=== PATIENT | female | born 1970 | race Caucasian/White ===

== ENCOUNTER 2020-10-21 17:15 | Emergency (ER) | payer OTHER, SELFPAY ==
[2020-10-21] VITALS (8 sets, daily range): BP systolic 114–132; BP diastolic 66–91; PULSE 75–89; RESP 16–21; TEMP 36.3–36.6; O2SAT 96–98; BMI 35.6
--- NOTE | 2020-10-21 17:28 | ECG_ITS ---
Test Reason : SYNCOPE Blood Pressure : / mmHG Vent. Rate : 085 BPM Atrial Rate : 085 BPM P-R Int : 170 ms QRS Dur : 106 ms QT Int : 408 ms P-R-T Axes : 034 003 -09 degrees QTc Int : 485 ms Normal sinus rhythm Minimal voltage criteria for LVH, may be normal variant Cannot rule out Anterior infarct , age undetermined Nonspecific ST and T wave abnormality Abnormal ECG No previous ECGs available Referred By: Obdulia Gee Electronically Signed By:LIV BUNCH
--- NOTE | 2020-10-21 17:59 | ED.SYNCOPE ---
HPI - Syncope General Chief Complaint: Syncope Stated Complaint: SYNCOPAL Time Seen by Provider: 10/21/20 17:28 History of Present Illness HPI narrative: Patient is a 50-year-old female with a history of irritable bowel syndrome. Normally gets lots of diarrhea. There is no blood in her stool but she is noticing increasing bouts due to stress. She had a colonoscopy done there was no abnormal findings. No history of diabetes, hypertension, mi, family history of WI. No history of smoking. Patient denies any chest pain. Has dizziness lightheadedness while she was walking down the aisle for Pedialyte which she was trying to obtain. Then she felt very lightheaded. Then she sat down and then had a syncopal episode. There was no trauma involved. Gradually regained her consciousness. Patient denies any fever chills. Denies any abdominal pain. Patient is from home. Related Data Allergies Allergy/AdvReac Type Severity Reaction Status Date / Time Sulfa (Sulfonamide Allergy Unknown Verified 11/07/19 00:00 Antibiotics) Erythromycin Allergy Unknown Uncoded 11/07/19 00:00 Review of Systems Review of Systems: Constitutional: No Weight loss, No Fever, No Chills, No Night Sweats, No Fatigue, No Malaise ENT/Mouth: No Hearing loss, No Ear Pain, No Nasal Congestion, No Sinus Pain, No Hoarseness, No sore throat, No Rhinorrhea, No Swallowing Difficulty Eyes: No Eye Pain, No Swelling, No Redness, No Foreign Body, No Discharge, No Vision Changes Cardiovascular: No Chest Pain, No SOB, No Dyspnea on Exertion, No Orthopnea, No Edema, No Palpitations Respiratory: No Cough, No Sputum, No Wheezing, No Smoke Exposure, No Dyspnea Gastrointestinal: No Nausea, No Vomiting, positive Diarrhea, No Constipation, No abdominal Pain, No Hematochezia, No Melena Genitourinary: no irregular bleeding, No Dysuria, No Urinary Frequency, No Hematuria, No Urinary Incontinence, No Urgency, No Flank Pain, No Urinary Flow Changes, No Hesitancy Musculoskeletal: No joint pain, No Myalgias, No Joint Swelling Skin: No Skin Lesions, No rash Neuro: No Weakness, positive Numbness, No Paresthesias, No Loss of Consciousness, positive Dizziness, No Headache Psych: No Anxiety/Panic, No Depression, No SI/HI/AH/VH, No Social Issues, Heme/Lymph: No Bruising, No Bleeding,No Lymphadenopathy Endocrine: No Polyuria, No Polydipsia, No Temperature Intolerance [facility] Past Medical History Medical History Depression Social History Social History Alcohol intake: never Smoked in Last 30 Days: No Use of substances other than those prescribed or required for medical reasons: No Advance Directives: No Advance Directives Information Provided: Yes Patient : No Physical Exam Vital Signs: Vital Signs: Last Vital Signs Temp 97.6 F 10/21/20 21:37 Pulse 76 10/21/20 21:51 Resp 17 10/21/20 21:37 BP 131/91 H 10/21/20 21:51 Pulse Ox 96 10/21/20 21:37 Body Mass Index 35.6 Appearance: Alert. Oriented X3. No acute distress. Eyes: Pupils equal, round and reactive to light. ENT: Pharynx normal. Mucous membrane is moist. Neck: Normal inspection. Neck supple. No lymph nodes noted. No crepitus CVS: Normal heart rate and rhythm. Pulses normal. Normal S1 and S2 Respiratory: No respiratory distress. Breath sounds normal. No Wheezing. No rales Abdomen: Soft and nontender. No rigidity. No distention. good BS x4 Skin: Skin warm and dry. Normal skin color. Normal skin turgor. Extremities: No lower extremity edema. Neurovascular intact to all extremities. No Lacerations. No Rash Neuro: Oriented X 3. No motor deficit. No sensory deficit. Moving all extermities. No slurred speech Course Course Course Narrative: Patient well-appearing no acute distress. Symptoms suggestive of vasovagal syncope. We will go ahead and give IV fluids. Will check electrolytes to monitor. Currently in stable condition. MDM - Syncope MDM Narrative Medical decision making narrative: Positive lightheadedness positive diarrhea positive syncopal episode without any trauma. There is no chest pain. There is no cardiac risk factors. Patient's symptoms most likely vasovagal in origin. We will go and give IV fluid will monitor carefully. EKG appears normal Patient's labs are unremarkable. Signs and symptoms suggestive of vasovagal syncope. Will discharge patient home. Close follow-up on an outpatient basis. Lab Data Result diagrams: 10/21/20 18:31 10/21/20 18:31 Labs: Lab Results 10/21/20 10/21/20 10/21/20 Range/Units 18:31 18:31 18:31 WBC 6.1 (4.8-10.8) X10*3/uL RBC 4.32 (4.20-5.50) X10*6/uL Hgb 13.3 (12.0-16.0) g/dl Hct 39.6 (37-47) % MCV 91.7 (80-98) fL MCH 30.8 (27.0-33.0) pg MCHC 33.6 (31.0-35.0) g/dl RDW 12.8 (11.0-16.0) % Plt Count 283 (160-400) X10*3/uL MPV 9.3 L (9.4-12.3) fL Immature Gran % (Auto) 0.5 H (0.0-0.4) % Neut % (Auto) 57.0 (45-73) % Lymph % (Auto) 31.4 (20-40) % Whitley % (Auto) 8.3 (2-11) % Eos % (Auto) 2.3 (0-4) % Baso % (Auto) 0.5 (0-2) % Lymph # (Auto) 1.9 (1.2-4.9) X10*3/uL Whitley # (Auto) 0.5 (0.1-1.2) X10*3/uL Eos # (Auto) 0.1 (0.0-0.4) X10*3/uL Baso # (Auto) 0.0 (0.0-0.2) X10*3/uL Abs Immat Gran (auto) 0.03 (0.00-0.03) X10*3/uL Absolute Neuts (auto) 3.5 (2.0-8.3) X10*3/uL Absolute Nucleated RBC 0.000 (0.0-0.012) X10*3/uL Nucleated RBC % (auto) 0.0 (0.0-0.2) /100WBC Hold Blue Top SEE NOTE Sodium 141 (135-145) mmol/L Potassium 3.7 (3.3-5.1) mmol/L Chloride 105 (96-108) mmol/L Carbon Dioxide 27 (22-29) mmol/L Anion Gap 13 (12-20) BUN 10 (9-16) mg/dL Creatinine 0.66 (0.5-1.4) mg/dL Estim Creat Clear Calc 119.1 Estimated GFR > 60 Random Glucose 97 (60-115) mg/dL Calcium 9.2 (8.4-10.2) mg/dL Magnesium 2.0 (1.6-2.6) mg/dL Total Bilirubin 0.3 (0.0-1.0) mg/dL Direct Bilirubin 0.2 (0.0-0.5) mg/dL AST 19 (5-31) U/L ALT 22 (0-31) U/L Alkaline Phosphatase 70 (39-117) U/L Troponin I High Sens (<3.5-17.0) ng/L Total Protein 7.0 (6.5-8.0) g/dL Albumin 4.5 (3.5-5.0) g/dL Urine Color Urine Appearance Urine pH (5.0-8.0) Ur Specific [place] (1.005-1.025) Urine Protein (NEG-TRACE) MG/DL Urine Glucose (UA) (NEG) MG/DL Urine Ketones (NEG) MG/DL Urine Blood (NEG) Urine Nitrite (NEG) Ur Leukocyte Esterase (NEG) Urine RBC (0) /HPF Urine WBC (0-4) /HPF Ur Squamous Epith Cells /LPF Urine Bacteria /LPF Urine Mucus /LPF Ethyl Alcohol mg/dL COVID-19 (MICHEL) (Negative) COVID-19 Clin Com 10/21/20 10/21/20 10/21/20 Range/Units 18:31 18:31 18:31 WBC (4.8-10.8) X10*3/uL RBC (4.20-5.50) X10*6/uL Hgb (12.0-16.0) g/dl Hct (37-47) % MCV (80-98) fL MCH (27.0-33.0) pg MCHC (31.0-35.0) g/dl RDW (11.0-16.0) % Plt Count (160-400) X10*3/uL MPV (9.4-12.3) fL Immature Gran % (Auto) (0.0-0.4) % Neut % (Auto) (45-73) % Lymph % (Auto) (20-40) % Whitley % (Auto) (2-11) % Eos % (Auto) (0-4) % Baso % (Auto) (0-2) % Lymph # (Auto) (1.2-4.9) X10*3/uL Whitley # (Auto) (0.1-1.2) X10*3/uL Eos # (Auto) (0.0-0.4) X10*3/uL Baso # (Auto) (0.0-0.2) X10*3/uL Abs Immat Gran (auto) (0.00-0.03) X10*3/uL Absolute Neuts (auto) (2.0-8.3) X10*3/uL Absolute Nucleated RBC (0.0-0.012) X10*3/uL Nucleated RBC % (auto) (0.0-0.2) /100WBC Hold Blue Top Sodium (135-145) mmol/L Potassium (3.3-5.1) mmol/L Chloride (96-108) mmol/L Carbon Dioxide (22-29) mmol/L Anion Gap (12-20) BUN (9-16) mg/dL Creatinine (0.5-1.4) mg/dL Estim Creat Clear Calc Estimated GFR Random Glucose (60-115) mg/dL Calcium (8.4-10.2) mg/dL Magnesium (1.6-2.6) mg/dL Total Bilirubin (0.0-1.0) mg/dL Direct Bilirubin (0.0-0.5) mg/dL AST (5-31) U/L ALT (0-31) U/L Alkaline Phosphatase (39-117) U/L Troponin I High Sens < 3.5 (<3.5-17.0) ng/L Total Protein (6.5-8.0) g/dL Albumin (3.5-5.0) g/dL Urine Color YELLOW Urine Appearance HAZY Urine pH 6.0 (5.0-8.0) Ur Specific [place] 1.015 (1.005-1.025) Urine Protein NEG (NEG-TRACE) MG/DL Urine Glucose (UA) NEG (NEG) MG/DL Urine Ketones NEG (NEG) MG/DL Urine Blood 3+ H (NEG) Urine Nitrite NEG (NEG) Ur Leukocyte Esterase NEG (NEG) Urine RBC 1-4 (0) /HPF Urine WBC 0 (0-4) /HPF Ur Squamous Epith Cells 2+ /LPF Urine Bacteria TRACE /LPF Urine Mucus TRACE /LPF Ethyl Alcohol < 10 mg/dL COVID-19 (MICHEL) (Negative) COVID-19 Clin Com 10/21/20 Range/Units 18:32 WBC (4.8-10.8) X10*3/uL RBC (4.20-5.50) X10*6/uL Hgb (12.0-16.0) g/dl Hct (37-47) % MCV (80-98) fL MCH (27.0-33.0) pg MCHC (31.0-35.0) g/dl RDW (11.0-16.0) % Plt Count (160-400) X10*3/uL MPV (9.4-12.3) fL Immature Gran % (Auto) (0.0-0.4) % Neut % (Auto) (45-73) % Lymph % (Auto) (20-40) % Whitley % (Auto) (2-11) % Eos % (Auto) (0-4) % Baso % (Auto) (0-2) % Lymph # (Auto) (1.2-4.9) X10*3/uL Whitley # (Auto) (0.1-1.2) X10*3/uL Eos # (Auto) (0.0-0.4) X10*3/uL Baso # (Auto) (0.0-0.2) X10*3/uL Abs Immat Gran (auto) (0.00-0.03) X10*3/uL Absolute Neuts (auto) (2.0-8.3) X10*3/uL Absolute Nucleated RBC (0.0-0.012) X10*3/uL Nucleated RBC % (auto) (0.0-0.2) /100WBC Hold Blue Top Sodium (135-145) mmol/L Potassium (3.3-5.1) mmol/L Chloride (96-108) mmol/L Carbon Dioxide (22-29) mmol/L Anion Gap (12-20) BUN (9-16) mg/dL Creatinine (0.5-1.4) mg/dL Estim Creat Clear Calc Estimated GFR Random Glucose (60-115) mg/dL Calcium (8.4-10.2) mg/dL Magnesium (1.6-2.6) mg/dL Total Bilirubin (0.0-1.0) mg/dL Direct Bilirubin (0.0-0.5) mg/dL AST (5-31) U/L ALT (0-31) U/L Alkaline Phosphatase (39-117) U/L Troponin I High Sens (<3.5-17.0) ng/L Total Protein (6.5-8.0) g/dL Albumin (3.5-5.0) g/dL Urine Color Urine Appearance Urine pH (5.0-8.0) Ur Specific [place] (1.005-1.025) Urine Protein (NEG-TRACE) MG/DL Urine Glucose (UA) (NEG) MG/DL Urine Ketones (NEG) MG/DL Urine Blood (NEG) Urine Nitrite (NEG) Ur Leukocyte Esterase (NEG) Urine RBC (0) /HPF Urine WBC (0-4) /HPF Ur Squamous Epith Cells /LPF Urine Bacteria /LPF Urine Mucus /LPF Ethyl Alcohol mg/dL COVID-19 (MICHEL) Negative (Negative) COVID-19 Clin Com See Note ECG Data Attestation: I personally reviewed and interpreted this ECG as follows: Interpretation: Sinus heart rate is 80 LA QRS QT within normal limits there is nonspecific T-wave flattening diffusely noted.
--- NOTE | 2020-10-21 18:31 | PC.NURSE ---
pt had another episode in the bathroom sitting on the toilet. pt responsive and answering questions during entire event, pt scrunching eyes closed and eye lids are fluttering. pt assisted to wc and back into bed.
[2020-10-21] MEDS: 0.9 % Sodium Chloride 1,000 ML 999 ML IV ×2 (18:33→19:43)
[2020-10-21 18:44] LABS: MANUAL DIFF FLAG NO
[2020-10-21 18:45] LABS: Basophils Percent Auto 0.5 % (0-2); Eosinophils Absolute Auto 0.1 X10*3/uL (0.0-0.4); Eosinophils Percent Auto 2.3 % (0-4); Hematocrit 39.6 % (37-47); Hemoglobin 13.3 g/dl (12.0-16.0); Imm Gran Abs Auto 0.03 X10*3/uL (0.00-0.03); Imm Gran Pct Auto 0.5 % (0.0-0.4); Lymphocytes Absolute Auto 1.9 X10*3/uL (1.2-4.9); Lymphocytes Percent Auto 31.4 % (20-40); Mean Corpuscular HGB Conc 33.6 g/dl (31.0-35.0); Mean Corpuscular Hemoglobin 30.8 pg (27.0-33.0); Mean Corpuscular Volume 91.7 fL (80-98); Mean Platelet Volume 9.3 fL (9.4-12.3); Monocytes Absolute Auto 0.5 X10*3/uL (0.1-1.2); Monocytes Percent Auto 8.3 % (2-11); Neutrophils Absolute Auto 3.5 X10*3/uL (2.0-8.3); Platelet Count 283 X10*3/uL (160-400); Red Blood Count 4.32 X10*6/uL (4.20-5.50); Red Cell Distribution Width 12.8 % (11.0-16.0); White Blood Count 6.1 X10*3/uL (4.8-10.8)
[2020-10-21 18:46] LABS: Glucose Urine UA NEG (NEG); Leukocyte Esterase Urine NEG (NEG); Nitrite Urine NEG (NEG); Specific Gravity - Urine 1.015 (1.005-1.025); Urine Blood 3+ (NEG); Urine Ketones NEG (NEG); Urine Protein NEG (NEG-TRACE)
[2020-10-21 18:47] LABS: Appearance Urine HAZY; Color Urine YELLOW
[2020-10-21 18:57] LABS: Bacteria Urine TRACE /LPF; Mucus Urine TRACE /LPF; Squamous Epithelial Cell Urine 2+ /LPF; WBC Urine 0 /HPF (0-4)
[2020-10-21 19:01] LABS: COVID-19 Test Negative (Negative)
[2020-10-21 19:10] LABS: Ethanol < 10 mg/dL
[2020-10-21 19:14] LABS: Alanine Aminotransferase 22 U/L (0-31); Albumin Level 4.5 g/dL (3.5-5.0); Alkaline Phosphatase 70 U/L (39-117); Anion Gap 13 (12-20); Aspartate Amino Transferase 19 U/L (5-31); Bilirubin Direct 0.2 mg/dL (0.0-0.5); Bilirubin Total 0.3 mg/dL (0.0-1.0); Blood Urea Nitrogen 10 mg/dL (9-16); Calcium 9.2 mg/dL (8.4-10.2); Carbon Dioxide 27 mmol/L (22-29); Chloride 105 mmol/L (96-108); Creatinine Clr Calc Pharmacy 119.1; Estimated Glomerular Filt Rate > 60; Glucose Random 97 mg/dL (60-115); Potassium 3.7 mmol/L (3.3-5.1); Sodium 141 mmol/L (135-145)
[2020-10-21 19:20] LABS: Troponin-I High Sensitivity < 3.5 ng/L (<3.5-17.0)
[2020-10-21] MEDS: Acetaminophen 325 MG TABLET 650 MG PO (20:46)
--- NOTE | 2020-10-21 20:47 | PC.NURSE ---
Pt medicated with Tylenol for a ROSS per request. Pt requesting PO intake.
--- NOTE | 2020-10-21 21:03 | PC.NURSE ---
Pt expressing concern to this RN, states she has a hematoma on her head from when she had a syncopal episode and fell. Pt rubbing the top of her head, stating here, here to this RN. This RN unable to feel any palpable hematoma/contusion. Pt requesting food/drink, provided with both. Continue to monitor.
--- NOTE | 2020-10-21 21:23 | PC.NURSE ---
Pt ambulating to and from the bathroom with a stringer/steady gait. Pt returned to bed into POC. Pt awaiting results and DC plan.
== END 2020-10-21 23:17 | disposition home or self-care (01) ==
PROVIDERS: Emergency Medicine; Emergency Provider Emergency Medicine Emergency Medical Services; PCP Internal Medicine
DX: R55 Syncope and collapse (principal); Z20.822 Contact with and (suspected) exposure to COVID-19; Z79.899 Other long term (current) drug therapy
CPT/HCPCS: 36415; 80048; 80076; 81001; 82077; 83735; 84484; 85025; 87635; 93005; 99285

== ENCOUNTER 2023-12-23 01:21 | Inpatient (IN) | payer OTHER, SELFPAY ==
[2023-12-23] VITALS (9 sets, daily range): BP systolic 115–147; BP diastolic 62–78; PULSE 69–89; RESP 16–20; TEMP 36.2–37.5; O2SAT 93–98; BMI 31.8; BMI 32.8
--- NOTE | ~2023-12-23 | US_ITS ---
EXAMINATION: US ABDOMEN COMPLETE CLINICAL INFORMATION: Abdominal pain, pancreatitis, elevated LFTs.. COMPARISON: CT abdomen pelvis 12/15/2023 at 3:14 AM. TECHNIQUE: Real-time imaging of the abdominal viscera. FINDINGS: PANCREAS: Normal. ABDOMINAL AORTA: The proximal, mid, and distal segments are normal in caliber. INFERIOR VENA CAVA: Visualized portions are normal. LIVER: Normal. The liver is normal in size. The liver contour is normal. Parenchymal echogenicity is normal. No focal hepatic lesion. There is no intrahepatic biliary duct dilatation seen. GALLBLADDER: There are echogenic gallstones without wall thickening. There is trace pericholecystic fluid collection suspected. COMMON BILE DUCT: Normal in caliber measuring 0.70 cm in diameter. RIGHT KIDNEY: Normal. No hydronephrosis. No renal calculi or focal parenchymal lesions. The kidney measures 11.3 cm in maximum dimension. LEFT KIDNEY: There is anechoic simple cyst midpole measuring 1.9 x 2.0 x 1.9 cm. It is unchanged to earlier CT abdomen exam 12/23/2023 No hydronephrosis. No renal calculi or focal parenchymal lesions. The kidney measures 11.2 cm in maximum dimension. SPLEEN: Normal. The spleen measures 11.7 cm in maximum dimension. FREE FLUID: None. US/US abdomen complete IMPRESSION: Cholelithiasis without wall thickening. Suspect trace pericardial gallbladder fluid collection. Simple cyst midpole left kidney. No further workup needed..
--- NOTE | ~2023-12-23 | MR_ITS ---
EXAMINATION: MR ABDOMEN WITHOUT CONTRAST CLINICAL INFORMATION: Elevated amylase and lipase. COMPARISON: Abdominal ultrasound 12/23/2023 CT abdomen/pelvis 12/23/2023 TECHNIQUE: MR abdomen is performed without gadolinium contrast. Heavily T2 weighted MRCP sequences were also obtained. FINDINGS: LUNG BASES: Small right pleural effusion. LIVER, GALLBLADDER, AND BILIARY TREE: The liver is normal in size, smooth in contour, and normal in signal. No focal hepatic lesion. The common duct measures 5 mm at the tavares hepatis. No intraductal filling defects. No intrahepatic biliary ductal dilatation.. Gallbladder is distended with few gallstones and biliary sludge. Diffuse gallbladder wall thickening and gallbladder wall edema. PANCREAS: Peripancreatic stranding and edema. No ductal dilatation. Fluid in the right anterior pararenal space. SPLEEN: Not enlarged. ADRENAL GLANDS: No adrenal mass. KIDNEYS AND URETERS: Benign-appearing T2 hyperintense left renal cyst, no imaging follow-up recommended. Mild fullness of the right collecting system. Nonspecific right perinephric stranding. GASTROINTESTINAL TRACT: No bowel obstruction. LYMPH NODES: No bulky lymphadenopathy. VASCULAR: Normal caliber abdominal aorta. MR/MR MRCP IMPRESSION: Gallbladder distention with stones and sludge. Gallbladder wall thickening and edema. This may represent acute cholecystitis. Peripancreatic stranding and edema. Fluid in the right anterior pararenal space. This likely represents acute pancreatitis. Mild fullness of the right renal collecting system with right perinephric stranding. This is likely on a reactive basis related to surrounding inflammation. Right pleural effusion.
--- NOTE | ~2023-12-23 | CT_ITS ---
EXAMINATION: CT ABDOMEN AND PELVIS WITH CONTRAST CLINICAL INFORMATION: Abdominal pain, elevated lipase COMPARISON: None available. TECHNIQUE: Multidetector volumetric images were obtained from the superior aspect of the liver through the pubic symphysis following administration 85 mL of Omnipaque 350 intravenous contrast. Sagittal and coronal reformatted images were obtained on the technologist's workstation. Oral contrast: No This CT examination was performed using dose optimization techniques as appropriate, variously including the following: *Automated exposure control *Adjustment of mA and/or kV according to patient size (this includes techniques or standardized protocols for targeted exams where dose is matched to indication/reason for exam; i.e. extremities or head) *Use of iterative reconstruction technique DLP: 828 mGy-cm FINDINGS: LUNG BASES: Limited evaluation due to motion artifact. Mild bibasilar atelectasis is suspected. LIVER, GALLBLADDER, AND BILIARY TREE: The liver is normal in size, shape, and attenuation. No focal hepatic lesion or biliary ductal dilatation is present. The gallbladder is unremarkable with no evidence of radiopaque gallstones, gallbladder wall thickening, or obvious pericholecystic inflammatory changes. PANCREAS: Somewhat limited evaluation due to motion artifact. Homogeneous enhancement. No appreciable peripancreatic inflammation or ductal dilatation. SPLEEN: Unremarkable. ADRENAL GLANDS: Unremarkable. KIDNEYS AND URETERS: Bilateral nephrograms are symmetric. No hydronephrosis or obstructing calculus identified. Posterior left renal cyst measures approximately 2.1 cm; no follow-up recommended. BLADDER: Unremarkable. GASTROINTESTINAL TRACT: No evidence of bowel obstruction or significant wall thickening. No free air is seen. ABDOMINAL WALL: Small fat-containing umbilical hernia. LYMPH NODES: Normal. VASCULAR: Unremarkable. PELVIC VISCERA: Right-sided uterine mass measuring up to approximately 6.3 cm is favored to represent a fibroid. Trace pelvic free fluid noted. OSSEOUS STRUCTURES: Degenerative changes of the lower lumbar spine. CT/CT abdomen pelvis w IV con IMPRESSION: 1. Somewhat limited assessment due to motion artifact. No convincing evidence for pancreatitis. 2. Trace nonspecific pelvic free fluid, which may be physiologic. 3. Right-sided uterine mass measuring up to approximately 6.3 cm, favored to represent a fibroid. This could be further assessed with pelvic ultrasound.
--- NOTE | ~2023-12-23 | FL_ITS ---
EXAMINATION: XR FLUOROSCOPY WITH IMAGES CLINICAL INFORMATION: Intraoperative cholangiogram. COMPARISON: None available. TECHNIQUE: Fluoroscopy Supervised By: Dr. Michel. Fluoroscopy Time: 6.1 sec. Cumulative Dose: 0.339 mGy. DAP: 0.7675 Gycm2. Images: 4. FINDINGS: Intraoperative fluoroscopy and spot films were performed during a procedure in the OR. Injection in the cystic duct fills the biliary tree and common bile duct. No filling defects are seen. Contrast is present in the second portion of the duodenum. Please correlate with Anand's report for complete details. FL/FL guidance in OR IMPRESSION: Intraoperative fluoroscopy and spot films were obtained. Please see Anand's report for complete details.
--- NOTE | ~2023-12-23 | XR_ITS ---
EXAMINATION: XR CHEST CLINICAL INFORMATION: Acute pancreatitis, decreased breath sounds COMPARISON: None available. TECHNIQUE: Frontal view of the chest was obtained. FINDINGS: Lung volumes are symmetric. Mild streaky right basilar opacity is more suggestive of atelectasis. No evidence of pneumothorax, pleural effusion, or pulmonary edema. The cardiomediastinal contour is unremarkable. No acute osseous findings are seen. XR/XR chest 1V IMPRESSION: Mild streaky right basilar opacity more suggestive of atelectasis.
[2023-12-23 01:51] LABS: Basophils Percent Auto 0.4 % (0-2); Eosinophils Absolute Auto 0.2 X10*3/uL (0.0-0.4); Eosinophils Percent Auto 2.4 % (0-4); Hematocrit 38.1 % (37.0-47.0); Imm Gran Abs Auto 0.07 X10*3/uL (0.00-0.03); Lymphocytes Absolute Auto 2.1 X10*3/uL (1.2-4.9); Lymphocytes Percent Auto 31.1 % (20-40); MANUAL DIFF FLAG NO; Mean Corpuscular HGB Conc 34.1 g/dl (31.0-35.0); Mean Corpuscular Hemoglobin 31.3 pg (27.0-33.0); Mean Corpuscular Volume 91.6 fL (80.0-98.0); Mean Platelet Volume 8.8 fL (9.4-12.3); Monocytes Absolute Auto 0.5 X10*3/uL (0.1-1.2); Monocytes Percent Auto 7.1 % (2-11); Neutrophils Absolute Auto 3.9 x10*3/uL (2.0-8.3); Platelet Count 254 X10*3/uL (160-400); Red Blood Count 4.16 X10*6/uL (4.20-5.50); Red Cell Distribution Width 12.5 % (11.0-16.0); White Blood Count 6.7 X10*3/uL (4.8-10.8)
[2023-12-23 02:11] LABS: Alanine Aminotransferase 55 U/L (0-31); Alkaline Phosphatase 63 U/L (39-117); Anion Gap 14 (12-20); Aspartate Amino Transferase 75 U/L (5-31); Bilirubin Total 0.2 mg/dL (0.0-1.0); Blood Urea Nitrogen 21 mg/dL (9-16); Calcium 9.1 mg/dL (8.4-10.2); Carbon Dioxide 24 mmol/L (22-29); Chloride 106 mmol/L (96-108); Creatinine Clr Calc Pharmacy 103.8; Estimated Glomerular Filt Rate > 60; Glucose Random 114 mg/dL (60-115); Potassium 4.1 mmol/L (3.3-5.1); Sodium 140 mmol/L (135-145)
[2023-12-23 02:22] LABS: Lipase > 3000 U/L (8-78)
--- NOTE | 2023-12-23 02:57 | ED.ABDPAIN ---
HPI - Abdominal Pain General Chief Complaint: Abdominal Pain Stated Complaint: ABD PAIN Time Seen by Provider: 12/23/23 02:41 Source: patient Mode of arrival: ambulatory Limitations: no limitations History of Present Illness ED Provider: Dr. Bravo Mancuso HPI narrative: 53-year-old female with a history of migraine headaches who presents emergency department for evaluation of sudden onset abdominal pain at 23:30 hours. The patient states she was sitting in a recliner when she had a sudden onset of pain. She states the pain started in her left lower quadrant then became generalized around her entire abdomen. The pain is a constant, sharp pain which is greater than 10/10. She states that she may have had similar pain when she had appendicitis however this pain is much more severe. Patient had associated nausea with no vomiting. She denied fever, chills, chest pain, shortness of breath, frequency, urgency, dysuria. She has not noticed any dark stools or bloody stools. Patient was not been started on a new drugs. She denies drug and alcohol use. Related Data Allergies Allergy/AdvReac Type Severity Reaction Status Date / Time Sulfa (Sulfonamide Allergy Unknown Unknown Verified 12/23/23 01:34 Antibiotics) Erythromycin Allergy Unknown Unknown Uncoded 12/23/23 01:34 Review of Systems Review of Systems Yes all other systems are reviewed and are negative [facility] Past Medical History [facility] Narrative: Social history: She denies tobacco, alcohol and drug use. She was and lives with her . Medical History Depression Social History Social History Alcohol intake: never Patient Tobacco Use Status: Never used Tobacco Advance Directives: No Advance Directives Information Provided: No Do you have a plan to hurt others: No Plan Nutrition Risks: No Nutritional Risk Physical Exam ED Vital Signs: Vital Signs - 24 hr 12/23/23 01:36 Temperature 98.4 F Pulse Rate 82 Respiratory Rate 18 Blood Pressure 147/78 H Pulse Oximetry 98 Oxygen Delivery Method Room Air BMI result Body Mass Index 31.8 Vital signs revealed an elevated blood pressure of 147/78 otherwise unremarkable. Exam: General: Awake, alert in no distress, weight 89.5 kg, elevated BMI of 31.8 kg per m2 Head: Normocephalic, atraumatic EENT: PERRL, Lids normal, sclera normal, conjunctiva normal, nose normal , ears normal, throat without erythema or exudates Neck: Supple, no adenopathy Lung: breath sounds symmetric, no wheezing, rales or rhonchi Chest: symmetric movement, nontender Heart: regular rate and rhythm, normal S1, S2 no murmurs or rubs Abdomen: soft, moderate to severe diffuse tenderness, no rebound, no voluntary or involuntary guarding Back: no vertebral tenderness, no CVAT Extremities: no deformities, moves all extremities symmetrically Neuro: Awake, alert, oriented, normal speech, cranial nerves intact, moves all extremities symmetrically Psych: Pleasant, cooperative Medical Decision Making Medical Decision Making MDM Narrative: 53-year-old female with a history of migraines, appendectomy who presents emergency department for evaluation of sudden onset of left lower quadrant and now diffuse abdominal pain which is greater than 10/10. This is the patient's 1st episode of this type of pain. She denies drug or alcohol use. Vital signs revealed an elevated blood pressure. Physical examination revealed diffuse abdominal tenderness Differential diagnosis: ?Includes but is not limited to bowel perforation, pancreatitis, gastritis, diverticulitis, anemia, electrolyte abnormalities Following evaluation was ordered: CBC, CMP, lipase, lipid panel, urinalysis, CT scan of the abdomen pelvis with IV contrast Patient was initially treated with the following: Dilaudid 1 mg IV, Zofran 4 mg IV, lactated Ringer's x2 L IV. Course: 03:07 My interpretation patient's laboratory evaluation as follows: CBC was normal. CMP revealed an elevated BUN of 21 with a normal creatinine of 0.69. AST and ALT were elevated 75 and 55. Lipase was greater than 3000. Urinalysis revealed 3+ blood. Microscopic revealed 1-4 RBCs, 0 WBCs, trace bacteria. The patient had 3+ blood but only if you RBCs therefore added CK to rule out rhabdomyolysis. Patient's CT scan of the abdomen pelvis is pending. I did discuss admission with the covering hospitalist, Dr. Day over tiger text and the patient will be admitted to the hospitalist service for further treatment Admission/Observation Consideration of admission/observation: Escalation of care including admission/observation considered Lab Data MDM Lab Attestation statement: I reviewed the patient's lab results. 12/23/23 01:44 12/23/23 01:44 Labs: Lab Results 12/23/23 Range/Units 01:44 WBC 6.7 (4.8-10.8) X10*3/uL RBC 4.16 L (4.20-5.50) X10*6/uL Hgb 13.0 (12.0-16.0) g/dl Hct 38.1 (37.0-47.0) % MCV 91.6 (80.0-98.0) fL MCH 31.3 (27.0-33.0) pg MCHC 34.1 (31.0-35.0) g/dl RDW 12.5 (11.0-16.0) % Plt Count 254 (160-400) X10*3/uL MPV 8.8 L (9.4-12.3) fL Immature Gran % (Auto) 1.0 H (0.0-0.4) % Neut % (Auto) 58.0 (45-73) % Lymph % (Auto) 31.1 (20-40) % [place] % (Auto) 7.1 (2-11) % Eos % (Auto) 2.4 (0-4) % Baso % (Auto) 0.4 (0-2) % Lymph # (Auto) 2.1 (1.2-4.9) X10*3/uL [place] # (Auto) 0.5 (0.1-1.2) X10*3/uL Eos # (Auto) 0.2 (0.0-0.4) X10*3/uL Baso # (Auto) 0.0 (0.0-0.2) X10*3/uL Abs Immat Gran (auto) 0.07 H (0.00-0.03) X10*3/uL Absolute Neuts (auto) 3.9 (2.0-8.3) x10*3/uL Absolute Nucleated RBC 0.000 (0.0-0.012) X10*3/uL Nucleated RBC % (auto) 0.0 (0.0-0.2) /100WBC Sodium 140 (135-145) mmol/L Potassium 4.1 (3.3-5.1) mmol/L Chloride 106 (96-108) mmol/L Carbon Dioxide 24 (22-29) mmol/L Anion Gap 14 (12-20) BUN 21 H (9-16) mg/dL Creatinine 0.69 (0.5-1.4) mg/dL Estim Creat Clear Calc 103.8 Estimated GFR > 60 Random Glucose 114 (60-115) mg/dL Calcium 9.1 (8.4-10.2) mg/dL Total Bilirubin 0.2 (0.0-1.0) mg/dL AST 75 H (5-31) U/L ALT 55 H (0-31) U/L Alkaline Phosphatase 63 (39-117) U/L Total Creatine Kinase 59 (26-140) U/L Total Protein 7.0 (6.5-8.0) g/dL Albumin 4.0 (3.5-5.0) g/dL Triglycerides 138 (<150) mg/dL Cholesterol 185 (<200) mg/dL LDL Cholesterol, Calc 107 H (<100) mg/dL HDL Cholesterol 51 (>40) mg/dL Lipase > 3000 H (8-78) U/L Radiology Impression Discussion of test interpretation with radiology: I have reviewed the radiologist's reading. Radiologist Impression: CT abdomen pelvis w IV con IMPRESSION: 1. Somewhat limited assessment due to motion artifact. No convincing evidence for pancreatitis. 2. Trace nonspecific pelvic free fluid, which may be physiologic. 3. Right-sided uterine mass measuring up to approximately 6.3 cm, favored to represent a fibroid. This could be further assessed with pelvic ultrasound. Dictated By: Neel Armendariz MD Medications Administered Generic Name Dose Route Start Last Admin Trade Name Freq PRN Reason Stop Dose Admin Enoxaparin Sodium 40 mg 12/23/23 04:00 12/23/23 04:44 Enoxaparin Sodium 40 Mg/0.4 Ml Syringe SUBCUT 40 mg Q24H LENCHO Administration Lactated Ringer's 1,000 mls @ 150 mls/hr 12/23/23 04:00 12/23/23 04:44 Lr IVCONT 150 mls/hr .Q6H40M LENCHO Administration Discontinued Medications Generic Name Dose Route Start Last Admin Trade Name Freq PRN Reason Stop Dose Admin Hydromorphone HCl 1 mg 12/23/23 02:53 12/23/23 02:59 Hydromorphone Hcl 1 Mg/Ml Syringe IVPUSH 12/23/23 02:54 1 mg ONCE STA Administration Protocol Lactated Ringer's 1,000 mls @ 999 mls/hr 12/23/23 03:00 12/23/23 04:19 Lr IV 12/23/23 04:00 Infused .Q1H1M LENCHO Infusion Lactated Ringer's 1,000 mls @ 999 mls/hr 12/23/23 03:00 12/23/23 04:18 Lr IV 12/23/23 04:00 999 mls/hr .Q1H1M LENCHO Administration Iohexol 85 ml 12/23/23 03:19 12/23/23 03:20 Iohexol 350 Mg/Ml 100 Ml Infus..Btl IV 12/23/23 03:20 85 ml ONCE ONE Administration Ondansetron HCl 4 mg 12/23/23 02:53 12/23/23 02:59 Ondansetron Hcl 4 Mg/2 Ml Vial IVPUSH 12/23/23 02:54 4 mg ONCE ONE Administration Discharge Plan Discharge Clinical Impression: Acute pancreatitis Patient Disposition: Admitted As Inpatient
[2023-12-23] MEDS: ondansetron HCL 4 MG/2 ML VIAL IVPUSH ×2 (02:59→07:43)
[2023-12-23] MEDS: HYDROmorphone HCl 1 MG/ML SYRINGE IVPUSH ×4 (02:59→21:24)
[2023-12-23] MEDS: Lactated Ringers 1,000 ML 999 ML IV ×2 (03:00→04:18)
[2023-12-23] MEDS: iohexoL 350 MG/ML 100 ML INFUS..BTL 85 ML IV (03:20)
[2023-12-23 03:21] LABS: Cholesterol 185 mg/dL (<200); HDL Cholesterol 51 mg/dL (>40); LDL Cholesterol Calculated 107 mg/dL (<100); Triglycerides 138 mg/dL (<150)
--- NOTE | 2023-12-23 04:35 | PM.IMHP ---
History of Present Illness Date of Service: 12/23/23 Attending physician on admission: Marcella Napier Chief Complaint: LLQ abdominal pain Charity Soria is a very pleasant 53 years old woman with past medical history significant for depression multiple oral agents presents to the emergency department via ambulance due to severe left lower quadrant pain that started last night at 11:30 PM. She described the pain as stabbing in nature associated with nausea. She denied any event of vomiting or diarrhea. Her last movement was yesterday and was normal. There is no fever or chills reported. Denies alcohol abuse, illicit drug use or tobacco smoking. There is no history of hyperlipidemia, gallstones or pancreatitis. She has been using Zepbound injection for weight loss (last dose was December 16. Her other home medications include escitalopram, amitriptyline, bupropion, lamotrigine, gabapentin, fesoterodine. Past surgical history is remarkable for appendectomy. In the ED, she was found to have normal vital signs. Blood workup was remarkable for markedly elevated lipase, >3000. Elevated transaminases. Bilirubin and alk-phos are normal. Abdomen pelvis CT scan with IV contrast showed no convincing evidence of pancreatitis (but artifact due to motion), trace nonspecific pelvic free fluid (physiological) and right uterine mass -likely fibroid. ED tx: Dilaudid 1 mg IV, Zofran 4 mg IV, LR 2 L bolus. Review of Systems Review of Systems: All 12 systems were reviewed and normal except as noted in HPI. [facility] Medical History (Updated 12/23/23 @ 05:51 by Marcella Napier MD) Migraine Depression Social History Alcohol intake: never Patient Tobacco Use Status: Never used Tobacco Advance Directives: No Advance Directives Information Provided: No Do you have a plan to hurt others: No Plan Nutrition Risks: No Nutritional Risk Meds Allergies Allergy/AdvReac Type Severity Reaction Status Date / Time Sulfa (Sulfonamide Allergy Unknown Unknown Verified 12/23/23 01:34 Antibiotics) Erythromycin Allergy Unknown Unknown Uncoded 12/23/23 01:34 Active Medications: Current Medications Enoxaparin Sodium (Enoxaparin Sodium 40 Mg/0.4 Ml Syringe) 40 mg SUBCUT Q24H [facility] Lactated Ringer's (Lr) 1,000 mls @ 150 mls/hr IVCONT .Q6H40M [facility] Sodium Chloride (0.9 % Sodium Chloride Flush 3 Ml Syringe) 3 ml IVFLUSH QSHIFT [facility] Physical Exam Vital Signs and Narrative: Vital Signs: Last Vital Signs Temp 98.4 F 12/23/23 01:36 Pulse 89 12/23/23 04:13 Resp 19 12/23/23 04:13 BP 116/69 12/23/23 04:13 Pulse Ox 93 12/23/23 04:13 O2 Del Method Room Air 12/23/23 04:13 BMI result Body Mass Index 31.8 Constitutional - Awake and Alert, No apparent distress. Pleasant. Cooperative. HEENT - EOMI. Dry oral mucosa. Normal sclerae. Heart -RRR, No murmur. Lungs - Normal lung expansion, Normal respiratory effort, No respiratory distress. Decreased breath sound at bases. Abdomen - Nondistended. Increased bowel sounds. Left lower quadrant tenderness. No guarding no rebound. Extremities - no calf tenderness bilaterally, no swelling Musculoskeletal - Normal inspection, normal ROM Skin - Warm/Dry Neurological - Alert & oriented x3. No focal weakness grossly noted. Normal speech. Psychological - Appropriate affect Results Labs 12/23/23 01:44 12/23/23 01:44 Labs: Laboratory Results - last 24 hr 12/23/23 01:44 MCV 91.6 MCH 31.3 MCHC 34.1 RDW 12.5 Plt Count 254 MPV 8.8 L Immature Gran % (Auto) 1.0 H Neut % (Auto) 58.0 Lymph % (Auto) 31.1 [place] % (Auto) 7.1 Eos % (Auto) 2.4 Baso % (Auto) 0.4 Lymph # (Auto) 2.1 [place] # (Auto) 0.5 Eos # (Auto) 0.2 Baso # (Auto) 0.0 Abs Immat Gran (auto) 0.07 H Absolute Neuts (auto) 3.9 Absolute Nucleated RBC 0.000 Nucleated RBC % (auto) 0.0 Anion Gap 14 Estim Creat Clear Calc 103.8 Estimated GFR > 60 Random Glucose 114 Calcium 9.1 Total Bilirubin 0.2 AST 75 H ALT 55 H Alkaline Phosphatase 63 Total Creatine Kinase 59 Total Protein 7.0 Albumin 4.0 Triglycerides 138 Cholesterol 185 LDL Cholesterol, Calc 107 H HDL Cholesterol 51 Lipase > 3000 H Imaging Radiologist's Impressions: Impressions Abdomen/Pelvis CT 12/23/23 03:23 IMPRESSION: 1. Somewhat limited assessment due to motion artifact. No convincing evidence for pancreatitis. 2. Trace nonspecific pelvic free fluid, which may be physiologic. 3. Right-sided uterine mass measuring up to approximately 6.3 cm, favored to represent a fibroid. This could be further assessed with pelvic ultrasound. Assessment and Plan (1) Acute pancreatitis: Qualifiers: Pancreatitis type: drug induced Acute pancreatitis complication: no infection or necrosis Qualified Code(s): K85.30 - Drug induced acute pancreatitis without necrosis or infection Status: Acute (2) Abnormal AST and ALT: Status: Acute Plan Charity Soria is a 53 y/o woman admitted with: Acute pancreatitis, suspecting secondary to Zepbound injection. Possibly other home meds contributing to this. Admit to hospitalist service. NPO. Continue IV fluids. Pain control with Dilaudid IV needed. Antiemetic therapy as needed. Continue to monitor LFTs and lipase. GI consult. Transaminitis, mild. Continue to monitor LFTs. Depression. Home medication hold due to NPO state and pancreatitis. Overreactive bladder. Home medication hold due to NPO status. Migraine. No acute symptoms reported. DVT prophylaxis: Lovenox. Code status: Full Patient will need hospitalization for at least 2 midnights for acute pancreatitis treatment with IV fluids and IV pain management; we will need close monitoring of symptoms and lipase level. Quality Stroke Does the patient have a stroke diagnosis?: No VTE Prior VTE?: No VTE Risk Level:: Medical - moderate - high VTE Device Contraindication: Treatment Not Indicated VTE Drug Contraindication: N/A - Med Ordered
[2023-12-23] MEDS: Lactated Ringers 1,000 ML 150 ML IVCONT ×3 (04:44→17:11)
[2023-12-23] MEDS: Enoxaparin Sodium 40 MG/0.4 ML SYRINGE SUBCUT (04:44)
[2023-12-23 04:56] LABS: C Reactive Protein 0.11 mg/dL (< or = 0.50)
--- NOTE | 2023-12-23 08:08 | PC.NURSE ---
was up to BR w/o assist. iv was removed accidentally. upon return new access established pt c/o severe headache and abd pain. medicated and now resting quietyl. skinpwd. dry mm. awaits transfer to floor.
--- NOTE | 2023-12-23 08:35 | PC.NURSE ---
doesn't feel any better. aware of room assignment.
--- NOTE | 2023-12-23 09:30 | PHA.MEDREC ---
Pharmacy Consult ? Medication Reconciliation Pharmacy has completed the medication reconciliation. Takes amitriptyline 50 mg PM, Divalproex 500 mg PM, Lamictal 75 mg daily, although claim history may indicate otherwise.
[2023-12-23 10:32] LABS: Appearance Urine Clear; Color Urine Yellow; Glucose Urine UA Negative (Negative); Leukocyte Esterase Urine Trace (Negative); Nitrite Urine Positive (Negative); Specific Gravity - Urine >= 1.030 (1.005-1.025); UMIC TRIGGER UACC YES; Urine Blood Negative (Negative); Urine Ketones Negative (Negative); Urine Protein Negative (Neg-Trace)
[2023-12-23 10:35] LABS: Bacteria Urine 4+ (None Seen); Hyaline Casts Urine 0-2 /LPF (0-2); RBC Urine 0-2 /HPF (0-2); Squamous Epithelial Cell Urine 0-2 /HPF (0-2); UACC Culture Trigger YES
--- NOTE | 2023-12-23 11:36 | PM.EVENT ---
Event Note Date of Service: 12/23/23 Event Note: This patient is seen and examined by hospitalist service this this morning, seen and examined again Abdominal pain somewhat improving, has nausea. Physical exam: unchanged fromh&Pexcept abd pain somewhat improving assessment and plan coordinated in APCs note, Agree with the plan in addition: ? acute pancreatitis -possible med related continue bowel rest ,ivf ,pain meds ,ppi,Gi eval Time Spent With Patient Time: Total time managing care of this patient today ____ minutes.
--- NOTE | 2023-12-23 12:23 | PM.GICN ---
History of Present Illness Data of Consult Service Date: 12/23/23 Requesting physician: Marcella Napier Primary Care Provider: Unknown Physician HPI Reason for consult: Acute pancreatitis 53 YF with hx of depression (on multiple oral agents) seen at [facility] ED on 12/23/23 with severe left lower quadrant pain associated with nausea. Pt reports she noted shooting LLQ pain last night around 11:30 pm while she was sitting in her recliner. She went to the bathroom to have a BM which was normal (found it hard to walk and move) She describes the pain as 10/10 in intensity with pressure and deep constant pain (also notes pain in her lower back). Pt denies fever, chills, sweating or change in bowel habits. Pt denies smoking, alcohol or, illicit drug use (takes a glass of wine with dinner occasionally). There is no history of hyperlipidemia, gallstones or pancreatitis. Pt reports she started using Zepbound injection for weight loss in Sep, 2023 (last dose was December 16). Her other home medications include escitalopram, amitriptyline, bupropion, lamotrigine, gabapentin, fesoterodine. Past surgical history is remarkable for appendectomy. Pt reports having a colonoscopy 3 years ago for evaluation of fecal incontinence and was diagnosed with IBS. She was advised to refrain from eating spicy food. She complains of feeling something in her throat and had an episode of choking - relief by Heimlich maneuver. She is being scheduled for an upper endoscopy by her division operations specialist. 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 Labs showed a markedly elevated lipase, >3000. Elevated transaminases. Bilirubin and alk-phos are normal. ED tx: Dilaudid 1 mg IV, Zofran 4 mg IV, LR 2 L bolus. 12/23/[address] SCAN SHOWED: 1. Somewhat limited assessment due to motion artifact. No convincing evidence for pancreatitis. 2. Trace nonspecific pelvic free fluid, which may be physiologic. 3. Right-sided uterine mass measuring up to approximately 6.3 cm, favored to represent a fibroid. This could be further assessed with pelvic ultrasound. Review of Systems Review of Systems: All 12 systems were reviewed and normal except as noted in HPI. [facility] Past Medical History Medical History (Updated 12/25/23 @ 13:51 by Shannon Null RN) RONNIE (obstructive sleep apnea) Migraine Depression Surgical History Surgical History (Updated 12/26/23 @ 07:43 by Ke Michel MD) H/O colonoscopy History of appendectomy Social History Social History Household Members: Family Housing: House Do you presently have visiting nurse or other home services: No Alcohol intake: never Patient Tobacco Use Status: Never used Tobacco service: No Meds Allergies Allergy/AdvReac Type Severity Reaction Status Date / Time Sulfa (Sulfonamide Allergy Severe Rash Verified 12/25/23 11:50 Antibiotics) sulfamethoxazole Allergy Severe Rash Verified 12/25/23 11:50 [From Bactrim] trimethoprim [From Bactrim] Allergy Severe Rash Verified 12/25/23 11:50 Erythromycin Allergy Severe Gastrointestinal Uncoded 12/25/23 11:50 Upset Active Medications: Current Medications Amitriptyline HCl (Amitriptyline Hcl 50 Mg Tablet) 50 mg PO BEDTIME [facility] Bupropion HCl (Bupropion Hcl Xl 300 Mg Tab.Er.24h) 300 mg PO DAILY [facility] Capsaicin (Capsaicin 0.025% Cream 60 Gm Tube) 1 appl TOPICAL QID LENCHO; Protocol Divalproex Sodium (Divalproex Sodium 500 Mg Tablet.Dr) 500 mg PO BEDTIME [facility] Duloxetine HCl (Duloxetine Hcl 60 Mg Capsule.Dr) 60 mg PO DAILY [facility] Enoxaparin Sodium (Enoxaparin Sodium 40 Mg/0.4 Ml Syringe) 40 mg SUBCUT Q24H [facility] Last Admin: 12/23/23 04:44 Dose: 40 mg Escitalopram Oxalate (Escitalopram Oxalate 20 Mg Tablet) 20 mg PO DAILY [facility] Hydromorphone HCl (Hydromorphone Hcl 1 Mg/Ml Syringe) 1 mg IVPUSH Q4H PRN; Protocol PRN Reason: Pain, Severe (Pain Scale 7-10) Last Admin: 12/23/23 07:43 Dose: 1 mg Hydromorphone HCl (Hydromorphone Hcl 1 Mg/Ml Syringe) 1 mg IVPUSH Q12H PRN; Protocol PRN Reason: Pain, Moderate(Pain Scale 4-6) Lactated Ringer's (Lr) 1,000 mls @ 150 mls/hr IVCONT .Q6H40M [facility] Last Admin: 12/23/23 10:42 Dose: 150 mls/hr Lamotrigine (Lamotrigine 25 Mg Tablet) 75 mg PO DAILY [facility] Lidocaine (Lidocaine 4 % Patch Adh..Patch) 1 patch TRANSDERMA DAILY [facility]; Protocol Multivitamins/Vitamin C (Multivitamin Tablet) 1 tab PO DAILY [facility] Non-Formulary Medication (Calcium Carb,Gluc-Mag Gluc,Ox [Calcium Magnesium]) 1 tab PO DAILY [facility] Non-Formulary Medication (Eletriptan) 40 mg PO DAILY MRX1 PRN PRN Reason: Migraine Headache Non-Formulary Medication (Fesoterodine) 4 mg PO DAILY [facility] Non-Formulary Medication (Hyoscyamine Sulfate) 0.25 mg PO BID PRN PRN Reason: GI Upset Non-Formulary Medication (Tirzepatide (Weight Loss) [Zepbound]) 2.5 mg SUBCUT TU@0900 [facility] Non-Formulary Medication (Zolmitriptan) 5 mg NOSTRIL-B DAILY MRX1 PRN PRN Reason: Migraine Headache Ondansetron HCl (Ondansetron Hcl 4 Mg/2 Ml Vial) 4 mg IVPUSH Q6H PRN PRN Reason: Nausea and Vomiting Last Admin: 12/23/23 07:43 Dose: 4 mg Oxybutynin Chloride (Oxybutynin Chloride Er 5 Mg Tab.Er.24) 10 mg PO DAILY [facility] Pantoprazole Sodium (Pantoprazole Sodium 40 Mg/10 Ml Vial) 40 mg IVPUSH BID@0630,1630 [facility] Sodium Chloride (0.9 % Sodium Chloride Flush 3 Ml Syringe) 3 ml IVFLUSH QSHIFT [facility] Last Admin: 12/23/23 07:44 Dose: Not Given Home Medications ?Medication ?Instructions ?Recorded ?Confirmed ?Last Taken ?Type amitriptyline 25 mg tablet 50 mg PO BEDTIME 12/23/23 12/23/23 Unknown History bupropion HCl 300 mg 24 hr tablet, 300 mg PO DAILY 12/23/23 12/23/23 12/22/23 History extended release calcium carb, gluc 500 mg 1 tab PO DAILY 12/23/23 12/23/23 12/22/23 History calcium-magnesium gluc, oxide 250 mg tablet (Calcium Magnesium) divalproex 500 mg tablet,delayed 500 mg PO BEDTIME 12/23/23 12/23/23 Unknown History release duloxetine 30 mg capsule,delayed 60 mg PO DAILY 12/23/23 12/23/23 12/22/23 History release eletriptan 40 mg tablet 40 mg PO DAILY MRX1 PRN Migraine 12/23/23 12/23/23 Unknown History Headache escitalopram oxalate 20 mg tablet 20 mg PO DAILY 12/23/23 12/23/23 12/22/23 History fesoterodine 4 mg tablet,extended 4 mg PO DAILY 12/23/23 12/23/23 12/22/23 History release 24 hr hyoscyamine sulfate 0.125 mg tablet 0.25 mg PO BID PRN GI Upset 12/23/23 12/23/23 Unknown History lamotrigine 25 mg tablet 75 mg PO DAILY 12/23/23 12/23/23 12/22/23 History oxybutynin chloride 10 mg 10 mg PO DAILY 12/23/23 12/23/23 12/22/23 History tablet,extended release 24 hr tirzepatide (weight loss) 2.5 2.5 mg subcut TU@0900 12/23/23 12/23/23 Unknown History mg/0.5 mL subcutaneous pen injector (Zepbound) vitamin B complex 1 cap PO DAILY 12/23/23 12/23/23 12/22/23 History zolmitriptan 5 mg nasal spray 5 mg intranasal DAILY MRX1 PRN 12/23/23 12/23/23 Unknown History Migraine Headache Physical Exam Vital Signs: Vital Signs: Last Vital Signs Temp 99.5 F 12/23/23 09:29 Pulse 72 12/23/23 09:29 Resp 20 12/23/23 09:29 BP 115/75 12/23/23 09:29 Pulse Ox 95 12/23/23 09:29 O2 Del Method Room Air 12/23/23 09:29 BMI result Body Mass Index 32.8 Const: General: other (Appears uncomfortable due to abdominal and back pain) Nutritional Appearance: obese Orientation/consciousness: patient oriented x3 Limitations: no limitations HEENT: Head: Yes normal to inspection Ears: hearing grossly normal bilaterally Mouth: Normal oral and palatal mucosa present Eyes: Sclerae: sclerae normal Pupils: Equal, round and reactive pupils present Neck: Neck: Yes normal visual inspection Chest: Chest palpation & inspection: normal inspection of the chest Resp: Effort & Inspection: normal respiratory effort Auscultation: clear to auscultation bilaterally Cardio: Palpation: normal PMI Rate: regular rate Rhythm: regular rhythm Heart sounds: S1 normal heart sound present, S2 normal heart sound present and no murmurs GI: Palpation (GI): Soft to palpation, Tenderness to palpation present (GI) (mild epigastric tenderness) and No hepatosplenomegaly present Auscultation: normal bowel sounds Rectal Exam - Female: deferred Skin: General skin exam: no rashes or lesions noted Neuro: General: patient oriented x3, gait normal and moves all extremities Cranial nerves: Yes Equal, round and reactive pupils present Psych: Appearance: grossly normal Mental Status: mental status grossly normal Results Labs 12/24/23 05:26 12/24/23 05:26 Labs: Short CBC 12/23/23 Range/Units 01:44 WBC 6.7 (4.8-10.8) X10*3/uL Hgb 13.0 (12.0-16.0) g/dl Hct 38.1 (37.0-47.0) % Plt Count 254 (160-400) X10*3/uL BMP 12/23/23 01:44 Sodium 140 Potassium 4.1 Chloride 106 Carbon Dioxide 24 BUN 21 H Creatinine 0.69 Calcium 9.1 Cardiac Enzymes 12/23/23 Range/Units 01:44 Total Creatine Kinase 59 (26-140) U/L Liver Function 12/23/23 Range/Units 01:44 Total Bilirubin 0.2 (0.0-1.0) mg/dL AST 75 H (5-31) U/L ALT 55 H (0-31) U/L Alkaline Phosphatase 63 (39-117) U/L Albumin 4.0 (3.5-5.0) g/dL Urine 12/23/23 Range/Units 09:50 Urine Color Yellow Urine Appearance Clear Urine pH 7.0 (5.0-9.0) Ur Specific [place] >= 1.030 H (1.005-1.025) Urine Protein Negative (Neg-Trace) mg/dL Urine Glucose (UA) Negative (Negative) mg/dL Assessment and Plan (1) Abnormal AST and ALT: Status: Acute (2) Acute pancreatitis: Qualifiers: Acute pancreatitis complication: no infection or necrosis Pancreatitis type: drug induced Qualified Code(s): K85.30 - Drug induced acute pancreatitis without necrosis or infection Status: Acute Plan 53 YF with hx of depression (on multiple oral agents) admitted to [facility] on 12/23/23 with nausea, abd pain and elevated lipase suggestive of acute pancreatitis There is no history of hyperlipidemia, gallstones or pancreatitis and pt denies ETOH abuse Pt reports she started using Zepbound injection for weight loss in Sep, 2023 (last dose was December 16). Pancreatitis can be related to Zepbound. Other possiblities include biliary sludge/microlithasis, pancreas divisum or idiopathic Her other home medications include escitalopram, amitriptyline, bupropion, lamotrigine, gabapentin, fesoterodine which are not likely to cause pancreatitis RECOMMENDATIONS: 1. Agree with bowl rest and IV PPI, pain medications and antiemetics. 2. Abd US to look for [id number] stones not visualized on CT scan. 3. Avoid Zepbound in the future (needs to discuss her options with the provider prescribing Zepbound) ADDENDUM: Pt was discharged on 12/26/23 Hospital course (from discharge summary): Acute gallstone pancreatitis with initial lipase >300, dropped to 199 the next day, and after that 34. MRCP showed Gallbladder distention with stones and sludge. Gallbladder wall thickening and edema. This may represent acute cholecystitis. She was on Ceftriaxone for UTI which would cover a presumed cholecystitis as well. She underwent cholecystectomy on 12/25/23, her diet has been advnced and tolerating. She also had a hernia repair at that time. To follow up with surgery on outpatient basis. LFTs AST 75 to 106 to 45 and 172. ALT started at 55 went to 207, to 148 and to 277 now. Repeat LFTs on outpatient basis UTI--E.coli sensitive to Ceftriaxone -continue Ceftriaxone started 12/23, change to Cefuroxime for 5 more days Depression. resume meds after surgery Overreactive bladder. resume meds Migraine. No acute symptoms reported. Class I Obesity: Encouraged to lose weight and cutdown calorie FROM UPTODATE: Cases of acute pancreatitis (including hemorrhagic pancreatitis and necrotizing pancreatitis with some fatalities), chronic pancreatitis, and pancreatic adenocarcinoma have been reported with use of incretin-based therapies (eg, dipeptidyl peptidase 4 inhibitors, glucagon-like peptide-1 [GLP-1] receptor agonists) In clinical trials, acute pancreatitis was observed with tirzepatide. Mechanism: Causality has not been firmly established GLP-1 receptor agonists directly stimulate GLP-1 receptors in pancreatic islet beta cells and exocrine duct cells which may cause an overgrowth of the cells that cover the smaller ducts, thereby resulting in hyperplasia, increased pancreatic weight, duct occlusion, back pressure, and subsequent acute or chronic pancreatic inflammation Risk factors: ? Patients with a prior history of pancreatitis may be at an increased risk for acute pancreatitis ? Patients with acute pancreatitis due to any cause are at an increased risk for progression to recurrent acute pancreatitis and then to chronic pancreatitis; patients with chronic pancreatitis are at an increased risk for pancreatic cancer ? Risk factors for pancreatitis due to any cause include, but are not limited to, hypertriglyceridemia, cholelithiasis, alcohol use, and obesity Procedures Date of Service Date of Service: 12/28/23
[2023-12-23] MEDS: Lidocaine 4 % Patch ADH..PATCH 1 PATCH TRANSDERMA (12:47)
--- NOTE | 2023-12-23 12:57 | MHC.CM.PN ---
pt lives with d children has own ride home she is independet will not need servies when dd
[2023-12-23] MEDS: oxyCODONE HCl Immed Release 5 MG TABLET PO (13:24)
--- NOTE | 2023-12-23 13:31 | PC.NURSE ---
Pt family brought medications to the bedside, Hyoscyamine sulfate 0.125mg two bottles, Fesoterodine ER 4mg one bottle, Zolmitriptan 5mg nasal spray two devices. Pharmacy made aware Zepbound and Eletriptan will not be brought in by family. [facility] [place] [place] Medication Storage Record filled out with patient and sealed in medications envelope.
[2023-12-23] MEDS: 0.9 % Sodium Chloride Flush 3 ML SYRINGE IVFLUSH (15:15)
[2023-12-23] MEDS: Pantoprazole Sodium 40 MG/10 ML VIAL IVPUSH (15:15)
[2023-12-23] MEDS: Divalproex Sodium 500 MG TABLET.DR PO (20:50)
[2023-12-23] MEDS: Amitriptyline HCl 50 MG TABLET PO (20:51)
[2023-12-24] MEDS: Lactated Ringers 1,000 ML 150 ML IVCONT ×2 (00:22→07:06)
[2023-12-24 03:27] VITALS: BP 111/59; PULSE 76; RESP 16; TEMP 36.4; O2SAT 90
[2023-12-24] MEDS: Enoxaparin Sodium 40 MG/0.4 ML SYRINGE SUBCUT (03:46)
[2023-12-24 06:08] LABS: MANUAL DIFF FLAG NO
[2023-12-24 06:15] LABS: Basophils Percent Auto 0.5 % (0-2); Eosinophils Absolute Auto 0.2 X10*3/uL (0.0-0.4); Eosinophils Percent Auto 3.2 % (0-4); Hematocrit 33.4 % (37.0-47.0); Hemoglobin 11.2 g/dl (12.0-16.0); Imm Gran Abs Auto 0.03 X10*3/uL (0.00-0.03); Imm Gran Pct Auto 0.5 % (0.0-0.4); Lymphocytes Absolute Auto 1.6 X10*3/uL (1.2-4.9); Lymphocytes Percent Auto 28.5 % (20-40); Mean Corpuscular HGB Conc 33.5 g/dl (31.0-35.0); Mean Corpuscular Hemoglobin 31.8 pg (27.0-33.0); Mean Corpuscular Volume 94.9 fL (80.0-98.0); Monocytes Absolute Auto 0.5 X10*3/uL (0.1-1.2); Neutrophils Absolute Auto 3.3 x10*3/uL (2.0-8.3); Neutrophils Percent Auto 59.3 % (45-73); Platelet Count 220 X10*3/uL (160-400); Red Blood Count 3.52 X10*6/uL (4.20-5.50); Red Cell Distribution Width 12.8 % (11.0-16.0); White Blood Count 5.6 X10*3/uL (4.8-10.8)
[2023-12-24 06:36] LABS: Alanine Aminotransferase 207 U/L (0-31); Albumin Level 3.3 g/dL (3.5-5.0); Alkaline Phosphatase 73 U/L (39-117); Anion Gap 11 (12-20); Aspartate Amino Transferase 106 U/L (5-31); Bilirubin Total 0.3 mg/dL (0.0-1.0); Blood Urea Nitrogen 11 mg/dL (9-16); Calcium 8.6 mg/dL (8.4-10.2); Carbon Dioxide 30 mmol/L (22-29); Chloride 106 mmol/L (96-108); Creatinine Clr Calc Pharmacy 111.8; Estimated Glomerular Filt Rate > 60; Glucose Random 83 mg/dL (60-115); Lipase 199 U/L (8-78); Potassium 3.9 mmol/L (3.3-5.1); Sodium 143 mmol/L (135-145); Total Protein 5.4 g/dL (6.5-8.0)
[2023-12-24] MEDS: Acetaminophen 325 MG TABLET 650 MG PO (06:37)
[2023-12-24] MEDS: Pantoprazole Sodium 40 MG/10 ML VIAL IVPUSH ×2 (06:38→16:55)
[2023-12-24] MEDS: oxyCODONE HCl Immed Release 5 MG TABLET PO ×3 (07:10→19:31)
[2023-12-24 07:49] VITALS: BP 122/72; PULSE 72; RESP 18; TEMP 36.5; O2SAT 92
[2023-12-24] MEDS: Lidocaine 4 % Patch ADH..PATCH 1 PATCH TRANSDERMA (07:52)
[2023-12-24] MEDS: DULoxetine HCl 60 MG CAPSULE.DR PO (07:53)
[2023-12-24] MEDS: lamoTRIgine 25 MG TABLET 75 MG PO (07:53)
[2023-12-24] MEDS: Escitalopram Oxalate 20 MG TABLET PO (07:53)
[2023-12-24] MEDS: buPROPion HCl XL 300 MG TAB.ER.24H PO (07:53)
[2023-12-24] MEDS: Multivitamin TABLET 1 TAB PO (07:53)
[2023-12-24] MEDS: oxyBUTYnin chloride ER 5 MG TAB.ER.24 10 MG PO (07:53)
--- NOTE | 2023-12-24 11:06 | MHC.CM.PN ---
PER MD ROUNDS PATIENT NOT MEDICALLY CLEARED FOR DC. NO CHANGE TO DC PLAN. CM WILL CONTINUE TO FOLLOW.
--- NOTE | 2023-12-24 12:25 | P.PNIM_ITS ---
Subjective Subjective Date of Service: 12/24/23 Interval History: acute pancreatitis elevated lft's Review of Systems abd pain seems somewhat improving no nausea or vomiting or fever Physical Exam 2 Vital Signs: Vital Signs: Last Vital Signs Temp 97.7 F 12/24/23 07:49 Pulse 72 12/24/23 07:49 Resp 18 12/24/23 07:49 BP 122/72 12/24/23 07:49 Pulse Ox 92 12/24/23 07:49 O2 Del Method Room Air 12/24/23 07:49 BMI result Body Mass Index 32.8 Appearance: Alert.? Oriented X3.? cvs: rrr, [id number]. res: clear to auscultation ,no rhonchii or wheezing abd: no rebound or guarding ,left upper abd tenderness , bs present. ext pulses present , no cyanosis . neuro: axo3 , nonfocal. Objective Data Active Medications Amitriptyline HCl (Amitriptyline Hcl 50 Mg Tablet) 50 mg PO BEDTIME [facility] Last Admin: 12/23/23 20:51 Dose: 50 mg Documented By: PEDRO Bupropion HCl (Bupropion Hcl Xl 300 Mg Tab.Er.24h) 300 mg PO DAILY [facility] Last Admin: 12/24/23 07:53 Dose: 300 mg Documented By: TREVA Capsaicin (Capsaicin 0.025% Cream 60 Gm Tube) 1 appl TOPICAL QID [facility]; Protocol Last Admin: 12/24/23 07:09 Dose: Not Given Documented By: TREVA Non-Admin Reason: Patient Refused Divalproex Sodium (Divalproex Sodium 500 Mg Tablet.) 500 mg PO BEDTIME [facility] Last Admin: 12/23/23 20:50 Dose: 500 mg Documented By: PEDRO Duloxetine HCl (Duloxetine Hcl 60 Mg Capsule.) 60 mg PO DAILY [facility] Last Admin: 12/24/23 07:53 Dose: 60 mg Documented By: TREVA Enoxaparin Sodium (Enoxaparin Sodium 40 Mg/0.4 Ml Syringe) 40 mg SUBCUT Q24H [facility] Last Admin: 12/24/23 03:46 Dose: 40 mg Documented By: MISSY Escitalopram Oxalate (Escitalopram Oxalate 20 Mg Tablet) 20 mg PO DAILY [facility] Last Admin: 12/24/23 07:53 Dose: 20 mg Documented By: TREVA Hydromorphone HCl (Hydromorphone Hcl 1 Mg/Ml Syringe) 1 mg IVPUSH Q4H PRN; Protocol PRN Reason: Pain, Severe (Pain Scale 7-10) Last Admin: 12/23/23 21:24 Dose: 1 mg Documented By: PEDRO Lactated Ringer's (Lr) 1,000 mls @ 150 mls/hr IVCONT .Q6H40M [facility] Last Admin: 12/24/23 07:06 Dose: 150 mls/hr Documented By: TREVA Lamotrigine (Lamotrigine 25 Mg Tablet) 75 mg PO DAILY [facility] Last Admin: 12/24/23 07:53 Dose: 75 mg Documented By: TREVA Lidocaine (Lidocaine 4 % Patch Adh..Patch) 1 patch TRANSDERMA DAILY [facility]; Protocol Last Admin: 12/24/23 07:52 Dose: 1 patch Documented By: TREVA Multivitamins/Vitamin C (Multivitamin Tablet) 1 tab PO DAILY [facility] Last Admin: 12/24/23 07:53 Dose: 1 tab Documented By: TREVA Non-Formulary Medication (Calcium Carb,Gluc-Mag Gluc,Ox [Calcium Magnesium]) 1 tab PO DAILY [facility] Patient Own Medication ( Fesoterodine 4 Mg Tablet Extended Release 24 Hr) 4 mg PO DAILY [facility] Last Admin: 12/24/23 07:52 Dose: 4 mg Documented By: TREVA Patient Own Medication ( Hyoscyamine Sulfate 0.125 Mg Tablet) 0.25 mg PO BID PRN PRN Reason: GI Upset Patient Own Medication ( Zolmitriptan 5 Mg [place],Non-Aerosol) 5 mg NOSTRIL-B DAILY MRX1 PRN PRN Reason: Migraine Headache Last Admin: 12/24/23 11:35 Dose: 5 mg Documented By: TREVA Ondansetron HCl (Ondansetron Hcl 4 Mg/2 Ml Vial) 4 mg IVPUSH Q6H PRN PRN Reason: Nausea and Vomiting Last Admin: 12/23/23 07:43 Dose: 4 mg Documented By: BRADLEY Oxybutynin Chloride (Oxybutynin Chloride Er 5 Mg Tab.Er.24) 10 mg PO DAILY [facility] Last Admin: 12/24/23 07:53 Dose: 10 mg Documented By: TREVA Oxycodone HCl (Oxycodone Hcl Immed Release 5 Mg Tablet) 5 mg PO Q6H PRN PRN Reason: Pain, Mild (Pain Scale 1-3) Last Admin: 12/24/23 07:10 Dose: 5 mg Documented By: TREVA Pantoprazole Sodium (Pantoprazole Sodium 40 Mg/10 Ml Vial) 40 mg IVPUSH BID@0630,1630 [facility] Last Admin: 12/24/23 06:38 Dose: 40 mg Documented By: MISSY Simethicone (Simethicone 80 Mg Tab.Chew) 80 mg PO QIDWMHS PRN PRN Reason: gaseous sensation Sodium Chloride (0.9 % Sodium Chloride Flush 3 Ml Syringe) 3 ml IVFLUSH QSHIFT [facility] Last Admin: 12/24/23 07:07 Dose: Not Given Documented By: TREVA Non-Admin Reason: IV Running Labs 12/24/23 05:26 12/24/23 05:26 Labs: Laboratory Results - last 24 hr 12/24/23 05:26 MCV 94.9 MCH 31.8 MCHC 33.5 RDW 12.8 Plt Count 220 MPV 9.0 L Immature Gran % (Auto) 0.5 H Neut % (Auto) 59.3 Lymph % (Auto) 28.5 [place] % (Auto) 8.0 Eos % (Auto) 3.2 Baso % (Auto) 0.5 Lymph # (Auto) 1.6 [place] # (Auto) 0.5 Eos # (Auto) 0.2 Baso # (Auto) 0.0 Abs Immat Gran (auto) 0.03 Absolute Neuts (auto) 3.3 Absolute Nucleated RBC 0.000 Nucleated RBC % (auto) 0.0 Anion Gap 11 L Estim Creat Clear Calc 111.8 Estimated GFR > 60 Random Glucose 83 Calcium 8.6 Total Bilirubin 0.3 AST 106 H ALT 207 H Alkaline Phosphatase 73 Total Protein 5.4 L Albumin 3.3 L Lipase 199 H Microbiology Microbiology Results: Microbiology 12/23/23 Unknown Urine Culture - Preliminary Urine clean catch - Clean Catch Midstream Gram negative teresita Assessment and Plan (1) Abnormal AST and ALT: Status: Acute (2) Acute pancreatitis: Status: Acute Plan 53 y/o woman admitted with: Acute pancreatitis, suspecting secondary to Zepbound injection vs ?choledocholithias . lfts trend upward us - cholelithiasis without wall thickening continue NPO. Continue IV fluids. Pain control with Dilaudid IV needed. Antiemetic therapy as needed. LFTs trending up , lipase improving GI rec- mrcp ,also added surgery eval . Depression. Home medication hold due to NPO state and pancreatitis. Overreactive bladder. Home medication hold due to NPO status. Migraine. No acute symptoms reported. Obesity: Encouraged to lose weight and cutdown calories. Dvt Prophylax: Lovenox. ongoing hospitalization for acute pancreatitis treatment with IV fluids and IV pain management; we will need close monitoring of symptoms and lipase level, workup for elevated lft /choledocholithias, surgery eval . Quality Stroke Does the patient have a stroke diagnosis?: No VTE Prior VTE?: No VTE Risk Level:: Medical - moderate - high VTE Device Contraindication: Treatment Not Indicated VTE Drug Contraindication: N/A - Med Ordered
--- NOTE | 2023-12-24 14:27 | PM.CNGS ---
History of Present Illness Consult details Consult date: 12/24/23 Reason for consult: abdominal pain Requesting physician: Court Barney Narrative: The pt is a 53 yo female with sig hx of depression who is on multiple meds for this and also started taking Zepbound for weight loss. Had last dose in December 16, started in September. Pt yesterday started having abdo discomfort sharp stabbing and nausea. Came to ER by ambulance and was noted to have lipase >3000. The CT scan showed findings consistent with pancreatitis. U/S shows gallstones and wall thickening and normal cbd. mrcp confirms normal cbd but shows sludge stones and thickened gallbladder. Pt not tender and feels much better today. lipase now 199 and AST and ALT elevated but tbili and alk phos normal. Review of Systems Review of Systems: Yes all other systems are reviewed and are negative [facility] Past Medical History Medical History (Updated 12/23/23 @ 05:51 by Marcella Napier MD) Migraine Depression Social History Social History Household Members: Family Housing: House Do you presently have visiting nurse or other home services: No Alcohol intake: never Patient Tobacco Use Status: Never used Tobacco service: No Meds Allergies Allergy/AdvReac Type Severity Reaction Status Date / Time Sulfa (Sulfonamide Allergy Unknown Unknown Verified 12/23/23 01:34 Antibiotics) Erythromycin Allergy Unknown Unknown Uncoded 12/23/23 01:34 Active Medications: Current Medications Amitriptyline HCl (Amitriptyline Hcl 50 Mg Tablet) 50 mg PO BEDTIME [facility] Last Admin: 12/23/23 20:51 Dose: 50 mg Bupropion HCl (Bupropion Hcl Xl 300 Mg Tab.Er.24h) 300 mg PO DAILY [facility] Last Admin: 12/24/23 07:53 Dose: 300 mg Capsaicin (Capsaicin 0.025% Cream 60 Gm Tube) 1 appl TOPICAL QID [facility]; Protocol Last Admin: 12/24/23 12:57 Dose: Not Given Divalproex Sodium (Divalproex Sodium 500 Mg Tablet.) 500 mg PO BEDTIME [facility] Last Admin: 12/23/23 20:50 Dose: 500 mg Duloxetine HCl (Duloxetine Hcl 60 Mg Capsule.) 60 mg PO DAILY [facility] Last Admin: 12/24/23 07:53 Dose: 60 mg Enoxaparin Sodium (Enoxaparin Sodium 40 Mg/0.4 Ml Syringe) 40 mg SUBCUT Q24H [facility] Last Admin: 12/24/23 03:46 Dose: 40 mg Escitalopram Oxalate (Escitalopram Oxalate 20 Mg Tablet) 20 mg PO DAILY [facility] Last Admin: 12/24/23 07:53 Dose: 20 mg Hydromorphone HCl (Hydromorphone Hcl 1 Mg/Ml Syringe) 1 mg IVPUSH Q4H PRN; Protocol PRN Reason: Pain, Severe (Pain Scale 7-10) Last Admin: 12/23/23 21:24 Dose: 1 mg Lactated Ringer's (Lr) 1,000 mls @ 150 mls/hr IVCONT .Q6H40M [facility] Last Infusion: 12/24/23 13:51 Dose: Infused Lamotrigine (Lamotrigine 25 Mg Tablet) 75 mg PO DAILY [facility] Last Admin: 12/24/23 07:53 Dose: 75 mg Lidocaine (Lidocaine 4 % Patch Adh..Patch) 1 patch TRANSDERMA DAILY [facility]; Protocol Last Admin: 12/24/23 07:52 Dose: 1 patch Multivitamins/Vitamin C (Multivitamin Tablet) 1 tab PO DAILY [facility] Last Admin: 12/24/23 07:53 Dose: 1 tab Non-Formulary Medication (Calcium Carb,Gluc-Mag Gluc,Ox [Calcium Magnesium]) 1 tab PO DAILY [facility] Patient Own Medication ( Fesoterodine 4 Mg Tablet Extended Release 24 Hr) 4 mg PO DAILY [facility] Last Admin: 12/24/23 07:52 Dose: 4 mg Patient Own Medication ( Hyoscyamine Sulfate 0.125 Mg Tablet) 0.25 mg PO BID PRN PRN Reason: GI Upset Patient Own Medication ( Zolmitriptan 5 Mg [place],Non-Aerosol) 5 mg NOSTRIL-B DAILY MRX1 PRN PRN Reason: Migraine Headache Last Admin: 12/24/23 11:35 Dose: 5 mg Ondansetron HCl (Ondansetron Hcl 4 Mg/2 Ml Vial) 4 mg IVPUSH Q6H PRN PRN Reason: Nausea and Vomiting Last Admin: 12/23/23 07:43 Dose: 4 mg Oxybutynin Chloride (Oxybutynin Chloride Er 5 Mg Tab.Er.24) 10 mg PO DAILY [facility] Last Admin: 12/24/23 07:53 Dose: 10 mg Oxycodone HCl (Oxycodone Hcl Immed Release 5 Mg Tablet) 5 mg PO Q6H PRN PRN Reason: Pain, Mild (Pain Scale 1-3) Last Admin: 12/24/23 12:51 Dose: 5 mg Pantoprazole Sodium (Pantoprazole Sodium 40 Mg/10 Ml Vial) 40 mg IVPUSH BID@0630,1630 [facility] Last Admin: 12/24/23 06:38 Dose: 40 mg Simethicone (Simethicone 80 Mg Tab.Chew) 80 mg PO QIDWMHS PRN PRN Reason: gaseous sensation Sodium Chloride (0.9 % Sodium Chloride Flush 3 Ml Syringe) 3 ml IVFLUSH QSHIFT [facility] Last Admin: 12/24/23 07:07 Dose: Not Given Home Medications ?Medication ?Instructions ?Recorded ?Confirmed ?Last Taken ?Type amitriptyline 25 mg tablet 50 mg PO BEDTIME 12/23/23 12/23/23 Unknown History bupropion HCl 300 mg 24 hr tablet, 300 mg PO DAILY 12/23/23 12/23/23 12/22/23 History extended release calcium carb, gluc 500 mg 1 tab PO DAILY 12/23/23 12/23/23 12/22/23 History calcium-magnesium gluc, oxide 250 mg tablet (Calcium Magnesium) divalproex 500 mg tablet,delayed 500 mg PO BEDTIME 12/23/23 12/23/23 Unknown History release duloxetine 30 mg capsule,delayed 60 mg PO DAILY 12/23/23 12/23/23 12/22/23 History release eletriptan 40 mg tablet 40 mg PO DAILY MRX1 PRN Migraine 12/23/23 12/23/23 Unknown History Headache escitalopram oxalate 20 mg tablet 20 mg PO DAILY 12/23/23 12/23/23 12/22/23 History fesoterodine 4 mg tablet,extended 4 mg PO DAILY 12/23/23 12/23/23 12/22/23 History release 24 hr hyoscyamine sulfate 0.125 mg tablet 0.25 mg PO BID PRN GI Upset 12/23/23 12/23/23 Unknown History lamotrigine 25 mg tablet 75 mg PO DAILY 12/23/23 12/23/23 12/22/23 History oxybutynin chloride 10 mg 10 mg PO DAILY 12/23/23 12/23/23 12/22/23 History tablet,extended release 24 hr tirzepatide (weight loss) 2.5 2.5 mg subcut TU@0900 12/23/23 12/23/23 Unknown History mg/0.5 mL subcutaneous pen injector (Zepbound) vitamin B complex 1 cap PO DAILY 12/23/23 12/23/23 12/22/23 History zolmitriptan 5 mg nasal spray 5 mg intranasal DAILY MRX1 PRN 12/23/23 12/23/23 Unknown History Migraine Headache Physical Exam Vital Signs: Vital Signs: Last Vital Signs Temp 97.7 F 12/24/23 07:49 Pulse 72 12/24/23 07:49 Resp 18 12/24/23 07:49 BP 122/72 12/24/23 07:49 Pulse Ox 92 12/24/23 07:49 O2 Del Method Room Air 12/24/23 07:49 BMI result Body Mass Index 32.8 Const: General: cooperative, healthy appearing, comfortable and no acute distress Orientation/consciousness: patient oriented x3 Resp: Effort & Inspection: normal respiratory effort Auscultation: clear to auscultation bilaterally Cardio: Rate: regular rate Rhythm: regular rhythm GI: Other: soft nontender nodistended Skin: Other: nonicteric Neuro: General: patient oriented x3 Psych: Appearance: grossly normal Mental Status: mental status grossly normal Speech and movement: Normal speech and movement present Affect: normal affect Attitude: cooperative Thought process: Normal thought process present Thought content: Normal thought content present Insight: Good insight present (Psych) Judgement: Good judgement present (Psych) Results Labs 12/24/23 05:26 12/24/23 05:26 Labs: Abnormal lab results 12/24/23 Range/Units 05:26 RBC 3.52 L (4.20-5.50) X10*6/uL Hgb 11.2 L (12.0-16.0) g/dl Hct 33.4 L (37.0-47.0) % MPV 9.0 L (9.4-12.3) fL Immature Gran % (Auto) 0.5 H (0.0-0.4) % Carbon Dioxide 30 H (22-29) mmol/L Anion Gap 11 L (12-20) AST 106 H (5-31) U/L ALT 207 H (0-31) U/L Total Protein 5.4 L (6.5-8.0) g/dL Albumin 3.3 L (3.5-5.0) g/dL Lipase 199 H (8-78) U/L Short CBC 12/24/23 Range/Units 05:26 WBC 5.6 (4.8-10.8) X10*3/uL Hgb 11.2 L (12.0-16.0) g/dl Hct 33.4 L (37.0-47.0) % Plt Count 220 (160-400) X10*3/uL BMP 12/24/23 05:26 Sodium 143 Potassium 3.9 Chloride 106 Carbon Dioxide 30 H BUN 11 Creatinine 0.65 Calcium 8.6 Liver Function 12/24/23 Range/Units 05:26 Total Bilirubin 0.3 (0.0-1.0) mg/dL AST 106 H (5-31) U/L ALT 207 H (0-31) U/L Alkaline Phosphatase 73 (39-117) U/L Albumin 3.3 L (3.5-5.0) g/dL Urine 12/23/23 Range/Units 09:50 Urine Color Yellow Urine Appearance Clear Urine pH 7.0 (5.0-9.0) Ur Specific [place] >= 1.030 H (1.005-1.025) Urine Protein Negative (Neg-Trace) mg/dL Urine Glucose (UA) Negative (Negative) mg/dL All other labs normal. Imaging Abdomen CT scan report/results: report reviewed and image reviewed CT scan - pelvis: report reviewed and image reviewed Abdominal ultrasound report/results: report reviewed and image reviewed Assessment and Plan (1) Acute pancreatitis: Qualifiers: Acute pancreatitis complication: no infection or necrosis Pancreatitis type: drug induced Qualified Code(s): K85.30 - Drug induced acute pancreatitis without necrosis or infection Status: Acute Plan 53 yo female with pancreatitis but quick improvement in labs and symptoms. ? Cause of pancreatitis - Zepbound med vs gallstone/sludge. U/s and mrcp show sludge and stones but normal CBD size but findings with thickend GB. With quick resolution of elevated lipase ? passed a stone or sludge. Difficult to know if due to med vs GB - but pt with some elevated lfts and thickening of GB- pt technically lower risk for surgery so would consider undergoing lap noelle. Would also recommend stopping Zepbound and reasses with GI consulting. Will make her npo and reevaluate tomorrow. She understands and agrees with the plan. Procedures Date of Service Date of Service: 12/25/23
[2023-12-24 15:33] VITALS: BP 136/71; PULSE 77; RESP 20; TEMP 36.8; O2SAT 93
[2023-12-24] MEDS: 0.9 % Sodium Chloride 1,000 ML 100 ML IVCONT (16:47)
[2023-12-24] MEDS: cefTRIAXone sodium 1 GM in 0.9 % Sodium Chloride 50 ML IV (16:59)
[2023-12-24] MEDS: Capsaicin 0.025% Cream 60 GM TUBE 1 APPL TOPICAL ×2 (17:02→20:58)
[2023-12-24 19:28] VITALS: BP 131/69; PULSE 81; RESP 20; TEMP 36.8; O2SAT 94
[2023-12-24] MEDS: Amitriptyline HCl 50 MG TABLET PO (20:58)
[2023-12-24] MEDS: Divalproex Sodium 500 MG TABLET.DR PO (20:58)
[2023-12-25] VITALS (13 sets, daily range): BP systolic 97–150; BP diastolic 52–81; PULSE 66–92; RESP 14–22; TEMP 36.1–36.8; O2SAT 93–96
--- NOTE | 2023-12-25 00:40 | MHC.PIE ---
P.RASH I.PT C/O RED RASH TO LEFT ABD WHERE CAPSACIN CREAM HAD BEEN APPLIED.DENIED ITCH BUT STATES FELT LIKE BURNING .DR CRAMER NOTIFIED.ORDER FOR BENADRYL 25MG PO X 1 GIVEN. I.MED GIVEN WITH GOOD EFFECT.
[2023-12-25] MEDS: diphenhydrAMINE HCL 25 MG CAPSULE PO (01:05)
[2023-12-25] MEDS: 0.9 % Sodium Chloride 1,000 ML 100 ML IVCONT (01:07)
[2023-12-25] MEDS: Enoxaparin Sodium 40 MG/0.4 ML SYRINGE SUBCUT (04:19)
[2023-12-25] MEDS: Pantoprazole Sodium 40 MG/10 ML VIAL IVPUSH ×2 (06:07→17:31)
[2023-12-25] MEDS: DULoxetine HCl 60 MG CAPSULE.DR PO (07:43)
[2023-12-25] MEDS: lamoTRIgine 25 MG TABLET 75 MG PO (07:43)
[2023-12-25] MEDS: Escitalopram Oxalate 20 MG TABLET PO (07:43)
[2023-12-25] MEDS: buPROPion HCl XL 300 MG TAB.ER.24H PO (07:43)
[2023-12-25] MEDS: oxyBUTYnin chloride ER 5 MG TAB.ER.24 10 MG PO (07:43)
--- NOTE | 2023-12-25 08:01 | P.PNGS_ITS ---
Subjective Subjective Date of Service: 12/25/23 Interval history: Patient feeling better. Lipase yesterday down to 199 Physical Exam 2 Vital Signs: Vital Signs: Last Vital Signs Temp 97.0 F 12/25/23 07:34 Pulse 67 12/25/23 07:34 Resp 18 12/25/23 07:34 BP 117/78 12/25/23 07:34 Pulse Ox 96 12/25/23 07:34 O2 Del Method Room Air 12/25/23 07:34 BMI result Body Mass Index 32.8 GI: Other: Abdomen corpulent, soft, mild epigastric tenderness. No evidence of any guarding, rebound, or rigidity. Objective Data Active Medications Amitriptyline HCl (Amitriptyline Hcl 50 Mg Tablet) 50 mg PO BEDTIME [facility] [place] Last Admin: 12/24/23 20:58 Dose: 50 mg Documented By: SUMANTH Bupropion HCl (Bupropion Hcl Xl 300 Mg Tab.Er.24h) 300 mg PO DAILY [facility] [place] Last Admin: 12/25/23 07:43 Dose: 300 mg Documented By: DOMINGA Capsaicin (Capsaicin 0.025% Cream 60 Gm Tube) 1 appl TOPICAL QID [facility] [place]; Protocol Last Admin: 12/25/23 07:08 Dose: Not Given Documented By: DOMINGA Non-Admin Reason: rash Divalproex Sodium (Divalproex Sodium 500 Mg Tablet.) 500 mg PO BEDTIME [facility] [place] Last Admin: 12/24/23 20:58 Dose: 500 mg Documented By: SUMANTH Duloxetine HCl (Duloxetine Hcl 60 Mg Capsule.) 60 mg PO DAILY [facility] [place] Last Admin: 12/25/23 07:43 Dose: 60 mg Documented By: DOMINGA Enoxaparin Sodium (Enoxaparin Sodium 40 Mg/0.4 Ml Syringe) 40 mg SUBCUT Q24H [facility] [place] Last Admin: 12/25/23 04:19 Dose: 40 mg Documented By: NATASHA Escitalopram Oxalate (Escitalopram Oxalate 20 Mg Tablet) 20 mg PO DAILY [facility] [place] Last Admin: 12/25/23 07:43 Dose: 20 mg Documented By: DOMINGA Hydromorphone HCl (Hydromorphone Hcl 1 Mg/Ml Syringe) 1 mg IVPUSH Q4H PRN; Protocol PRN Reason: Pain, Severe (Pain Scale 7-10) Last Admin: 12/23/23 21:24 Dose: 1 mg Documented By: PEDRO Ceftriaxone Sodium 1 gm/ (Sodium Chloride) 50 mls @ 100 mls/hr IV Q24H [facility] [place] Last Infusion: 12/24/23 17:45 Dose: Infused Documented By: KATALINA Sodium Chloride (Ns) 1,000 mls @ 100 mls/hr IVCONT .Q10H [facility] [place] Last Admin: 12/25/23 01:07 Dose: 100 mls/hr Documented By: NATASHA Lamotrigine (Lamotrigine 25 Mg Tablet) 75 mg PO DAILY [facility] [place] Last Admin: 12/25/23 07:43 Dose: 75 mg Documented By: DOMINGA Lidocaine (Lidocaine 4 % Patch Adh..Patch) 1 patch TRANSDERMA DAILY [facility] [place]; Protocol Last Admin: 12/25/23 07:40 Dose: Not Given Documented By: DOMINGA Non-Admin Reason: Patient Refused Multivitamins/Vitamin C (Multivitamin Tablet) 1 tab PO DAILY [facility] [place] Last Admin: 12/25/23 07:45 Dose: Not Given Documented By: DOMINGA Non-Admin Reason: Patient Refused Non-Formulary Medication (Calcium Carb,Gluc-Mag Gluc,Ox [Calcium Magnesium]) 1 tab PO DAILY [facility] [place] Patient Own Medication ( Fesoterodine 4 Mg Tablet Extended Release 24 Hr) 4 mg PO DAILY [facility] [place] Last Admin: 12/25/23 07:40 Dose: Not Given Documented By: DOMINGA Non-Admin Reason: Patient Refused Patient Own Medication ( Hyoscyamine Sulfate 0.125 Mg Tablet) 0.25 mg PO BID PRN PRN Reason: GI Upset Patient Own Medication ( Zolmitriptan 5 Mg [place],Non-Aerosol) 5 mg NOSTRIL-B DAILY MRX1 PRN PRN Reason: Migraine Headache Last Admin: 12/24/23 11:35 Dose: 5 mg Documented By: TREVA Ondansetron HCl (Ondansetron Hcl 4 Mg/2 Ml Vial) 4 mg IVPUSH Q6H PRN PRN Reason: Nausea and Vomiting Last Admin: 12/23/23 07:43 Dose: 4 mg Documented By: BRADLEY Oxybutynin Chloride (Oxybutynin Chloride Er 5 Mg Tab.Er.24) 10 mg PO DAILY [facility] [place] Last Admin: 12/25/23 07:43 Dose: 10 mg Documented By: DOMINGA Oxycodone HCl (Oxycodone Hcl Immed Release 5 Mg Tablet) 5 mg PO Q6H PRN PRN Reason: Pain, Mild (Pain Scale 1-3) Last Admin: 12/24/23 19:31 Dose: 5 mg Documented By: SUMANTH Pantoprazole Sodium (Pantoprazole Sodium 40 Mg/10 Ml Vial) 40 mg IVPUSH BID@0630,1630 [facility] [place] Last Admin: 12/25/23 06:07 Dose: 40 mg Documented By: NATASHA Simethicone (Simethicone 80 Mg Tab.Chew) 80 mg PO QIDWMHS PRN PRN Reason: gaseous sensation Sodium Chloride (0.9 % Sodium Chloride Flush 3 Ml Syringe) 3 ml IVFLUSH QSHIFT [facility] [place] Last Admin: 12/25/23 07:08 Dose: Not Given Documented By: DOMINGA Non-Admin Reason: IV Running Labs 12/24/23 05:26 12/24/23 05:26 Microbiology Microbiology Results: Microbiology 12/23/23 Unknown Urine Culture - Final Urine clean catch - Clean Catch Midstream Escherichia coli Procedures Date of Service Date of Service: 12/25/23 Progress Note: A&P Assessment and plan (1) Acute pancreatitis: Status: Acute Plan A.m. labs pending. We will tentatively scheduled for lap choly with possible cholangiogram for today based on lab results. Discussed risks, benefits, and alternatives of laparoscopic cholecystectomy with cholangiogram with the patient which included but not limited to bleeding, infection, recurrence of symptoms, numbness, pain, scarring, bowel or bile duct injury or leak and the patient wishes to proceed. All questions answered. Time Spent With Patient Time: Total time managing care of this patient today ____ minutes. Quality Stroke Does the patient have a stroke diagnosis?: No VTE Prior VTE?: No VTE Risk Level:: Medical - moderate - high VTE Device Contraindication: Treatment Not Indicated VTE Drug Contraindication: N/A - Med Ordered
[2023-12-25 09:46] LABS: Alanine Aminotransferase 148 U/L (0-31); Albumin Level 3.6 g/dL (3.5-5.0); Alkaline Phosphatase 83 U/L (39-117); Aspartate Amino Transferase 45 U/L (5-31); Bilirubin Direct 0.1 mg/dL (0.0-0.5); Bilirubin Total 0.4 mg/dL (0.0-1.0); Lipase 34 U/L (8-78); Total Protein 6.1 g/dL (6.5-8.0)
--- NOTE | 2023-12-25 09:46 | HO.PM.IMPN ---
Subjective Subjective Date of Service: 12/26/23 Interval History: follow-up on gallstone pancreatitis, choledocholithiasis and UTI her pain is much better today. Physical Exam Vital Signs: Vital Signs: Last Vital Signs Temp 97.0 F 12/25/23 07:34 Pulse 67 12/25/23 07:34 Resp 18 12/25/23 07:34 BP 117/78 12/25/23 07:34 Pulse Ox 96 12/25/23 07:34 O2 Del Method Room Air 12/25/23 07:34 BMI result Body Mass Index 32.8 General: AO X 3, no acute distress Resp: CTA bilateral CVS: S1,S2,RRR GI: +BS, NT, no distention Skin: No rash Neuro: motor grossly intact Psych: appropriate affect Objective Data Active Medications Amitriptyline HCl (Amitriptyline Hcl 50 Mg Tablet) 50 mg PO BEDTIME [facility] Last Admin: 12/24/23 20:58 Dose: 50 mg Documented By: SUMANTH Bupropion HCl (Bupropion Hcl Xl 300 Mg Tab.Er.24h) 300 mg PO DAILY [facility] Last Admin: 12/25/23 07:43 Dose: 300 mg Documented By: DOMINGA Capsaicin (Capsaicin 0.025% Cream 60 Gm Tube) 1 appl TOPICAL QID [facility]; Protocol Last Admin: 12/25/23 07:08 Dose: Not Given Documented By: DOMINGA Non-Admin Reason: rash Divalproex Sodium (Divalproex Sodium 500 Mg Tablet.) 500 mg PO BEDTIME [facility] Last Admin: 12/24/23 20:58 Dose: 500 mg Documented By: SUMANTH Duloxetine HCl (Duloxetine Hcl 60 Mg Capsule.) 60 mg PO DAILY [facility] Last Admin: 12/25/23 07:43 Dose: 60 mg Documented By: DOMINGA Enoxaparin Sodium (Enoxaparin Sodium 40 Mg/0.4 Ml Syringe) 40 mg SUBCUT Q24H [facility] Last Admin: 12/25/23 04:19 Dose: 40 mg Documented By: NATASHA Escitalopram Oxalate (Escitalopram Oxalate 20 Mg Tablet) 20 mg PO DAILY [facility] Last Admin: 12/25/23 07:43 Dose: 20 mg Documented By: DOMINGA Hydromorphone HCl (Hydromorphone Hcl 1 Mg/Ml Syringe) 1 mg IVPUSH Q4H PRN; Protocol PRN Reason: Pain, Severe (Pain Scale 7-10) Last Admin: 12/23/23 21:24 Dose: 1 mg Documented By: PEDRO Ceftriaxone Sodium 1 gm/ (Sodium Chloride) 50 mls @ 100 mls/hr IV Q24H [facility] Last Infusion: 12/24/23 17:45 Dose: Infused Documented By: KATALINA Sodium Chloride (Ns) 1,000 mls @ 100 mls/hr IVCONT .Q10H [facility] Last Admin: 12/25/23 01:07 Dose: 100 mls/hr Documented By: NATASHA Lamotrigine (Lamotrigine 25 Mg Tablet) 75 mg PO DAILY [facility] Last Admin: 12/25/23 07:43 Dose: 75 mg Documented By: DOMINGA Lidocaine (Lidocaine 4 % Patch Adh..Patch) 1 patch TRANSDERMA DAILY [facility]; Protocol Last Admin: 12/25/23 07:40 Dose: Not Given Documented By: DOMINGA Non-Admin Reason: Patient Refused Multivitamins/Vitamin C (Multivitamin Tablet) 1 tab PO DAILY [facility] Last Admin: 12/25/23 07:45 Dose: Not Given Documented By: DOMINGA Non-Admin Reason: Patient Refused Non-Formulary Medication (Calcium Carb,Gluc-Mag Gluc,Ox [Calcium Magnesium]) 1 tab PO DAILY [facility] Patient Own Medication ( Fesoterodine 4 Mg Tablet Extended Release 24 Hr) 4 mg PO DAILY [facility] Last Admin: 12/25/23 07:40 Dose: Not Given Documented By: DOMINGA Non-Admin Reason: Patient Refused Patient Own Medication ( Hyoscyamine Sulfate 0.125 Mg Tablet) 0.25 mg PO BID PRN PRN Reason: GI Upset Patient Own Medication ( Zolmitriptan 5 Mg [place],Non-Aerosol) 5 mg NOSTRIL-B DAILY MRX1 PRN PRN Reason: Migraine Headache Last Admin: 12/24/23 11:35 Dose: 5 mg Documented By: TREVA Ondansetron HCl (Ondansetron Hcl 4 Mg/2 Ml Vial) 4 mg IVPUSH Q6H PRN PRN Reason: Nausea and Vomiting Last Admin: 12/23/23 07:43 Dose: 4 mg Documented By: BRADLEY Oxybutynin Chloride (Oxybutynin Chloride Er 5 Mg Tab.Er.24) 10 mg PO DAILY [facility] Last Admin: 12/25/23 07:43 Dose: 10 mg Documented By: DOMINGA Oxycodone HCl (Oxycodone Hcl Immed Release 5 Mg Tablet) 5 mg PO Q6H PRN PRN Reason: Pain, Mild (Pain Scale 1-3) Last Admin: 12/24/23 19:31 Dose: 5 mg Documented By: SUMANTH Pantoprazole Sodium (Pantoprazole Sodium 40 Mg/10 Ml Vial) 40 mg IVPUSH BID@0630,1630 [facility] Last Admin: 12/25/23 06:07 Dose: 40 mg Documented By: NATASHA Simethicone (Simethicone 80 Mg Tab.Chew) 80 mg PO QIDWMHS PRN PRN Reason: gaseous sensation Sodium Chloride (0.9 % Sodium Chloride Flush 3 Ml Syringe) 3 ml IVFLUSH QSHIFT [facility] Last Admin: 12/25/23 07:08 Dose: Not Given Documented By: DOMINGA Non-Admin Reason: IV Running Labs 12/24/23 05:26 12/24/23 05:26 Microbiology Microbiology Results: Microbiology 12/23/23 Unknown Urine Culture - Final Urine clean catch - Clean Catch Midstream Escherichia coli Assessment and Plan (1) Abnormal AST and ALT: Status: Acute (2) Acute pancreatitis: Status: Acute Plan 53/F with depression, obesity here with Acute gallstone pancreatitis Choledocholithias with possible Cholecystitis -LFTs trending down -For cholecystectomy todaytoday -NPO -IVF -IV Ceftriaxone for possible compoenent of cholecytitis UTI--E.coli sensitive to Ceftriaxone -continue Ceftriaxone started 12/23 Depression. resume meds after surgery Overreactive bladder. Home medication hold due to NPO status. Migraine. No acute symptoms reported. Class I Obesity: Encouraged to lose weight and cutdown calories. Dvt Prophylax: Lovenox. Need for inpatient: Acute gallstone pancreaitis, choledocholithiasis Quality Stroke Does the patient have a stroke diagnosis?: No VTE Prior VTE?: No VTE Risk Level:: Medical - moderate - high VTE Device Contraindication: Treatment Not Indicated VTE Drug Contraindication: N/A - Med Ordered
--- NOTE | 2023-12-25 12:09 | PC.NURSE ---
Patient in preop. Arrived from floor with one PRN angio intact, #20 left hand. Site redressed, flushed with no issues.
--- NOTE | 2023-12-25 12:38 | MHC.SHP ---
Pre-Procedural Eval Section A - 24 Hr Update-Section A only Date of Service: 12/25/23 The patient is an INPATIENT: Yes Changes since office visit: No Cold of Flu in the past 2 weeks, No New Medical Problems, No Changes in Medication and No Patient answered all questions The patient has been examined within 24 hours of the surgical procedure. The History & Physical has been completed within 30 days and I have reviewed it.: Yes Section B - Complete if H&P > 30 days Chief Complaint: Acute Pancreatitis Allergies: Allergies Allergy/AdvReac Type Severity Reaction Status Date / Time Sulfa (Sulfonamide Allergy Severe Rash Verified 12/25/23 11:50 Antibiotics) sulfamethoxazole Allergy Severe Rash Verified 12/25/23 11:50 [From Bactrim] trimethoprim [From Bactrim] Allergy Severe Rash Verified 12/25/23 11:50 Erythromycin Allergy Severe Gastrointestinal Uncoded 12/25/23 11:50 Upset Plan I have reviewed the history and physical and performed a pertinent physical examination on my patient. No changes have occurred unless specified. Time Spent With Patient Time: Total time managing care of this patient today ____ minutes.
--- NOTE | 2023-12-25 13:55 | P.CONAN_ITS ---
HPI - Anesthesia Eval Consult details Narrative: for lap. cholecystectomy PMFSH Active Problems Active Problems: All Active Problems Abnormal AST and ALT (Acute) Acute pancreatitis (Acute) Past Medical History Medical History (Updated 12/25/23 @ 13:51 by Shannon Null RN) RONNIE (obstructive sleep apnea) Migraine Depression Family History Family history of problems with anesthesia: No Surgical History Surgical History (Updated 12/25/23 @ 11:49 by Shannon Null RN) H/O colonoscopy History of appendectomy History of Problems with Anesthesia: No Social History Social History Household Members: Family Housing: House Do you presently have visiting nurse or other home services: No Alcohol intake: never Patient Tobacco Use Status: Never used Tobacco service: No Meds Allergies Allergy/AdvReac Type Severity Reaction Status Date / Time Sulfa (Sulfonamide Allergy Severe Rash Verified 12/25/23 11:50 Antibiotics) sulfamethoxazole Allergy Severe Rash Verified 12/25/23 11:50 [From Bactrim] trimethoprim [From Bactrim] Allergy Severe Rash Verified 12/25/23 11:50 Erythromycin Allergy Severe Gastrointestinal Uncoded 12/25/23 11:50 Upset Active Medications: Current Medications Amitriptyline HCl (Amitriptyline Hcl 50 Mg Tablet) 50 mg PO BEDTIME [facility] Last Admin: 12/24/23 20:58 Dose: 50 mg Bupropion HCl (Bupropion Hcl Xl 300 Mg Tab.Er.24h) 300 mg PO DAILY [facility] Last Admin: 12/25/23 07:43 Dose: 300 mg Capsaicin (Capsaicin 0.025% Cream 60 Gm Tube) 1 appl TOPICAL QID [facility]; Protocol Last Admin: 12/25/23 12:05 Dose: Not Given Divalproex Sodium (Divalproex Sodium 500 Mg Tablet.) 500 mg PO BEDTIME [facility] Last Admin: 12/24/23 20:58 Dose: 500 mg Duloxetine HCl (Duloxetine Hcl 60 Mg Capsule.) 60 mg PO DAILY [facility] Last Admin: 12/25/23 07:43 Dose: 60 mg Enoxaparin Sodium (Enoxaparin Sodium 40 Mg/0.4 Ml Syringe) 40 mg SUBCUT Q24H [facility] Last Admin: 12/25/23 04:19 Dose: 40 mg Escitalopram Oxalate (Escitalopram Oxalate 20 Mg Tablet) 20 mg PO DAILY [facility] Last Admin: 12/25/23 07:43 Dose: 20 mg Hydromorphone HCl (Hydromorphone Hcl 1 Mg/Ml Syringe) 1 mg IVPUSH Q4H PRN; Protocol PRN Reason: Pain, Severe (Pain Scale 7-10) Last Admin: 12/23/23 21:24 Dose: 1 mg Ceftriaxone Sodium 1 gm/ (Sodium Chloride) 50 mls @ 100 mls/hr IV Q24H [facility] Last Infusion: 12/24/23 17:45 Dose: Infused Sodium Chloride (Ns) 1,000 mls @ 100 mls/hr IVCONT .Q10H [facility] Last Admin: 12/25/23 11:40 Dose: Not Given Lamotrigine (Lamotrigine 25 Mg Tablet) 75 mg PO DAILY [facility] Last Admin: 12/25/23 07:43 Dose: 75 mg Lidocaine (Lidocaine 4 % Patch Adh..Patch) 1 patch TRANSDERMA DAILY [facility]; Protocol Last Admin: 12/25/23 07:40 Dose: Not Given Multivitamins/Vitamin C (Multivitamin Tablet) 1 tab PO DAILY [facility] Last Admin: 12/25/23 07:45 Dose: Not Given Non-Formulary Medication (Calcium Carb,Gluc-Mag Gluc,Ox [Calcium Magnesium]) 1 tab PO DAILY [facility] Patient Own Medication ( Fesoterodine 4 Mg Tablet Extended Release 24 Hr) 4 mg PO DAILY [facility] Last Admin: 12/25/23 07:40 Dose: Not Given Patient Own Medication ( Hyoscyamine Sulfate 0.125 Mg Tablet) 0.25 mg PO BID PRN PRN Reason: GI Upset Patient Own Medication ( Zolmitriptan 5 Mg [place],Non-Aerosol) 5 mg NOSTRIL-B DAILY MRX1 PRN PRN Reason: Migraine Headache Last Admin: 12/24/23 11:35 Dose: 5 mg Ondansetron HCl (Ondansetron Hcl 4 Mg/2 Ml Vial) 4 mg IVPUSH Q6H PRN PRN Reason: Nausea and Vomiting Last Admin: 12/23/23 07:43 Dose: 4 mg Oxybutynin Chloride (Oxybutynin Chloride Er 5 Mg Tab.Er.24) 10 mg PO DAILY [facility] Last Admin: 12/25/23 07:43 Dose: 10 mg Oxycodone HCl (Oxycodone Hcl Immed Release 5 Mg Tablet) 5 mg PO Q6H PRN PRN Reason: Pain, Mild (Pain Scale 1-3) Last Admin: 12/24/23 19:31 Dose: 5 mg Pantoprazole Sodium (Pantoprazole Sodium 40 Mg/10 Ml Vial) 40 mg IVPUSH BID@0630,1630 [facility] Last Admin: 12/25/23 06:07 Dose: 40 mg Simethicone (Simethicone 80 Mg Tab.Chew) 80 mg PO QIDWMHS PRN PRN Reason: gaseous sensation Sodium Chloride (0.9 % Sodium Chloride Flush 3 Ml Syringe) 3 ml IVFLUSH QSHIFT [facility] Last Admin: 12/25/23 07:08 Dose: Not Given Home Medications ?Medication ?Instructions ?Recorded ?Confirmed ?Last Taken ?Type amitriptyline 25 mg tablet 50 mg PO BEDTIME 12/23/23 12/23/23 Unknown History bupropion HCl 300 mg 24 hr tablet, 300 mg PO DAILY 12/23/23 12/23/23 12/22/23 History extended release calcium carb, gluc 500 mg 1 tab PO DAILY 12/23/23 12/23/23 12/22/23 History calcium-magnesium gluc, oxide 250 mg tablet (Calcium Magnesium) divalproex 500 mg tablet,delayed 500 mg PO BEDTIME 12/23/23 12/23/23 Unknown History release duloxetine 30 mg capsule,delayed 60 mg PO DAILY 12/23/23 12/23/23 12/22/23 History release eletriptan 40 mg tablet 40 mg PO DAILY MRX1 PRN Migraine 12/23/23 12/23/23 Unknown History Headache escitalopram oxalate 20 mg tablet 20 mg PO DAILY 12/23/23 12/23/23 12/22/23 History fesoterodine 4 mg tablet,extended 4 mg PO DAILY 12/23/23 12/23/23 12/22/23 History release 24 hr hyoscyamine sulfate 0.125 mg tablet 0.25 mg PO BID PRN GI Upset 12/23/23 12/23/23 Unknown History lamotrigine 25 mg tablet 75 mg PO DAILY 12/23/23 12/23/23 12/22/23 History oxybutynin chloride 10 mg 10 mg PO DAILY 12/23/23 12/23/23 12/22/23 History tablet,extended release 24 hr tirzepatide (weight loss) 2.5 2.5 mg subcut TU@0900 12/23/23 12/23/23 Unknown History mg/0.5 mL subcutaneous pen injector (Zepbound) vitamin B complex 1 cap PO DAILY 12/23/23 12/23/23 12/22/23 History zolmitriptan 5 mg nasal spray 5 mg intranasal DAILY MRX1 PRN 12/23/23 12/23/23 Unknown History Migraine Headache Exam Height,Weight and Vital Signs: Height 5 ft 6 in Weight 92.1 kg Last Vital Signs Temp 98.3 F 12/25/23 11:50 Pulse 75 12/25/23 11:50 Resp 16 12/25/23 11:50 BP 150/81 H 12/25/23 11:50 Pulse Ox 96 12/25/23 11:50 O2 Del Method Room Air 12/25/23 11:50 Pertinent Lab Results Pertinent Lab Results: Laboratory Tests 12/23/23 12/23/23 12/24/23 01:44 09:50 05:26 WBC 6.7 5.6 RBC 4.16 L 3.52 L Hgb 13.0 11.2 L Hct 38.1 33.4 L MCV 91.6 94.9 MCH 31.3 31.8 MCHC 34.1 33.5 RDW 12.5 12.8 Plt Count 254 220 MPV 8.8 L 9.0 L Immature Gran % (Auto) 1.0 H 0.5 H Neut % (Auto) 58.0 59.3 Lymph % (Auto) 31.1 28.5 [place] % (Auto) 7.1 8.0 Eos % (Auto) 2.4 3.2 Baso % (Auto) 0.4 0.5 Lymph # (Auto) 2.1 1.6 [place] # (Auto) 0.5 0.5 Eos # (Auto) 0.2 0.2 Baso # (Auto) 0.0 0.0 Abs Immat Gran (auto) 0.07 H 0.03 Absolute Neuts (auto) 3.9 3.3 Absolute Nucleated RBC 0.000 0.000 Nucleated RBC % (auto) 0.0 0.0 Sodium 140 143 Potassium 4.1 3.9 Chloride 106 106 Carbon Dioxide 24 30 H Anion Gap 14 11 L BUN 21 H 11 Creatinine 0.69 0.65 Estim Creat Clear Calc 103.8 111.8 Estimated GFR > 60 > 60 Random Glucose 114 83 Calcium 9.1 8.6 Total Bilirubin 0.2 0.3 Direct Bilirubin AST 75 H 106 H ALT 55 H 207 H Alkaline Phosphatase 63 73 Total Creatine Kinase 59 C-Reactive Protein 0.11 Total Protein 7.0 5.4 L Albumin 4.0 3.3 L Triglycerides 138 Cholesterol 185 LDL Cholesterol, Calc 107 H HDL Cholesterol 51 Lipase > 3000 H 199 H Urine Color Yellow Urine Appearance Clear Urine pH 7.0 Ur Specific [place] >= 1.030 H Urine Protein Negative Urine Glucose (UA) Negative Urine Ketones Negative Urine Blood Negative Urine Nitrite Positive H Ur Leukocyte Esterase Trace H Urine RBC 0-2 Urine WBC 6-10 H Ur Squamous Epith Cells 0-2 Urine Bacteria 4+ Hyaline Casts 0-2 12/25/23 08:34 WBC RBC Hgb Hct MCV MCH MCHC RDW Plt Count MPV Immature Gran % (Auto) Neut % (Auto) Lymph % (Auto) [place] % (Auto) Eos % (Auto) Baso % (Auto) Lymph # (Auto) [place] # (Auto) Eos # (Auto) Baso # (Auto) Abs Immat Gran (auto) Absolute Neuts (auto) Absolute Nucleated RBC Nucleated RBC % (auto) Sodium Potassium Chloride Carbon Dioxide Anion Gap BUN Creatinine Estim Creat Clear Calc Estimated GFR Random Glucose Calcium Total Bilirubin 0.4 Direct Bilirubin 0.1 AST 45 H ALT 148 H Alkaline Phosphatase 83 Total Creatine Kinase C-Reactive Protein Total Protein 6.1 L Albumin 3.6 Triglycerides Cholesterol LDL Cholesterol, Calc HDL Cholesterol Lipase 34 Urine Color Urine Appearance Urine pH Ur Specific [place] Urine Protein Urine Glucose (UA) Urine Ketones Urine Blood Urine Nitrite Ur Leukocyte Esterase Urine RBC Urine WBC Ur Squamous Epith Cells Urine Bacteria Hyaline Casts Airway Mallampati Class: II TM Dist: <=3cm Neck ROM: Full Loose/Missing/Broken Teeth: No Heart: ok Lungs: ok Assessment and Plan Assessment Anesthesia Assessment: Anesthesia Plan Discussed and Chart Reviewed Final Anesthetic Review Family History of Problems with Anesthesia: No History of Problems with Anesthesia: No NPO: Yes ASA Class: II Final Preanesthetic Review: No Changes in Pt Med Stat, Meds/Allgs Chart Reviewed, Consent Obtained/Reviewed and Anes Risks/Benef Reviewed Patient Risk: Low Procedure Risk: Intermediate Anesthetic Plan Anesthetic Plan: GA and Agree w/ Assess. and Plan Disposition: Standard PACU
[2023-12-25] MEDS: Lactated Ringers 1,000 ML 80 ML IVCONT (13:56)
--- NOTE | 2023-12-25 15:59 | W.PM.OPN ---
Operative Note Operative Note Date of Service: 12/25/23 Narrative: Preoperative diagnosis: [] Symptomatic gallbladder/gallstone pancreatitis Postop diagnosis: [] The same Procedure [] laparoscopic cholecystectomy with cholangiogram, primary repair of incarcerated umbilical hernia ( 2 cm in size) Surgeon: [] Anand Developmental Therapist: [] Lydia Type of Anesthesia: [] General Indication for surgery: [] Gallbladder with omental adhesions to it. Moderately intrahepatic gallbladder. Cholangiogram demonstrated free flow of contrast into the extrahepatic biliary system with no filling defects. Patient had incarcerated umbilical hernia with omental contents, which measuring approximately 2 cm in size which was used as the camera port site and repaired primarily at completion. Findings: [] Patient brought to the operating room, placed on operative table supine position, after an adequate level of general anesthesia was induced, the patient's abdomen was prepped and draped in usual sterile fashion. Using a supraumbilical curvilinear incision, dissection was carried down through the incarcerated umbilical hernia which was opened, redundant sac excised, incarcerated omentum amputated, and Hawthorne technique was used to insufflate abdominal cavity to 15 mm of CO2. Upper midline and right subcostal ports were placed under direct laparoscopic view, and the patient placed in reverse Trendelenburg position, and tilted to the left. Findings were as noted above. Gallbladder was grasped using laparoscopic graspers and retracted superiorly and laterally. Soft omental adhesions were swept off the gallbladder with the hilum was approached. Cystic artery and cystic duct were each identified, circumferentially skeletonized, traced directly into the gallbladder, and critical view obtained. Incision was made in the cystic duct/Danny's pouch junction and cholangiocatheter placed in this and cholangiogram performed with findings as noted above. Each structure was then clipped proximally x2, distally x1, and transected gallbladder which was moderately intrahepatic was then cauterized from the gallbladder fossa using Bovie. Specimen placed in an Endo-Catch bag, a retrieved through the umbilical port. Abdominal cavity was copiously irrigated and secured hemostasis. All ports removed under direct laparoscopic view. Wounds were closed in the following manner; umbilical wound, which was the site of the hernia, had it is fascia reapproximated using interrupted 0 Vicryl sutures. Skin wounds were closed using subcuticular 4-0 Vicryl sutures followed by Steri-Strips and sterile dressings. Wounds were infiltrated 0.5% Marcaine at completion. Sponge, needle, and instrument counts reported correct. Patient tolerated the procedure well and emerged from anesthesia stable condition. EBL minimal
[2023-12-25] MEDS: cefTRIAXone sodium 1 GM in 0.9 % Sodium Chloride 50 ML IV (17:31)
[2023-12-25] MEDS: 0.9 % Sodium Chloride Flush 3 ML SYRINGE IVFLUSH (17:32)
[2023-12-25] MEDS: Divalproex Sodium 500 MG TABLET.DR PO (20:17)
[2023-12-25] MEDS: Amitriptyline HCl 50 MG TABLET PO (20:17)
[2023-12-25] MEDS: HYDROmorphone HCl 1 MG/ML SYRINGE IVPUSH (20:18)
[2023-12-26 03:25] VITALS: BP 130/63; PULSE 74; RESP 18; TEMP 37.2; O2SAT 95
[2023-12-26] MEDS: Lactated Ringers 1,000 ML 80 ML IVCONT (03:50)
[2023-12-26] MEDS: Pantoprazole Sodium 40 MG/10 ML VIAL IVPUSH (05:40)
[2023-12-26 07:10] LABS: Alanine Aminotransferase 277 U/L (0-31); Albumin Level 3.5 g/dL (3.5-5.0); Alkaline Phosphatase 211 U/L (39-117); Aspartate Amino Transferase 172 U/L (5-31); Bilirubin Direct < 0.2 mg/dL (0.0-0.5); Bilirubin Total 0.2 mg/dL (0.0-1.0); Total Protein 5.8 g/dL (6.5-8.0)
--- NOTE | 2023-12-26 07:17 | P.PNGS_ITS ---
Subjective Subjective Date of Service: 12/26/23 <[facility] Last Filed: 12/26/23 07:53> 12/28/23 <Ivy Freeman PA-C - Last Filed: 12/28/23 14:15> Interval history: No acute events overnight. Patient reports she is doing well. She reports her abdominal pain is adequately controlled but she does report increased pain with ambulation. She reports she has been able to pass gas without difficulty, has not had a BM yet. Denies pain or burning with urination. Reports she has been tolerating PO intake without nausea or vomiting. Denies headache, shortness of breath or chest pain. Requiring hydromorphone 1mg PRN q 4hrs, last dose was 12/25/23 at 2100. Physician at bedside, discussed plan for discharge, expectations with recovery, and follow up. <[facility] Filed: 12/26/23 07:53> Physical Exam 2 Vital Signs: Vital Signs: Last Vital Signs Temp 98.9 F 12/26/23 03:25 Pulse 74 12/26/23 03:25 Resp 18 12/26/23 03:25 BP 130/63 12/26/23 03:25 Pulse Ox 95 12/26/23 03:25 O2 Del Method Room Air 12/26/23 03:25 O2 Flow Rate 2 12/25/23 19:29 FiO2 49 12/25/23 17:00 BMI result Body Mass Index 32.8 <[facility] Filed: 12/26/23 07:53> Const: General: cooperative, comfortable, no acute distress, alert and awake <[facility] Filed: 12/26/23 07:53> Orientation/consciousness: patient oriented x3 <[facility] Last Filed: 12/26/23 07:53> Limitations: no limitations <[facility] Last Filed: 12/26/23 07:53> Chest: Chest palpation & inspection: normal inspection of the chest < [facility] Filed: 12/26/23 07:53> Resp: Effort & Inspection: normal respiratory effort and able to speak in complete sentences <[facility] Last Filed: 12/26/23 07:53> Auscultation: clear to auscultation bilaterally <[facility] Filed: 12/26/23 07:53> Cardio: Rate: regular rate <[facility] Filed: 12/26/23 07:53> Rhythm: regular rhythm <[facility] Filed: 12/26/23 07:53> Heart sounds: S1 normal heart sound present and S2 normal heart sound present <[facility] Filed: 12/26/23 07:53> GI: Other: Four healing incisions (umbilical, epigastric and 2 RUQ) covered with steri- strips, no drainage or bleeding visible. Expected tenderness with abdominal palpation throughout. Abdomen is soft and non distended. Normal bowel sounds in all four quadrants. <[facility] Filed: 12/26/23 07:53> Neuro: General: patient oriented x3 <[facility] Filed: 12/26/23 07:53> Extrem: General: Yes normal to inspection, Yes full ROM, Yes no pedal edema and Yes no calf tenderness <[facility] Filed: 12/26/23 07:53> Psych: Appearance: grossly normal <[facility] Filed: 12/26/23 07:53> Mental Status: mental status grossly normal <[facility] Filed: 12/26/23 07:53> Speech and movement: Normal speech and movement present <[facility] Filed: 12/26/23 07:53> Objective Data Active Medications Amitriptyline HCl (Amitriptyline Hcl 50 Mg Tablet) 50 mg PO BEDTIME [facility] Last Admin: 12/25/23 20:17 Dose: 50 mg Documented By: VINCENT Bupropion HCl (Bupropion Hcl Xl 300 Mg Tab.Er.24h) 300 mg PO DAILY [facility] Last Admin: 12/25/23 07:43 Dose: 300 mg Documented By: DOMINGA Calcium Carbonate (Calcium Oyster Shell Elemental 500 Mg Tablet) 500 mg PO DAILY [facility] Capsaicin (Capsaicin 0.025% Cream 60 Gm Tube) 1 appl TOPICAL QID [facility]; Protocol Last Admin: 12/25/23 21:00 Dose: Not Given Documented By: VINCENT Non-Admin Reason: rash Divalproex Sodium (Divalproex Sodium 500 Mg Tablet.Dr) 500 mg PO BEDTIME [facility] Last Admin: 12/25/23 20:17 Dose: 500 mg Documented By: VINCENT Duloxetine HCl (Duloxetine Hcl 60 Mg Capsule.Dr) 60 mg PO DAILY [facility] Last Admin: 12/25/23 07:43 Dose: 60 mg Documented By: DOMINGA Enoxaparin Sodium (Enoxaparin Sodium 40 Mg/0.4 Ml Syringe) 40 mg SUBCUT Q24H [facility] Last Admin: 12/25/23 04:19 Dose: 40 mg Documented By: NATASHA Escitalopram Oxalate (Escitalopram Oxalate 20 Mg Tablet) 20 mg PO DAILY [facility] Last Admin: 12/25/23 07:43 Dose: 20 mg Documented By: DOMINGA Hydromorphone HCl (Hydromorphone Hcl 1 Mg/Ml Syringe) 1 mg IVPUSH Q4H PRN; Protocol PRN Reason: Pain, Severe (Pain Scale 7-10) Last Admin: 12/25/23 20:18 Dose: 1 mg Documented By: VINCENT Ceftriaxone Sodium 1 gm/ (Sodium Chloride) 50 mls @ 100 mls/hr IV Q24H [facility] Last Infusion: 12/25/23 18:11 Dose: Infused Documented By: DOMINGA Sodium Chloride (Ns) 1,000 mls @ 100 mls/hr IVCONT .Q10H [facility] Last Admin: 12/25/23 18:06 Dose: Not Given Documented By: DOMINGA Non-Admin Reason: LR RUNNING Lactated Ringer's (Lr) 1,000 mls @ 80 mls/hr IVCONT .[id number] [facility] Last Admin: 12/26/23 03:50 Dose: 80 mls/hr Documented By: VINCENT Lamotrigine (Lamotrigine 25 Mg Tablet) 75 mg PO DAILY [facility] Last Admin: 12/25/23 07:43 Dose: 75 mg Documented By: DOMINGA Lidocaine (Lidocaine 4 % Patch Adh..Patch) 1 patch TRANSDERMA DAILY [facility]; Protocol Last Admin: 12/25/23 07:40 Dose: Not Given Documented By: DOMINGA Non-Admin Reason: Patient Refused Multivitamins/Vitamin C (Multivitamin Tablet) 1 tab PO DAILY [facility] Last Admin: 12/25/23 07:45 Dose: Not Given Documented By: DOMINGA Non-Admin Reason: Patient Refused Patient Own Medication ( Fesoterodine 4 Mg Tablet Extended Release 24 Hr) 4 mg PO DAILY [facility] Last Admin: 12/25/23 07:40 Dose: Not Given Documented By: DOMINGA Non-Admin Reason: Patient Refused Patient Own Medication ( Hyoscyamine Sulfate 0.125 Mg Tablet) 0.25 mg PO BID PRN PRN Reason: GI Upset Patient Own Medication ( Zolmitriptan 5 Mg [place],Non-Aerosol) 5 mg NOSTRIL-B DAILY MRX1 PRN PRN Reason: Migraine Headache Last Admin: 12/24/23 11:35 Dose: 5 mg Documented By: TREVA Ondansetron HCl (Ondansetron Hcl 4 Mg/2 Ml Vial) 4 mg IVPUSH Q6H PRN PRN Reason: Nausea and Vomiting Last Admin: 12/23/23 07:43 Dose: 4 mg Documented By: BRADLEY Oxybutynin Chloride (Oxybutynin Chloride Er 5 Mg Tab.Er.24) 10 mg PO DAILY [facility] Last Admin: 12/25/23 07:43 Dose: 10 mg Documented By: DOMINGA Oxycodone HCl (Oxycodone Hcl Immed Release 5 Mg Tablet) 5 mg PO Q6H PRN PRN Reason: Pain, Mild (Pain Scale 1-3) Last Admin: 12/24/23 19:31 Dose: 5 mg Documented By: SUMANTH Pantoprazole Sodium (Pantoprazole Sodium 40 Mg/10 Ml Vial) 40 mg IVPUSH BID@0630,1630 [facility] Last Admin: 12/26/23 05:40 Dose: 40 mg Documented By: CORNELV Simethicone (Simethicone 80 Mg Tab.Chew) 80 mg PO QIDWMHS PRN PRN Reason: gaseous sensation Sodium Chloride (0.9 % Sodium Chloride Flush 3 Ml Syringe) 3 ml IVFLUSH QSHIFT [facility] Last Admin: 12/26/23 06:27 Dose: Not Given Documented By: DOMINGA Non-Admin Reason: IV Running <[facility] [place] - Last Filed: 12/26/23 07:53> Labs CBC & Chem 7: 12/24/23 05:26 12/24/23 05:26 <[facility] Last Filed: 12/26/23 07:53> Labs: Laboratory Results - last 24 hr 12/25/23 12/26/23 08:34 05:31 Total Bilirubin 0.4 0.2 Direct Bilirubin 0.1 < 0.2 AST 45 H 172 H ALT 148 H 277 H Alkaline Phosphatase 83 211 H Total Protein 6.1 L 5.8 L Albumin 3.6 3.5 Lipase 34 <[facility] Last Filed: 12/26/23 07:53> Microbiology Microbiology Results: Microbiology 12/23/23 Unknown Urine Culture - Final Urine clean catch - Clean Catch Midstream Escherichia coli <[facility] - Last Filed: 12/26/23 07:53> Procedures Date of Service Date of Service: 12/26/23 <[facility] - Last Filed: 12/26/23 07:53> 12/28/23 <Ivy Freeman PA-C - Last Filed: 12/28/23 14:15> Progress Note: A&P Assessment and plan (1) Status post laparoscopic cholecystectomy: Status: Acute <[facility] Filed: 12/26/23 07:53> Assessment and Plan: Patient is a 53 year old female who is 12 hours s/p laparoscopic cholecystectomy. She reports she pain has been well managed and she is tolerating PO intake. She remains afebrile and vital signs have remained stable. She has expected tenderness with palpation of the abdomen, no drainage or bleeding visible from the incision sites. Patient would like to be discharged home today, discussed with Physician and they are agreeable with this plan. Recommended the patient to remain hydrated and to eat as tolerated. Pain management- will plan to transition to PO acetaminophen and ibuprofen, if tolerated and pain is well controlled- will plan for discharge. Reminded to continue icing the abdomen. Plan to resume home medications since she is tolerating PO intake. Encouraged to continue with ambulation as tolerated. Discussed limitations with lifting. Patient will follow up in the office early next week. <[facility] Filed: 12/26/23 07:53> Time Spent With Patient Time: Total time managing care of this patient today ____ minutes. <[facility] Filed: 12/26/23 07:53> Quality Stroke Does the patient have a stroke diagnosis?: No <[facility] Last Filed: 12/26/23 07:53> VTE Prior VTE?: No <[facility] Filed: 12/26/23 07:53> VTE Risk Level:: Medical - moderate - high <[facility] Filed: 12/26/23 07:53> VTE Device Contraindication: Treatment Not Indicated <[facility] Filed: 12/26/23 07:53> VTE Drug Contraindication: N/A - Med Ordered <[facility] Filed: 12/26/23 07:53>
[2023-12-26 07:39] VITALS: BP 131/69; PULSE 77; RESP 18; TEMP 36.4; O2SAT 91
--- NOTE | 2023-12-26 07:43 | P.PNGS_ITS ---
Subjective Subjective Date of Service: 12/26/23 Interval history: Uneventful evening. Tolerating diet, has been out of bed, minimal incisional discomfort. A.m. labs; bilirubin within normal limits. Mild elevation of transaminases Physical Exam 2 Vital Signs: Vital Signs: Last Vital Signs Temp 97.6 F 12/26/23 07:39 Pulse 77 12/26/23 07:39 Resp 18 12/26/23 07:39 BP 131/69 12/26/23 07:39 Pulse Ox 91 L 12/26/23 07:39 O2 Del Method Room Air 12/26/23 07:39 O2 Flow Rate 2 12/25/23 19:29 FiO2 49 12/25/23 17:00 BMI result Body Mass Index 32.8 GI: Other: Abdomen is soft. All wounds clean dry and intact. Objective Data Active Medications Amitriptyline HCl (Amitriptyline Hcl 50 Mg Tablet) 50 mg PO BEDTIME [facility] Last Admin: 12/25/23 20:17 Dose: 50 mg Documented By: VINCENT Bupropion HCl (Bupropion Hcl Xl 300 Mg Tab.Er.24h) 300 mg PO DAILY [facility] Last Admin: 12/25/23 07:43 Dose: 300 mg Documented By: DOMINGA Calcium Carbonate (Calcium Oyster Shell Elemental 500 Mg Tablet) 500 mg PO DAILY [facility] Capsaicin (Capsaicin 0.025% Cream 60 Gm Tube) 1 appl TOPICAL QID [facility]; Protocol Last Admin: 12/25/23 21:00 Dose: Not Given Documented By: VINCENT Non-Admin Reason: rash Divalproex Sodium (Divalproex Sodium 500 Mg Tablet.) 500 mg PO BEDTIME [facility] Last Admin: 12/25/23 20:17 Dose: 500 mg Documented By: VINCENT Duloxetine HCl (Duloxetine Hcl 60 Mg Capsule.) 60 mg PO DAILY [facility] Last Admin: 12/25/23 07:43 Dose: 60 mg Documented By: DOMINGA Enoxaparin Sodium (Enoxaparin Sodium 40 Mg/0.4 Ml Syringe) 40 mg SUBCUT Q24H [facility] Last Admin: 12/25/23 04:19 Dose: 40 mg Documented By: NATASHA Escitalopram Oxalate (Escitalopram Oxalate 20 Mg Tablet) 20 mg PO DAILY [facility] Last Admin: 12/25/23 07:43 Dose: 20 mg Documented By: DOMINGA Hydromorphone HCl (Hydromorphone Hcl 1 Mg/Ml Syringe) 1 mg IVPUSH Q4H PRN; Protocol PRN Reason: Pain, Severe (Pain Scale 7-10) Last Admin: 12/25/23 20:18 Dose: 1 mg Documented By: VINCENT Ceftriaxone Sodium 1 gm/ (Sodium Chloride) 50 mls @ 100 mls/hr IV Q24H [facility] Last Infusion: 12/25/23 18:11 Dose: Infused Documented By: DOMINGA Sodium Chloride (Ns) 1,000 mls @ 100 mls/hr IVCONT .Q10H [facility] Last Admin: 12/25/23 18:06 Dose: Not Given Documented By: DOMINGA Non-Admin Reason: LR RUNNING Lactated Ringer's (Lr) 1,000 mls @ 80 mls/hr IVCONT .[id number] [facility] Last Admin: 12/26/23 03:50 Dose: 80 mls/hr Documented By: VINCENT Lamotrigine (Lamotrigine 25 Mg Tablet) 75 mg PO DAILY [facility] Last Admin: 12/25/23 07:43 Dose: 75 mg Documented By: DOMINGA Lidocaine (Lidocaine 4 % Patch Adh..Patch) 1 patch TRANSDERMA DAILY [facility]; Protocol Last Admin: 12/25/23 07:40 Dose: Not Given Documented By: DOMINGA Non-Admin Reason: Patient Refused Multivitamins/Vitamin C (Multivitamin Tablet) 1 tab PO DAILY [facility] Last Admin: 12/25/23 07:45 Dose: Not Given Documented By: DOMINGA Non-Admin Reason: Patient Refused Patient Own Medication ( Fesoterodine 4 Mg Tablet Extended Release 24 Hr) 4 mg PO DAILY [facility] Last Admin: 12/25/23 07:40 Dose: Not Given Documented By: DOMINGA Non-Admin Reason: Patient Refused Patient Own Medication ( Hyoscyamine Sulfate 0.125 Mg Tablet) 0.25 mg PO BID PRN PRN Reason: GI Upset Patient Own Medication ( Zolmitriptan 5 Mg [place],Non-Aerosol) 5 mg NOSTRIL-B DAILY MRX1 PRN PRN Reason: Migraine Headache Last Admin: 12/24/23 11:35 Dose: 5 mg Documented By: TREVA Ondansetron HCl (Ondansetron Hcl 4 Mg/2 Ml Vial) 4 mg IVPUSH Q6H PRN PRN Reason: Nausea and Vomiting Last Admin: 12/23/23 07:43 Dose: 4 mg Documented By: BRADLEY Oxybutynin Chloride (Oxybutynin Chloride Er 5 Mg Tab.Er.24) 10 mg PO DAILY [facility] Last Admin: 12/25/23 07:43 Dose: 10 mg Documented By: DOMINGA Oxycodone HCl (Oxycodone Hcl Immed Release 5 Mg Tablet) 5 mg PO Q6H PRN PRN Reason: Pain, Mild (Pain Scale 1-3) Last Admin: 12/24/23 19:31 Dose: 5 mg Documented By: SUMANTH Pantoprazole Sodium (Pantoprazole Sodium 40 Mg/10 Ml Vial) 40 mg IVPUSH BID@0630,1630 [facility] Last Admin: 12/26/23 05:40 Dose: 40 mg Documented By: CORNELV Simethicone (Simethicone 80 Mg Tab.Chew) 80 mg PO QIDWMHS PRN PRN Reason: gaseous sensation Sodium Chloride (0.9 % Sodium Chloride Flush 3 Ml Syringe) 3 ml IVFLUSH QSHIFT [facility] Last Admin: 12/26/23 06:27 Dose: Not Given Documented By: DOMINGA Non-Admin Reason: IV Running Labs 12/24/23 05:26 12/24/23 05:26 Labs: Laboratory Results - last 24 hr 12/25/23 12/26/23 08:34 05:31 Total Bilirubin 0.4 0.2 Direct Bilirubin 0.1 < 0.2 AST 45 H 172 H ALT 148 H 277 H Alkaline Phosphatase 83 211 H Total Protein 6.1 L 5.8 L Albumin 3.6 3.5 Lipase 34 Microbiology Microbiology Results: Microbiology 12/23/23 Unknown Urine Culture - Final Urine clean catch - Clean Catch Midstream Escherichia coli Procedures Date of Service Date of Service: 12/26/23 Progress Note: A&P Assessment and plan (1) Status post laparoscopic cholecystectomy: Status: Acute Plan Advanced diet, Hep-Lock IV, encourage incentive spirometry, ice to incisions. Consider DC home soon per hospitalist. Time Spent With Patient Time: Total time managing care of this patient today ____ minutes. Quality Stroke Does the patient have a stroke diagnosis?: No VTE Prior VTE?: No VTE Risk Level:: Medical - moderate - high VTE Device Contraindication: Treatment Not Indicated VTE Drug Contraindication: N/A - Med Ordered
[2023-12-26] MEDS: oxyBUTYnin chloride ER 5 MG TAB.ER.24 10 MG PO (08:09)
[2023-12-26] MEDS: lamoTRIgine 25 MG TABLET 75 MG PO (08:09)
[2023-12-26] MEDS: oxyCODONE HCl Immed Release 5 MG TABLET PO (08:10)
[2023-12-26] MEDS: buPROPion HCl XL 300 MG TAB.ER.24H PO (08:10)
[2023-12-26] MEDS: Multivitamin TABLET 1 TAB PO (08:11)
[2023-12-26] MEDS: Calcium Oyster Shell Elemental 500 MG TABLET PO (08:11)
[2023-12-26] MEDS: DULoxetine HCl 60 MG CAPSULE.DR PO (08:11)
[2023-12-26] MEDS: Escitalopram Oxalate 20 MG TABLET PO (08:11)
[2023-12-26] MEDS: Docusate Sodium 100 MG CAPSULE PO (08:30)
--- NOTE | 2023-12-26 10:10 | HO.POSTANES ---
Post Anesthesia Evaluation Post Anesthesia Evaluation Date of Service: 12/25/23 Vital Signs: Vital Signs Temp Pulse Resp BP Pulse Ox O2 Del Method 12/26/23 07:39 97.6 F 77 18 131/69 91 L Room Air 12/26/23 03:25 98.9 F 74 18 130/63 95 Room Air 12/25/23 23:37 97.9 F 80 18 110/66 94 Room Air Anesthesia: General Mental Status: Awake Pain Control: Satisfactory Nausea/Vomiting: None Hydration: Adequate Anesthesia-Related Issues: No Anes. Related Issues
--- NOTE | 2023-12-26 10:15 | PM.DS ---
DS: Providers Provider Date of Service: 12/26/23 Date of admission: 12/23/23 03:52 Primary care physician: Unknown Physician Consults: 12/23/23 05:50 Consult to Gastroenterology Routine Consulting Provider: Jody Redmond Reason for consultation: Acute pancreatitis Has provider been notified: No 12/24/23 09:44 Consult to General Surgery Routine Consulting [place] [facility] Reason for consultation: ? gallstone pancreaitis Has provider been notified: No DS: Diagnosis Discharge Diagnosis (1) Abnormal AST and ALT: Status: Acute (2) Acute pancreatitis: Status: Acute DS: Summary Hospital Course Hospital Course: admitting HPI Chief Complaint: LLQ abdominal pain Charity Soria is a very pleasant 53 years old woman with past medical history significant for depression multiple oral agents presents to the emergency department via ambulance due to severe left lower quadrant pain that started last night at 11:30 PM. She described the pain as stabbing in nature associated with nausea. She denied any event of vomiting or diarrhea. Her last movement was yesterday and was normal. There is no fever or chills reported. Denies alcohol abuse, illicit drug use or tobacco smoking. There is no history of hyperlipidemia, gallstones or pancreatitis. She has been using Zepbound injection for weight loss (last dose was December 16. Her other home medications include escitalopram, amitriptyline, bupropion, lamotrigine, gabapentin, fesoterodine. Past surgical history is remarkable for appendectomy. In the ED, she was found to have normal vital signs. Blood workup was remarkable for markedly elevated lipase, >3000. Elevated transaminases. Bilirubin and alk-phos are normal. Abdomen pelvis CT scan with IV contrast showed no convincing evidence of pancreatitis (but artifact due to motion), trace nonspecific pelvic free fluid (physiological) and right uterine mass -likely fibroid. ED tx: Dilaudid 1 mg IV, Zofran 4 mg IV, LR 2 L bolus. Hospital course: Acute gallstone pancreatitis with initial lipase >300, dropped to 199 the next day, and after that 34. MRCP showed Gallbladder distention with stones and sludge. Gallbladder wall thickening and edema. This may represent acute cholecystitis. She was on Ceftriaxone for UTI which would cover a presumed cholecystitis as well. She underwent cholecystectomy on 12/25/23, her diet has been advnced and tolerating. She also had a hernia repair at that time. To follow up with surgery on outpatient basis. LFTs AST 75 to 106 to 45 and no2 172. ALT started at 55 went to 207, to 148 and to 277 now. Repeat LFTs on outpatient basis UTI--E.coli sensitive to Ceftriaxone -continue Ceftriaxone started 12/23, change to Cefuroxime for 5 more days Depression. resume meds after surgery Overreactive bladder. resume meds Migraine. No acute symptoms reported. Class I Obesity: Encouraged to lose weight and cutdown calorie Time Attestation Discharge Coordination Time (in mins): 45 Quality: Safe Use of Opioids Does Pt have an Active Cancer Diagnosis on the Problem List?: No Quality: Stroke Does the patient have a stroke diagnosis?: No Physical Exam Vital Signs: Vital Signs: Last Vital Signs Temp 97.6 F 12/26/23 07:39 Pulse 77 12/26/23 07:39 Resp 18 12/26/23 07:39 BP 131/69 12/26/23 07:39 Pulse Ox 91 L 12/26/23 07:39 O2 Del Method Room Air 12/26/23 07:39 O2 Flow Rate 2 12/25/23 19:29 FiO2 49 12/25/23 17:00 BMI result Body Mass Index 32.8 Const: Other: General: AO X 3, no acute distress Resp: CTA bilateral CVS: S1,S2,RRR GI: +BS, NT, no distention Skin: No rash Neuro: motor grossly intact Psych: appropriate affect DS: Data Data Completed and Pending Pending studies at discharge: Pending at discharge 12/25/23 15:09 Surgical [PTH] Routine Labs on day of discharge: Laboratory Results - last 24 hr 12/26/23 05:31 Total Bilirubin 0.2 Direct Bilirubin < 0.2 AST 172 H ALT 277 H Alkaline Phosphatase 211 H Total Protein 5.8 L Albumin 3.5 Discharge Plan Discharge Anticipated Discharge Date/Time: 12/26/23 10:22 Patient Disposition: Home, Self-Care Discharge Diagnosis: Acute gallstone pancreatitis, Referrals: Ke Michel MD [Physician] - 1 Week Physician,Unknown J [Primary Care Provider] - 1 Week Discharge Medications: New hydrocodone-acetaminophen 5-325 mg tablet 1 tab PO Q4-6H PRN (Reason: pain) Qty: 30 0RF Rx Instructions: Partial Fill upon patient request. cefuroxime axetil 500 mg tablet 500 mg PO BID 5 Days Qty: 10 0RF Continued oxybutynin chloride 10 mg tablet extended release 24hr 10 mg PO DAILY divalproex 500 mg tablet,delayed release (DR/EC) 500 mg PO BEDTIME lamotrigine 25 mg tablet 75 mg PO DAILY amitriptyline 25 mg tablet 50 mg PO BEDTIME hyoscyamine sulfate 0.125 mg tablet 0.25 mg PO BID PRN (Reason: GI Upset) escitalopram oxalate 20 mg tablet 20 mg PO DAILY eletriptan 40 mg tablet 40 mg PO DAILY MRX1 PRN (Reason: Migraine Headache) bupropion HCl 300 mg tablet extended release 24 hr 300 mg PO DAILY zolmitriptan 5 mg spray,non-aerosol 5 mg intranasal DAILY MRX1 PRN (Reason: Migraine Headache) duloxetine 30 mg capsule,delayed release(DR/EC) 60 mg PO DAILY fesoterodine 4 mg tablet extended release 24 hr 4 mg PO DAILY Zepbound 2.5 mg/0.5 mL pen injector 2.5 mg subcut TU@0900 vitamin B complex [B Complex] Capsule 1 cap PO DAILY Calcium Magnesium 500 mg calcium- 250 mg Tablet 1 tab PO DAILY Discharge Orders: Discharge Order (Routine); Ordered 12/26/23 Ordered By: Kale Mckeon Diet: Low fat, low cholesterol Activity on Discharge: No heavy lifting Stand Alone Forms: Patient Portal Discharge page Print Language: Zimbabwean Other Ambulatory Orders: Liver Panel (Routine) Timeframe: 1 Week Facility: [facility] - Location: Laboratory Ordered By: Kale Mckeon Activity Restrictions/Additional Instructions: Apply an ice pack for short intervals (20 minutes on, followed by at least 20 minutes off) for the first 2 days. Do not apply heat. Do not use creams, lotions, or topical antibiotics. These can cause infection or allergic reaction. Ok to shower 48 hours after your surgery. Remove dressings in 2 days and replace as needed. You have steri strips (small white cloth strips) covering your incision- these will fall off ~1 week. Follow up in office with Dr. Michel in 1 week. ([phone]) No heavy lifting (>10lbs) or strenuous activity! Call Your Doctor If: -Your temperature exceeds 101.5? F -You experience excessive pain or swelling -You have an unexpected reaction to medication -You have excessive bleeding -You experience continued vomiting/nausea -Your incision begins to separate -Your incision shows signs of infection such as increased redness, swelling, excessive pain, drainage (light blood or clear fluid is normal) or heat To have liver test done within a week Follow up with your primary care doctor in a week Care Plan Goals: recovery from gallstone pancreatiti Health Concerns: gallstone pancreatitis abdominal hernia take cefuroxime for UTI Plan of Treatment: see above Assessment: alex
--- NOTE | 2023-12-26 12:09 | MHC.CM.PN ---
Patient medically cleared for dc home self care. Family at bedside to transport. RN aware.
== END 2023-12-26 12:11 | disposition home or self-care (01) | DRG 263 ==
LOC: HO.ED 02:41 → HO.EDOVER 04:04 → HO.S3 07:39
PROVIDERS: Physician Assistant Surgical; Surgery; Admitting Provider Internal Medicine; Emergency Provider Emergency Medicine Emergency Medical Services; Visit Provider Internal Medicine
PROC: 0FT44ZZ Resection of Gallbladder, Percutaneous Endoscopic Approach (ICD-10-PCS; CPT 47562; principal; 2023-12-25 13:30)
DX: K85.10 Biliary acute pancreatitis without necrosis or infection (principal); K80.42 Calculus of bile duct with acute cholecystitis without obstruction; E66.8 Other obesity; F32.A Depression, unspecified; K42.9 Umbilical hernia without obstruction or gangrene; T38.3X5A Adverse effect of insulin and oral hypoglycemic [antidiabetic] drugs, initial encounter; R74.01 Elevation of levels of liver transaminase levels; G43.909 Migraine, unspecified, not intractable, without status migrainosus; N32.81 Overactive bladder; N39.0 Urinary tract infection, site not specified; B96.20 Unspecified Escherichia coli [E. coli] as the cause of diseases classified elsewhere; Z68.32 Body mass index [BMI] 32.0-32.9, adult; Z79.899 Other long term (current) drug therapy
CPT/HCPCS: 36415; 71045; 74177; 74181; 76700; 80053; 80061; 80076; 81001; 82550; 83690; 85025; 86140; 87086; 87088; 87186; 88302; 88304; 99285; J0696; J1170; J1650; J2405; J2470; J2704; J2795; J3010; J7120; Q9965; Q9967

== ENCOUNTER → 2023-12-23 03:52 | Outpatient (BNV) | payer OTHER, SELFPAY | PROVIDERS: Admitting Provider Internal Medicine; Emergency Provider Emergency Medicine Emergency Medical Services; Visit Provider Internal Medicine Gastroenterology | DX: R74.8 Abnormal levels of other serum enzymes (principal); K85.30 Drug induced acute pancreatitis without necrosis or infection | CPT/HCPCS: 99222 ==

== ENCOUNTER → 2023-12-23 03:52 | Outpatient (BNV) | payer OTHER, SELFPAY | PROVIDERS: Admitting Provider Internal Medicine; Emergency Provider Emergency Medicine Emergency Medical Services; Visit Provider Internal Medicine | DX: R74.8 Abnormal levels of other serum enzymes (principal); K85.30 Drug induced acute pancreatitis without necrosis or infection | CPT/HCPCS: 99222; 99232; 99239; 99499 ==

== ENCOUNTER → 2023-12-23 03:52 | Outpatient (BNV) | payer OTHER, SELFPAY | PROVIDERS: Admitting Provider Internal Medicine; Emergency Provider Emergency Medicine Emergency Medical Services; Visit Provider Surgery | DX: Z90.49 Acquired absence of other specified parts of digestive tract (principal) | CPT/HCPCS: 47563; 99024; 99222 ==

== ENCOUNTER 2024-01-01 11:19 | Outpatient (AMB) | payer OTHER, SELFPAY ==
--- NOTE | 2024-01-01 11:20 | MHC.OFFVIS ---
Intake Visit Reasons: Cholecystectomy Laparoscopic Intake Note: Patient here s/p lap noelle. Reports incisions healing well. Patient c/o: itch along steri strips. Only took tylenol not rx pain meds. Finished Ceftin course. SX: 12-25-2023. 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 She is doing quite well. She is tolerating a diet. Having regular bowel habits. She has minimal incisional discomfort. She is increasing her activity level. [facility] Medical History (Updated 12/25/23 @ 13:51 by Shannon Null RN) RONNIE (obstructive sleep apnea) Migraine Depression Surgical History (Updated 12/26/23 @ 07:43 by Ke Michel MD) H/O colonoscopy History of appendectomy Social History Household Members: Family Housing: House Do you presently have visiting nurse or other home services: No Alcohol intake: never Patient Tobacco Use Status: Never used Tobacco service: No Physical Exam Eyes Other: Anicteric GI Other: Abdomen is soft. All wounds clean dry and intact healing very well Assessment & Plan Assessment & Plan (1) Status post laparoscopic cholecystectomy: Code(s): Z90.49 - Acquired absence of other specified parts of digestive tract Category: Medical Plan Patient has been given local instructions including avoiding strenuous activities next few weeks time and will otherwise follow-up p.r.n.. All questions answered. Medications: Discontinued hydrocodone-acetaminophen 5-325 mg Partial Fill upon patient request. Discontinued Reason: Patient no longer taking 1 tab PO Q4-6H PRN 30 tabs 0RF pain Coding Level of Care Code Global (20919) Diagnoses Status post laparoscopic cholecystectomy Z90.49
== END 2024-01-01 11:39 | disposition home or self-care (01) ==
PROVIDERS: Visit Provider Surgery
DX: Z90.49 Acquired absence of other specified parts of digestive tract (principal)
CPT/HCPCS: 99024

== ENCOUNTER → 2024-01-01 11:19 | Outpatient (BNVA) | payer OTHER, SELFPAY | PROVIDERS: Visit Provider Surgery ==

== ENCOUNTER → 2024-01-16 08:22 | Outpatient (BNVA) | payer OTHER, MEDICARE, SELFPAY | PROVIDERS: PCP Family Medicine; Visit Provider Surgery ==

== ENCOUNTER 2024-01-16 08:26 | Outpatient (AMB) | payer OTHER, MEDICARE, SELFPAY ==
--- OUTSIDE RECORDS SUMMARY | 2024-01-16 08:25 | XMS_ITS | Continuity of Care Document ---
Author Organization [facility] Address [address] [place] [address]- Care Team Providers Care Coke Oven Patcher Name Role Phone Cheyanne Avina MD Primary Care Physician [place] [facility] [place] - 01/05/[address] [address] Attending Physician: Cheyanne Avina MD Admitting Physician: Cheyanne Avina MD Referring Physician: Matt HEAD SCORER, Olga Lidia Astudillo Allergies, Adverse Reactions, Alerts Substance Reaction Severity Status codeine Nausea Active erythromycin Vomiting Active sulfADIAZINE rash Active Immunizations Given and Recorded Vaccine Date Status Refusal Reason influenza virus vaccine, inactivated 03/19/18 Job rded influenza virus vaccine, inactivated 03/11/17 Give n influenza virus vaccine, inactivated 03/27/16 Give n influenza virus vaccine, inactivated 03/10/15 Give n influenza virus vaccine, inactivated 03/10/15 Give n influenza virus vaccine, inactivated 1 03/18/13 Gi jordin Diphtheria/Tet/Pertussis, Acel (oldterm) 07/30/14 Given hepatitis B adult vaccine 09/18/13 Given hepatitis B adult vaccine 02/07/13 Given Hepatitis B Vaccine (old term) 03/18/13 Given tetanus-diphtheria toxoids (Td) 2 10/16/06 Given 1Admin Note: FLUARIX 2Admin Note: at [facility] TODAY FOR INJURY Medications amitriptyline 25 mg oral tablet 50 mg, 2, tablet, By Mouth, Daily at bedtime, # 60 tablet, Refills 0, Maintenance, 08/01/16 9:36:37 Start Date: 08/01/16 Status: Ordered escitalopram 20 mg oral tablet 1 tablet = 20 mg, By Mouth, Daily, # 30 tablet, 0 Refills, Maintenance, 12/27/21 8:28:00 EDT, Tablet, Partial fill upon patient request if the prescription is for a schedule II opioid drug. Start Date: 12/27/21 Status: Ordered estradiol 0.1 mg/g vaginal cream = 1 Gm, Vaginally, Every Sunday and , # 42.5 Gm, 2 Refills, Maintenance, 12/27/21 9:05:00 EDT, [facility] # [facility], Partial fill upon patient request if the prescription is for a schedule IIopioid drug., 167, cm, 12/27/21 8:24:00 EDT, Height... Start Date: 12/27/21 Status: Ordered fesoterodine 4 mg oral tablet, extended release 1 tablet = 4 mg, By Mouth, Daily, # 30 tablet, 0 Refills, Maintenance, 12/27/21 8:27:00 EDT, ER Tablet, Partial fill upon patient request if the prescription is for a schedule II opioid drug. Start Date: 12/27/21 Status: Ordered hyoscyamine 0.125 mg oral tablet 0.125 mg, 1, tablet, By Mouth, 4 times a day, PRN, # 120 tablet, Refills 1, Tot. Refills 1, Maintenance, for spasm, 09/15/19 11:23:00 EDT, Route to Pharmacy Electronically, [facility] # [facility], 167.64, cm, 05/02/19 7:08:00 EST, Height Start Date: 09/15/19 Stop Date: 11/14/19 Status: Ordered lamotrigine 25 mg oral tablet 50 mg, 2, tablet, By Mouth, Daily, # 60 tablet, Refills 0, Maintenance, 08/01/16 9:36:17 EST Start Date: 08/01/16 Status: Ordered loperamide 2 mg oral capsule 2 mg, 1, capsule, By Mouth, Every 4 hours, PRN, # 60 capsule, Refills 0, Maintenance, for loose stool, 12/27/21 8:28:00 EDT, Partial fill upon patient request if the prescription is for a schedule IIopioid drug. Start Date: 12/27/21 Status: Ordered LORazepam 0.5 mg oral tablet 0.5 tablet = 0.25 mg, By Mouth, 2 times a day, 0 Refills, Maintenance, 12/27/21 8:27:00 EDT, Tablet, Partial fill upon patient request if the prescription is for a schedule II opioid drug. Start Date: 12/27/21 Status: Ordered Mucinex Sinus-Max Severe Nasal Congestion Relief 0.05% nasal spray 2 sprays, 2 times a day, 0 Refills, Maintenance, 12/27/21 8:28:00 EDT, Partial fill upon patient request if the prescription is for a schedule II opioid drug. Start Date: 12/27/21 Status: Ordered Multivitamin By Mouth, Daily, 0 Refills, Maintenance Start Date: 05/13/12 Status: Ordered Myrbetriq 50 mg oral tablet, extended release 1 tablet = 50 mg, By Mouth, Daily, do not crush or chew, # 30 tablet, 0 Refills, Maintenance, 12/27/21 8:28:00 EDT, ER Tablet, Partial fill upon patient request if the prescription is for a schedule II opioid drug. Start Date: 12/27/21 Status: Ordered omeprazole 40 mg oral enteric coated capsule 1 capsule = 40 mg, By Mouth, Daily, # 30 capsule, 3 Refills, Maintenance, 12/02/18 14:08:07 EDT, ECCapsule Start Date: 12/02/18 Stop Date: 04/01/19 Status: Ordered Pepto-Bismol 262 mg oral tablet, chewable 2 tablet = 524 mg, Chew, 4 times a day, # 112 tablet, 0 Refills, Maintenance, 12/27/21 8:28:00 EDT,Chew Tablet, Partial fill upon patient request if the prescription is for a schedule II opioid drug. Start Date: 12/27/21 Stop Date: 01/10/22 Status: Ordered promethazine 12.5 mg oral tablet 1 tablet = 12.5 mg, By Mouth, Every 6 hours, # 28 tablet, 1 Refills, Maintenance, 03/03/19 9:17:57 EDT Start Date: 03/03/19 Stop Date: 03/17/19 Status: Ordered Wellbutrin SR 150 mg/12 hours oral tablet, extended release 1 tablet = 150 mg, By Mouth, 2 times a day, # 60 tablet, 3 Refills, Maintenance, 05/02/19 8:23:01 EST, ER Tablet, 167.64, cm, 05/02/19 7:08:38 EST, Height Start Date: 05/02/19 Status: Ordered Problem List Condition Confirmation Course Effective Dates Status Health St atus Informant Acute URI Confirmed 02/19/06 Active Chronic pain of both knees Confirmed Active Migraine Confirmed Active Obese class II Confirmed Active Social History Social History Type Response Smoking Status Never smoker entered on: 08/01/16 Sex Patient Care team information Care Team Personnel Name: Cheyanne Avina MD Position: [facility] Physician (General Medicine) Member Role: PCP Address: Address: [address] [place] [address]- Care Team Related Persons Name: HAILEY VASQUEZ Address: home [address] [place] [address] Name: KYLE BARROW Address: home [address] [place] [address]
--- OUTSIDE RECORDS SUMMARY | 2024-01-16 08:25 | XMS_ITS | Continuity of Care Document ---
Author Organization [facility] [place] Address [address] [place] [address]- Care Team Providers Care Installation Technician Name Role Phone Cheyanne Avina MD Primary Care Physician Encounter 07/06/22 - 07/13/22 [facility] [place] [address], [address] [place] [address]- Attending Physician: Rosa Cody MD Admitting Physician: Rosa Cody MD Referring Physician: Rosa Cody MD Allergies, Adverse Reactions, Alerts Substance Reaction Severity Status codeine Nausea Active erythromycin Vomiting Active sulfADIAZINE rash Active Immunizations Given and Recorded Vaccine Date Status Refusal Reason influenza virus vaccine, inactivated 03/19/18 Job rded influenza virus vaccine, inactivated 03/11/17 Give n influenza virus vaccine, inactivated 03/27/16 Give n influenza virus vaccine, inactivated 1 03/27/16 Gi jordin influenza virus vaccine, inactivated 03/10/15 Give n influenza virus vaccine, inactivated 03/10/15 Give n influenza virus vaccine, inactivated 2 03/18/13 Gi jordin Diphtheria/Tet/Pertussis, Acel (oldterm) 07/30/14 Given hepatitis B adult vaccine 09/18/13 Given hepatitis B adult vaccine 02/07/13 Given Hepatitis B Vaccine (old term) 03/18/13 Given tetanus-diphtheria toxoids (Td) 3 10/16/06 Given 1Result Comment: [03/27/2016 Uncharted] Charted wrong type of flu vaccine 2Admin Note: FLUARIX 3Admin Note: at [facility] [place] TODAY FOR INJURY Medications amitriptyline 25 mg oral tablet 50 mg, 2, tablet, By Mouth, Daily at bedtime, # 60 tablet, Refills 0, Maintenance, 08/01/16 9:36:37 Start Date: 3/7/17 Status: Ordered escitalopram 20 mg oral tablet [...] Gm, 2 Refills, Maintenance, 12/27/21 9:05:00 EDT, [facility] # [facility], Partial fill upon patient [...] 09/15/19 11:23:00 EDT, Route to Pharmacy Electronically, [facility] # 50, 167.64, cm, 05/02/19 7:08:00 [...] Confirmed Active Obese class II Confirmed Active Results Radiology Reports * Exam Date Time Procedure Performing Provider Status 07/06/22 4:18 PM MM Digital Mammo Screening Marita , August ; Auth (Verified) Notes: (MM Digital Mammo Screening) Reason For Exam: Z12.31 SCREEN RESULT: MM Digital Mammo Screening PROCEDURE: MM Digital Mammo Screening INDICATION: Screening for breast cancer. No known palpable abnormalities. COMPARISON: Multiple priors, the most recent 06/20/2021 TECHNIQUE: Full-field digital CC and MLO 3D tomosynthesis images of both breasts were acquired. Computer-aided detection (CAD) was utilized in the interpretation of this study. DENSITY: The breast tissue contains scattered areas of fibroglandular density. FINDINGS: No suspicious masses, suspicious microcalcifications, or areas of architectural distortion are seen in either breast to suggest malignancy. IMPRESSION: No mammographic evidence of malignancy. RECOMMENDATION: Routine mammographic screening BI-RADS: 1 (Negative) Lay letter mailed to patient WSN: [id number] Ordering Physician: Rosa Cody Dictated By: Vitaliy Quintero MD Dictated Date/Time: 07/06/22 5:17 pm Reviewed By: Vitaliy Quintero MD Signed By: Vitaliy Quintero MD Signed Date/Time: 07/06/22 5:17 pm Transcribed By: DINO Medical Reception Specialist Date/Time: 07/06/22 5:14 pm Birads: Social History Social History Type Response Smoking Status Never smoker entered on: 08/01/16 Sex MG Breast Screening * BHSPowerscribe , CIS S: TRANSCRIBE Vitaliy Quintero MD: VERIFY Event Display: Result: Authored Date: [id number] PROCEDURE: MM Digital Mammo Screening INDICATION: Screening for breast cancer. No known palpable abnormalities. COMPARISON: Multiple priors, the most recent 06/20/2021 TECHNIQUE: Full-field digital CC and MLO 3D tomosynthesis images of both breasts were acquired. Computer-aided detection (CAD) was utilized in the interpretation of this study. DENSITY: The breast tissue contains scattered areas of fibroglandular density. FINDINGS: No suspicious masses, suspicious microcalcifications, or areas of architectural distortion are seen in either breast to suggest malignancy. IMPRESSION: No mammographic evidence of malignancy. RECOMMENDATION: Routine mammographic screening BI-RADS: 1 (Negative) Lay letter mailed to patient WSN: [id number] Ordering Physician: Rosa Cody Dictated By: Vitaliy Quintero MD Dictated Date/Time: 07/06/22 5:17 pm Reviewed By: Vitaliy Quintero MD Signed By: Vitaliy Quintero MD Signed Date/Time: 07/06/22 5:17 pm Transcribed By: DINO Medical Reception Specialist Date/Time: 07/06/22 5:14 pm Birads: Patient Care team information Care Team Personnel Name: Cheyanne Avina MD Position: S Physician (General Medicine) Member Role: PCP Address: Address: [address] [place] [address] [address] [address]- Care Team Related Persons Name: HAILEY VASQUEZ Address: home [address] [facility] [id number] Name: KYLE BARROW Address: home [address] [place] [id number]
--- OUTSIDE RECORDS SUMMARY | 2024-01-16 08:25 | XMS_ITS | Continuity of Care Document ---
Author Organization [facility] ter Address [address] [place] [address]- Care Team Providers Care Laborer Cook House Name Role Phone Fabrice MANN, Cheyanne Plummer Primary Care Physician [phone] Encounter [facility] Date(s): 11/22/21 - 01/01/[address] [address] Attending Physician: Margarito Augustin MD Admitting Physician: Margarito Augustin MD Allergies, Adverse Reactions, Alerts Substance Reaction [...] vaccine 2Admin Note: FLUARIX 3Admin Note: [place] [facility] [place] Medications amitriptyline 25 [...] Gm, 2 Refills, Maintenance, 12/27/21 9:05:00 EDT, [facility] # [facility], Partial fill [...] 09/15/19 11:23:00 EDT, Route to Pharmacy Electronically, [facility] # 50, 167.64, cm, 05/02/19 7:08:00 EST, Height Start Date: 09/15/19 Stop Date: 11/14/19 Status: Ordered Knee Support See Instructions, # 1 units, Maintenance, For R knee support, 01/30/19 9:51:35 EDT, Compound Start Date: 01/30/19 Status: Ordered lamotrigine 25 mg oral tablet 50 mg, 2, tablet, By Mouth, Daily, # 60 tablet, Refills 0, Maintenance, 08/01/16 9:36:17 EST Start Date: 08/01/16 Status: Ordered lidocaine 0.5% topical gel 1 application, Topically, 3 times a day, # 240 Gm, 0 Refills, Maintenance, 12/27/21 8:28:00 EDT, Gel, Partial fill upon patient request if the prescription is for a schedule II opioid drug. Start Date: 12/27/21 Status: Ordered loperamide 2 mg oral capsule [...] Date: 05/02/19 Status: Ordered Problem List Condition Effective Dates Status Health Status Inform ant Acute URI(Confirmed) 02/19/06 Active Chronic pain of both knees(Confirmed) Active Migraine(Confirmed) Active Obese class I(Confirmed) Active Social History Social History Type Response Smoking Status Never smoker entered on: 08/01/16 Sex
--- OUTSIDE RECORDS SUMMARY | 2024-01-16 08:25 | XMS_ITS | Continuity of Care Document ---
Author Organization [facility] Leila barry Address [address] [place] [address] [address] [place] [address]- Care Team Providers Care Appeals And Generalist Clerk Name Role Phone Fabrice MANN, Cheyanne Plummer Primary Care Physician [phone] Encounter [facility] Date(s): 11/22/21 - 11/29/21 [facility] [address] [place] [address] Drive [address] [place], [place] [address] Attending Physician: Jg Domingo MD Referring Physician: Cheyanne Avina MD Allergies, Adverse Reactions, Alerts Substance Reaction [...] vaccine 2Admin Note: FLUARIX 3Admin Note: at [facility] ER TODAY FOR INJURY Medications amitriptyline 25 mg oral tablet 50 mg, 2, tablet, By Mouth, Daily at bedtime, # 60 tablet, Refills 0, Maintenance, 08/01/16 9:36:37 Start Date: 08/01/16 Status: Ordered hyoscyamine 0.125 mg oral tablet 0.125 mg, 1, tablet, By Mouth, 4 times a day, PRN, # 120 tablet, Refills 1, Tot. Refills 1, Maintenance, for spasm, 09/15/19 11:23:00 EDT, Route to Pharmacy Electronically, [facility], 167.64, cm, 05/02/19 7:08:00 [...] 9:36:17 EST Start Date: 08/01/16 Status: Ordered Multivitamin By Mouth, Daily, 0 Refills, Maintenance Start Date: 05/13/12 Status: Ordered omeprazole 40 mg oral enteric coated capsule 1 capsule = 40 mg, By Mouth, Daily, # 30 capsule, 3 Refills, Maintenance, 12/02/18 14:08:07 EDT, ECCapsule Start Date: 12/02/18 Stop Date: 04/01/19 Status: Ordered promethazine 12.5 mg oral tablet [...] pain of both knees(Confirmed) Active Migraine(Confirmed) Active Vital Signs Most recent to oldest [Reference Range]: 1 Height 167.64 cm (11/22/21 8:48 AM) Social History Social History Type Response Smoking Status Never smoker entered on: 3/7/17 Sex
--- OUTSIDE RECORDS SUMMARY | 2024-01-16 08:25 | XMS_ITS | Continuity of Care Document ---
Author Organization [facility] Address [address] [place] [address]- Care Team Providers Care Knurling Machine Operator Name Role Phone Cheyanne Avina MD Primary Care Physician [facility] 06/15/22 - 09/03/22 [facility] [address] [place] [address]- Attending Physician: Santiago MANN, Cruzito Reina Referring Physician: Cheyanne Avina MD Allergies, Adverse [...] vaccine 2Admin Note: FLUARIX 3Admin Note: at [facility] ER TODAY FOR INJURY [...] Team Personnel Name: Cheyanne Avina MD Position: [facility] Physician (General Medicine) Member Role: PCP Address: Address: [address] [place] [address] [address]- Care Team Related Persons Name: HAILEY VASQUEZ Address: home [address] [place] [address] Name: KYLE BARROW Address: home [address] [place] [address]
--- OUTSIDE RECORDS SUMMARY | 2024-01-16 08:25 | XMS_ITS | Continuity of Care Document ---
Author Organization [facility] Address [address] [place] [address]- Care Team Providers Care Order Checker Packer Processer Name Role Phone Cheyanne Avina MD Primary Care Physician Encounter 06/20/21 - 06/27/21 [facility] [address], [address] [place] [address]- Attending Physician: Rosa Cody MD Admitting Physician: Rosa Coyd MD Referring Physician: Rosa Cody MD Allergies, [...] vaccine 2Admin Note: FLUARIX 3Admin Note: at [facility] ER TODAY FOR INJURY Medications amitriptyline 25 [...] 09/15/19 11:23:00 EDT, Route to Pharmacy Electronically, [facility], 167.64, cm, 05/02/19 7:08:00 [...] Refills, Maintenance Start Date: 05/13/12 Status: Ordered NuLYTELY with Flavor Packs oral powder for reconstitution 240 mL, By Mouth, Every 10 minutes, # 1 each, 0 Refills, Maintenance, 08/19/18 13:21:39 EDT, REC Powder, test date 11/13/18, 240 mL By Mouth Every 10 minutes Start Date: 08/19/18 Status: Ordered omeprazole 40 mg oral enteric [...] Date: 03/03/19 Stop Date: 03/17/19 Status: Ordered Questran 4 gm/9 gm oral powder for reconstitution 1 pack/packet, By Mouth, 3 times a day, # 90 pack/packet, 1 Refills, Maintenance, 10/25/18 16:07:27EDT, REC Powder Start Date: 10/25/18 Stop Date: 12/24/18 Status: Ordered Readi-Cat 2 oral suspension See Instructions, as per radiology, # 2 bottle, 0 Refills, Maintenance, 11/22/18 17:02:13 EDT, as per radiology Start Date: 11/22/18 Status: Ordered Readi-Cat 2 oral suspension See Instructions, as per radiology, # 2 bottle, 0 Refills, Maintenance, 12/06/18 12:33:07 EDT, as per radiology Start Date: 12/06/18 Status: Ordered Viberzi 100 mg oral tablet 1 tablet = 100 mg, By Mouth, 2 times a day, with food, # 60 tablet, 0 Refills, Maintenance, 12/06/18 12:33:29 EDT, Tablet Start Date: 12/06/18 Status: Ordered Wellbutrin SR 150 mg/12 hours [...] pain of both knees(Confirmed) Active Migraine(Confirmed) Active Social History Social History Type Response Smoking Status Never smoker entered on: 08/01/16 Sex
--- OUTSIDE RECORDS SUMMARY | 2024-01-16 08:25 | XMS_ITS | Continuity of Care Document ---
Author Organization [facility] Maninder Contreras Edwin Address [address] [place] [address]- Care Team Providers Care Community Living Specialist Name Role Phone Elizabet MANN, Demetrius Ibrahim Primary Care Physician [facility] Date(s): 06/23/19 - 07/23/19 [facility] Maninder Contreras Adult [address] [place] [address]- [facility] Attending Physician: Niharika CURING FINISHER, Kasey Allergies, Adverse Reactions, Alerts Substance Reaction Severity [...] vaccine 2Admin Note: FLUARIX 3Admin Note: at [facility] ER TODAY FOR INJURY Medications amitriptyline 25 mg oral tablet 50 mg, 2, tablet, By Mouth, Daily at bedtime, # 60 tablet, Refills 0, Maintenance, 08/01/16 9:36:37 Start Date: 08/01/16 Status: Ordered hyoscyamine 0.125 mg oral tablet 0.125 mg, 1, tablet, By Mouth, 4 times a day, PRN, # 120 tablet, Refills 0, Tot. Refills 0, Maintenance, for spasm, 10/25/18 16:07:30 EDT, Route to Pharmacy Electronically, [id number], [facility] Start Date: 10/25/18 Stop Date: 11/24/18 Status: Ordered Knee Support See Instructions, # [...] per radiology Start Date: 12/06/18 Status: Ordered Readi-Cat 2 oral suspension See Instructions, as per radiology, # 2 bottle, 0 Refills, Maintenance, 11/22/18 17:02:13 EDT, as per radiology Start Date: 11/22/18 Status: Ordered Viberzi 100 mg oral tablet [...]
--- OUTSIDE RECORDS SUMMARY | 2024-01-16 08:25 | XMS_ITS | Continuity of Care Document ---
Author Organization [facility] Address [address] [place] [address]- Care Team Providers Care Golf Course Assistant Name Role Phone Cheyanne Avina MD Primary Care Physician Encounter [facility] Date(s): 03/18/22 - 03/18/[address] [address]- Discharge Disposition: A-D/C Home Attending Physician: Nahid Liz MD Admitting Physician: Nahid Liz MD Referring Physician: Not on Staff, Referring MD Allergies, Adverse Reactions, Alerts Substance Reaction [...] 2Admin Note: FLUARIX 3Admin Note: [place] [facility] [place] [...] Gm, 2 Refills, Maintenance, 12/27/21 9:05:00 EDT, [facility], Partial [...] 09/15/19 11:23:00 EDT, Route to Pharmacy Electronically, [facility] # [facility], 167.64, [...] Confirmed Active Migraine Confirmed Active Obese class I Confirmed Active Results Radiology Reports * Exam Date Time Procedure Performing Provider Status 03/18/22 7:27 PM Knee 1 or 2 Views Right Marco A Moody T; Auth (Verified) Notes: (Knee 1 or 2 Views Right) Reason For Exam: with Pain;Trauma RESULT: Knee 1 or 2 Views Right Knee 1 or 2 Views Right, views Hx of Present Illness: [place] she missed a step and landed onto her right side. denies head strike or LOC. c o of neck, lowerback back, righthead knee ankle pain. not on thinners. c- spine collar placed by EMS; Reason: Trauma; with Pain; Clinical Question(s): Fracture COMPARISON: None. FINDINGS: There is no evidence of acute or healing fracture, dislocation or bone lesion. Mild tricompartmental degenerative osteoarthritis but no evidence of osteochondral defect or intra-articular loose body. No evidence of joint effusion. IMPRESSION: Mild tricompartmental degenerative osteoarthritis but no acute abnormality. WSN: [id number] Ordering Physician: Nahid Liz Dictated By: Marcio Donato MD Dictated Date/Time: 03/18/22 7:32 pm Reviewed By: Marcio Donato MD Signed By: Marcio Donato MD Signed Date/Time: 03/18/22 7:32 pm Transcribed By: DINO Transcribed Date/Time: 03/18/22 7:31 pm * Exam Date Time Procedure Performing Provider Status 03/18/22 7:27 PM Hand Min 3 Views Right Azar Mooyd T; Auth (Verified) Notes: (Hand Min 3 Views Right) Reason For Exam: with Pain;Trauma RESULT: Hand Min 3 Views Right Hand Min 3 Views Right, 3 views Hx of Present Illness: [place] she missed a step and landed onto her right side. denies head strike or LOC. c o of neck, lowerback back, righthead knee ankle pain. not on thinners. c- spine collar placed by EMS; Reason: Trauma; with Pain; Clinical Question(s): Fracture COMPARISON: None. FINDINGS: No fractures or bone lesions. No arthritic changes. Normal soft tissues. IMPRESSION: Normal. WSN: [id number] Ordering Physician: Nahid Liz Dictated By: Marcio Donato MD Dictated Date/Time: 03/18/22 7:31 pm Reviewed By: Marcio Donato MD Signed By: Marcio Donato MD Signed Date/Time: 03/18/22 7:31 pm Transcribed By: DINO Transcribed Date/Time: 03/18/22 7:30 pm * Exam Date Time Procedure Performing Provider Status 03/18/22 7:27 PM Ankle Min 3 Views Right Moody , Thutha o T; Auth (Verified) Notes: (Ankle Min 3 Views Right) Reason For Exam: with Pain;Trauma RESULT: Ankle Min 3 Views Right Ankle Min 3 Views Right Hx of Present Illness: [place] she missed a step and landed onto her right side. denies head strike or LOC. c o of neck, lowerback back, righthead knee ankle pain. not on thinners. c- spine collar placed by EMS; Reason: Trauma; with Pain; Clinical Question(s): Fracture COMPARISON: None. FINDINGS: No evidence of acute or healing fracture or bone lesion. Intact ankle mortise and talar dome. No arthritic changes. Normal soft tissues. IMPRESSION: No acute abnormality in the right ankle. WSN: [id number] Ordering Physician: Nahid Liz Dictated By: Marcio Donato MD Dictated Date/Time: 03/18/22 7:30 pm Reviewed By: Marcio Donato MD Signed By: Marcio Donato MD Signed Date/Time: 03/18/22 7:30 pm Transcribed By: DINO Transcribed Date/Time: 03/18/22 7:28 pm Vital Signs Most recent to oldest [Reference Range]: 1 2 3 Height 167 cm (03/18/22 6:38 PM) 167 cm (03/18/22 5:01 PM) Weight 86 kg (03/18/22 6:38 PM) 86 kg (03/18/22 5:01 PM) Oxygen Saturation [94-100 %] 99 % (03/18/22 8:08 PM) 98 % (03/18/22 6:38 PM) 94 % (03/18/22 5:02 PM) Pulse Rate [55-90 bpm] 70 bpm (03/18/22 8:08 PM) 73 bpm (03/18/22 6:38 PM) 84 bpm (03/18/22 5:02 PM) Body Mass Index [18.5-24.99 kg/m2] 30.84 kg/m2 *>HHI* (03/18/22 6:38 PM) Blood Pressure [90-138/55-84 mm Hg] 109/59mm Hg (03/18/22 8:08 PM) 117/73mm Hg (03/18/22 6:38 PM) 125/76mm Hg (03/18/22 5:02 PM) Respiratory Rate [16-30 br/min] 18 br/min (03/18/22 8:08 PM) 16 br/min (03/18/22 6:38 PM) Temperature [96.8-100.4 DegF] 98.0 DegF (03/18/22 8:08 PM) 97.8 DegF (03/18/22 5:02 PM) Mode of Delivery (Oxygen) Room air (03/18/22 8:08 PM) Room air (03/18/22 6:38 PM) Room air (03/18/22 5:02 PM) Blood pressure sites Arm, left (03/18/22 8:08 PM) Arm, right (03/18/22 6:38 PM) Arm, left (03/18/22 5:02 PM) Temperature Route Oral (03/18/22 8:08 PM) Oral (03/18/22 5:02 PM) Dry Weight 86 kg (03/18/22 6:38 PM) 86 kg (03/18/22 5:01 PM) Weight Obtained Via Standing scale (03/18/22 5:01 PM) Dry Weight Obtained Via Standing scale (03/18/22 5:01 PM) Social History Social History Type Response Smoking Status Never smoker entered on: 08/01/16 Sex XR Ankle - right GE 3 Views * [facility] , CIS S: TRANSCRIMarcio Holly MD: VERIFY Event Display: Result: Authored Date: Ankle Min 3 Views Right Hx of Present Illness: [place] she missed a step and landed onto her right side. denies head strike or LOC. c o of neck, lowerback back, righthead knee ankle pain. not on thinners. c- spine collar placed by EMS; Reason: Trauma; with Pain; Clinical Question(s): Fracture COMPARISON: None. FINDINGS: No evidence of acute or healing fracture or bone lesion. Intact ankle mortise and talar dome. No arthritic changes. Normal soft tissues. IMPRESSION: No acute abnormality in the right ankle. WSN: [id number] Ordering Physician: Nahid Liz Dictated By: Marcio Donato MD Dictated Date/Time: 03/18/22 7:30 pm Reviewed By: Marcio Donato MD Signed By: Marcio Donato MD Signed Date/Time: 03/18/22 7:30 pm Transcribed By: DINO Transcribed Date/Time: 03/18/22 7:28 pm XR Hand - right GE 3 Views * [facility] , CIS S: TRANSCRIMarcio Holly MD: VERIFY Event Display: Result: Authored Date: Hand Min 3 Views Right, 3 views Hx of Present Illness: [place] she missed a step and landed onto her right side. denies head strike or LOC. c o of neck, lowerback back, righthead knee ankle pain. not on thinners. c- spine collar placed by EMS; Reason: Trauma; with Pain; Clinical Question(s): Fracture COMPARISON: None. FINDINGS: No fractures or bone lesions. No arthritic changes. Normal soft tissues. IMPRESSION: Normal. WSN: [id number] Ordering Physician: Nahid Liz Dictated By: Marcio Donato MD Dictated Date/Time: 03/18/22 7:31 pm Reviewed By: Marcio Donato MD Signed By: Marcio Donato MD Signed Date/Time: 03/18/22 7:31 pm Transcribed By: DINO Transcribed Date/Time: 03/18/22 7:30 pm XR Knee - right 1 or 2 Views * [facility] S: TRANSCRIBE Marcio Donato MD: VERIFY Event Display: Result: Authored Date: Knee 1 or 2 Views Right, views Hx of Present Illness: [place] she missed a step and landed onto her right side. denies head strike or LOC. c o of neck, lowerback back, righthead knee ankle pain. not on thinners. c- spine collar placed by EMS; Reason: Trauma; with Pain; Clinical Question(s): Fracture COMPARISON: None. FINDINGS: There is no evidence of acute or healing fracture, dislocation or bone lesion. Mild tricompartmental degenerative osteoarthritis but no evidence of osteochondral defect or intra-articular loose body. No evidence of joint effusion. IMPRESSION: Mild tricompartmental degenerative osteoarthritis but no acute abnormality. WSN: [id number] Ordering Physician: Nahid Liz Dictated By: Marcio Donato MD Dictated Date/Time: 03/18/22 7:32 pm Reviewed By: Marcio Donato MD Signed By: Marcio Donato MD Signed Date/Time: 03/18/22 7:32 pm Transcribed By: DINO Transcribed Date/Time: 03/18/22 7:31 pm Patient Care team information Personnel Name: Cheyanne Avina MD Address: Address: [address]
--- OUTSIDE RECORDS SUMMARY | 2024-01-16 08:25 | XMS_ITS | Continuity of Care Document ---
Author Organization [facility] Address [address] [place] [address]- Care Team Providers Care Licensed Loan Officer Assistant Name Role Phone Demetrius Mcneal MD Primary Care Physician Encounter 05/30/19 - 06/06/19 [facility] [address], [facility] [address] [place] [address]- [phone] Attending Physician: Rosa Cody MD Admitting Physician: [...] vaccine 2Admin Note: FLUARIX 3Admin Note: at [facility] [place] TODAY FOR [place]JURY Medications amitriptyline 25 [...] 10/25/18 16:07:30 EDT, Route to Pharmacy Electronically, [id number], [facility] Start Date: [...]
--- OUTSIDE RECORDS SUMMARY | 2024-01-16 08:25 | XMS_ITS | Continuity of Care Document ---
Author Organization [facility] Address [address] [place] [address]- Care Team Providers Care Compound Worker Name Role Phone Cheyanne Avina MD Primary Care Physician Encounter [facility] Date(s): 05/04/22 - 06/03/[address] [address] Allergies, Adverse Reactions, Alerts Substance Reaction Severity [...] vaccine 2Admin Note: FLUARIX 3Admin Note: at [facility] TODAY FOR INJURY Medications amitriptyline 25 [...] Gm, 2 Refills, Maintenance, 12/27/21 9:05:00 EDT, [facility] # [facility], Partial fill upon patient [...] 09/15/19 11:23:00 EDT, Route to Pharmacy Electronically, [facility], 167.64, cm, 05/02/19 7:08:00 [...] Confirmed Active Obese class I Confirmed Active Social History Social History Type Response Smoking Status Never smoker entered on: 08/01/16 Sex Patient Care team information Care Team Personnel Name: Cheyanne Avina MD Position: [facility] Physician (General Medicine) Member Role: PCP Address: Address: [address] [place] [address] [address]- [place] Care Team Related Persons Name: HAILEY VASQUEZ Address: home [address] [place] [address] Name: KYLE BARROW Address: home [address] [place] [address]
--- OUTSIDE RECORDS SUMMARY | 2024-01-16 08:25 | XMS_ITS | Continuity of Care Document ---
Author Organization [facility]ie V[facility] Address [address] [address]- Care Team Providers Care Miner Placer Name Role Phone Cheyanne Avina MD Primary Care Physician [phone] En[facility] Date[facility]s): 09/22/21 - [facility] [address] [place], [place] [address] Attending Physician: Cheyenne Pace Admitting Physician: AdmCheyenne oakley Referring Physician: Admtr ArRa Allergies, Adverse Reactions, Alerts Substance Reaction Severity [...] vaccine 2Admin Note: FLUARIX 3Admin Note: at [facility] ER TODAY FOR INJURY Medications amitriptyline 25 [...] 09/15/19 11:23:00 EDT, Route to Pharmacy Electronically, [facility], 167.64, cm, 05/02/19 7:08:00 [...]
--- OUTSIDE RECORDS SUMMARY | 2024-01-16 08:25 | XMS_ITS | Continuity of Care Document ---
Author Organization [facility] Address [address] [place] [address]- Care Team Providers Care Bus Person Name Role Phone Fabrice MANN, Cheyanne Plummer Primary Care Physician [phone] Encounter 09/20/23 - 09/27/23 [facility] [address], [address] [place] [address]- Attending Physician: Rosa Cody MD Admitting Physician: [...] Given 1Admin Note: FLUARIX 2Admin Note: [place] [facility] [place] FOR [place] Medications amitriptyline 25 [...] cm, 05/02/19 7:08:38 EST, Height Start Date: 12/6/19 Status: Ordered Problem List Condition Confirmation Course Effective Dates Status Health St atus Informant Acute URI Confirmed 02/19/06 Active Chronic pain of both knees Confirmed Active Migraine Confirmed Active Obese class II Confirmed Active Results Radiology Reports * Exam Date Time Procedure Performing Provider Status 09/20/23 10:17 AM MM Digital Mammo Screening Bijan Andrade everett; Auth (Verified) Notes: (MM Digital Mammo Screening) Reason For Exam: routine screening RESULT: MM Digital Mammo Screening PROCEDURE: MM Digital Mammo Screening INDICATION: Screening for breast cancer. No known palpable abnormalities. COMPARISON: Multiple priors, the most recent 07/06/2022 TECHNIQUE: Full-field digital CC and MLO 3D tomosynthesis images of both breasts were acquired. Computer-aided detection (CAD) was utilized in the interpretation of this study. DENSITY: There are scattered areas of fibroglandular density. FINDINGS: No suspicious masses, suspicious microcalcifications, or areas of architectural distortion are seen in either breast to suggest malignancy. IMPRESSION: No mammographic evidence of malignancy. RECOMMENDATION: Routine mammographic screening BI-RADS: 1 (Negative) Lay letter mailed to patient WSN: [id number] Ordering Physician: Rosa Cody Dictated By: Vitaliy Quintero MD Dictated Date/Time: 09/20/23 11:19 am Reviewed By: Vitaliy Quintero MD Signed By: Vitaliy Quintero MD Signed Date/Time: 09/20/23 11:19 am Transcribed By: DINO Medical Insurance Coding Specialist Date/Time: 09/20/23 11:14 am Birads: Social History Social History Type Response Smoking Status Never smoker entered on: 08/01/16 Sex Patient Care team information Care Team Personnel Name: Cheyanne Avina MD Position: [facility] Physician (General Medicine) Member Role: PCP Address: Address: [address] [place] [address] [address]- Care Team Related Persons Name: HAILEY VASQUEZ Address: home [address] [place] [address] Name: KYLE BARROW Address: home [address] [place] [address]
--- OUTSIDE RECORDS SUMMARY | 2024-01-16 08:25 | XMS_ITS | Continuity of Care Document ---
Author Organization [facility] Maninder Contreras Edwin Address [address] [place] [address]- Care Team Providers Care Billet Heater Operator Name Role Phone Demetrius Mcneal MD Primary Care Physician [facility] Date[facility]s): 06/23/19 - 07/24/19 [facility] Maninder Contreras Adult [address] [place] [address]- [facility] Attending Physician: Demetrius Mcneal MD Allergies, Adverse Reactions, Alerts Substance Reaction [...] vaccine 2Admin Note: FLUARIX 3Admin Note: at [facility] TODAY FOR INJURY Medications amitriptyline 25 [...] 10/25/18 16:07:30 EDT, Route to Pharmacy Electronically, [id number], [facility] Start Date: [...]
--- OUTSIDE RECORDS SUMMARY | 2024-01-16 08:25 | XMS_ITS | Continuity of Care Document ---
Author Organization [facility] Leila barry Address [address] [place] [address] [address] [place] [address]- Care Team Providers Care Program Director Substance Abuse Name Role Phone Fabrice MANN, Cheyanne Plummer Primary Care Physician Encounter [facility] Date(s): 11/22/21 - 01/26/22 [facility] [address] [place], [place] [address] Attending Physician: Jg Domingo MD Allergies, Adverse Reactions, Alerts Substance Reaction [...] vaccine 2Admin Note: FLUARIX 3Admin Note: at [facility] [place] TODAY FOR INJURY [...] Status Never smoker entered on: 08/01/16 Sex Care Team Personnel Name: Fabrice MANN , Cheyanne Plummer Address: [address]
--- OUTSIDE RECORDS SUMMARY | 2024-01-16 08:25 | XMS_ITS | Continuity of Care Document ---
Author Organization [facility] Maninder Contreras Edwin Address [address] [place] [address]- Care Team Providers Care Foreign Language Stenographer Name Role Phone Elizabet MANN, Demetrius Ibrahim Primary Care Physician [facility]counter [facility] Date(s): 06/24/19 - 07/04/19 [facility] Maninder Contreras Adult [address] [place] [address]- [facility] Attending Physician: Admtr, Ar8 Allergies, Adverse Reactions, Alerts Substance Reaction Severity [...] vaccine 2Admin Note: FLUARIX 3Admin Note: at [facility] TODAY FOR [place]URY Medications amitriptyline 25 [...] 10/25/18 16:07:30 EDT, Route to Pharmacy Electronically, [id number], [facility] Start Date: [...]
--- OUTSIDE RECORDS SUMMARY | 2024-01-16 08:25 | XMS_ITS | Continuity of Care Document ---
Author Organization [facility] Address [address] [place] [address]- Care Team Providers Care Auditor In Charge Name Role Phone Cheyanne Avina MD Primary Care Physician Encounter [facility] Date(s): 08/04/22 - 09/03/22 [facility] [address] [place] [address]- Attending Physician: Cheyenne Pace Admitting Physician: Cheyenne Pace Referring Physician: AdmtrCheyenne Allergies, Adverse Reactions, Alerts Substance Reaction Severity [...] vaccine 2Admin Note: FLUARIX 3Admin Note: at [facility] [place] TODAY FOR [...] Gm, 2 Refills, Maintenance, 12/27/21 9:05:00 EDT, [facility] # [facility], Partial fill upon [...] 09/15/19 11:23:00 EDT, Route to Pharmacy Electronically, [facility] # [facility], 167.64, cm, 05/02/19 [...] Team Personnel Name: Cheyanne Avina MD Position: [facility] Physician (General Medicine) Member Role: PCP Address: Address: [address] [place] [address] [address] [place] [id number]- Care Team Related Persons Name: HAILEY VASQUEZ Address: home [address] [place] [address] Name: KYLE BARROW Address: home [address] [place] [id number]
--- OUTSIDE RECORDS SUMMARY | 2024-01-16 08:25 | XMS_ITS | Continuity of Care Document ---
Author Organization [facility] ter Address [address] [place] [address]- Care Team Providers Care Marine Transport Professionals Name Role Phone Elizabet MANN, Demetrius Ibrahim Primary Care Physician Encounter [facility] Date(s): 06/02/19 - 06/02/[address] [address]- [facility] Attending Physician: Dre MANN, Dexter Lazo Allergies, Adverse Reactions, Alerts Substance Reaction Severity [...] vaccine 2Admin Note: FLUARIX 3Admin Note: at [facility] [place] [place] TODAY FOR INJURY Medications amitriptyline 25 [...] 10/25/18 16:07:30 EDT, Route to Pharmacy Electronically, [id number], [facility] Start Date: [...]
--- OUTSIDE RECORDS SUMMARY | 2024-01-16 08:25 | XMS_ITS | Continuity of Care Document ---
Author Organization [facility] Address [address] [place] [address]- Care Team Providers Care Cube Machine Tender Name Role Phone Cheyanne Avina MD Primary Care Physician [phone] [facility]counter [facility] Date(s): 08/14/22 - 09/13/22 [facility] [address] [address] Attending Physician: Cheyenne Pace Admitting Physician: Cheyenne [...] Gm, 2 Refills, Maintenance, 12/27/21 9:05:00 EDT, [facility] # [facility], Partial fill upon [...] 09/15/19 11:23:00 EDT, Route to Pharmacy Electronically, [facility] # 50, 167.64, cm, 05/02/19 [...] Team Personnel Name: Cheyanne Avina MD Position: [facility] Physician (General Medicine) Member Role: PCP Address: Address: [address] [place] [address] [address]- Care Team Related Persons Name: HAILEY VASQUEZ Address: home [address] [place] [address] Name: KYLE BARROW Address: home [address] [place] [address]
--- OUTSIDE RECORDS SUMMARY | 2024-01-16 08:25 | XMS_ITS | Continuity of Care Document ---
Author Organization [facility] ter Address [address] [place] [address]- Care Team Providers Care Guncotton Packer Name Role Phone Fabrice MANN, Cheyanne Plummer Primary Care Physician [place] [facility] [place]05/21 - 12/22/[address] [address] Attending Physician: Margarito Augustin MD Admitting Physician: Margarito Augustin MD Allergies, Adverse Reactions, Alerts Substance Reaction Severity Status codeine Nausea Active erythromycin Vomiting Active sulfADIAZINE rash Active Immunizations Given and Recorded Vaccine Date Status Refusal Reason influenza virus vaccine, inactivated 03/19/18 Ojb rded influenza virus vaccine, inactivated 03/11/17 Give [...] vaccine 2Admin Note: FLUARIX 3Admin Note: at [facility] TODAY FOR [facility]URY Medications amitriptyline 25 [...] 09/15/19 11:23:00 EDT, Route to Pharmacy Electronically, [facility] # [facility], 167.64, cm, 05/02/19 7:08:00 [...]
--- OUTSIDE RECORDS SUMMARY | 2024-01-16 08:25 | XMS_ITS | Continuity of Care Document ---
Author Organization [facility] Address [address] [place] [address]- Care Team Providers Care Insurance Policy Clerk Name Role Phone Cheyanne Avina MD Primary Care Physician En[place] [facility] Date(s): 12/06/23 - 01/03/[address] [address]- Encounter Diagnosis Trochanteric bursitis, right hip(Final) - Discharge Disposition: A-D/C Home Attending Physician: Cheyanne Avina MD Admitting Physician: Cheyanne Avina MD Referring Physician: Olga Lidia Gutierrez NP Allergies, Adverse Reactions, Alerts Substance Reaction Severity [...] Given 1Admin Note: FLUARIX 2Admin Note: at [facility] [place] [facility] TODAY FOR [...] Medicine) Member Role: PCP Address: Address: [address] Care Team Related Persons Name: HAILEY VASQUEZ Address: home [address] [place] [address] Name: KYLE BARROW Address: home [address] [place] [address]
--- OUTSIDE RECORDS SUMMARY | 2024-01-16 08:25 | XMS_ITS | Continuity of Care Document ---
Author Organization [facility] Address [address] [place] [address]- Care Team Providers Care Special Crimes Investigator Name Role Phone Demetrius Mcneal MD Primary Care Physician [phone] Encounter [facility] Date(s): 05/22/19 - 09/19/19 [facility] [place] Adult [address] [place] [address]- [facility] Attending Physician: Demetrius Mcneal MD Allergies, Adverse [...] 09/15/19 11:23:00 EDT, Route to Pharmacy Electronically, [facility] # [facility], 167.64, cm, 05/02/19 7:08:00 [...]
--- OUTSIDE RECORDS SUMMARY | 2024-01-16 08:25 | XMS_ITS | Continuity of Care Document ---
Author Organization [facility] Corie ramseys [facility] Address [address], 4t [place] [address]- Care Team Providers Care Option Trader Name Role Phone Fabrice MANN, Cheyanne Plummer Primary Care Physician [phone] [facility]counter [facility] Date(s): 12/27/21 - 01/26/22 [facility] Corie MunguiaArdent Capitals [facility] [address], 4th [place] [address]- Attending Physician: Cheyenne Pace Admitting Physician: AdmtrCheyenne Referring Physician: Admtr, ArRa Allergies, Adverse Reactions, Alerts Substance Reaction [...] Note: FLUARIX 3Admin Note: [place] [facility] [place] Medications amitriptyline 25 [...] Gm, 2 Refills, Maintenance, 12/27/21 9:05:00 EDT, [facility] # [facility], Partial fill [...] 09/15/19 11:23:00 EDT, Route to Pharmacy Electronically, [facility] # [facility], 167.64, cm, [...] on: 08/01/16 Sex Care Team Personnel Name: Cheyanne Avina MD Address: [address]
--- OUTSIDE RECORDS SUMMARY | 2024-01-16 08:25 | XMS_ITS | Continuity of Care Document ---
Author Organization [facility] Maninder Contreras Edwin lt Address [address] [place] [address]- Care Team Providers Care Tick Sewer Name Role Phone Demetrius Mcneal MD Primary Care Physician [facility]counter [facility] Date(s): 08/20/19 - 08/30/19 [facility] Maninder Contreras Adult [address] [place] [address]- [facility] Attending Physician: Admtr, Ar8 Allergies, Adverse Reactions, [...] vaccine 2Admin Note: FLUARIX 3Admin Note: at [facility] TODAY FOR INJURY Medications amitriptyline 25 [...] 10/25/18 16:07:30 EDT, Route to Pharmacy Electronically, [id number], [facility] Start Date: [...]
--- OUTSIDE RECORDS SUMMARY | 2024-01-16 08:25 | XMS_ITS | Continuity of Care Document ---
Author Organization [facility] Corie ramseys [facility] Address [address] [place] [address], 4t [place] [address]- Care Team Providers Care Dry Transfer Man Name Role Phone Cheyanne Avina MD Primary Care Physician [facility]counter [facility] Date(s): 11/02/21 - 01/05/22 [facility] [address], 4th [address] [place], [place] [address] Attending Physician: Erika Null MD Admitting Physician: Erika Null MD Referring Physician: Cheyanne Avina MD Allergies, [...] vaccine 2Admin Note: FLUARIX 3Admin Note: at [facility] TODAY FOR INJURY Medications amitriptyline 25 [...]
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
--- OUTSIDE RECORDS SUMMARY | 2024-01-16 08:26 | XMS_ITS ---
Author Organization [facility] Address [address] [place] [address] Care Team Providers Care Mechanical Equipment Sales Engineer Name Role Phone TIAN EWING Unavailable [phone] Encounters Encounter Location Date Provider Diagnosis [facility] [address] [facility] 119 [place] [address] 10/23/2023 TIAN EWING PLAN OF TREATMENT Next Appt Details Provider Name:TIAN EWING, 03/04/2024 09:00:00 AM, [address] [facility], [facility], [place], [address], Progress Notes * SULEMAN VASQUEZOB:1970 (53 yo F)Acc No.[id number]:10/23/2023 Patient:??LILIA VASQUEZ :1970?Age:53 Y?Sex:Fe male Address:[address] [place] [address] * true * Date:??
--- OUTSIDE RECORDS SUMMARY | 2024-01-16 08:26 | XMS_ITS | Continuity of Care Document ---
Author Organization [facility] Leila barry Address [address] [place] [address] [address] [place] [address]- Care Team Providers Care 2Nd Pressman Name Role Phone Cheyanne Avina MD Primary Care Physician [facility]counter [facility] Date(s): 12/27/21 - 01/26/22 [facility] [address] [place], [place] [address] Attending Physician: AdmCheyenne oakley Admitting Physician: AdmtrCheyenne Referring Physician: Admtr, Ar8 Allergies, Adverse Reactions, Alerts [...] 2Admin Note: FLUARIX 3Admin Note: at [facility] TODAY FOR [place]JURY Medications [...] Gm, 2 Refills, Maintenance, 12/27/21 9:05:00 EDT, [facility] # 50, Partial fill upon [...] 09/15/19 11:23:00 EDT, Route to Pharmacy Electronically, [facility] # 50, 167.64, cm, 05/02/19 [...] Fabrice MANN , Cheyanne Plummer Address: [address]
--- OUTSIDE RECORDS SUMMARY | 2024-01-16 08:26 | XMS_ITS | Patient Health Record ---
Author Organization [facility] Address [address] [place] [address] Care Team Providers Care Metal Machine Setter Name Role Phone TIAN EWING Unavailable [phone] USAMA CHRIS Unavailable [phone] ALLERGIES Allergen (clinical drug ingredient) Drug/Non Drug Allergy documented on EMR Reaction Allergy Type Onset Date Status Substance with sulfonamide structure and antibacterial mechanism of action (substance) sulfa anti (uncoded) rash Allergy Active erythromycin Erythromycin stomach upset Drug Allergy Active RESULTS Component Value Reference Range Notes URINALYSIS Reviewed date:07/24/2023 11:36:22 AM Interpretation: Performing Lab: Notes/Report: Note Original Ordering Provider: TIAN EWING NP [employer], a member of [address] [address] Supervisor Beam Department - Thi Prado MD GLUCOSE, (UA) NEGATIVE NEGATIVE mg/dL BILIRUBIN, URINE NEGATIVE NEGATIVE KETONE, URINE NEGATIVE NEGATIVE mg/dL SPECIFIC GRAVITY, URINE 1.022 1.003-1.030 BLOOD, URINE NEGATIVE NEGATIVE PH, URINE 6.5 5.0-8.0 PROTEIN, URINE NEGATIVE <= TRACE mg/dl UROBILINOGEN, URINE 0.2 0.2-1.0 E.U./dL NITRITE, URINE NEGATIVE NEGATIVE LEUKOCYTE ESTERASE, URINE MODERATE NEGATIVE Note Original Ordering Provider: TIAN EWING NP [employer], a member of [address] [address] Supervisor Beam Department - Thi Prado MD GLYCOHEMOGLOBIN PROFILE Reviewed date:07/24/2023 12:46:51 PM Interpretation: Performing Lab: Notes/Report: GLYCATED HEMOGLOBIN A1C 5.6 <6.5 % ESTIMATED AVERAGE GLUCOSE 114 COMPREHENSIVE METABOLIC PANE L Reviewed date:07/24/2023 12:34:55 PM Interpretation: Performing Lab: Notes/Report: Note Original Orderi ng Provider: TIAN EWING RABBIT FANCIER GLUCOSE 105 70-100 mg/dL Reference range applicable to fasting specimens only BUN 16 5-25 mg/dL CREAT 0.58 0.5-1.1 mg/dL GLOMERULAR FILTRATION RATE 107 >60 This eGFR result was calculated using the CKD-EPI 2020 Creatinine Equation SODIUM 142 135-145 mEq/L POTASSIUM 4.3 3.5-5.5 mmol/L CHLORIDE 106 96-110 mmol/L CO2 30 21-32 mmol/L ANION GAP 6 3-11 CALCIUM 9.4 8.5-10.5 mg/dL TOTAL PROTEIN 7.1 6.0-8.0 G/dL ALBUMIN 4.0 3.2-5.0 G/dL BILI,TOTAL 0.4 0.0-1.4 mg/dL SGOT 15 10-42 U/L SGPT 29 10-60 U/L ALK PHOS 76 42-121 U/L CBC WITH AUTO DIFF Reviewed date:07/24/2023 11:36:22 AM Interpretation: Performing Lab: Notes/Report: WBC 5.6 4.8-10.8 x10-3/uL RBC 4.6 3.8-4.8 x10-6/uL HEMOGLOBIN 13.9 11.5-16.0 g/dL HEMATOCRIT 42.2 35-47 % MCV 92.7 79-98 fL MCH 30.5 27-32 pg MCHC 32.9 32-37 g/dL RDW 12.8 11-15 % PLT COUNT 314 130-400 x10-3/uL MEAN PLATELET VOLUME 9.6 7-11 fL NRBC % AUTO 0.0 <1 % NEUT % 57.0 LYMPH % 32.0 MONO % 6.9 EOS % 2.8 BASO % 0.9 IMMATURE GRANULOCYTES % 0.4 NRBC # AUTO 0.00 <0.1 x10-3/uL ABSOLUTE NEUT 3.20 1.5-7.0 x10-3/uL LYMPH # 1.80 1-5.0 x10-3/uL MONO # 0.39 0.2-1.0 x10-3/uL EOS # 0.16 0-0.5 x10-3/uL BASO # 0.05 0-0.2 x10-3/uL IMMATURE GRANULOCYTES # 0.02 0-0.03 x10-3/uL LIPID PROFILE Reviewed date:07/24/2023 12:34:55 PM Interpretation: Performing Lab: Notes/Report: CHOLESTEROL 233 0-200 mg/dL TRIGLYCERIDES 92 0-150 mg/dL TSH Reviewed date:07/24/2023 12:34:55 PM Interpretation: Performing Lab: Notes/Report: TSH 1.29 0.40-4.00 uIU/ml VIT D 1, 25-DIHYDROXY Reviewed date:07/27/2023 07:46:59 AM Interpretation: Performing Lab: Notes/Report: Note Original Ordering Provider: TIAN EWING NP [employer], [place] [address] Supervisor Beam Department - Thi Prado MD VIT D,1,25-DIHYDROXY 64 20 - 79 pg/mL Vitamin D 1, 25 dihydroxy levels should be primarily used to assess Vitamin D status in patients with renal disease and hypercalcemia. Vitamin D 1,25-dihydroxy levels are generally less than 5 pg/mL in end stage renal disease patients. The preferred initial test for assessing Vitamin D status in the general population is Vitamin D 25-hydroxy (VITD). Test performed at [facility], [facility] [place] [address] Brook Stewart MD, PhD - Supervisor Beam Department Note Original Ordering Provider: TIAN EWING NP [employer], [place] [address] Supervisor Beam Department - Thi Prado MD REASON FOR REFERRAL No Information MEDICATIONS Medication SIG (Take, Route, Frequency, Duration) [...] W/U Status Risk SNOMED Code Notes Problem Other obesity due to excess calories (E66.09) Active confirmed 645001969 Problem Acquired hypothyroidism (E03.9) Active confirmed Acquired hypothyroidism (502080191) Problem Bipolar 1 disorder (F31.9) Active confirmed 041814144 Problem BMI 33.0-33.9,adult (Z68.33) Active confirmed 116416188 Problem BMI 32.0-32.9,adult (Z68.32) Active confirmed 596283184 Problem Abnormal metabolic state due to diabetes mellitus (E11.9) Active confirmed Abnormal metabolic state due to diabetes mellitus (123575491) VITAL SIGNS Heart Rate 90 /min 12/28/2023 Oximetry 98 % 12/28/2023 Blood pressure diastolic 76 mm Hg 12/28/2023 Height 64 in 12/28/2023 Blood pressure systolic 106 mm Hg 12/28/2023 Weight 195 lbs 12/28/2023 BMI 33.47 kg/m2 12/28/2023 Encounters Encounter Location Date Provider Diagnosis [facility] [address] [facility] [address] 07/31/2023 ELIDATRINY CHRIS [facility] [address] [facility] [address] [facility] [address] 08/21/2023 USAMA CHRIS [facility] [address] [facility] [address] [facility] [address] 08/28/[address] [facility] [address] [facility] [address] 08/31/2023 TIAN EWING [facility] [address] [facility] [address] [facility] [address] 08/31/2023 TIAN EWING Other obesity due to excess calories E66.09 ; Body mass index [BMI] 33.0-33.9, adult Z68.33 ; Bipolar 1 disorder F31.9 and Hyperlipidemia E78.[address] [facility] [address] [address] 09/04/[address] [facility] [address] [facility] [address] [address] 09/07/2023 TIAN EWING Other obesity due to excess calories E66.09 ; Body mass index [BMI] 33.0-33.9, adult Z68.33 ; Bipolar 1 disorder F31.9 and Hyperlipidemia E78.[address] [place] [address] 09/11/[address] [facility] [address] [place] [address] 09/13/[address] [facility] [address] [place] [address] 09/20/[address] [facility] [address] [place] [address] 09/27/[address] [facility] [address] [place] [address] 09/28/[address] [facility] [address] [place] 10/03/[address] [facility] [address] [place], [place] 10/08/[address] [facility] [address] [place], [place] 10/09/[address] [facility] [address] [place] 10/16/[address] [facility] [address] [place] 10/30/[address] [facility] [address] [place] [address] 07/24/2023 TIAN EWING Other obesity due to excess calories E66.09 ; Body mass index [BMI] 33.0-33.9, adult Z68.33 ; Bipolar 1 disorder F31.9 and Hyperlipidemia E78.[address] [facility] [address] [place] [address] 08/07/[address] [place] [address] 08/14/[address] [place] [address] 08/31/2023 TIAN BORHOT Other obesity due to excess calories E66.09 ; Body mass index [BMI] 33.0-33.9, adult Z68.33 ; Bipolar 1 disorder F31.9 and Hyperlipidemia E78.5 [facility] [address] [address] 10/23/2023 TIAN EWING Other obesity due to excess calories E66.09 ; BMI 32.0-32.9,adult Z68.32 ; Dietary counseling and surveillance Z71.3 ; Bipolar 1 disorder F31.9 and Hyperlipidemia E78.5 [facility] [address] [address] 12/28/2023 TIAN EWING Other obesity due to excess calories E66.09 ; BMI 33.0-33.9,adult Z68.33 ; Dietary counseling and surveillance Z71.3 ; Bipolar 1 disorder F31.9 ; Hyperlipidemia E78.5 and Status post laparoscopic cholecystectomy Z90.49 [facility] [address] [place] [address] 07/24/2023 TIAN LOWRYTomasz [facility] [address] [address] 09/03/2023 TIAN [facility] [address] [place] [address] 09/04/2023 TIAN AMAYARICHAT [facility] [address] [address] 09/12/[address] [facility] [address] [place] [address] 09/27/[address] [place] [address] [address] 10/23/2023 TIANYASMINE LOWRYT ASSESSMENTS Encounter Date Diagnosis Assessment Notes Treatment Notes Treatment Clinical Notes 07/24/2023 Other obesity due to excess calories (ICD-10 - E66.09) 07/24/2023 Body mass index [BMI ] 33.0-33.9, adult (ICD-10 - Z68.33) 08/31/2023 Other obesity due to excess calories (ICD-10 - E66.09) 08/31/2023 Other obesity due to excess calories (ICD-10 - E66.09) 09/07/2023 Other obesity due to excess calories (ICD-10 - E66.09) 10/23/2023 Other obesity due to excess calories (ICD-10 - E66.09) 10/23/2023 BMI 32.0-32.9,adult (ICD-10 - Z68.32) 12/28/2023 Other obesity due to excess calories (ICD-10 - E66.09) 12/28/2023 BMI 33.0-33.9,adult (ICD-10 - Z68.33) 12/28/2023 Dietary counseling a nd surveillance (ICD-10 - Z71.3) 10/23/2023 Dietary counseling a nd surveillance (ICD-10 - Z71.3) 09/07/2023 Body mass index [BMI ] 33.0-33.9, adult (ICD-10 - Z68.33) 08/31/2023 Body mass index [BMI ] 33.0-33.9, adult (ICD-10 - Z68.33) 08/31/2023 Body mass index [BMI ] 33.0-33.9, adult (ICD-10 - Z68.33) 07/24/2023 Bipolar 1 disorder (ICD-10 - F31.9) 07/24/2023 Hyperlipidemia (ICD- 10 - E78.5) 08/31/2023 Bipolar 1 disorder (ICD-10 - F31.9) 08/31/2023 Bipolar 1 disorder (ICD-10 - F31.9) 09/07/2023 Bipolar 1 disorder (ICD-10 - F31.9) 10/23/2023 Bipolar 1 disorder (ICD-10 - F31.9) 12/28/2023 Bipolar 1 disorder (ICD-10 - F31.9) 12/28/2023 Hyperlipidemia (ICD- 10 - E78.5) 10/23/2023 Hyperlipidemia (ICD- 10 - E78.5) 09/07/2023 Hyperlipidemia (ICD- 10 - E78.5) 08/31/2023 Hyperlipidemia (ICD- 10 - E78.5) 08/31/2023 Hyperlipidemia (ICD- 10 - E78.5) 12/28/2023 Status post laparoscopic cholecystectomy (ICD-10 - Z90.49) PLAN OF TREATMENT Pending Test Test Name Order Date LIPID PANEL, STANDARD 07/24/2023 COMPREHENSIVE METABOLIC PANEL 07/24/2023 CBC (INCLUDES DIFF/PLT) 07/24/2023 URINALYSIS, COMPLETE 07/24/2023 HEMOGLOBIN A1c 07/24/2023 TSH 07/24/2023 VITAMIN D, 1,25 DIHYDROXY LC/MS/MS 07/24 Next Appt Details Provider Name:TIAN EWING, 03/04/2024 09:00:00 AM, [address] [facility], [facility] [address], [place], [address], Insurance Providers Payer Name Payer Address Payer Phone Subscriber Number Group Number Insured Name Patient Relationship to Insured Coverage Start Date Coverage End Date [facility] [address] [place] [address] [id number] LILIA VASQUEZ Self - patient is the insured 2 Medicare Part B J14 [address] [place], [place] [address] [address] [id number] LILIA VASQUEZ Self - patient is the insured 3 MEDICATIONS ADMINISTERED Medication Instructions Date of Administration Dosage Notes Semaglutide 07/24/2023 0.25 mg Semaglutide 07/31/2023 0.25 mg LLQ Semaglutide 08/07/2023 0.25 mg Semaglutide 08/14/2023 0.5 mg Semaglutide 08/21/2023 0.5 mg Semaglutide 08/28/2023 0.5 mg Semaglutide 09/04/2023 0.5 mg LLQ Semaglutide 09/13/2023 .5 mg Semaglutide 09/20/2023 1 mg Semaglutide 09/27/2023 1 mg Semaglutide 10/09/2023 1 mg RLQ Semaglutide 10/16/2023 1 mg Semaglutide 10/23/2023 1 mg MEDICAL (GENERAL) HISTORY Medical History History ICD Code headaches/ migraines weight gain/loss seasonal allergies Surgical History Surgery Date(Month/Year) appendectomy vaginal delivery
--- OUTSIDE RECORDS SUMMARY | 2024-01-16 08:26 | XMS_ITS ---
Author Organization [facility] Address [address] [place] [address] Care Team Providers Care Bottling Line Operator Name Role Phone TIAN EWING Unavailable [phone] Encounters Encounter Location Date Provider Diagnosis [facility] [facility] [address] [place] [address] 10/30/2023 TIAN EWING PLAN OF TREATMENT Next Appt Details Provider Name:TIAN EWING, 03/04/2024 09:00:00 AM, [address], [place], [address], Progress Notes * SULEMAN VASQUEZOB:1970 (53 yo F)Acc No.[id number]:10/30/2023 Patient:??LILIA VASQUEZ Provider:??TINA EWING NP :1970?Age:53 Y?Sex:Fe male Date:10/30/2023 Address:[address] [place] [address], [facility] [place] Subjective: * Chief Complaints: * ? * Medical History:?? Objective: Assessment: Plan: * Treatment: * Images: Billing Information: * Visit Code:?? * Procedure Codes:?? * Sign off status: Pending * Provider:??TIAN EWING NP Date:??08/2023
--- NOTE | 2024-01-16 08:28 | MHC.OFFVIS ---
Vital Signs 01/16/24 08:33 Height 5 ft 6 in Weight 202 lb 13.204 oz BMI 32.7 Intake Visit Reasons: pt experiencing cramping/pain after surgery Intake Note: Patient is seen in office for pain after hernia and gallbladder suregry. 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 She now presents here because of nonspecific left lower quadrant abdominal pain. Patient was history of irritable bowel syndrome/colitis. She has been seen in [place] to [facility] for this but presents here because she wants to assure it was not related to her gallbladder surgery. Otherwise she is tolerating her diet, having regular bowel habits. No history of jaundice. Patient was well known to me. [facility] Medical History RONNIE (obstructive sleep apnea) Migraine Depression Surgical History H/O colonoscopy History of appendectomy Social History Household Members: Family Housing: House Do you presently have visiting nurse or other home services: No Alcohol intake: never Patient Tobacco Use Status: Never used Tobacco service: No Physical Exam Vital Signs: BMI result Body Mass Index 32.7 Eyes Other: Anicteric GI Other: Abdomen corpulent, soft, benign. All wounds clean dry and intact. Left lower quadrant is benign on today's exam. No evidence of any guarding, rebound, rigidity. Assessment & Plan Assessment & Plan (1) Status post laparoscopic cholecystectomy: Code(s): Z90.49 - Acquired absence of other specified parts of digestive tract Category: Surgical (2) Left lower quadrant abdominal pain: Code(s): R10.32 - Left lower quadrant pain Category: Surgical Plan I assured the patient that her symptoms are unrelated to her prior gallbladder surgery. I have given her the option of contacting her late he specifications writer are seeing 1 of our physicians for her symptoms. She incidentally mentioned that she apparently has history of dysphagia and was to have an esophageal dilation by late clinic and she can address this with the local specifications writer should she wish to see them. Patient would like to see 1 of our specifications writer arrangements were made for this. She will otherwise follow-up with me p.r.n.. All questions answered. Coding Level of Care Code Est Pt Level 3 (47904) Global (94160) Diagnoses Status post laparoscopic cholecystectomy Z90.49 Left lower quadrant abdominal pain R10.32
[2024-01-16 08:33] VITALS: BMI 32.7
== END 2024-01-16 08:47 | disposition home or self-care (01) ==
PROVIDERS: PCP Family Medicine; Visit Provider Surgery
DX: Z90.49 Acquired absence of other specified parts of digestive tract (principal); R10.32 Left lower quadrant pain
CPT/HCPCS: 99024

== ENCOUNTER 2024-02-05 12:05 | Emergency (ER) | payer MEDICARE, OTHER, MEDICAID, SELFPAY ==
--- NOTE | ~2024-02-05 | CT_ITS ---
EXAMINATION: CT ABDOMEN AND PELVIS WITH CONTRAST CLINICAL INFORMATION: Abdominal pain, status post surgery. COMPARISON: None available. TECHNIQUE: Multidetector volumetric images were obtained from the superior aspect of the liver through the pubic symphysis following administration 85 mL of Omnipaque 350 intravenous contrast. Sagittal and coronal reformatted images were obtained on the technologist's workstation. Oral contrast: No This CT examination was performed using dose optimization techniques as appropriate, variously including the following: *Automated exposure control *Adjustment of mA and/or kV according to patient size (this includes techniques or standardized protocols for targeted exams where dose is matched to indication/reason for exam; i.e. extremities or head) *Use of iterative reconstruction technique DLP: 1161 mGy-cm FINDINGS: LUNG BASES: The visualized lung bases are unremarkable. LIVER, GALLBLADDER, AND BILIARY TREE: The liver is normal in size, shape, and attenuation. No focal hepatic lesion or biliary ductal dilatation is present. The gallbladder has been surgically removed. PANCREAS: Unremarkable. SPLEEN: Unremarkable. ADRENAL GLANDS: Unremarkable. KIDNEYS AND URETERS: The kidneys are normal in size, shape, and attenuation. No hydronephrosis, hydroureter, or calculi seen. No perinephric stranding. There is a 2.2 cm simple cyst mid pole left kidney. No further workup needed. BLADDER: The bladder is nondistended although there is mild neural thickening. No radiopaque calculi seen GASTROINTESTINAL TRACT: There is scattered stool in the right colon without distention. The small bowel loops are normal caliber. Stomach is nondistended. Appendix is not visualized. No free air or free fluid. ABDOMINAL WALL: Mild thickening and fat stranding of the umbilicus seen. LYMPH NODES: Normal. VASCULAR: Unremarkable. PELVIC VISCERA: There is intramural large fibroid within the anterior body of the uterus measuring 6.9 x 5.1 cm. There is no free fluid. No adnexal mass or lymphadenopathy seen. OSSEOUS STRUCTURES: Mild degenerative disc changes at L4-5 and L5-S1 disc level. No aggressive lytic or sclerotic process seen. CT/CT abdomen pelvis w IV con IMPRESSION: 1. No acute intra-abdominal process seen. 2. Mild constipation. 3. Large intramural fibroid anterior body of the uterus. 4. Mild thickening and fat stranding of the umbilicus. Fleischner guidelines were followed. Electronically signed by: Yovany Farida MD 02/05/2024 08:35 PM EDT RP
--- NOTE | 2024-02-05 12:45 | ED_ITS ---
HPI - Abdominal Pain General Chief Complaint: Abdominal Pain Stated Complaint: severe abd hung, diarrhea Time Seen by Provider: 02/05/24 19:51 Source: patient Mode of arrival: ambulatory Limitations: no limitations History of Present Illness ED Provider: nafisa BALDERAS narrative: Patient's history of GB stone induced pancreatitis 12/18, IBS with diarrhea been on multiple antibiotics for URI and abdominal pain possible diverticulitis by the PCP been tested for C diff was negative having 4-5 bowel movements per day with lower abdominal pain mostly on the left side no fever no chills no blood in his stool Related Data Home Medications ?Medication ?Instructions ?Recorded ?Confirmed amitriptyline 25 mg tablet 50 mg PO BEDTIME 12/23/23 01/16/24 bupropion HCl 300 mg 24 hr tablet, 300 mg PO DAILY 12/23/23 01/16/24 extended release calcium carb, gluc 500 mg 1 tab PO DAILY 12/23/23 01/16/24 calcium-magnesium gluc, oxide 250 mg tablet (Calcium Magnesium) divalproex 500 mg tablet,delayed 500 mg PO BEDTIME 12/23/23 01/16/24 release duloxetine 30 mg capsule,delayed 60 mg PO DAILY 12/23/23 01/16/24 release eletriptan 40 mg tablet 40 mg PO DAILY MRX1 PRN Migraine 12/23/23 01/16/24 Headache escitalopram oxalate 20 mg tablet 20 mg PO DAILY 12/23/23 01/16/24 fesoterodine 4 mg tablet,extended 4 mg PO DAILY 12/23/23 01/16/24 release 24 hr hyoscyamine sulfate 0.125 mg tablet 0.25 mg PO BID PRN GI Upset 12/23/23 01/16/24 lamotrigine 25 mg tablet 75 mg PO DAILY 12/23/23 01/16/24 oxybutynin chloride 10 mg 10 mg PO DAILY 12/23/23 01/16/24 tablet,extended release 24 hr tirzepatide (weight loss) 2.5 2.5 mg subcut TU@0900 12/23/23 01/16/24 mg/0.5 mL subcutaneous pen injector (Zepbound) vitamin B complex 1 cap PO DAILY 12/23/23 01/16/24 zolmitriptan 5 mg nasal spray 5 mg intranasal DAILY MRX1 PRN 12/23/23 01/16/24 Migraine Headache Previous Rx's ?Medication ?Instructions ?Recorded cefuroxime axetil 500 mg tablet 500 mg PO BID 5 days #10 tabs 12/26/23 dicyclomine 20 mg tablet 20 mg PO QID PRN abdominal pain 02/05/24 #20 tabs loperamide 2 mg tablet (Imodium 2 mg PO Q6H PRN loose stool #14 02/05/24 A-D) tabs Allergies Allergy/AdvReac Type Severity Reaction Status Date / Time Sulfa (Sulfonamide Allergy Severe Rash Verified 02/05/24 12:50 Antibiotics) sulfamethoxazole Allergy Severe Rash Verified 02/05/24 12:50 [From Bactrim] trimethoprim [From Bactrim] Allergy Severe Rash Verified 02/05/24 12:50 Erythromycin Allergy Severe Gastrointestinal Uncoded 01/16/24 08:32 Upset Review of Systems Review of Systems Yes all other systems are reviewed and are negative PMFSH Past Medical History Medical History RONNIE (obstructive sleep apnea) Migraine Depression Surgical History H/O colonoscopy History of appendectomy Social History Social History Household Members: Family Housing: House Do you presently have visiting nurse or other home services: No Alcohol intake: never Patient Tobacco Use Status: Never used Tobacco Advance Directives: Yes Advance Directives on File: Yes Advance Directives Date on File: 12/27/23 service: No Physical Exam ED Vital Signs: Vital Signs - 24 hr 02/05/24 12:47 02/05/24 16:42 02/05/24 21:12 Temperature 98.7 F 98 F Pulse Rate 87 80 80 Respiratory Rate 18 18 18 Blood Pressure 135/83 117/63 117/63 Pulse Oximetry 97 98 98 Oxygen Delivery Method Room Air Room Air Room Air BMI result Body Mass Index 31.9 Appearance: Alert. Oriented X3. No acute distress. Eyes: No pallor or icterus ENT: Pharynx normal. Oral Mucosa moist Neck: Normal inspection. Neck supple. CVS: Normal heart rate and rhythm. Pulses normal. Respiratory: No respiratory distress. Equal air entry bilateral, no wheezing/rales/rhonchi Abdomen: Soft and deep tenderness left lower quadrant no rebound tenderness. Bowel sounds are present, no mass palpable, no CVA tenderness Skin: Skin warm and dry. Normal skin color. Normal skin turgor. Extremities: No lower extremity edema. No calf tenderness Neuro: Oriented X 3. No motor deficit. Course Course Course Narrative: This is an RME done by ROBERT Figueroa: Additional HPI, ROS, PE not included below will be deferred to primary provider. 53yo F with recent history of cholecystectomy(4 wk ago), acute pancreatitis presenting with sharp, shooting 8/10 LLQ abdominal pain and diarrhea. PCP r/o c.diff, test neg. Seeing GI specialist who wants CT abdomen to r/o acute diverticulitis. C/o UTI sx. Denies Appearance: Alert.? Oriented X3.? No acute cardiopulmonary distress distress.? Head: Normocephalic, atraumatic, no step-offs or deformities Neck: Normal inspection.? Neck supple.? CVS: Pulses normal.? Respiratory: No respiratory distress.? Abdomen: Soft and nontender.? Skin: ? Normal skin color. Neuro: Oriented X 3.? Medical Decision Making Medical Decision Making [facility] Narrative: Patient with IBS with lower abdominal pain CT scan negative for acute no diverticulitis will prescribe her dicyclomine for the pain and diarrhea Differential Diagnosis Differential Diagnoses: The differential diagnosis associated with the presentation includes Diverticulitis/IBS/colitis/chronic pain Lab Data [facility] Lab Attestation statement: I reviewed the patient's lab results. 02/05/24 13:42 02/05/24 13:42 Labs: Lab Results 02/05/24 02/05/24 Range/Units 13:42 13:45 WBC 6.5 (4.8-10.8) X10*3/uL RBC 4.34 D (4.20-5.50) X10*6/uL Hgb 13.7 D (12.0-16.0) g/dl Hct 40.5 D (37.0-47.0) % MCV 93.3 (80.0-98.0) fL MCH 31.6 (27.0-33.0) pg MCHC 33.8 (31.0-35.0) g/dl RDW 12.6 (11.0-16.0) % Plt Count 292 D (160-400) X10*3/uL MPV 8.5 L (9.4-12.3) fL Immature Gran % (Auto) 0.2 (0.0-0.4) % Neut % (Auto) 54.8 (45-73) % Lymph % (Auto) 31.9 (20-40) % [place] % (Auto) 7.9 (2-11) % Eos % (Auto) 4.3 H (0-4) % Baso % (Auto) 0.9 (0-2) % Lymph # (Auto) 2.1 (1.2-4.9) X10*3/uL [place] # (Auto) 0.5 (0.1-1.2) X10*3/uL Eos # (Auto) 0.3 (0.0-0.4) X10*3/uL Baso # (Auto) 0.1 (0.0-0.2) X10*3/uL Abs Immat Gran (auto) 0.01 (0.00-0.03) X10*3/uL Absolute Neuts (auto) 3.6 (2.0-8.3) x10*3/uL Absolute Nucleated RBC 0.000 (0.0-0.012) X10*3/uL Nucleated RBC % (auto) 0.0 (0.0-0.2) /100WBC Sodium 139 (135-145) mmol/L Potassium 4.1 (3.3-5.1) mmol/L Chloride 105 (96-108) mmol/L Carbon Dioxide 27 (22-29) mmol/L Anion Gap 11 L (12-20) BUN 17 H (9-16) mg/dL Creatinine 0.65 (0.5-1.4) mg/dL Estim Creat Clear Calc 110.2 Estimated GFR > 60 Random Glucose 89 (60-115) mg/dL Calcium 9.7 D (8.4-10.2) mg/dL Magnesium 2.1 (1.6-2.6) mg/dL Total Bilirubin 0.2 (0.0-1.0) mg/dL AST 39 H (5-31) U/L ALT 80 H (0-31) U/L Alkaline Phosphatase 72 (39-117) U/L Total Protein 7.3 (6.5-8.0) g/dL Albumin 4.4 (3.5-5.0) g/dL Lipase 17 (8-78) U/L Urine Color Dark Yellow Urine Appearance Cloudy Urine pH 5.5 (5.0-9.0) Ur Specific [place] 1.020 (1.005-1.025) Urine Protein Negative (Neg-Trace) mg/dL Urine Glucose (UA) Negative (Negative) mg/dL Urine Ketones Negative (Negative) mg/dL Urine Blood Negative (Negative) Urine Nitrite Negative (Negative) Ur Leukocyte Esterase Large (3+) H (Negative) Urine RBC 0-2 (0-2) /HPF Urine WBC 11-20 (0-5) /HPF Ur Squamous Epith Cells 3-5 (0-2) /HPF Urine Bacteria 1+ (None Seen) Hyaline Casts 0-2 (0-2) /LPF Independent Interpretation I performed an independent interpretation of an: CT Scan Radiology Impression Discussion of test interpretation with radiology: I have reviewed the radiologist's reading. External Record Review External record reviewed: Inpatient record Medications Administered Discontinued Medications Generic Name Dose Route Start Last Admin Trade Name Freq PRN Reason Stop Dose Admin Dicyclomine HCl 20 mg 02/05/24 20:45 02/05/24 21:06 Dicyclomine Hcl 10 Mg Capsule PO 02/05/24 20:46 20 mg ONCE ONE Administration Iohexol 100 ml 02/05/24 18:33 02/05/24 18:34 Iohexol 350 Mg/Ml 100 Ml Infus..Btl IV 02/05/24 18:34 85 ml ONCE ONE Administration Discharge Plan Discharge Clinical Impression: Irritable bowel syndrome Patient Disposition: Home, Self-Care Instructions: Irritable Bowel Syndrome (ED) Additional Instructions: Take medication as prescribed by your human resources administrator Dicyclomine 1 tablet every 8 hours as needed for abdominal cramps Imodium for severe diarrhea Prescriptions: New dicyclomine 20 mg tablet 20 mg PO QID PRN (Reason: abdominal pain) Qty: 20 0RF loperamide [Imodium A-D] 2 mg tablet 2 mg PO Q6H PRN (Reason: loose stool) Qty: 14 0RF No Action oxybutynin chloride 10 mg tablet extended release 24hr 10 mg PO DAILY divalproex 500 mg tablet,delayed release (DR/EC) 500 mg PO BEDTIME lamotrigine 25 mg tablet 75 mg PO DAILY amitriptyline 25 mg tablet 50 mg PO BEDTIME hyoscyamine sulfate 0.125 mg tablet 0.25 mg PO BID PRN (Reason: GI Upset) escitalopram oxalate 20 mg tablet 20 mg PO DAILY eletriptan 40 mg tablet 40 mg PO DAILY MRX1 PRN (Reason: Migraine Headache) bupropion HCl 300 mg tablet extended release 24 hr 300 mg PO DAILY zolmitriptan 5 mg spray,non-aerosol 5 mg intranasal DAILY MRX1 PRN (Reason: Migraine Headache) duloxetine 30 mg capsule,delayed release(DR/EC) 60 mg PO DAILY fesoterodine 4 mg tablet extended release 24 hr 4 mg PO DAILY Zepbound 2.5 mg/0.5 mL pen injector 2.5 mg subcut TU@0900 vitamin B complex Capsule 1 cap PO DAILY Calcium Magnesium 500 mg calcium- 250 mg Tablet 1 tab PO DAILY cefuroxime axetil 500 mg tablet 500 mg PO BID 5 Days Qty: 10 0RF Interventions: ED Discharge Assessment Last Done: 02/05/24 21:12 Discharge Date/Time: 02/05/24 21:13 Print Language: Sudanese
[2024-02-05 12:47] VITALS: BP 135/83; PULSE 87; RESP 18; TEMP 37.1; O2SAT 97; BMI 31.9
[2024-02-05 13:55] LABS: Basophils Absolute Auto 0.1 X10*3/uL (0.0-0.2); Basophils Percent Auto 0.9 % (0-2); Eosinophils Absolute Auto 0.3 X10*3/uL (0.0-0.4); Eosinophils Percent Auto 4.3 % (0-4); Hematocrit 40.5 % (37.0-47.0); Hemoglobin 13.7 g/dl (12.0-16.0); Imm Gran Abs Auto 0.01 X10*3/uL (0.00-0.03); Imm Gran Pct Auto 0.2 % (0.0-0.4); Lymphocytes Absolute Auto 2.1 X10*3/uL (1.2-4.9); Lymphocytes Percent Auto 31.9 % (20-40); MANUAL DIFF FLAG NO; Mean Corpuscular HGB Conc 33.8 g/dl (31.0-35.0); Mean Corpuscular Hemoglobin 31.6 pg (27.0-33.0); Mean Corpuscular Volume 93.3 fL (80.0-98.0); Mean Platelet Volume 8.5 fL (9.4-12.3); Monocytes Absolute Auto 0.5 X10*3/uL (0.1-1.2); Monocytes Percent Auto 7.9 % (2-11); Neutrophils Absolute Auto 3.6 x10*3/uL (2.0-8.3); Neutrophils Percent Auto 54.8 % (45-73); Platelet Count 292 X10*3/uL (160-400); Red Blood Count 4.34 X10*6/uL (4.20-5.50); Red Cell Distribution Width 12.6 % (11.0-16.0); White Blood Count 6.5 X10*3/uL (4.8-10.8)
[2024-02-05 13:57] LABS: Appearance Urine Cloudy; Color Urine Dark Yellow; Glucose Urine UA Negative (Negative); Leukocyte Esterase Urine Large (3+) (Negative); Nitrite Urine Negative (Negative); PH 5.5 (5.0-9.0); UMIC TRIGGER UACC YES; Urine Blood Negative (Negative); Urine Ketones Negative (Negative); Urine Protein Negative (Neg-Trace)
[2024-02-05 14:07] LABS: Bacteria Urine 1+ (None Seen); Hyaline Casts Urine 0-2 /LPF (0-2); RBC Urine 0-2 /HPF (0-2); UACC Culture Trigger YES
[2024-02-05 14:16] LABS: Alanine Aminotransferase 80 U/L (0-31); Albumin Level 4.4 g/dL (3.5-5.0); Alkaline Phosphatase 72 U/L (39-117); Anion Gap 11 (12-20); Aspartate Amino Transferase 39 U/L (5-31); Bilirubin Total 0.2 mg/dL (0.0-1.0); Blood Urea Nitrogen 17 mg/dL (9-16); Calcium 9.7 mg/dL (8.4-10.2); Carbon Dioxide 27 mmol/L (22-29); Chloride 105 mmol/L (96-108); Creatinine Clr Calc Pharmacy 110.2; Estimated Glomerular Filt Rate > 60; Glucose Random 89 mg/dL (60-115); Lipase 17 U/L (8-78); Magnesium 2.1 mg/dL (1.6-2.6); Potassium 4.1 mmol/L (3.3-5.1); Sodium 139 mmol/L (135-145); Total Protein 7.3 g/dL (6.5-8.0)
[2024-02-05 16:42] VITALS: BP 117/63; PULSE 80; RESP 18; O2SAT 98
[2024-02-05] MEDS: iohexoL 350 MG/ML 100 ML INFUS..BTL IV (18:34)
--- OUTSIDE RECORDS SUMMARY | 2024-02-05 19:58 | XMS_ITS | Continuity of Care Document ---
Author Organization [facility] Address [address] [place] [address]- Care Team Providers Care Software Test Engineer Name Role Phone Cheyanne Avina MD Primary Care Physician [phone] [place] [facility] [place]24/[place] - 01/23/[address] [address] Attending Physician: Cheyenne Pace Admitting Physician: AdmCheyenne oakley Referring Physician: Admtr, [id number] Allergies, Adverse Reactions, [...] Given 1Admin Note: FLUARIX 2Admin Note: at [facility] TODAY FOR INJURY Medications amitriptyline 25 [...] Team Personnel Name: Cheyanne Avina MD Position: [facility] Physician (General Medicine) Member Role: PCP Address: Address: [address] [place] [address]- [place] Care Team Related Persons Name: HAILEY VASQUEZ Address: home [address] [place] [address] Name: KYLE BARROW Address: home [address] [place] [address]
--- OUTSIDE RECORDS SUMMARY | 2024-02-05 19:59 | XMS_ITS ---
Author Organization [facility] Address [address] [place] [address] Care Team Providers Care Trial Paralegal Name Role Phone TIAN EWING Unavailable [phone] Encounters Encounter Location Date Provider Diagnosis [facility] [address] [place] [address] 10/30/2023 TIAN EWING PLAN OF TREATMENT Next Appt Details Provider Name:TIAN EWING, 03/04/2024 09:00:00 AM, [address], [place], [address], Progress Notes * SULEMAN VASQUEZOB:1970 (53 yo F)Acc No.[id number]:10/30/2023 Patient:??LILIA VASQUEZ Provider:??TIAN EWING NP :1970?Age:53 Y?Sex:Fe male Date:10/30/2023 Address:[address] [place] [address], [facility] [place] Subjective: * Chief Complaints: * ? * Medical History:?? Objective: Assessment: Plan: * Treatment: * Images: Billing Information: * Visit Code:?? * Procedure Codes:?? * Sign off status: Pending * Provider:??TIAN EWING NP Date:??08/2023
--- OUTSIDE RECORDS SUMMARY | 2024-02-05 19:59 | XMS_ITS ---
Author Organization [facility] Address [address] [place] [address] Care Team Providers Care Service Center Specialist Name Role Phone TIAN EWING Unavailable [phone] ALLERGIES Allergen (clinical drug ingredient) Drug/Non Drug [...] Problem BMI 33.0-33.9,ad ult (Z68.33) Active confirmed [id number] VITAL SIGNS Heart Rate 90 /min 12/28/2023 Blood pressure systolic 106 mm Hg 12/28/19 24 Blood pressure diastolic 76 mm Hg 024 Weight 195 lbs 12/28/2023 BMI 33.47 kg/m2 12/28/2023 Height 64 in 12/28/2023 Oximetry 98 % 12/28/2023 Encounters Encounter Location Date Provider Diagnosis [facility] [address] [facility] [address] [place] [address] 12/28/2023 TIAN EWING Other obesity due to [...] Details Provider Name:TIAN EWING, 03/04/2024 09:00:00 AM, [address] [place] [address], [address], Progress Notes * SULEMAN VASQUEZOB:1970 (53 yo F)Acc No.[id number]:12/28/2023 Patient:??LILIA VASQUEZ Provider:??TIAN EWING NP :1970?Age:53 Y?Sex:Fe male Date:12/28/2023 Address:[address] [place] [address] [place]-[id number] Subjective: * Chief Complaints: * ?1. wt [...] pancreatitis December 19 until December 14 at [facility] ?She underwent laparoscopic cholecystectomy ?She says her [...] weight: 160's lbs ?Goal weight: 140-150lbs ?RONNIE screening/STOP-BANG/Avery, * ?Has not had an echocardiogram recently. [...] minimum of 6 months The most recent [place] Association of clinical endocrinologists and [place] College of endocrinology guidelines recommend patients who [...] software and direct typing Please excuse inadvertent asset protection associate or typing errors, or uncorrected word substitutions Although every attempt has been made by the provider to proofread this document, occasional misspellings and typographical errors may still be present Due to the previous pandemic, and the use of personal protective equipment (PPE) This may decrease voice recognition accuracy Inadvertent asset protection associate errors may occur. Plan: * Treatment: * Images: Billing Information: * Visit Code:?? 21956 Office Visit, Est Pt., Level 4. * [...]
--- OUTSIDE RECORDS SUMMARY | 2024-02-05 19:59 | XMS_ITS | Patient Health Record ---
Author Organization [facility] Address [address] [place] [address] Care Team Providers Care Photovoltaic Solar Cell Designer Name Role Phone TIAN EWING Unavailable [phone] USAMA CHRIS Unavailable [phone] ALLERGIES Allergen (clinical drug ingredient) Drug/Non Drug Allergy documented on EMR Reaction Allergy Type Onset Date Status Substance with sulfonamide structure and antibacterial mechanism of action (substance) sulfa anti (uncoded) rash Allergy Active erythromycin Erythromycin stomach upset Drug Allergy Active RESULTS Component Value Reference Range Notes URINALYSIS Reviewed date:07/24/2023 11:36:22 AM Interpretation: Performing Lab: Notes/Report: Note Original Ordering Provider: TIAN EWING NP [employer], a member of [address] [address] Public Health Nurse - Thi Prado MD GLUCOSE, (UA) NEGATIVE NEGATIVE mg/dL BILIRUBIN, URINE NEGATIVE NEGATIVE KETONE, URINE NEGATIVE NEGATIVE mg/dL SPECIFIC GRAVITY, URINE 1.022 1.003-1.030 BLOOD, URINE NEGATIVE NEGATIVE PH, URINE 6.5 5.0-8.0 PROTEIN, URINE NEGATIVE <= TRACE mg/dl UROBILINOGEN, URINE 0.2 0.2-1.0 E.U./dL NITRITE, URINE NEGATIVE NEGATIVE LEUKOCYTE ESTERASE, URINE MODERATE NEGATIVE Note Original Ordering Provider: TIAN EWING NP [employer], a member of [address] [address] Public Health Nurse - Thi Prado MD GLYCOHEMOGLOBIN PROFILE Reviewed date:07/24/2023 12:46:51 PM Interpretation: Performing Lab: Notes/Report: GLYCATED HEMOGLOBIN A1C 5.6 <6.5 % ESTIMATED AVERAGE GLUCOSE [address] COMPREHENSIVE METABOLIC PANE L Reviewed date:07/24/2023 12:34:55 PM Interpretation: Performing Lab: Notes/Report: Note Original Orderi ng Provider: TIAN EWING FISH MACHINE FEEDER GLUCOSE 105 70-100 mg/dL Reference range applicable [...] Note Original Ordering Provider: TIAN EWING NP [employer] [address] Public Health Nurse - Thi Prado MD VIT D,1,25-DIHYDROXY 64 [...] Vitamin D 25-hydroxy (VITD). Test performed at [facility], [facility] [place] [address] Brook Stewart MD, PhD - Public Health Nurse Note Original Ordering Provider: TIAN EWING NP [employer] [address] Public Health Nurse - Thi Prado MD REASON FOR REFERRAL [...] due to excess calories (E66.09) Active confirmed [id number] Problem Acquired hypothyroidism (E03.9) Active confirmed Acquired hypothyroidism (416210554) Problem Bipolar 1 disorder (F31.9) Active confirmed 142898970 Problem BMI 33.0-33.9,adult (Z68.33) Active confirmed 285877835 Problem BMI 32.0-32.9,adult (Z68.32) Active confirmed 310006304 Problem Abnormal metabolic state due to diabetes mellitus (E11.9) Active confirmed Abnormal metabolic state due to diabetes mellitus (548352143) VITAL SIGNS Heart Rate 90 /min 12/28/2023 Oximetry 98 % 12/28/2023 Blood pressure diastolic 76 mm Hg 12/28/2023 Height 64 in 12/28/2023 Blood pressure systolic 106 mm Hg 12/28/2023 Weight 195 lbs 12/28/2023 BMI 33.47 kg/m2 12/28/2023 Encounters Encounter Location Date Provider Diagnosis [facility] [address] [facility] [address] 07/31/2023 EL[address]RINY CHRIS [facility] [address] [facility] [address] 08/21/2023 USAMA CHRIS [facility] [address] [facility] [address] 08/28/[address] [facility] [address] [facility] [address] 08/31/[address] [facility] [address] [facility] [address] [facility] [address] 08/31/2023 TIAN EWING Other obesity due to excess calories E66.09 ; Body mass index [BMI] 33.0-33.9, adult Z68.33 ; Bipolar 1 disorder F31.9 and Hyperlipidemia E[address] [facility] [address] [address] 09/04/[address] [facility] [facility] [address] [facility] [address] [address] 09/07/2023 TIAN EWING Other obesity due to excess calories E66.09 ; Body mass index [BMI] 33.0-33.9, adult Z68.33 ; Bipolar 1 disorder F31.9 and Hyperlipidemia E78.[address] [facility] [address] [place] [address] 09/11/[address] [facility] [address] [place] [address] 09/13/[address] [facility] [address] [place] [address] 09/20/[address] [facility] [address] [place] [address] 09/27/[address] [facility] [address] [place] [address] 09/28/[address] [facility] [address] [place] 10/03/[address] [facility] [address] [place] 10/08/[address] [facility] [address] [place] 10/09/[address] [facility] [address] [place] 10/16/[address] [facility] [address] [place] 10/30/[address] [facility] [address] [place] [address] 07/24/2023 TIAN EWING Other obesity due to excess calories E66.09 ; Body mass index [BMI] 33.0-33.9, adult Z68.33 ; Bipolar 1 disorder F31.9 and Hyperlipidemia E78.[address] [facility] [address] [place] [address] 08/07/[address] [facility] [address] [place] [address] 08/14/[address] [facility] [address] [place] [address] 08/31/2023 TIAN BORHOT Other obesity due to excess calories E66.09 ; Body mass index [BMI] 33.0-33.9, adult Z68.33 ; Bipolar 1 disorder F31.9 and Hyperlipidemia E78.5 [facility] [address] [address] 10/23/2023 TIAN EWING Other obesity due to excess calories E66.09 ; BMI 32.0-32.9,adult Z68.32 ; Dietary counseling and surveillance Z71.3 ; Bipolar 1 disorder F31.9 and Hyperlipidemia E78.5 [facility] [address] [address] 12/28/2023 TIAN EWING Other obesity due to excess calories E66.09 ; BMI 33.0-33.9,adult Z68.33 ; Dietary counseling and surveillance Z71.3 ; Bipolar 1 disorder F31.9 ; Hyperlipidemia E78.5 and Status post laparoscopic cholecystectomy Z90.49 [facility] [address] [place] [address] 07/24/2023 TIAN LOWRYTomasz [facility] [address] [address] 09/03/2023 TIAN [facility] [address] [place] [address] 09/04/2023 TIAN AMAYARICHAT [facility] [address] [address] 09/12/2023 [facility] [address] [place] [address] 09/27/[address] [place] [address] [address] 10/23/2023 TIANYASMINE LOWRYT ASSESSMENTS Encounter Date Diagnosis [...] Provider Name:TIAN EWING, 03/04/2024 09:00:00 AM, 299 [facility], [facility] [address], [place], [address], Insurance Providers Payer Name Payer Address Payer Phone Subscriber Number Group Number Insured Name Patient Relationship to Insured Coverage Start Date Coverage End Date [facility] [address] [place] [address] [id number] LILIA VASQUEZ Self - patient is the insured 2 Medicare Part B J14 [address] [place], [place] [address] [address] [id number] LILIA VASQUEZ Self - patient is the [...]
--- OUTSIDE RECORDS SUMMARY | 2024-02-05 19:59 | XMS_ITS ---
Author Organization [facility] Address [address] [place] [address] Care Team Providers Care Psychologist Counseling Name Role Phone TIAN EWING Unavailable [phone] Encounters Encounter Location Date Provider Diagnosis [facility] [facility] [address] [facility] [address] [place] [address] 10/23/2023 TIAN EWING PLAN OF TREATMENT Next Appt Details Provider Name:TIAN EWING, 03/04/2024 09:00:00 AM, 299 [facility], [facility] 119, [place], [address], Progress Notes * SULEMAN VASQUEZOB:1970 (53 yo F)Acc No.[id number]:10/23/2023 Patient:??LILIA VASQUEZ :1970?Age:53 Y?Sex:Fe male Address:[address] [facility], [facility] [place] [address] * true * Date:??
[2024-02-05] MEDS: Dicyclomine HCl 10 MG CAPSULE 20 MG PO (21:06)
[2024-02-05 21:12] VITALS: BP 117/63; PULSE 80; RESP 18; TEMP 36.6; O2SAT 98
== END 2024-02-05 21:13 | disposition home or self-care (01) ==
PROVIDERS: Physician Assistant; Emergency Provider Internal Medicine; PCP Family Medicine
DX: K58.0 Irritable bowel syndrome with diarrhea (principal); Z79.899 Other long term (current) drug therapy; Z90.49 Acquired absence of other specified parts of digestive tract
CPT/HCPCS: 36415; 74177; 80053; 81001; 83690; 83735; 85025; 87086; 99283; 99284; Q9967

== ENCOUNTER 2024-03-24 12:41 | Emergency (ER) | payer MEDICARE, OTHER, SELFPAY ==
[2024-03-24 12:46] VITALS: BP 101/72; PULSE 88; O2SAT 99
[2024-03-24 13:00] VITALS: BP 113/62; PULSE 80; RESP 16; TEMP 37.1; O2SAT 97; BMI 34.1
--- NOTE | 2024-03-24 13:27 | ED_ITS ---
HPI - General Adult General Chief complaint: Abdominal Pain Stated complaint: R SIDE STOMACH CRAMPS,N/V/D,FEELING WEEK PER EMS Time Seen by Provider: 03/24/24 13:05 Source: patient Mode of arrival: ambulatory Limitations: no limitations History of Present Illness ED Provider: Judy HPI narrative: Patient is a 53-year-old female with history of appendectomy, cholecystectomy in November, IBS, migraines, depression presenting to the emergency department with complaint of right lower quadrant pain, diarrhea and fecal incontinence. States that since her surgery in November, she has had around 5 episodes of diarrhea per day. When abdominal cramping begins, she must run to the bathroom and has freqeunt episodes of fecal incontinence. Denies hematochezia or melena. Reports heartburn, nausea, occasional vomiting poorly controlled with medication. Sees GI at [facility] for past several years. Recently had endoscopy and colonoscopy which were normal. Has also had stool tested for C. diff and parasites which were negative. States symptoms are negatively impacting her quality of life, as she never knows when she will need to use the bathroom imminently. MD complaint: abdominal pain, diarrhea Onset (ago): month(s) Location: abdomen Radiation: non-radiation Severity: moderate Quality: aching Pain Consistency: colicky Associated symptoms: other Related Data Home Medications ?Medication ?Instructions ?Recorded ?Confirmed amitriptyline 25 mg tablet 50 mg PO BEDTIME 12/23/23 01/16/24 bupropion HCl 300 mg 24 hr tablet, 300 mg PO DAILY 12/23/23 01/16/24 extended release calcium carb, gluc 500 mg 1 tab PO DAILY 12/23/23 01/16/24 calcium-magnesium gluc, oxide 250 mg tablet (Calcium Magnesium) divalproex 500 mg tablet,delayed 500 mg PO BEDTIME 12/23/23 01/16/24 release duloxetine 30 mg capsule,delayed 60 mg PO DAILY 12/23/23 01/16/24 release eletriptan 40 mg tablet 40 mg PO DAILY MRX1 PRN Migraine 12/23/23 01/16/24 Headache escitalopram oxalate 20 mg tablet 20 mg PO DAILY 12/23/23 01/16/24 fesoterodine 4 mg tablet,extended 4 mg PO DAILY 12/23/23 01/16/24 release 24 hr hyoscyamine sulfate 0.125 mg tablet 0.25 mg PO BID PRN GI Upset 12/23/23 01/16/24 lamotrigine 25 mg tablet 75 mg PO DAILY 12/23/23 01/16/24 oxybutynin chloride 10 mg 10 mg PO DAILY 12/23/23 01/16/24 tablet,extended release 24 hr tirzepatide (weight loss) 2.5 2.5 mg subcut TU@0900 12/23/23 01/16/24 mg/0.5 mL subcutaneous pen injector (Zepbound) vitamin B complex 1 cap PO DAILY 12/23/23 01/16/24 zolmitriptan 5 mg nasal spray 5 mg intranasal DAILY MRX1 PRN 12/23/23 01/16/24 Migraine Headache Previous Rx's ?Medication ?Instructions ?Recorded cefuroxime axetil 500 mg tablet 500 mg PO BID 5 days #10 tabs 12/26/23 dicyclomine 20 mg tablet 20 mg PO QID PRN abdominal pain 02/05/24 #20 tabs loperamide 2 mg tablet (Imodium 2 mg PO Q6H PRN loose stool #14 02/05/24 A-D) tabs Allergies Allergy/AdvReac Type Severity Reaction Status Date / Time Sulfa (Sulfonamide Allergy Severe Rash Verified 03/24/24 13:03 Antibiotics) sulfamethoxazole Allergy Severe Rash Verified 03/24/24 13:03 [From Bactrim] trimethoprim [From Bactrim] Allergy Severe Rash Verified 03/24/24 13:03 Erythromycin Allergy Severe Gastrointestinal Uncoded 01/16/24 08:32 Upset Review of Systems 2 Review of Systems: As per HPI. Yes all other systems are reviewed and are negative Constitutional: Constitutional: Reports as per HPI [facility] Past Medical History Medical History RONNIE (obstructive sleep apnea) Migraine Depression Surgical History H/O colonoscopy History of appendectomy Social History Social History Household Members: Family Housing: House Do you presently have visiting nurse or other home services: No Alcohol intake: never Patient Tobacco Use Status: Never used Tobacco Smoked in Last 30 Days: No Use of substances other than those prescribed or required for medical reasons: No Advance Directives: Yes Advance Directives on File: Yes Advance Directives Date on File: 12/27/23 Do you have a plan to hurt others: No Plan service: No Physical Exam ED Vital Signs: Vital Signs - 24 hr 03/24/24 13:00 Temperature 98.7 F Pulse Rate 80 Respiratory Rate 16 Blood Pressure 113/62 Pulse Oximetry 97 Oxygen Delivery Method Room Air BMI result Body Mass Index 34.1 Vital signs have been reviewed and appear to be correct. Blood pressure normal. Heart rate normal. Respiratory rate normal. Temperature normal. Oxygen saturation normal. Const General: cooperative, healthy appearing and no acute distress Orientation/consciousness: oriented to person, oriented to place, oriented to time and patient oriented x3 Limitations: no limitations HENMT Head: Yes normocephalic and Yes atraumatic Ears: external ears normal General nose exam: Normal external nose present Face and sinus: Yes face symmetric Mouth: oropharynx normal and moist mucous membranes Throat: Yes uvula midline Eyes Pupils: Equal, round and reactive pupils present Neck Neck: Yes normal visual inspection and Yes supple Resp Effort & Inspection: normal respiratory effort and able to speak in complete sentences Auscultation: clear to auscultation bilaterally Cardio Rate: regular rate Rhythm: regular rhythm Heart sounds: S1 normal heart sound present and S2 normal heart sound present GI Palpation (GI): Soft to palpation, Tenderness to palpation present (GI) in the RLQ, no guarding and No Rebound tenderness present Auscultation: normoactive bowel sounds General: Yes no CVA tenderness Back/Spine/Pelvis Back: no CVA tenderness Skin General skin exam: elasticity normal and turgor normal Neuro General: oriented to person, oriented to place, oriented to time, patient oriented x3, moves all extremities, no focal motor deficits and CN's II-XI intact bilaterally Cranial nerves: Yes Equal, round and reactive pupils present Cognition (Neuro): normal cognition Extrem General: Yes full ROM, Yes no pedal edema and Yes no calf tenderness Psych Mental Status: mental status grossly normal Affect: normal affect Thought process: Normal thought process present Medical Decision Making Medical Decision Making MDM Narrative: Patient is a 53-year-old female with history of appendectomy, cholecystectomy in November, IBS, migraines, depression presenting to the emergency department with complaint of right lower quadrant pain, diarrhea and fecal incontinence. On exam patient is awake, A+Ox3, VS WNL, afebrile, normal neurological exam without focal deficits, physical exam findings as above. Given reported symptoms and physical exam findings, initial differential includes IBS flare, post cholecystectomy syndrome, viral illness, UTI. Labs unremarkable. Urinalysis notable for 1+ leukocytes, negative nitrites, 3-5 RBCs, 6-10 WBCs and trace bacteria. Patient denies urinary symptoms and would like to avoid antibiotics if possible. Through shared decision making, will wait for urine culture results before treating for UTI with abx. Imaging also discussed with patient including risk vs benefit of CT abdomen/pelvis. Patient was seen in this ED on 02/[address] A/P at that time which showed mild constipation, large uterine fibroid and mild thickening and fat stranding of the umbilicus. Patient opting to defer additional imaging at this time, I am in agreement with this as she is afebrile, hemodynamically stable, without concerning findings on exam. Patient asking what she can do to manage symptoms until she is seen by her GI. Advised her to start using a daily probiotic, avoid dietary triggers. Return precautions discussed. Patient verbalized understanding of and agreement with plan. Differential Diagnosis Differential Diagnoses: The differential diagnosis associated with the presentation includes As per [facility] Admission/Observation Consideration of admission/observation: Escalation of care including admission/observation considered Patient would have been admitted to the hospital had their work up had any findings where hospital admission was appropriate and their clinical presentation warranted hospital admission. Lab Data [facility] Lab Attestation statement: I reviewed the patient's lab results. As per [facility] 03/24/24 14:06 03/24/24 14:06 Labs: Lab Results 03/24/24 03/24/24 Range/Units 14:06 14:43 WBC 4.8 (4.8-10.8) X10*3/uL RBC 4.23 (4.20-5.50) X10*6/uL Hgb 13.2 (12.0-16.0) g/dl Hct 39.2 (37.0-47.0) % MCV 92.7 (80.0-98.0) fL MCH 31.2 (27.0-33.0) pg MCHC 33.7 (31.0-35.0) g/dl RDW 12.7 (11.0-16.0) % Plt Count 272 (160-400) X10*3/uL MPV 8.6 L (9.4-12.3) fL Immature Gran % (Auto) 0.6 H (0.0-0.4) % Neut % (Auto) 52.0 (45-73) % Lymph % (Auto) 33.2 (20-40) % [place] % (Auto) 9.5 (2-11) % Eos % (Auto) 3.9 (0-4) % Baso % (Auto) 0.8 (0-2) % Lymph # (Auto) 1.6 (1.2-4.9) X10*3/uL [place] # (Auto) 0.5 (0.1-1.2) X10*3/uL Eos # (Auto) 0.2 (0.0-0.4) X10*3/uL Baso # (Auto) 0.0 (0.0-0.2) X10*3/uL Abs Immat Gran (auto) 0.03 (0.00-0.03) X10*3/uL Absolute Neuts (auto) 2.5 (2.0-8.3) x10*3/uL Absolute Nucleated RBC 0.000 (0.0-0.012) X10*3/uL Nucleated RBC % (auto) 0.0 (0.0-0.2) /100WBC Sodium 140 (135-145) mmol/L Potassium 3.9 (3.3-5.1) mmol/L Chloride 103 (96-108) mmol/L Carbon Dioxide 30 H (22-29) mmol/L Anion Gap 11 L (12-20) BUN 13 (9-16) mg/dL Creatinine 0.68 (0.5-1.4) mg/dL Estim Creat Clear Calc 109.1 Estimated GFR > 60 Random Glucose 89 (60-115) mg/dL Calcium 10.8 H D (8.4-10.2) mg/dL Magnesium 1.9 (1.6-2.6) mg/dL Total Bilirubin 0.4 (0.0-1.0) mg/dL AST 26 (5-31) U/L ALT 44 H (0-31) U/L Alkaline Phosphatase 69 (39-117) U/L Total Protein 6.8 (6.5-8.0) g/dL Albumin 4.1 (3.5-5.0) g/dL Amylase 57 (28-100) U/L Lipase 16 (8-78) U/L Urine Color Yellow Urine Appearance Clear Urine pH 5.5 (5.0-9.0) Ur Specific [place] 1.020 (1.005-1.025) Urine Protein Negative (Neg-Trace) mg/dL Urine Glucose (UA) Negative (Negative) mg/dL Urine Ketones Negative (Negative) mg/dL Urine Blood Negative (Negative) Urine Nitrite Negative (Negative) Ur Leukocyte Esterase Small (1+) H (Negative) Urine RBC 3-5 H (0-2) /HPF Urine WBC 6-10 H (0-5) /HPF Ur Squamous Epith Cells 0-2 (0-2) /HPF Urine Bacteria Trace (None Seen) Hyaline Casts 0-2 (0-2) /LPF Influenza Type A (PCR) NEGATIVE (Negative) Influenza Type B (PCR) NEGATIVE (Negative) RSV RNA Qual (PCR) NEGATIVE (Negative) SARS-CoV-2 RNA (RT-PCR) NEGATIVE (Negative) External Record Review External record reviewed: Inpatient record, Office record and Outpatient record Prescription Management I considered prescription management with: Antibiotic (will wait for urine cx results) Discharge Plan Discharge Clinical Impression: Abdominal pain, Diarrhea Patient Disposition: Home, Self-Care Instructions: Abdominal Pain (ED), Probiotic (By mouth) Additional Instructions: You were evaluated in the emergency department today for abdominal pain and diarrhea. Your labs were reassuring. Your urinalysis showed possible infection. If your urine culture shows a definitive infection, and you require antibiotics, someone will call you from the ED. We recommend that you begin taking a daily probiotic, specifically Saccharomyces Boulardii. We also recommend following up with your test tube maker for further evaluation. Return to the emergency department if you develop worsening pain, persistent vomiting, or unable to tolerate fluids by mouth, fever, blood in your vomit or stool or any other concerning symptoms. Prescriptions: No Action oxybutynin chloride 10 mg tablet extended release 24hr 10 mg PO DAILY divalproex 500 mg tablet,delayed release (DR/EC) 500 mg PO BEDTIME lamotrigine 25 mg tablet 75 mg PO DAILY amitriptyline 25 mg tablet 50 mg PO BEDTIME hyoscyamine sulfate 0.125 mg tablet 0.25 mg PO BID PRN (Reason: GI Upset) escitalopram oxalate 20 mg tablet 20 mg PO DAILY eletriptan 40 mg tablet 40 mg PO DAILY MRX1 PRN (Reason: Migraine Headache) bupropion HCl 300 mg tablet extended release 24 hr 300 mg PO DAILY zolmitriptan 5 mg spray,non-aerosol 5 mg intranasal DAILY MRX1 PRN (Reason: Migraine Headache) duloxetine 30 mg capsule,delayed release(DR/EC) 60 mg PO DAILY fesoterodine 4 mg tablet extended release 24 hr 4 mg PO DAILY Zepbound 2.5 mg/0.5 mL pen injector 2.5 mg subcut TU@0900 vitamin B complex Capsule 1 cap PO DAILY Calcium Magnesium 500 mg calcium- 250 mg Tablet 1 tab PO DAILY cefuroxime axetil 500 mg tablet 500 mg PO BID 5 Days Qty: 10 0RF dicyclomine 20 mg tablet 20 mg PO QID PRN (Reason: abdominal pain) Qty: 20 0RF loperamide [Imodium A-D] 2 mg tablet 2 mg PO Q6H PRN (Reason: loose stool) Qty: 14 0RF Print Language: Slovenian
[2024-03-24 14:12] LABS: MANUAL DIFF FLAG NO
[2024-03-24 14:22] LABS: Basophils Percent Auto 0.8 % (0-2); Eosinophils Absolute Auto 0.2 X10*3/uL (0.0-0.4); Eosinophils Percent Auto 3.9 % (0-4); Hematocrit 39.2 % (37.0-47.0); Hemoglobin 13.2 g/dl (12.0-16.0); Imm Gran Abs Auto 0.03 X10*3/uL (0.00-0.03); Imm Gran Pct Auto 0.6 % (0.0-0.4); Lymphocytes Absolute Auto 1.6 X10*3/uL (1.2-4.9); Lymphocytes Percent Auto 33.2 % (20-40); Mean Corpuscular HGB Conc 33.7 g/dl (31.0-35.0); Mean Corpuscular Hemoglobin 31.2 pg (27.0-33.0); Mean Corpuscular Volume 92.7 fL (80.0-98.0); Mean Platelet Volume 8.6 fL (9.4-12.3); Monocytes Absolute Auto 0.5 X10*3/uL (0.1-1.2); Monocytes Percent Auto 9.5 % (2-11); Neutrophils Absolute Auto 2.5 x10*3/uL (2.0-8.3); Platelet Count 272 X10*3/uL (160-400); Red Blood Count 4.23 X10*6/uL (4.20-5.50); Red Cell Distribution Width 12.7 % (11.0-16.0); White Blood Count 4.8 X10*3/uL (4.8-10.8)
[2024-03-24 14:40] LABS: Alanine Aminotransferase 44 U/L (0-31); Albumin Level 4.1 g/dL (3.5-5.0); Alkaline Phosphatase 69 U/L (39-117); Anion Gap 11 (12-20); Aspartate Amino Transferase 26 U/L (5-31); Bilirubin Total 0.4 mg/dL (0.0-1.0); Blood Urea Nitrogen 13 mg/dL (9-16); Calcium 10.8 mg/dL (8.4-10.2); Carbon Dioxide 30 mmol/L (22-29); Chloride 103 mmol/L (96-108); Creatinine Clr Calc Pharmacy 109.1; Estimated Glomerular Filt Rate > 60; Glucose Random 89 mg/dL (60-115); Lipase 16 U/L (8-78); Magnesium 1.9 mg/dL (1.6-2.6); Potassium 3.9 mmol/L (3.3-5.1); Sodium 140 mmol/L (135-145); Total Protein 6.8 g/dL (6.5-8.0)
[2024-03-24 14:44] LABS: Amylase 57 U/L (28-100)
[2024-03-24 14:53] LABS: Appearance Urine Clear; Color Urine Yellow; Glucose Urine UA Negative (Negative); Leukocyte Esterase Urine Small (1+) (Negative); Nitrite Urine Negative (Negative); PH 5.5 (5.0-9.0); UMIC TRIGGER UACC YES; Urine Blood Negative (Negative); Urine Ketones Negative (Negative); Urine Protein Negative (Neg-Trace)
[2024-03-24 15:04] LABS: Influenza A PCR NEGATIVE (Negative); Influenza B PCR NEGATIVE (Negative); Resp Syncy Virus RNA Qual PCR NEGATIVE (Negative); SARS COV2 PCR INHOUSE NEGATIVE (Negative)
[2024-03-24 15:07] LABS: Bacteria Urine Trace (None Seen); Hyaline Casts Urine 0-2 /LPF (0-2); Squamous Epithelial Cell Urine 0-2 /HPF (0-2); UACC Culture Trigger YES
[2024-03-24 16:03] VITALS: BP 99/54; PULSE 68; RESP 18; TEMP 36.5; O2SAT 98
== END 2024-03-24 16:15 | disposition home or self-care (01) ==
PROVIDERS: Registered Nurse Emergency; Emergency Provider Emergency Medicine; PCP Family Medicine
DX: R10.31 Right lower quadrant pain (principal); R19.7 Diarrhea, unspecified; Z03.818 Encounter for observation for suspected exposure to other biological agents ruled out
CPT/HCPCS: 0241U; 80053; 81001; 82150; 83690; 83735; 85025; 87086; 99283; 99284

== ENCOUNTER 2024-03-27 12:37 | Outpatient (REF) | payer OTHER, MEDICARE, SELFPAY ==
[2024-03-27 16:14] LABS: Vitamin D 25-OH Total 29.9 ng/mL (>30)
[2024-03-27 16:30] LABS: Folate 11.3 ng/mL (> or = 4.0); Vitamin B12 655 pg/mL (200-900)
[2024-03-28 07:29] LABS: Immunoglobulin A 165 mg/dL (47-310)
[2024-03-28 20:18] LABS: Transglutaminase Ab IgG <1.0 U/mL; Transglutaminase IgA <1.0 U/mL
== END 2024-03-27 12:38 | disposition home or self-care (01) ==
LOC: HO.LAB 12:37
PROVIDERS: PCP Family Medicine; Visit Provider Internal Medicine Gastroenterology
DX: K52.9 Noninfective gastroenteritis and colitis, unspecified (principal); R10.32 Left lower quadrant pain; Z90.49 Acquired absence of other specified parts of digestive tract; R74.8 Abnormal levels of other serum enzymes; K85.30 Drug induced acute pancreatitis without necrosis or infection
CPT/HCPCS: 36415; 82306; 82607; 82746; 82784; 86364

== ENCOUNTER → 2024-03-27 12:37 | Outpatient (AMB) | payer MEDICARE, OTHER, SELFPAY ==
--- NOTE | 2024-03-27 12:50 | A.OFFVIS_ITS ---
Vital Signs 03/27/24 12:56 Height 5 ft 6 in Weight 195 lb BMI 31.5 BP 109/68 Blood Pressure Location Lt brachial Position Sitting Pulse 85 Intake Visit Reasons: digestive system diseases Intake Note: Patient new consult for Digestive system disease. Patient cc: diarrhea/abdominal pain on and off, GERD, and difficulty swallowing. Director Of Managed Care Required: No Accompanied by: Self / Same As Patient Allergies Sulfa (Sulfonamide Antibiotics) Allergy (Severe, Verified 03/27/24 12:50) Rash sulfamethoxazole [From Bactrim] Allergy (Severe, Verified 03/27/24 12:50) Rash trimethoprim [From Bactrim] Allergy (Severe, Verified 03/27/24 12:50) Rash Erythromycin Allergy (Severe, Uncoded 01/16/24 08:32) Gastrointestinal Upset Medication List - Last Reconciled 03/27/24 by Jody Redmond MD amitriptyline 50 mg PO BEDTIME bupropion HCl XL 300 mg PO DAILY calcium carb,gluc-mag gluc,ox 500 mg calcium- 250 mg (Calcium Magnesium) 1 tab PO DAILY cefuroxime axetil 500 mg PO BID 5 days dicyclomine 20 mg PO QID PRN divalproex 500 mg PO BEDTIME duloxetine 60 mg PO DAILY eletriptan 40 mg PO DAILY MRX1 PRN escitalopram oxalate 20 mg PO DAILY fesoterodine ER 4 mg PO DAILY hyoscyamine sulfate 0.25 mg PO BID PRN lamotrigine 75 mg PO DAILY loperamide (Imodium A-D) 2 mg PO Q6H PRN omeprazole 20 mg PO DAILY oxybutynin chloride ER 10 mg PO DAILY tirzepatide (weight loss) (Zepbound) 2.5 mg subcut TU@0900 vitamin B complex 1 cap PO DAILY zolmitriptan 5 mg intranasal DAILY MRX1 PRN HPI HPI digestive system diseases: Details: GI clinic visit for this 53 YF with history of migraine headaches, RONNIE and depre ssion for FU of acute pancreatitis and digestive issues Patient is seen for follow-up after hospitalization at [facility] in November,. Patient is status post laparoscopic cholecystectomy. TODAY'S VISIT: Patient cc: diarrhea/abdominal pain on and off, GERD, and difficulty swallowing. Pt complains of abd pain and had 2 recent ED visits. Had nausea, vomiting and diarrhea. Intermittent RLQ pain - can be there all day. No clear precipitating factors - had an ice cream and was in the bathroom for 3 years [place] [facility] [place] an esophageal manometry next Sunday at [facility] clinic Has 5 to 7 BMs a day - stools are watery - no blood or mucous Complains of HB and feels something stuck in the throat even if she does not eat Decreased appetite and wt loss of 7 lbs Patient denies major cardiac or pulmonary problems, loud snoring or sleep apnea Denies problems with anesthesia in the past. Denies being on chronic anticoagulation. Pt denies smoking, alcohol or, illicit drug use (takes a glass of wine with dinner occasionally). There is no history of hyperlipidemia, gallstones or pancreatitis. Pt reports she started using Zepbound injection for weight loss in Sep, 2023 (last dose was December 16). Her other home medications include escitalopram, amitriptyline, bupropion, lamotrigine, gabapentin, fesoterodine. Past surgical history is remarkable for appendectomy. Pt reports having a colonoscopy 3 years ago for evaluation of fecal incontinence and was diagnosed with IBS. She was advised to refrain from eating spicy food. She complains of feeling something in her throat and had an episode of choking - relief by Heimlich maneuver. She is being scheduled for an upper endoscopy by her benefits specialist recruiter. 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 Somewhat limited assessment due to motion artifact. No convincing evidence for pancreatitis. 2. Trace nonspecific pelvic free fluid, which may be physiologic. 3. Right-sided uterine mass measuring up to approximately 6.3 cm, favored to represent a fibroid. This could be further assessed with pelvic ultrasound. PAST GI HISTORY BY REVIEW OF MEDICAL RECORDS: 11/2023 patient was seen during hospitalization at [facility] for pancreatitis: Reason for consult: Acute pancreatitis 53 YF with hx of depression (on multiple oral agents) seen at [facility] ED on 12/23/23 with severe left lower quadrant pain associated with nausea. Pt reports she noted shooting LLQ pain last night around 11:30 pm while she was sitting in her recliner. She went to the bathroom to have a BM which was normal (found it hard to walk and move) She describes the pain as 10/10 in intensity with pressure and deep constant pain (also notes pain in her lower back). Pt denies fever, chills, sweating or change in bowel habits. In the ED, she was found to have normal vital signs. Labs showed a markedly elevated lipase, >3000. Elevated transaminases. Bilirubin and alk-phos are normal. ED tx: Dilaudid 1 mg IV, Zofran 4 mg IV, LR 2 L bolus. 53 YF with hx of depression (on multiple oral agents) admitted to [facility] on 12/23/23 with nausea, abd pain and elevated lipase suggestive of acute pancreatitis There is no history of hyperlipidemia, gallstones or pancreatitis and pt denies ETOH abuse Pt reports she started using Zepbound injection for weight loss in Sep, 2023 (last dose was December 16). Pancreatitis can be related to Zepbound. Other possiblities include biliary sludge/microlithasis, pancreas divisum or idiopathic Her other home medications include escitalopram, amitriptyline, bupropion, lamotrigine, gabapentin, fesoterodine which are not likely to cause pancreatitis RECOMMENDATIONS: 1. Agree with bowl rest and IV PPI, pain medications and antiemetics. 2. Abd US to look for [id number] stones not visualized on CT scan. 3. Avoid Zepbound in the future (needs to discuss her options with the provider prescribing Zepbound) ADDENDUM: Pt was discharged on 12/26/23 Hospital course (from discharge summary): Acute gallstone pancreatitis with initial lipase >300, dropped to 199 the next day, and after that 34. MRCP showed Gallbladder distention with stones and sludge. Gallbladder wall thickening and edema. This may represent acute cholecystitis. She was on Ceftriaxone for UTI which would cover a presumed cholecystitis as well. She underwent cholecystectomy on 12/25/23, her diet has been advnced and tolerating. She also had a hernia repair at that time. To follow up with surgery on outpatient basis. LFTs AST 75 to 106 to 45 and 172. ALT started at 53 went to 207, to 148 and to 277 now. Repeat LFTs on outpatient basis [facility], [facility] Medical History RONNIE (obstructive sleep apnea) Migraine Depression Surgical History H/O colonoscopy History of appendectomy Social History Household Members: Family Housing: House Do you presently have visiting nurse or other home services: No Alcohol intake: never Patient Tobacco Use Status: Never used Tobacco Advance Directives Date on File: 12/27/23 service: No Physical Exam Vital Signs: Last Vital Signs Pulse 85 03/27/24 12:56 BP 109/68 03/27/24 12:56 BMI result Body Mass Index 31.5 Assessment & Plan Assessment & Plan (1) Postprandial diarrhea: Code(s): K52.9 - Noninfective gastroenteritis and colitis, unspecified Category: Medical (2) Acute pancreatitis: Code(s): K85.90 - Acute pancreatitis without necrosis or infection, unspecified Category: Medical Qualifiers: Acute pancreatitis complication: no infection or necrosis Pancreatitis type: drug induced Qualified Code(s): K85.30 - Drug induced acute pancreatitis without necrosis or infection (3) Abnormal AST and ALT: Code(s): R74.8 - Abnormal levels of other serum enzymes Category: Medical (4) Status post laparoscopic cholecystectomy: Code(s): Z90.49 - Acquired absence of other specified parts of digestive tract Category: Surgical (5) Left lower quadrant abdominal pain: Code(s): R10.32 - Left lower quadrant pain Category: Surgical Plan 53 YF with history of migraine headaches, RONNIE and depression seen for FU of acute pancreatitis and digestive issues Patient is seen for follow-up after hospitalization at [facility] in November,. Patient is status post laparoscopic cholecystectomy. Pt complains of HB, dysphagia, RLQ abd pain, nausea, vomiting and diarrhea and had 2 recent ED visits. Scheduled to have [place] [facility] [place] Having an esophageal manometry next Sunday at [facility] clinic Complains of HB and feels something stuck in the throat even if she does not eat Decreased appetite and wt loss of 7 lbs Pt reports she started using Zepbound injection for weight loss in Sep, 2023 (last dose was December 16). Patient was advised labs and stool studies to check for celiac sprue, malabsorption and IBD. Trial of cholestyramine for postprandial diarrhea. ADDENDUM: Labs showed normal CRP, Vitamin B 12 and folate and celiac serologies were negative Stool studies not completed yet. Orders: Orders OBSX3 03/27/24 K52.9 - Noninfective gastroenteritis and colitis, unspecified, R10.32 - Left lower quadrant pain, Z90.49 - Acquired absence of other specified parts of digestive tract, R74.8 - Abnormal levels of other serum enzymes, K85.30 - Drug induced acute pancreatitis without necrosis or infection Immunoglobulin A 03/27/24 K52.9 - Noninfective gastroenteritis and colitis, unspecified, R10.32 - Left lower quadrant pain, Z90.49 - Acquired absence of other specified parts of digestive tract, R74.8 - Abnormal levels of other serum enzymes, K85.30 - Drug induced acute pancreatitis without necrosis or infection Fecal Fat Qualitative 03/27/24 K52.9 - Noninfective gastroenteritis and colitis, unspecified, R10.32 - Left lower quadrant pain, Z90.49 - Acquired absence of other specified parts of digestive tract, R74.8 - Abnormal levels of other serum enzymes, K85.30 - Drug induced acute pancreatitis without necrosis or infection Calprotectin, Fecal 03/27/24 K52.9 - Noninfective gastroenteritis and colitis, unspecified, R10.32 - Left lower quadrant pain, Z90.49 - Acquired absence of other specified parts of digestive tract, R74.8 - Abnormal levels of other serum enzymes, K85.30 - Drug induced acute pancreatitis without necrosis or infection Vitamin B12 and Folate 03/27/24 K52.9 - Noninfective gastroenteritis and colitis, unspecified CDiff Gene PCR 03/27/24 K52.9 - Noninfective gastroenteritis and colitis, unspecified, R10.32 - Left lower quadrant pain, Z90.49 - Acquired absence of other specified parts of digestive tract, R74.8 - Abnormal levels of other serum enzymes, K85.30 - Drug induced acute pancreatitis without necrosis or infection Transglutaminase Ab IgG 03/27/24 K52.9 - Noninfective gastroenteritis and colitis, unspecified, R10.32 - Left lower quadrant pain, Z90.49 - Acquired absence of other specified parts of digestive tract, R74.8 - Abnormal levels of other serum enzymes, K85.30 - Drug induced acute pancreatitis without necrosis or infection Transglutaminase IgA 03/27/24 K52.9 - Noninfective gastroenteritis and colitis, unspecified, R10.32 - Left lower quadrant pain, Z90.49 - Acquired absence of other specified parts of digestive tract, R74.8 - Abnormal levels of other serum enzymes, K85.30 - Drug induced acute pancreatitis without necrosis or infection Pancreatic Elastase-1 03/27/24 K52.9 - Noninfective gastroenteritis and colitis, unspecified, R10.32 - Left lower quadrant pain, Z90.49 - Acquired absence of other specified parts of digestive tract, R74.8 - Abnormal levels of other serum enzymes, K85.30 - Drug induced acute pancreatitis without necrosis or infection Vitamin D 25-OH Total 03/27/24 K52.9 - Noninfective gastroenteritis and colitis, unspecified Medications: New cholestyramine (with sugar) 4 gram administer w/meal; avoid other meds within 1hr before or 4-6hr after dose 4 grams PO BID 348.6 grams 1RF 30 days K52.9 - Noninfective gastroenteritis and colitis, unspecified Coding Level of Care Code Est Pt Level 4 (90706) Diagnoses Postprandial diarrhea K52.9 Drug-induced acute pancreatitis without infection or necrosis K85.30 Acute pancreatitis complication: no infection or necrosis Pancreatitis type: drug induced Abnormal AST and ALT R74.8 Status post laparoscopic cholecystectomy Z90.49 Left lower quadrant abdominal pain R10.32 Time Spent (min) 29
[2024-03-27 12:56] VITALS: BP 109/68; PULSE 85; BMI 31.5
== END ==
PROVIDERS: PCP Family Medicine; Visit Provider Internal Medicine Gastroenterology
DX: K52.9 Noninfective gastroenteritis and colitis, unspecified (principal); K85.30 Drug induced acute pancreatitis without necrosis or infection; R74.8 Abnormal levels of other serum enzymes; Z90.49 Acquired absence of other specified parts of digestive tract; R10.32 Left lower quadrant pain
CPT/HCPCS: 99214

== ENCOUNTER 2024-04-17 07:39 | Outpatient (REF) | payer OTHER, MEDICARE, SELFPAY ==
[2024-04-27 17:28] LABS: Calprotectin, Fecal 398 mcg/g
== END 2024-04-17 07:40 | disposition home or self-care (01) ==
LOC: HO.LNP 07:39
PROVIDERS: PCP Family Medicine; Visit Provider Internal Medicine Gastroenterology
DX: K52.9 Noninfective gastroenteritis and colitis, unspecified (principal); R10.32 Left lower quadrant pain; Z90.49 Acquired absence of other specified parts of digestive tract; R74.8 Abnormal levels of other serum enzymes; K85.30 Drug induced acute pancreatitis without necrosis or infection
CPT/HCPCS: 83993

== ENCOUNTER 2024-04-17 07:39 | Outpatient (AMB) | payer OTHER, MEDICARE, SELFPAY ==
--- NOTE | 2024-04-17 07:21 | A.OFFVIS_ITS ---
Vital Signs 04/17/24 07:47 Height 5 ft 6 in Weight 200 lb BMI 32.3 BP 108/55 L Blood Pressure Location Lt brachial Position Sitting Pulse 82 Intake Visit Reasons: abdominal pain Allergies Sulfa (Sulfonamide Antibiotics) Allergy (Severe, Verified 04/21/24 19:16) Rash sulfamethoxazole [From Bactrim] Allergy (Severe, Verified 04/21/24 19:16) Rash trimethoprim [From Bactrim] Allergy (Severe, Verified 04/21/24 19:16) Rash Erythromycin Allergy (Severe, Uncoded 04/21/24 19:16) Gastrointestinal Upset Medication List - Last Reconciled 04/17/24 by Jody Redmond MD amitriptyline 50 mg PO BEDTIME bupropion HCl XL 300 mg PO DAILY calcium carb,gluc-mag gluc,ox 500 mg calcium- 250 mg (Calcium Magnesium) 1 tab PO DAILY cholestyramine (with sugar) 4 gram 4 grams PO BID 30 days dicyclomine 20 mg PO QID PRN divalproex 500 mg PO BEDTIME duloxetine 60 mg PO DAILY eletriptan 40 mg PO DAILY MRX1 PRN escitalopram oxalate 20 mg PO DAILY fesoterodine ER 4 mg PO DAILY hyoscyamine sulfate 0.25 mg PO BID PRN lamotrigine 75 mg PO DAILY loperamide (Imodium A-D) 2 mg PO Q6H PRN omeprazole 20 mg PO DAILY oxybutynin chloride ER 10 mg PO DAILY tirzepatide (weight loss) (Zepbound) 2.5 mg subcut TU@0900 vitamin B complex 1 cap PO DAILY zolmitriptan 5 mg intranasal DAILY MRX1 PRN HPI HPI abdominal pain: Details: GI clinic visit for this 53 YF for FU of acute pancreatitis and digestive issues TODAY'S VISIT: Intake Note: Patient follow up for abnormal AST and ALT (+), lab results. Patient cc: abdominal pain/bloating, acid reflex, diarrhea and some difficulty swallowing. Taking yogurt with probiotics and a probiotic pill Unable to submit stool specimen. Had [place] [facility] [place] hiatal her[place] and pill gets stuck in the throat and takes a little while to go down. Drove to [facility] - manometry was cancelled due to equipment malfunction. Has 3 -5 BM a day. Tried cholestyramine - helped a little bit. Unsure what to eat - cant have sugar or butter. Tries to eat soft things due to dysphagia. Pt denies smoking, alcohol or, illicit drug use (takes a glass of wine with dinner occasionally). There is no history of hyperlipidemia, gallstones or pancreatitis. Pt reports she started using Zepbound injection for weight loss in Sep, 2023 (last dose was December 16). Her other home medications include escitalopram, amitriptyline, bupropion, lamotrigine, gabapentin, fesoterodine. Past surgical history is remarkable for appendectomy. Pt reports having a colonoscopy 3 years ago for evaluation of fecal incontinence and was diagnosed with IBS. She was advised to refrain from eating spicy food. She complains of feeling something in her throat and had an episode of choking - relief by Heimlich maneuver. She is being scheduled for an upper endoscopy by her mud engineer. 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 Pt was seen by ENT on 01/16/24: Diagnosed with chronic noninfective otitis externa (Bilateral), deviated nasal septum, chronic sialadenitis and chronic hoarseness. Chronic hoarseness and extra esophageal reflux - advised a trial of reflux Gourmet after meals and at bedtime for 1 month and Alginate supplement (in an attempt to avoid H2 blockers or antacids) chronic sialadenitis - warm compresses massage and sour candies for chronic inflammation of the left submandibular gland PAST VISIT: Pt complains of abd pain and had 2 recent ED visits. Had nausea, vomiting and diarrhea. Intermittent RLQ pain - can be there all day. No clear precipitating factors - had an ice cream and was in the bathroom for 3 years Having a barium swallow next week at [facility] [place] Having an esophageal manometry next Sunday at [facility] Has 5 to 7 BMs a day - stools are watery - no blood or mucous Complains of HB and feels something stuck in the throat even if she does not eat Decreased appetite and wt loss of 7 lbs Patient denies major cardiac or pulmonary problems, loud snoring or sleep apnea Denies problems with anesthesia in the past. Denies being on chronic anticoagulation. LABS IN [facility] : reviewed IMAGING STUDIES: Reviewed ENDOSCOPIC STUDIES: Pt reports having a colonoscopy 3 years ago for evaluation of fecal incontinence and was diagnosed with IBS. PAST GI HISTORY BY REVIEW OF MEDICAL RECORDS: 11/2023 patient was seen during [place] [facility] [place]: Reason for consult: Acute pancreatitis 53 YF with hx of depression (on multiple oral agents) seen at [facility] [place] 12/23/23 with severe left lower quadrant pain associated with nausea. Pt reports she noted shooting LLQ pain last night around 11:30 pm while she was sitting in her recliner. She went to the bathroom to have a BM which was normal (found it hard to walk and move) She describes the pain as 10/10 in intensity with pressure and deep constant pain (also notes pain in her lower back). Pt denies fever, chills, sweating or change in bowel habits. In the ED, she was found to have normal vital signs. Labs showed a markedly elevated lipase, >3000. Elevated transaminases. Bilirubin and alk-phos are normal. ED tx: Dilaudid 1 mg IV, Zofran 4 mg IV, LR 2 L bolus. 53 YF with hx of depression (on multiple oral agents) admitted to [facility] [place] with nausea, abd pain and elevated lipase suggestive of acute pancreatitis There is no history of hyperlipidemia, gallstones or pancreatitis and pt denies ETOH abuse Pt reports she started using Zepbound injection for weight loss in Sep, 2023 (last dose was December 16). Pancreatitis can be related to Zepbound. Other possiblities include biliary sludge/microlithasis, pancreas divisum or idiopathic Her other home medications include escitalopram, amitriptyline, bupropion, lamotrigine, gabapentin, fesoterodine which are not likely to cause pancreatitis RECOMMENDATIONS: 1. Agree with bowl rest and IV PPI, pain medications and antiemetics. 2. Abd US to look for llb-[id number]-[id number] stones not visualized on CT scan. 3. Avoid Zepbound in the future (needs to discuss her options with the provider prescribing Zepbound) ADDENDUM: Pt was discharged on 12/26/23 Hospital course (from discharge summary): Acute gallstone pancreatitis with initial lipase >300, dropped to 199 the next day, and after that 34. MRCP showed Gallbladder distention with stones and sludge. Gallbladder wall thickening and edema. This may represent acute cholecystitis. She was on Ceftriaxone for UTI which would cover a presumed cholecystitis as well. She underwent cholecystectomy on 12/25/23, her diet has been advnced and tolerating. She also had a hernia repair at that time. To follow up with surgery on outpatient basis. LFTs AST 75 to 106 to 45 and 172. ALT started at 53 went to 207, to 148 and to 277 now. Repeat LFTs on outpatient basis 12/23/[address] SCAN SHOWED: 1. Somewhat limited assessment due to motion artifact. No convincing evidence for pancreatitis. 2. Trace nonspecific pelvic free fluid, which may be physiologic. 3. Right-sided uterine mass measuring up to approximately 6.3 cm, favored to represent a fibroid. This could be further assessed with pelvic ultrasound [facility] Medical History RONNIE (obstructive sleep apnea) Migraine Depression Surgical History H/O colonoscopy History of appendectomy Social History Household Members: Family Housing: House Do you presently have visiting nurse or other home services: No Alcohol intake: never Patient Tobacco Use Status: Never used Tobacco Advance Directives: Yes Advance Directives on File: Yes Advance Directives Date on File: 12/27/23 Do you have a plan to hurt others: No Plan service: No Review of Systems Const All systems reviewed & are unremarkable except as noted in HPI and below Physical Exam Vital Signs: Last Vital Signs Pulse 82 04/17/24 07:47 BP 108/55 L 04/17/24 07:47 BMI result Body Mass Index 32.3 Const Other: Const General: healthy appearing, no acute distress and anxious Nutritional Appearance: obese Orientation/consciousness: patient oriented x3 Limitations: no limitations HEENT Head: Yes normal to inspection Ears: hearing grossly normal bilaterally Eyes Sclerae: sclerae normal Pupils: Equal, round and reactive pupils present Neck Neck: Yes normal visual inspection Chest Chest palpation & inspection: normal inspection of the chest Resp Effort & Inspection: normal respiratory effort Auscultation: clear to auscultation bilaterally Cardio Palpation: normal PMI Rate: regular rate Rhythm: regular rhythm Heart sounds: S1 normal heart sound present, S2 normal heart sound present and no murmurs GI Inspection: Yes obesity Palpation (GI): Soft to palpation, nontender and No hepatosplenomegaly present Auscultation: normal bowel sounds Rectal Exam - Female: deferred Skin General skin exam: no rashes or lesions noted Neuro General: patient oriented x3, gait normal and moves all extremities Cranial nerves: Yes Equal, round and reactive pupils present Psych Appearance: grossly normal Mental Status: mental status grossly normal Assessment & Plan Assessment & Plan (1) Postprandial diarrhea: Code(s): K52.9 - Noninfective gastroenteritis and colitis, unspecified Category: Medical (2) Left lower quadrant abdominal pain: Code(s): R10.32 - Left lower quadrant pain Category: Surgical (3) Status post laparoscopic cholecystectomy: Code(s): Z90.49 - Acquired absence of other specified parts of digestive tract Category: Surgical (4) Abnormal AST and ALT: Code(s): R74.8 - Abnormal levels of other serum enzymes Category: Medical (5) Acute pancreatitis: Code(s): K85.90 - Acute pancreatitis without necrosis or infection, unspecified Category: Medical Qualifiers: Acute pancreatitis complication: no infection or necrosis Pancreatitis type: drug induced Qualified Code(s): K85.30 - Drug induced acute pancreatitis without necrosis or infection Plan 53 YF with history of migraine headaches, RONNIE and depression seen for FU of acute pancreatitis and digestive issues Patient is seen for follow-up after hospitalization [place] [facility] [place] Patient is status post laparoscopic cholecystectomy. Pt complains of HB, dysphagia, RLQ abd pain, nausea, vomiting and diarrhea and had 2 recent ED visits. Scheduled to have a barium swallow at [facility] [place] Having an esophageal manometry next Sunday at [facility] Complains of HB and feels something stuck in the throat even if she does not eat Decreased appetite and wt loss of 7 lbs Pt reports she started using Zepbound injection for weight loss in Sep, 2023 (last dose was December 16). Patient was advised labs and stool studies to check for celiac sprue, malabsorption and IBD. Trial of cholestyramine for postprandial diarrhea. Pt reports having a colonoscopy 3 years ago for evaluation of fecal incontinence and was diagnosed with IBS. 04/17/24 Had a barium swallow at [facility] [place] - hiatal hernia and pill gets stuck in the throat and takes a little while to go down. Drove to [facility] - manometry was cancelled due to equipment malfunction. Has 3 -5 BM a day. Tried cholestyramine - helped a little bit. ADDENDUM: Labs showed normal CRP, Vitamin B 12 and folate and celiac serologies were negative Stool studies not completed yet. Medications: Changed From omeprazole 20 mg PO BID To omeprazole 20 mg PO BID 120 tabs 2RF 60 days Coding Level of Care Code Est Pt Level 4 (10417) Diagnoses Postprandial diarrhea K52.9 Left lower quadrant abdominal pain R10.32 Status post laparoscopic cholecystectomy Z90.49 Abnormal AST and ALT R74.8 Drug-induced acute pancreatitis without infection or necrosis K85.30 Acute pancreatitis complication: no infection or necrosis Pancreatitis type: drug induced Time Spent (min) 21
--- NOTE | 2024-04-17 07:44 | MHC.OFFVIS ---
Vital Signs 04/17/24 07:47 Height 5 ft 6 in Weight 200 lb BMI 32.3 BP 108/55 L Blood Pressure Location Lt brachial Position Sitting Pulse 82 Intake Visit Reasons: abdominal pain Intake Note: Patient follow up for abnormal AST and ALT (+), lab results. Patient cc: abdominal pain/bloating, acid reflex, diarrhea and some difficulty swallowing. Coverstitch Binder Required: No Accompanied by: Self / Same As Patient Allergies Sulfa (Sulfonamide Antibiotics) Allergy (Severe, Verified 04/17/24 07:44) Rash sulfamethoxazole [From Bactrim] Allergy (Severe, Verified 04/17/24 07:44) Rash trimethoprim [From Bactrim] Allergy (Severe, Verified 04/17/24 07:44) Rash Erythromycin Allergy (Severe, Uncoded 01/16/24 08:32) Gastrointestinal Upset Medication List - Last Reconciled 04/17/24 by Jody Redmond MD amitriptyline 50 mg PO BEDTIME bupropion HCl XL 300 mg PO DAILY calcium carb,gluc-mag gluc,ox 500 mg calcium- 250 mg (Calcium Magnesium) 1 tab PO DAILY cholestyramine (with sugar) 4 gram 4 grams PO BID 30 days dicyclomine 20 mg PO QID PRN divalproex 500 mg PO BEDTIME duloxetine 60 mg PO DAILY eletriptan 40 mg PO DAILY MRX1 PRN escitalopram oxalate 20 mg PO DAILY fesoterodine ER 4 mg PO DAILY hyoscyamine sulfate 0.25 mg PO BID PRN lamotrigine 75 mg PO DAILY loperamide (Imodium A-D) 2 mg PO Q6H PRN omeprazole 20 mg PO DAILY oxybutynin chloride ER 10 mg PO DAILY tirzepatide (weight loss) (Zepbound) 2.5 mg subcut TU@0900 vitamin B complex 1 cap PO DAILY zolmitriptan 5 mg intranasal DAILY MRX1 PRN PFSH Medical History RONNIE (obstructive sleep apnea) Migraine Depression Surgical History H/O colonoscopy History of appendectomy Social History Household Members: Family Housing: House Do you presently have visiting nurse or other home services: No Alcohol intake: never Patient Tobacco Use Status: Never used Tobacco Advance Directives Date on File: 12/27/23 service: No Review of Systems Const All systems reviewed & are unremarkable except as noted in HPI and below Physical Exam Vital Signs: Last Vital Signs Pulse 82 04/17/24 07:47 BP 108/55 L 04/17/24 07:47 BMI result Body Mass Index 32.3 Const General: healthy appearing, no acute distress and anxious Nutritional Appearance: obese Orientation/consciousness: patient oriented x3 Limitations: no limitations HEENT Head: Yes normal to inspection Ears: hearing grossly normal bilaterally Eyes Sclerae: sclerae normal Pupils: Equal, round and reactive pupils present Neck Neck: Yes normal visual inspection Chest Chest palpation & inspection: normal inspection of the chest Resp Effort & Inspection: normal respiratory effort Auscultation: clear to auscultation bilaterally Cardio Palpation: normal PMI Rate: regular rate Rhythm: regular rhythm Heart sounds: S1 normal heart sound present, S2 normal heart sound present and no murmurs GI Inspection: Yes obesity Palpation (GI): Soft to palpation, nontender and No hepatosplenomegaly present Auscultation: normal bowel sounds Rectal Exam - Female: deferred Skin General skin exam: no rashes or lesions noted Neuro General: patient oriented x3, gait normal and moves all extremities Cranial nerves: Yes Equal, round and reactive pupils present Psych Appearance: grossly normal Mental Status: mental status grossly normal Assessment & Plan Assessment & Plan (1) Postprandial diarrhea: Code(s): K52.9 - Noninfective gastroenteritis and colitis, unspecified Category: Medical (2) Left lower quadrant abdominal pain: Code(s): R10.32 - Left lower quadrant pain Category: Surgical (3) Abnormal AST and ALT: Code(s): R74.8 - Abnormal levels of other serum enzymes Category: Medical (4) Acute pancreatitis: Code(s): K85.90 - Acute pancreatitis without necrosis or infection, unspecified Category: Medical Qualifiers: Acute pancreatitis complication: no infection or necrosis Pancreatitis type: drug induced Qualified Code(s): K85.30 - Drug induced acute pancreatitis without necrosis or infection Plan 53 YF with history of migraine headaches, RONNIE and depression seen for FU of acute pancreatitis and digestive issues Patient is seen for follow-up after hospitalization at [facility] [place] in November,. Patient is status post laparoscopic cholecystectomy. Pt complains of HB, dysphagia, RLQ abd pain, nausea, vomiting and diarrhea and had 2 recent ED visits. Scheduled to have a barium swallow at [facility] [place] next week Having an esophageal manometry next Sunday at [facility] Complains of HB and feels something stuck in the throat even if she does not eat Decreased appetite and wt loss of 7 lbs Pt reports she started using Zepbound injection for weight loss in Sep, 2023 (last dose was December 16). Patient was advised labs and stool studies to check for celiac sprue, malabsorption and IBD. Trial of cholestyramine for postprandial diarrhea. ADDENDUM: Labs showed normal CRP, Vitamin B 12 and folate and celiac serologies were negative Stool studies not completed yet. Medications: Changed From omeprazole 20 mg PO BID To omeprazole 20 mg PO BID 120 tabs 2RF 60 days Coding Level of Care Code Est Pt Level 4 (47840) Diagnoses Postprandial diarrhea K52.9 Left lower quadrant abdominal pain R10.32 Abnormal AST and ALT R74.8 Drug-induced acute pancreatitis without infection or necrosis K85.30 Acute pancreatitis complication: no infection or necrosis Pancreatitis type: drug induced Time Spent (min) 21
[2024-04-17 07:47] VITALS: BP 108/55; PULSE 82; BMI 32.3
== END 2024-04-17 08:27 | disposition home or self-care (01) ==
PROVIDERS: PCP Family Medicine; Visit Provider Internal Medicine Gastroenterology
DX: K52.9 Noninfective gastroenteritis and colitis, unspecified (principal); R10.32 Left lower quadrant pain; Z90.49 Acquired absence of other specified parts of digestive tract; R74.8 Abnormal levels of other serum enzymes; K85.30 Drug induced acute pancreatitis without necrosis or infection
CPT/HCPCS: 99214

== ENCOUNTER 2024-04-21 18:41 | Emergency (ER) | payer OTHER, MEDICARE, MEDICAID, SELFPAY ==
--- NOTE | ~2024-04-21 | XR_ITS ---
EXAMINATION: XR LUMBOSACRAL SPINE CLINICAL INFORMATION: pain, fall COMPARISON: CT from 02/05/2024 TECHNIQUE: Three views of the lumbosacral spine. FINDINGS: Normal vertebral body height and alignment. No acute fractures. Degenerative changes with disc space narrowing and osteophyte formation is seen at L2/3, L4/5 and L5/S1. Posterior facet joint arthropathy is seen at L4/5 and L5/S1. XR/XR lumbar spine 2-3V IMPRESSION: No acute process. Degenerative changes as described above. Electronically signed by: Kenneth Shahid MD 04/21/2024 10:07 PM [facility]
--- NOTE | ~2024-04-21 | CT_ITS ---
EXAMINATION: CT HEAD WITHOUT CONTRAST CT CERVICAL SPINE WITHOUT CONTRAST CLINICAL INFORMATION: Head and neck injury with pain COMPARISON: None. TECHNIQUE: Contiguous axial imaging was performed from the skull base to vertex without intravenous administration of contrast. In addition, helical noncontrast CT imaging was acquired through the cervical spine and source images were reviewed along with axial reconstructions and sagittal and coronal MPRs. All CT exams at this location are performed using dose optimization techniques as appropriate to a performed exam including at least one of the following: * Automated exposure control * Adjustment of the mA and/or kV according to patient size (this includes techniques or standardized protocols for targeted exams where dose is matched to indication / reason for exam; i/e/ extremities or head) * Use of iterative reconstructive technique DLP: 1069 mGy-cm FINDINGS: HEAD: Moderate superficial scalp hematoma over the right parietal calvarium. No intracranial mass, hemorrhage, or midline shift is visualized. The ventricles and sulci are age-appropriate. No extra-axial collections are identified. The paranasal sinuses are well aerated. CERVICAL SPINE: There is no evidence of acute cervical spine fracture. Vertebral body height and alignment is well maintained. No pre- or paravertebral soft tissue abnormality is identified. Disc spaces and facet joints are well maintained. Minimal osteophyte formation is seen at C4/5. Limited assessment of the lung apices is unremarkable. CT/CT head/brain wo IV con IMPRESSION: 1. No acute intracranial pathology. 2. No CT evidence of acute cervical spine fracture or traumatic subluxation. 3. Moderate superficial scalp hematoma over the right parietal calvarium. Electronically signed by: Kenneth Shahid MD 04/21/2024 09:26 PM [facility]
--- NOTE | ~2024-04-21 | CT_ITS ---
EXAMINATION: CT HEAD WITHOUT CONTRAST CT CERVICAL SPINE WITHOUT CONTRAST CLINICAL INFORMATION: Head and neck injury with pain COMPARISON: None. TECHNIQUE: Contiguous axial imaging was performed from the skull base to vertex without intravenous administration of contrast. In addition, helical noncontrast CT imaging was acquired through the cervical spine and source images were reviewed along with axial reconstructions and sagittal and coronal MPRs. All CT exams at this location are performed using dose optimization techniques as appropriate to a performed exam including at least one of the following: * Automated exposure control * Adjustment of the mA and/or kV according to patient size (this includes techniques or standardized protocols for targeted exams where dose is matched to indication / reason for exam; i/e/ extremities or head) * Use of iterative reconstructive technique DLP: 1069 mGy-cm FINDINGS: HEAD: Moderate superficial scalp hematoma over the right parietal calvarium. No intracranial mass, hemorrhage, or midline shift is visualized. The ventricles and sulci are age-appropriate. No extra-axial collections are identified. The paranasal sinuses are well aerated. CERVICAL SPINE: There is no evidence of acute cervical spine fracture. Vertebral body height and alignment is well maintained. No pre- or paravertebral soft tissue abnormality is identified. Disc spaces and facet joints are well maintained. Minimal osteophyte formation is seen at C4/5. Limited assessment of the lung apices is unremarkable. CT/CT cervical spine wo IV con IMPRESSION: 1. No acute intracranial pathology. 2. No CT evidence of acute cervical spine fracture or traumatic subluxation. 3. Moderate superficial scalp hematoma over the right parietal calvarium. Electronically signed by: Kenneth Shahid MD 04/21/2024 09:26 PM [facility]
[2024-04-21 19:00] VITALS: BP 138/88; PULSE 81; O2SAT 98
[2024-04-21 19:14] VITALS: BP 146/76; PULSE 77; RESP 19; TEMP 36.6; O2SAT 97; BMI 31.5
--- NOTE | 2024-04-21 19:32 | PC.NURSE ---
ROBERT Tejeda aware that pt. reports falling down appx. 12-[address] scans ordered. spray machine tender Jasmin also aware d/t ? whether pt. is appropriate for [facility] versus main ED given full story.
--- NOTE | 2024-04-21 21:09 | ED_ITS ---
HPI - Fall General Chief Complaint: Fall Stated Complaint: fall @11am, hematoma on head, -loc Time Seen by Provider: 04/21/24 21:01 Source: patient and old records reviewed Mode of arrival: ambulatory Limitations: no limitations History of Present Illness ED Provider: KEERTHI BALDERAS Narrative: 53 yo female with PMH of pancreatitis, GERD, migraines here with c/o being at a friends house when she fell down 12-15 stairs no LOC but throughout the day she had a headache with photophobia and then notes her low back hurts. No vomiting, not on blood thinners. She feels the hematoma on her head has increased. complaint: fall Onset (ago): hour(s) (11am today) Fall from: standing Fall witnessed: yes, by bystander Place fall occurred: other Loss of consciousness: none Prolonged down time: no Symptoms prior to fall: none Context: tripped/slipped Location of injury: head and back Severity: moderate Quality: throbbing Associated symptoms (after fall): headache Related Data Home Medications ?Medication ?Instructions ?Recorded ?Confirmed amitriptyline 25 mg tablet 50 mg PO BEDTIME 12/23/23 04/17/24 bupropion HCl 300 mg 24 hr tablet, 300 mg PO DAILY 12/23/23 04/17/24 extended release calcium 500 mg 1 tab PO DAILY 12/23/23 04/17/24 (carb,gluconate)-magnesium 250 mg (gluc,oxide) tablet (Calcium Magnesium) divalproex 500 mg tablet,delayed 500 mg PO BEDTIME 12/23/23 04/17/24 release duloxetine 30 mg capsule,delayed 60 mg PO DAILY 12/23/23 04/17/24 release eletriptan 40 mg tablet 40 mg PO DAILY MRX1 PRN Migraine 12/23/23 04/17/24 Headache escitalopram oxalate 20 mg tablet 20 mg PO DAILY 12/23/23 04/17/24 fesoterodine 4 mg tablet,extended 4 mg PO DAILY 12/23/23 04/17/24 release 24 hr hyoscyamine sulfate 0.125 mg tablet 0.25 mg PO BID PRN GI Upset 12/23/23 lamotrigine 25 mg tablet 75 mg PO DAILY 12/23/23 04/17/24 oxybutynin chloride 10 mg 10 mg PO DAILY 12/23/23 04/17/24 tablet,extended release 24 hr tirzepatide (weight loss) 2.5 2.5 mg subcut TU@0900 12/23/23 04/17/24 mg/0.5 mL subcutaneous pen injector (Zepbound) vitamin B complex 1 cap PO DAILY 12/23/23 04/17/24 zolmitriptan 5 mg nasal spray 5 mg intranasal DAILY MRX1 PRN 12/23/23 04/17/24 Migraine Headache Previous Rx's ?Medication ?Instructions ?Recorded dicyclomine 20 mg tablet 20 mg PO QID PRN abdominal pain 02/05/24 #20 tabs loperamide 2 mg tablet (Imodium 2 mg PO Q6H PRN loose stool #14 02/05/24 A-D) tabs cholestyramine (with sugar) 4 gram 4 g PO BID 30 days #348.6 grams 03/27/24 oral powder omeprazole 20 mg tablet,delayed 20 mg PO BID 60 days #120 tabs 04/17/24 release morphine 15 mg immediate release 15 mg PO Q6H PRN pain #10 tabs 04/21/24 tablet ondansetron 4 mg disintegrating 4 mg PO Q8H PRN nausea and 04/21/24 tablet vomiting #20 tabs Allergies Allergy/AdvReac Type Severity Reaction Status Date / Time Sulfa (Sulfonamide Allergy Severe Rash Verified 04/21/24 19:16 Antibiotics) sulfamethoxazole Allergy Severe Rash Verified 04/21/24 19:16 [From Bactrim] trimethoprim [From Bactrim] Allergy Severe Rash Verified 04/21/24 19:16 Erythromycin Allergy Severe Gastrointestinal Uncoded 04/21/24 19:16 Upset Review of Systems Review of Systems: Constitutional : No Weight loss, No Fever, No Chills, ENT/Mouth : No Hearing loss, No Ear Pain, No Nasal Congestion, No Sinus Pain, pos photophobia Cardiovascular : No Chest Pain, No SOB Respiratory : No Cough, No Dyspnea Gastrointestinal : No Nausea, No Vomiting, No Diarrhea, No abdominal Pain, No Hematochezia, No Melena Genitourinary : No Dysuria, No Urinary Frequency, No Hematuria, No Urinary Incontinence, Musculoskeletal : positive back pain Skin : No Skin Lesions, No rash Neuro : No Weakness, No Numbness, No Paresthesias, no loss of bowel or bladder incontinence, no saddle anesthesia, pos headache all other systems reviewed are negative [facility] Past Medical History Attestation statement: The following information was validated with the patient. Source: old records reviewed Medical History RONNIE (obstructive sleep apnea) Migraine Depression Surgical History H/O colonoscopy History of appendectomy Social History Social History Household Members: Family Housing: House Do you presently have visiting nurse or other home services: No Alcohol intake: never Patient Tobacco Use Status: Never used Tobacco Advance Directives: Yes Advance Directives on File: Yes Advance Directives Date on File: 12/27/23 Do you have a plan to hurt others: No Plan service: No Physical Exam Vital Signs: Vital Signs: Last Vital Signs Temp 98 F 04/21/24 19:14 Pulse 77 04/21/24 19:14 Resp 19 04/21/24 19:14 BP 146/76 H 04/21/24 19:14 Pulse Ox 97 04/21/24 19:14 O2 Del Method Room Air 04/21/24 19:14 BMI result Body Mass Index 31.5 Appearance: Alert. Oriented X3. No acute distress. Eyes: Pupils equal, round and reactive to light. photophobia sun glasses on ENT: Pharynx normal. posterior scalp hematoma noted on left and right parietal Neck: Normal inspection. Neck supple. CVS: Normal heart rate and rhythm. Pulses normal. Respiratory: No respiratory distress. Breath sounds normal. Abdomen: Soft and nontender. Skin: Skin warm and dry. Normal skin color. Normal skin turgor. Extremities: No lower extremity edema. normal ROM of both legs Back: no deformity but reports midline ttp - distal normal of legs and SILT intact, 2+ DP pulses Neuro: Oriented X 3. No motor deficit. No sensory deficit. Medical Decision Making Medical Decision Making MDM Narrative: 53 yo female with PMH of pancreatitis, GERD, migraines here with c/o low back pain but NV intact, head injury from fall 10 hours ago not on thinners GCS 15 no vomiting at this time CT head/cspine, lumbar spine and pain control ordered. Denies trunk or UE injury. Differential Diagnosis Differential Diagnoses: The differential diagnosis associated with the presentation includes head injury, migraine, low back pain Admission/Observation Consideration of admission/observation: Escalation of care including admission/observation considered GCS [address] head at 10 hours of symptoms can be DC home Independent Interpretation I performed an independent interpretation of an: Plain X-Ray (no trauma) and CT Scan (no trauma) Radiology Impression Discussion of test interpretation with radiology: I have reviewed the radiologist's reading. External Record Review External record reviewed: Office record Prescription Management I considered prescription management with: Pain Medication and Other Discharge Plan Discharge Clinical Impression: Head injury Qualifiers: Encounter type: initial encounter Qualified Code(s): S09.90XA - Unspecified injury of head, initial encounter Hematoma of scalp Qualifiers: Encounter type: initial encounter Qualified Code(s): S00.03XA - Contusion of scalp, initial encounter Patient Disposition: Home, Self-Care Instructions: Head Injury (ED), Scalp Contusion in Adults (ED) Additional Instructions: return for numbness, weakness, confusion, worsening pain or any other concerns FINDINGS: Normal vertebral body height and alignment. No acute fractures. Degenerative changes with disc space narrowing and osteophyte formation is seen at L2/3, L4/5 and L5/S1. Posterior facet joint arthropathy is seen at L4/5 and L5/S1. XR/XR lumbar spine 2-3V IMPRESSION: No acute process. Degenerative changes as described above CT/CT head/brain wo IV con IMPRESSION: 1. No acute intracranial pathology. 2. No CT evidence of acute cervical spine fracture or traumatic subluxation. 3. Moderate superficial scalp hematoma over the right parietal calvarium. Prescriptions: New morphine 15 mg tablet 15 mg PO Q6H PRN (Reason: pain) Qty: 10 0RF Rx Instructions: partial fill okay; Partial Fill upon patient request. ondansetron 4 mg tablet,disintegrating 4 mg PO Q8H PRN (Reason: nausea and vomiting) Qty: 20 0RF No Action oxybutynin chloride 10 mg tablet extended release 24hr 10 mg PO DAILY divalproex 500 mg tablet,delayed release (DR/EC) 500 mg PO BEDTIME lamotrigine 25 mg tablet 75 mg PO DAILY amitriptyline 25 mg tablet 50 mg PO BEDTIME hyoscyamine sulfate 0.125 mg tablet 0.25 mg PO BID PRN (Reason: GI Upset) escitalopram oxalate 20 mg tablet 20 mg PO DAILY eletriptan 40 mg tablet 40 mg PO DAILY MRX1 PRN (Reason: Migraine Headache) bupropion HCl 300 mg tablet extended release 24 hr 300 mg PO DAILY zolmitriptan 5 mg spray,non-aerosol 5 mg intranasal DAILY MRX1 PRN (Reason: Migraine Headache) duloxetine 30 mg capsule,delayed release(DR/EC) 60 mg PO DAILY fesoterodine 4 mg tablet extended release 24 hr 4 mg PO DAILY Zepbound 2.5 mg/0.5 mL pen injector 2.5 mg subcut TU@0900 vitamin B complex Capsule 1 cap PO DAILY Calcium Magnesium 500 mg calcium- 250 mg Tablet 1 tab PO DAILY dicyclomine 20 mg tablet 20 mg PO QID PRN (Reason: abdominal pain) Qty: 20 0RF loperamide [Imodium A-D] 2 mg tablet 2 mg PO Q6H PRN (Reason: loose stool) Qty: 14 0RF omeprazole 20 mg tablet,delayed release (DR/EC) 20 mg PO BID 60 Days Qty: 120 2RF cholestyramine (with sugar) 4 gram powder 4 g PO BID 30 Days Qty: 348.6 1RF Rx Instructions: administer w/meal; avoid other meds within 1hr before or 4-6hr after dose Stand Alone Forms: Work/School Release Print Language: Cam[place]onian
--- NOTE | 2024-04-21 21:45 | PC.NURSE ---
Pt. states that she does not want pain medications at this time. States that she wants to eat first
[2024-04-21 22:33] VITALS: BP 139/76; PULSE 72; RESP 20; TEMP 36.6; O2SAT 98
[2024-04-21] MEDS: Ondansetron ODT 4 MG TAB.RAPDIS TRANSLINGU (23:01)
[2024-04-21] MEDS: oxyCODONE HCl Immed Release 5 MG TABLET PO (23:02)
[2024-04-21 23:04] VITALS: BP 139/76; PULSE 72; RESP 20; TEMP 36.6; O2SAT 98
== END 2024-04-21 23:04 | disposition home or self-care (01) ==
PROVIDERS: Emergency Provider Emergency Medicine; PCP Family Medicine
DX: Z79.899 Other long term (current) drug therapy (principal); S09.90XA Unspecified injury of head, initial encounter; S00.03XA Contusion of scalp, initial encounter; W10.9XXA Fall (on) (from) unspecified stairs and steps, initial encounter; Y93.9 Activity, unspecified; Y92.9 Unspecified place or not applicable; Y99.9 Unspecified external cause status; H53.149 Visual discomfort, unspecified; R51.9 Headache, unspecified; M54.2 Cervicalgia
CPT/HCPCS: 70450; 72100; 72125; 99283; 99284

== ENCOUNTER 2024-07-31 08:09 | Outpatient (AMB) | payer OTHER, MEDICARE, SELFPAY ==
--- NOTE | 2024-07-31 08:14 | A.OFFVIS_ITS ---
Vital Signs 07/31/24 08:17 Height 5 ft 6 in Weight 185 lb BMI 29.9 BP 113/55 L Blood Pressure Location Lt brachial Position Sitting Pulse 78 Intake Visit Reasons: 3 month follow up Intake Note: Patient 3 month follow up for Abnormal AST and ALT. Patient cc: some swallowing difficulty on and off. Denies any other GI issues. 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 Accompanied by: Self / Same As Patient Allergies Sulfa (Sulfonamide Antibiotics) Allergy (Severe, Verified 07/31/24 08:13) Rash sulfamethoxazole [From Bactrim] Allergy (Severe, Verified 07/31/24 08:13) Rash trimethoprim [From Bactrim] Allergy (Severe, Verified 07/31/24 08:13) Rash Erythromycin Allergy (Severe, Uncoded 04/21/24 19:16) Gastrointestinal Upset Medication List - Last Reconciled 07/31/24 by Jody Redmond MD amitriptyline 50 mg PO BEDTIME bupropion HCl XL 300 mg PO DAILY calcium carb,gluc-mag gluc,ox 500 mg calcium- 250 mg (Calcium Magnesium) 1 tab PO DAILY colestipol 1 g PO TID 30 days dicyclomine 20 mg PO QID PRN divalproex 500 mg PO BEDTIME duloxetine 60 mg PO DAILY eletriptan 40 mg PO DAILY MRX1 PRN escitalopram oxalate 20 mg PO DAILY fesoterodine ER 4 mg PO DAILY hyoscyamine sulfate 0.25 mg PO BID PRN lamotrigine 75 mg PO DAILY loperamide (Imodium A-D) 2 mg PO Q6H PRN morphine 15 mg PO Q6H PRN omeprazole 20 mg PO BID 60 days ondansetron 4 mg PO Q8H PRN oxybutynin chloride ER 10 mg PO DAILY tirzepatide (weight loss) (Zepbound) 2.5 mg subcut TU@0900 vitamin B complex 1 cap PO DAILY zolmitriptan 5 mg intranasal DAILY MRX1 PRN HPI HPI 3 month follow up: Details: GI clinic visit for this 53 YF for FU of acute pancreatitis and digestive issues TODAY'S VISIT: Intake Note: Patient cc: some swallowing difficulty on and off. Denies any other GI issues. Feeling better. Diarrhea comes and goes and not as frequent Upto 5 BMs a day in the past and now 2-3 BMs a day Intermittent dysphagia - solids and liquids and even with drinking water. Even water can get stuck in the area of the throat - feels like she was choking, Barium swallow [place] [facility] showed a hiatal hernia - advised Omeprazole and surgery was not advised. Gets Botox for HAs at a Neurologist's office. PAST VISIT: Taking yogurt with probiotics and a probiotic pill Unable to submit stool specimen. Had a barium swallow at [facility] - hiatal hernia and pill gets stuck in the throat and takes a little while to go down. Drove to [facility] - manometry was cancelled due to equipment malfunction. Has 3 -5 BM a day. Tried cholestyramine - helped a little bit. Unsure what to eat - cant have sugar or butter. Tries to eat soft things due to dysphagia. Pt denies smoking, alcohol or, illicit drug use (takes a glass of wine with dinner occasionally). There is no history of hyperlipidemia, gallstones or pancreatitis. Pt reports she started using Zepbound injection for weight loss in Sep, 2023 (last dose was December 16). Her other home medications include escitalopram, amitriptyline, bupropion, lamotrigine, gabapentin, fesoterodine. Past surgical history is remarkable for appendectomy. Pt reports having a colonoscopy 3 years ago for evaluation of fecal incontinence and was diagnosed with IBS. She was advised to refrain from eating spicy food. She complains of feeling something in her throat and had an episode of choking - relief by Heimlich maneuver. She is being scheduled for an upper endoscopy by her records technician. 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 Pt was seen by ENT on 01/16/24: Diagnosed with chronic noninfective otitis externa (Bilateral), deviated nasal septum, chronic sialadenitis and chronic hoarseness. Chronic hoarseness and extra esophageal reflux - advised a trial of reflux Gourmet after meals and at bedtime for 1 month and Alginate supplement (in an attempt to avoid H2 blockers or antacids) chronic sialadenitis - warm compresses massage and sour candies for chronic inflammation of the left submandibular gland PAST VISIT: Patient follow up for abnormal AST and ALT (+), lab results. Patient cc: abdominal pain/bloating, acid reflex, diarrhea and some difficulty swallowing. Pt complains of abd pain and had 2 recent ED visits. Had nausea, vomiting and diarrhea. Intermittent RLQ pain - can be there all day. No clear precipitating factors - had an ice cream and was in the bathroom for 3 years Having a barium swallow next week at [facility] Having an esophageal manometry next Sunday at [facility] clinic Has 5 to 7 BMs a day - stools are watery - no blood or mucous Complains of HB and feels something stuck in the throat even if she does not eat Decreased appetite and wt loss of 7 lbs Patient denies major cardiac or pulmonary problems, loud snoring or sleep apnea Denies problems with anesthesia in the past. Denies being on chronic anticoagulation. LABS IN [facility] : reviewed IMAGING STUDIES: Reviewed ENDOSCOPIC STUDIES: Pt reports having a colonoscopy 3 years ago for evaluation of fecal incontinence and was diagnosed with IBS. PAST GI HISTORY BY REVIEW OF MEDICAL RECORDS: 11/2023 patient was [place] [facility] [place]: Reason for consult: Acute pancreatitis 53 YF with hx of depression (on multiple oral agents) seen at [facility] [place] 12[place]23[place]23 with severe left lower quadrant pain associated with nausea. Pt reports she noted shooting LLQ pain last night around 11:30 pm while she was sitting in her recliner. She went to the bathroom to have a BM which was normal (found it hard to walk and move) She describes the pain as 10/10 in intensity with pressure and deep constant pain (also notes pain in her lower back). Pt denies fever, chills, sweating or change in bowel habits. In the ED, she was found to have normal vital signs. Labs showed a markedly elevated lipase, >3000. Elevated transaminases. Bilirubin and alk-phos are normal. ED tx: Dilaudid 1 mg IV, Zofran 4 mg IV, LR 2 L bolus. 53 YF with hx of depression (on multiple oral agents) [place] [facility] [place] with nausea, abd pain and elevated lipase suggestive of acute pancreatitis There is no history of hyperlipidemia, gallstones or pancreatitis and pt denies ETOH abuse Pt reports she started using Zepbound injection for weight loss in Sep, 2023 (last dose was December 16). Pancreatitis can be related to Zepbound. Other possiblities include biliary sludge/microlithasis, pancreas divisum or idiopathic Her other home medications include escitalopram, amitriptyline, bupropion, lamotrigine, gabapentin, fesoterodine which are not likely to cause pancreatitis RECOMMENDATIONS: 1. Agree with bowl rest and IV PPI, pain medications and antiemetics. 2. Abd US to look for [id number] stones not visualized on CT scan. 3. Avoid Zepbound in the future (needs to discuss her options with the provider prescribing Zepbound) ADDENDUM: Pt was discharged on 12/26/23 Hospital course (from discharge summary): Acute gallstone pancreatitis with initial lipase >300, dropped to 199 the next day, and after that 34. MRCP showed Gallbladder distention with stones and sludge. Gallbladder wall thickening and edema. This may represent acute cholecystitis. She was on Ceftriaxone for UTI which would cover a presumed cholecystitis as well. She underwent cholecystectomy on 12/25/23, her diet has been advnced and tolerating. She also had a hernia repair at that time. To follow up with surgery on outpatient basis. LFTs AST 75 to 106 to 45 and 172. ALT started at 53 went to 207, to 148 and to 277 now. Repeat LFTs on outpatient basis 12/23/[address] SCAN SHOWED: 1. Somewhat limited assessment due to motion artifact. No convincing evidence for pancreatitis. 2. Trace nonspecific pelvic free fluid, which may be physiologic. 3. Right-sided uterine mass measuring up to approximately 6.3 cm, favored to represent a fibroid. This could be further assessed with pelvic ultrasound [facility] Medical History RONNIE (obstructive sleep apnea) Migraine Depression Surgical History H/O colonoscopy History of appendectomy Social History Household Members: Family Housing: House Do you presently have visiting nurse or other home services: No Alcohol intake: never Patient Tobacco Use Status: Never used Tobacco Advance Directives Date on File: 12/27/23 service: No Review of Systems Const Reports fatigue, Denies fever(s), Reports headache(s), Reports weight gain and Denies weight loss Eyes Denies eye discharge and Denies irritation ENT Reports Normal hearing present, Reports dysphagia, Denies dizziness and Reports headache(s) Card Denies chest pain, Denies leg edema and Reports dyspnea on exertion Resp Denies cough, Reports dyspnea on exertion and Reports wheezing GI Reports abdominal pain, Reports bloating, Denies change in bowel habits, Reports constipation, Reports dysphagia, Reports heartburn, Reports diarrhea and Reports nausea Denies difficulty voiding, Denies dysuria and Reports other (frequent urination) Musc Denies back pain and Reports arthralgias Skin/Breast Denies pruritus, Denies rash and Denies jaundice Neuro Reports Normal hearing present, Denies Abnormal speech present, Denies dizziness, Reports headache(s) and Denies seizure-like activity Psych Reports anxiety, Reports depression and Denies panic attacks Endo Denies cold intolerance, Reports fatigue, Denies flushing and Denies heat intolerance Dannie/Lymph Denies easy bleeding and Denies easy bruising Aller/Immun Reports wheezing Physical Exam Vital Signs: Last Vital Signs Pulse 78 07/31/24 08:17 BP 113/55 L 07/31/24 08:17 BMI result Body Mass Index 29.9 Const General: healthy appearing and no acute distress Nutritional Appearance: overweight Orientation/consciousness: patient oriented x3 Limitations: no limitations HEENT Head: Yes normal to inspection Ears: hearing grossly normal bilaterally Eyes Sclerae: sclerae normal Pupils: Equal, round and reactive pupils present Neck Neck: Yes normal visual inspection Chest Chest palpation & inspection: normal inspection of the chest Resp Effort & Inspection: normal respiratory effort Auscultation: clear to auscultation bilaterally Cardio Palpation: normal PMI Rate: regular rate Rhythm: regular rhythm Heart sounds: S1 normal heart sound present, S2 normal heart sound present and no murmurs GI Palpation (GI): Soft to palpation, nontender and No hepatosplenomegaly present Auscultation: normal bowel sounds Rectal Exam - Female: deferred Skin General skin exam: no rashes or lesions noted Neuro General: patient oriented x3, gait normal and moves all extremities Cranial nerves: Yes Equal, round and reactive pupils present and Yes Normal hearing present Speech: No Abnormal speech present Psych Appearance: grossly normal Mental Status: mental status grossly normal Assessment & Plan Assessment & Plan (1) Acute pancreatitis: Code(s): K85.90 - Acute pancreatitis without necrosis or infection, unspecified Category: Medical Qualifiers: Acute pancreatitis complication: no infection or necrosis Pancreatitis type: drug induced Qualified Code(s): K85.30 - Drug induced acute pancreatitis without necrosis or infection (2) Abnormal AST and ALT: Code(s): R74.8 - Abnormal levels of other serum enzymes Category: Medical (3) Left lower quadrant abdominal pain: Code(s): R10.32 - Left lower quadrant pain Category: Surgical (4) Postprandial diarrhea: Code(s): K52.9 - Noninfective gastroenteritis and colitis, unspecified Category: Medical Plan 53 YF with history of migraine headaches, RONNIE and depression seen for FU of acute pancreatitis and digestive issues Patient is seen for follow-up after [place] [facility] [place],. Patient is status post laparoscopic cholecystectomy. Pt complains of HB, dysphagia, RLQ abd pain, nausea, vomiting and diarrhea and had 2 recent ED visits. Scheduled to have a barium swallow at [facility] next week Having an esophageal manometry next Sunday at [facility] Complains of HB and feels something stuck in the throat even if she does not eat Decreased appetite and wt loss of 7 lbs Pt reports she started using Zepbound injection for weight loss in Sep, 2023 (last dose was December 16). Patient was advised labs and stool studies to check for celiac sprue, malabsorption and IBD. Trial of cholestyramine for postprandial diarrhea. Pt reports having a colonoscopy 3 years ago for evaluation of fecal incontinence and was diagnosed with IBS. 04/17/24 Had a barium swallow at [facility] - hiatal hernia and pill gets stuck in the throat and takes a little while to go down. Drove to [facility] - manometry was cancelled due to equipment malfunction. Has 3 -5 BM a day. Tried cholestyramine - helped a little bit. ADDENDUM: Labs showed normal CRP, Vitamin B 12 and folate and celiac serologies were negative Stool studies not completed yet. On 05/27/24 @ 17:57 Jody Redmond Wrote To Jody Redmond Pt called to report she had an episode of diarrhea with incontinence yesterday. She has been taking dicyclomine to help with diarrhea and it is not working. 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 Has to go without warning Taking imodium. Feels sick after eating. Unable to go to Gym due to concern for having an accident Pt advised: 1. Trial of colestipol instead of cholestyramine for diarrhea. 2. Take imodium 2-3 times daily 3. Schedule an urgent colonoscopy (last colon was 3 years ago) Pt was unable to schedule an urgent colon since her son had an ankle injury and she was in [place] to care for him 07/31/24 Agreeable to scheduling a routine colon this summer. FU in 6 months. Medications: New bisacodyl (Dulcolax (bisacodyl)) Take 4 tablets at 12 pm the day before colonoscopy appointment 20 mg (4 x 5 mg) PO ONCE 1 day 4 tabs 0RF colon prep polyethylene glycol 3350 (Miralax) Mix Miralax with 64 oz(8 cups) of Crystal light. Take 2 tablets of Dulcolax qt 12 pm. Wait to have your 1st bowel movement, then begin drinking Miralax. Drink a glass of Miralax every 10-15 minutes until you are finished. You will drink at least another 4 cups of clear liquid of your choice over the next 2 hours. Please drink as many clear liquids as possible You may have clear liquids up to four hours before your procedure 17 grams PO DAILY 1 day 238 grams 0RF Coding Level of Care Code Est Pt Level 4 (55479) Diagnoses Drug-induced acute pancreatitis without infection or necrosis K85.30 Acute pancreatitis complication: no infection or necrosis Pancreatitis type: drug induced Abnormal AST and ALT R74.8 Left lower quadrant abdominal pain R10.32 Postprandial diarrhea K52.9 Time Spent (min) 23
[2024-07-31 08:17] VITALS: BP 113/55; PULSE 78; BMI 29.9
--- OUTSIDE RECORDS SUMMARY | 2024-07-31 08:23 | XMS_ITS | Patient Health Record ---
Author Organization [facility] Address [address] [place] [address] Care Team Providers Care [employer] Upholsterer Name Role Phone TIAN EWING Unavailable [phone] USAMA CHRIS Unavailable [phone] ALLERGIES Allergen (clinical drug ingredient) Drug/Non Drug Allergy documented on EMR Reaction Allergy Type Onset Date Status Substance with sulfonamide structure and antibacterial mechanism of action (substance) sulfa anti (uncoded) rash Allergy Active erythromycin Erythromycin stomach upset Drug Allergy Active REASON FOR REFERRAL No Information MEDICATIONS Medication SIG (Take, Route, Frequency, Duration) Notes Start Date End Date Status Zepbound 2.5 MG/0.5ML 2.5 mg weekly Subc utaneous Weekly for 30 days Active Wegovy 1 MG/0.5ML 1mg Subcutaneous wee kly for 30 days Active Omeprazole 20 MG [...] due to excess calories (E66.09) Active confirmed 152393942 Problem Acquired hypothyroidism (E03.9) Active confirmed Acquired hypothyroidism (894408100) Problem Bipolar 1 disorder (F31.9) Active confirmed 033161265 Problem BMI 33.0-33.9,adult (Z68.33) Active confirmed [id number] Problem BMI 32.0-32.9,adult (Z68.32) Active confirmed 116893960 Problem Abnormal metabolic state due to diabetes mellitus (E11.9) Active confirmed Abnormal metabolic state due to diabetes mellitus (791471493) Problem Hyperlipidemia (E78.5) Active confirmed Hyperlipidemia (93754838) Problem Status post laparoscopic cholecystectomy (Z90.49) Active confirmed History of cholecystectomy (375139931) VITAL SIGNS Heart Rate 90 /min 12/28/2023 Oximetry 98 % 12/28/2023 Blood pressure diastolic 76 mm Hg 12/28/2023 Height 64 in 12/28/2023 Blood pressure systolic 106 mm Hg 12/28/2023 Weight 195 lbs 12/28/2023 BMI 33.47 kg/m2 12/28/2023 Encounters Encounter Location Date Provider Diagnosis [facility] [address] [facility] [address] [place], [place] 08/21/[address] [facility] [address] [place] [address] 08/28/[address] [facility] [address] [place] [address] 08/[facility] [facility] [address] [facility] [address] 08/31/2023 TIAN EWING Other obesity due to excess calories E66.09 ; Body mass index [BMI] 33.0-33.9, adult Z68.33 ; Bipolar 1 disorder F31.9 and Hyperlipidemia E78.[address] [facility] [address] [place] [address] 09/04/[address] [facility] [address] [facility] [address] [place] [address] 09/07/2023 TIAN EWING Other obesity due to excess calories E66.09 ; Body mass index [BMI] 33.0-33.9, adult Z68.33 ; Bipolar 1 disorder F31.9 and Hyperlipidemia E78.[address] [facility] [address] [place] [id number] 09/11/[address] [facility] [address] [place] [phone] 09/13/[address] [facility] [address] [facility] [address] [facility] [address] [place] [phone] 09/20/2023 TIAN BORHOT [facility] [address] [facility] [address] [facility] [address] [facility] [address] [place] [address] 09/27/[address] [facility] [address] [facility] [address] [place], [place] 09/28/[address] [facility] [address] [facility] [address] [place], [place] 10/03/[address] [facility] [address] [facility] [address] [place], [place] 10/08/[address] [facility] [address] [facility] [address] [place], [place] 10/09/[address] [facility] [address] [facility] [address] [place] 10/16/[address] [facility] [address] [facility] [address] [place] 10/30/[address] [facility] [address] [facility] [address] [place] 03/04/2024 TIAN LOWRYT Other obesity due to excess calories E66.09 ; BMI 33.0-33.9,adult Z68.33 ; Dietary counseling and surveillance Z71.3 ; Bipolar 1 disorder F31.9 ; Hyperlipidemia E78.5 and Status post laparoscopic cholecystectomy Z90.[address] [facility] [address] [facility] [address] [place], [place] 08/07/[address] [facility] [address] [facility] [address] [place], [place] 08/14/[address] [facility] [address] [facility] [address] [place] 08/31/2023 TIAN EWING Other obesity due to excess calories E66.09 ; Body mass index [BMI] 33.0-33.9, adult Z68.33 ; Bipolar 1 disorder F31.9 and Hyperlipidemia E78.[address] [facility] [address] [facility] [address] [place] 10/23/2023 TIAN JOSE LUISHOT Other obesity due to excess calories E66.09 ; BMI 32.0-32.9,adult Z68.32 ; Dietary counseling and surveillance Z71.3 ; Bipolar 1 disorder F31.9 and Hyperlipidemia E78.[address] [facility] [address] [facility] [address] [facility] [address] [place] [address] 12/28/2023 TIAN EWING Other obesity due to excess calories E66.09 ; BMI 33.0-33.9,adult Z68.33 ; Dietary counseling and surveillance Z71.3 ; Bipolar 1 disorder F31.9 ; Hyperlipidemia E78.5 and Status post laparoscopic cholecystectomy Z90.49 [facility] [address] 299 [facility] [address] [place] [address] 09/03/2023 [facility] [address] [place] [address] 09/04/2023 TIAN LOWRY [address] [facility] [address] [place] [address] 09/12/2023 [facility] [address] [place] [address] 09/27/2023 TIAN LOWRYTomasz [place] [address] [phone] 10/23/2023 TIAN JOSE LUISTAIWO ASSESSMENTS Encounter Date Diagnosis Assessment Notes Treatment Notes Treatment Clinical Notes Section Notes 08/31/2023 Other obesity due to excess calories (ICD-10 - E66.09) #Weight Management 08/31/2023 Discussed compounded semaglutide program Will initiate this 0.25mg, and plan to transition to tradename Rowan Total time spent today was 30 minutes of which greater than 50% was spent on coordinating and counseling Patient has been found to be obese with a BMI of (33). Patient has class (1) obesity. We are a board certified obesity and weight management practice Patient has trialed behavioral modification, dietary restrictions and exercise for a minimum of 6 months The most recent [place] [employer] of clinical endocrinologists and [place] [employer]in[employer] guidelines recommend patients who [...] of follow-up The patient understands and agrees Patient was reassured and welcomed to the practice. We discussed that we stress a hollistic medical approach with emphasis on lifestyle modification. Patient was informed that a healthy lifestyle with exercise and good eating habits can help reduce his risk of medical complications. He is explained that obesity increases his risk of diabetes, cardiovascular disease, or organ damage. We spent a lot of time discussing the relationship between food, exercise, sleep, mental health and obesity. Patient was counseled on the importance EATING local, organic food when possible. Patient was educated on clean 15 and dirty dozen. I provided information about reading books called The Food Rules by Troy Dumont and Eat Fat Get Lean by Dr Paul Lombardi. Self education is important in the journey for weight management. Patient was offered diagnostic testing. We want to measure visceral adiposity, advanced body composition, adverse lipids, fatty acid balance, risk for heart disease and atherosclerosis, markers of inflammation and genetic susceptibility. Patient was counseled on weight management and was advised to lose weight using A. Meal Replacement Products We discussed the lifelong requirement of nutritional supplementation and adherence to an exercise regimen as well as importance of dietary f/u Patient was educated on the replacement products called optifast. This is a good way of taking fixed amount of calories. It has been shown in studies to be ineffective weight management tool. We also recommend maintaining adequate protein intake and muscle composition, 1.5mg/kg This however has to be coupled with lifestyle intervention as well as laboratory data and EKG monitoring. It is impossible to know how a person will tolerate complete meal replacement. The side effects of meal replacement and weight loss could include syncopal attacks, dizziness, gallstones, potential cholecystectomy, possible heart attack and even . The benefits of meal replacement would be potential weight loss but no guarantees can be made. Meal replacement products are not covered by insurance. Once the patient has bought these products we cannot return them B. Lifestyle management which includes several strategies as below 1. Eat a low carbohydrate good fat good protein diet. Eliminate refined carbohydrates from the diet. Continue blood sugar and sugared beverages. Eat local organic when possible. Cook your own meals. Read food labels. None about healthy snacks. Portion control and food with low glycemic index 2. Exercise regularly. Try to get at least 6000 steps a day. Use a predominant to track activity level. Consider using apps like Goombal, [employer], lose it, stick as needed for self-monitoring and weight management. Consider group exercises. Consider hiring a personal financial advisor. Regular exercise is forbes to sustainable health and prevents as a buffer against weight regain 3. Sleep is most important for healing. Tried to sleep at least 8 hours a night. A good quality sleep needs a sleep ritual with ideal room temperature of around 68. It might help to take a shower and have no electronics in the room and sleep in a very dark room without artificial light. Start her sleep routine and get up early in the morning and go to bed on time 4. Make a social connection. Surround yourself with positive people with positive energy. Connect with friends and family. 5. Get into the habit of meditating and mindfulness while doing everything. 6. Go outside and connect with nature. C. Prescription medications Patient was educated on the use of prescription medications for medical weight loss. This is a growing list and includes phentermine, Topamax,Qsymia, contrave, belviq and saxenda, wegovy All prescription medications could have side effects including but not limited to kidney stones, seizure disorder cardiac arrhythmias heart attack pancreatitis etc. etc.. Patient was encouraged to read the prescription insert and have coaching with their pharmacist and make an informed decision about taking medication and know that these medications are being prescribed with good intentions and we do not know how a patient would react to her medication. Sudden medications are FDA approved for weight loss and there is also off label use depending on patient's inability to afford medications in an attempt to lose weight D. Behavioral counseling was done to establish a relationship between food and an mood. Patient was provided information about local counseling and psychiatry and Dr Angela at [facility]. We would like to cover regular topics and build on low glycemic eating exercise mindful eating, using yoga and meditation along with deep breathing and connecting with friends and family. E. MASS PAT reviewed, Patient's current medications were reviewed and opinion was given on medication that can cause weight gain and can be substituted F. Patient was assessed for risk with obesity including and not limiting to atherosclerosis heart disease stroke kidney disease, restrictive lung disease, irritable bowel syndrome and overall mortality. Risk of developing prediabetes diabetes and metabolic syndrome was discussed G. Therapeutic plan: We have decided to make therapeutic plan which would include choosing wisely on calories restricting portion getting active, tracking weight, getting good quality sleep and working on time management H. Patient will follow up in (4) weeks for weight management Of note, some information is being carried forward from prior records for informational purposes only and is being cited so that efficiency, safety and quality of the patient's care is not compromised This note was prepared using voice recognition software and direct typing Please excuse inadvertent laser technician or typing errors, or uncorrected word substitutions Although every attempt has been made by the provider to proofread this document, occasional misspellings and typographical errors may still be present Due to the previous pandemic, and the use of personal protective equipment (PPE) This may decrease voice recognition accuracy Inadvertent laser technician errors may occur 08/31/2023 Other obesity due to excess calories (ICD-10 - E66.09) #Weight Management 08/31/2023 Continue compounded We will initiate PA for Wegovy 1 mg Total time spent today was 30 minutes of which greater than 50% was spent on coordinating and counseling Patient has been found to be obese with a BMI of (33). Patient has class (1) obesity. We are a board certified obesity and weight management practice Patient has trialed behavioral modification, dietary restrictions and exercise for a minimum of 6 months The most recent [place] [employer] of clinical endocrinologists and [place] [employer]ocrin[employer] guidelines recommend patients who [...] of follow-up The patient understands and agrees Patient was reassured and welcomed to the practice. We discussed that we stress a hollistic medical approach with emphasis on lifestyle modification. Patient was informed that a healthy lifestyle with exercise and good eating habits can help reduce his risk of medical complications. He is explained that obesity increases his risk of diabetes, cardiovascular disease, or organ damage. We spent a lot of time discussing the relationship between food, exercise, sleep, mental health and obesity. Patient was counseled on the importance EATING local, organic food when possible. Patient was educated on clean 15 and dirty dozen. I provided information about reading books called The Food Rules by Troy Dumont and Eat Fat Get Lean by Dr Paul Lombardi. Self education is important in the journey for weight management. Patient was offered diagnostic testing. We want to measure visceral adiposity, advanced body composition, adverse lipids, fatty acid balance, risk for heart disease and atherosclerosis, markers of inflammation and genetic susceptibility. Patient was counseled on weight management and was advised to lose weight using A. Meal Replacement Products We discussed the lifelong requirement of nutritional supplementation and adherence to an exercise regimen as well as importance of dietary f/u Patient was educated on the replacement products called optifast. This is a good way of taking fixed amount of calories. It has been shown in studies to be ineffective weight management tool. We also recommend maintaining adequate protein intake and muscle composition, 1.5mg/kg This however has to be coupled with lifestyle intervention as well as laboratory data and EKG monitoring. It is impossible to know how a person will tolerate complete meal replacement. The side effects of meal replacement and weight loss could include syncopal attacks, dizziness, gallstones, potential cholecystectomy, possible heart attack and even . The benefits of meal replacement would be potential weight loss but no guarantees can be made. Meal replacement products are not covered by insurance. Once the patient has bought these products we cannot return them B. Lifestyle management which includes several strategies as below 1. Eat a low carbohydrate good fat good protein diet. Eliminate refined carbohydrates from the diet. Continue blood sugar and sugared beverages. Eat local organic when possible. Cook your own meals. Read food labels. None about healthy snacks. Portion control and food with low glycemic index 2. Exercise regularly. Try to get at least 6000 steps a day. Use a predominant to track activity level. Consider using apps like Goombal, [employer]pal, lose it, stick as needed for self-monitoring and weight management. Consider group exercises. Consider hiring a personal financial advisor. Regular exercise is forbes to sustainable health and prevents as a buffer against weight regain 3. Sleep is most important for healing. Tried to sleep at least 8 hours a night. A good quality sleep needs a sleep ritual with ideal room temperature of around 68. It might help to take a shower and have no electronics in the room and sleep in a very dark room without artificial light. Start her sleep routine and get up early in the morning and go to bed on time 4. Make a social connection. Surround yourself with positive people with positive energy. Connect with friends and family. 5. Get into the habit of meditating and mindfulness while doing everything. 6. Go outside and connect with nature. C. Prescription medications Patient was educated on the use of prescription medications for medical weight loss. This is a growing list and includes phentermine, Topamax,Qsymia, contrave, belviq and saxenda, wegovy All prescription medications could have side effects including but not limited to kidney stones, seizure disorder cardiac arrhythmias heart attack pancreatitis etc. etc.. Patient was encouraged to read the prescription insert and have coaching with their pharmacist and make an informed decision about taking medication and know that these medications are being prescribed with good intentions and we do not know how a patient would react to her medication. Sudden medications are FDA approved for weight loss and there is also off label use depending on patient's inability to afford medications in an attempt to lose weight D. Behavioral counseling was done to establish a relationship between food and an mood. Patient was provided information about local counseling and psychiatry and Dr Angela at [facility]. We would like to cover regular topics and build on low glycemic eating exercise mindful eating, using yoga and meditation along with deep breathing and connecting with friends and family. E. MASS PAT reviewed, Patient's current medications were reviewed and opinion was given on medication that can cause weight gain and can be substituted F. Patient was assessed for risk with obesity including and not limiting to atherosclerosis heart disease stroke kidney disease, restrictive lung disease, irritable bowel syndrome and overall mortality. Risk of developing prediabetes diabetes and metabolic syndrome was discussed G. Therapeutic plan: We have decided to make therapeutic plan which would include choosing wisely on calories restricting portion getting active, tracking weight, getting good quality sleep and working on time management H. Patient will follow up in (4) weeks for weight management Of note, some information is being carried forward from prior records for informational purposes only and is being cited so that efficiency, safety and quality of the patient's care is not compromised This note was prepared using voice recognition software and direct typing Please excuse inadvertent laser technician or typing errors, or uncorrected word substitutions Although every attempt has been made by the provider to proofread this document, occasional misspellings and typographical errors may still be present Due to the previous pandemic, and the use of personal protective equipment (PPE) This may decrease voice recognition accuracy Inadvertent laser technician errors may occur 09/07/2023 Other obesity due to excess calories (ICD-10 - E66.09) #Weight Management 08/31/2023 Continue compounded We will initiate PA for Wegovy 1 mg Total time spent today was 30 minutes of which greater than 50% was spent on coordinating and counseling Patient has been found to be obese with a BMI of (33). Patient has class (1) obesity. We are a board certified obesity and weight management practice Patient has trialed behavioral modification, dietary restrictions and exercise for a minimum of 6 months The most recent [place] [employer] of clinical endocrinologists and [place] [employer] end[employer]in[employer] guidelines recommend patients who [...] software and direct typing Please excuse inadvertent laser technician or typing errors, or uncorrected word substitutions Although every attempt has been made by the provider to proofread this document, occasional misspellings and typographical errors may still be present Due to the previous pandemic, and the use of personal protective equipment (PPE) This may decrease voice recognition accuracy Inadvertent laser technician errors may occur 10/23/2023 Other obesity due to excess calories (ICD-10 - E66.09) #Weight Management 10/23/2023 Continue compounded We will initiate PA for Zepbound Total time spent today was 30 minutes of which greater than 50% was spent on coordinating and counseling Patient has been found to be obese with a BMI of (32). Patient has class (1) obesity. We are a board certified obesity and weight management practice Patient has trialed behavioral modification, dietary restrictions and exercise for a minimum of 6 months The most recent [place] [employer] of clinical endocrinologists and [place] [employer] end[employer]inology guidelines recommend patients who [...] software and direct typing Please excuse inadvertent laser technician or typing errors, or uncorrected word substitutions Although every attempt has been made by the provider to proofread this document, occasional misspellings and typographical errors may still be present Due to the previous pandemic, and the use of personal protective equipment (PPE) This may decrease voice recognition accuracy Inadvertent laser technician errors may occur 10/23/2023 BMI 32.0-32.9,adult (ICD-10 - Z68.32) #Weight Management 10/23/2023 Continue compounded We will initiate PA for Zepbound Total time spent today was 30 minutes of which greater than 50% was spent on coordinating and counseling Patient has been found to be obese with a BMI of (32). Patient has class (1) obesity. We are a board certified obesity and weight management practice Patient has trialed behavioral modification, dietary restrictions and exercise for a minimum of 6 months The most recent [place] [employer] of clinical endocrinologists and [place] [employer] end[employer]inology guidelines recommend patients who [...] software and direct typing Please excuse inadvertent laser technician or typing errors, or uncorrected word substitutions Although every attempt has been made by the provider to proofread this document, occasional misspellings and typographical errors may still be present Due to the previous pandemic, and the use of personal protective equipment (PPE) This may decrease voice recognition accuracy Inadvertent laser technician errors may occur 12/28/2023 Other obesity due to excess calories (ICD-10 - E66.09) #Weight Management 12/28/2023 Status post laparoscopic cholecystectomy [...] minimum of 6 months The most recent [place] [employer] of clinical endocrinologists and [place] [employer] end[employer]inology guidelines recommend patients who [...] software and direct typing Please excuse inadvertent laser technician or typing errors, or uncorrected word substitutions Although every attempt has been made by the provider to proofread this document, occasional misspellings and typographical errors may still be present Due to the previous pandemic, and the use of personal protective equipment (PPE) This may decrease voice recognition accuracy Inadvertent laser technician errors may occur 12/28/2023 BMI 33.0-33.9,adult (ICD-10 - Z68.33) #Weight Management 12/28/2023 Status post laparoscopic cholecystectomy [...] minimum of 6 months The most recent [place] [employer] of clinical endocrinologists and [place] [employer]in[employer] guidelines recommend patients who [...] software and direct typing Please excuse inadvertent laser technician or typing errors, or uncorrected word substitutions Although every attempt has been made by the provider to proofread this document, occasional misspellings and typographical errors may still be present Due to the previous pandemic, and the use of personal protective equipment (PPE) This may decrease voice recognition accuracy Inadvertent laser technician errors may occur 03/04/2024 Other obesity due to excess calories [...] minimum of 6 months The most recent [place] [employer]in[employer] and [place] [employer] guidelines recommend patients who [...] software and direct typing Please excuse inadvertent laser technician or typing errors, or uncorrected word substitutions Although every attempt has been made by the provider to proofread this document, occasional misspellings and typographical errors may still be present Due to the previous pandemic, and the use of personal protective equipment (PPE) This may decrease voice recognition accuracy Inadvertent laser technician errors may occur 03/04/2024 BMI 33.0-33.9,adult (ICD-10 [...] minimum of 6 months The most recent [place] [employer]in[employer] and [place] [employer] guidelines recommend patients who [...] software and direct typing Please excuse inadvertent laser technician or typing errors, or uncorrected word substitutions Although every attempt has been made by the provider to proofread this document, occasional misspellings and typographical errors may still be present Due to the previous pandemic, and the use of personal protective equipment (PPE) This may decrease voice recognition accuracy Inadvertent laser technician errors may occur 12/28/2023 Dietary counseling and surveillance (ICD-10 - Z71.3) #Weight Management 12/28/2023 Status post laparoscopic cholecystectomy [...] minimum of 6 months The most recent [place] [employer]inologists and [place] [employer] guidelines recommend patients who [...] software and direct typing Please excuse inadvertent laser technician or typing errors, or uncorrected word substitutions Although every attempt has been made by the provider to proofread this document, occasional misspellings and typographical errors may still be present Due to the previous pandemic, and the use of personal protective equipment (PPE) This may decrease voice recognition accuracy Inadvertent laser technician errors may occur 10/23/2023 Dietary counseling and surveillance (ICD-10 - Z71.3) #Weight Management 10/23/2023 Continue compounded We will initiate PA for Zepbound Total time spent today was 30 minutes of which greater than 50% was spent on coordinating and counseling Patient has been found to be obese with a BMI of (32). Patient has class (1) obesity. We are a board certified obesity and weight management practice Patient has trialed behavioral modification, dietary restrictions and exercise for a minimum of 6 months The most recent [place] [employer]ocrinologists and [place] [employer] guidelines recommend patients who [...] software and direct typing Please excuse inadvertent laser technician or typing errors, or uncorrected word substitutions Although every attempt has been made by the provider to proofread this document, occasional misspellings and typographical errors may still be present Due to the previous pandemic, and the use of personal protective equipment (PPE) This may decrease voice recognition accuracy Inadvertent laser technician errors may occur 09/07/2023 Body mass index [BMI] 33.0-33.9, adult (ICD-10 - Z68.33) #Weight Management 08/31/2023 Continue compounded We will initiate PA for Wegovy 1 mg Total time spent today was 30 minutes of which greater than 50% was spent on coordinating and counseling Patient has been found to be obese with a BMI of (33). Patient has class (1) obesity. We are a board certified obesity and weight management practice Patient has trialed behavioral modification, dietary restrictions and exercise for a minimum of 6 months The most recent [place] [employer]ocrinologists and [place] [employer] guidelines recommend patients who [...] software and direct typing Please excuse inadvertent laser technician or typing errors, or uncorrected word substitutions Although every attempt has been made by the provider to proofread this document, occasional misspellings and typographical errors may still be present Due to the previous pandemic, and the use of personal protective equipment (PPE) This may decrease voice recognition accuracy Inadvertent laser technician errors may occur 08/31/2023 Body mass index [BMI] 33.0-33.9, adult (ICD-10 - Z68.33) #Weight Management 08/31/2023 Continue compounded We will initiate PA for Wegovy 1 mg Total time spent today was 30 minutes of which greater than 50% was spent on coordinating and counseling Patient has been found to be obese with a BMI of (33). Patient has class (1) obesity. We are a board certified obesity and weight management practice Patient has trialed behavioral modification, dietary restrictions and exercise for a minimum of 6 months The most recent [place] [employer]ocrinologists and [place] [employer] guidelines recommend patients who [...] of follow-up The patient understands and agrees Patient was reassured and welcomed to the practice. We discussed that we stress a hollistic medical approach with emphasis on lifestyle modification. Patient was informed that a healthy lifestyle with exercise and good eating habits can help reduce his risk of medical complications. He is explained that obesity increases his risk of diabetes, cardiovascular disease, or organ damage. We spent a lot of time discussing the relationship between food, exercise, sleep, mental health and obesity. Patient was counseled on the importance EATING local, organic food when possible. Patient was educated on clean 15 and dirty dozen. I provided information about reading books called The Food Rules by Troy Dumont and Eat Fat Get Lean by Dr Paul Lombardi. Self education is important in the journey for weight management. Patient was offered diagnostic testing. We want to measure visceral adiposity, advanced body composition, adverse lipids, fatty acid balance, risk for heart disease and atherosclerosis, markers of inflammation and genetic susceptibility. Patient was counseled on weight management and was advised to lose weight using A. Meal Replacement Products We discussed the lifelong requirement of nutritional supplementation and adherence to an exercise regimen as well as importance of dietary f/u Patient was educated on the replacement products called optifast. This is a good way of taking fixed amount of calories. It has been shown in studies to be ineffective weight management tool. We also recommend maintaining adequate protein intake and muscle composition, 1.5mg/kg This however has to be coupled with lifestyle intervention as well as laboratory data and EKG monitoring. It is impossible to know how a person will tolerate complete meal replacement. The side effects of meal replacement and weight loss could include syncopal attacks, dizziness, gallstones, potential cholecystectomy, possible heart attack and even . The benefits of meal replacement would be potential weight loss but no guarantees can be made. Meal replacement products are not covered by insurance. Once the patient has bought these products we cannot return them B. Lifestyle management which includes several strategies as below 1. Eat a low carbohydrate good fat good protein diet. Eliminate refined carbohydrates from the diet. Continue blood sugar and sugared beverages. Eat local organic when possible. Cook your own meals. Read food labels. None about healthy snacks. Portion control and food with low glycemic index 2. Exercise regularly. Try to get at least 6000 steps a day. Use a predominant to track activity level. Consider using apps like Goombal, [employer], lose it, stick as needed for self-monitoring and weight management. Consider group exercises. Consider hiring a personal financial advisor. Regular exercise is forbes to sustainable health and prevents as a buffer against weight regain 3. Sleep is most important for healing. Tried to sleep at least 8 hours a night. A good quality sleep needs a sleep ritual with ideal room temperature of around 68. It might help to take a shower and have no electronics in the room and sleep in a very dark room without artificial light. Start her sleep routine and get up early in the morning and go to bed on time 4. Make a social connection. Surround yourself with positive people with positive energy. Connect with friends and family. 5. Get into the habit of meditating and mindfulness while doing everything. 6. Go outside and connect with nature. C. Prescription medications Patient was educated on the use of prescription medications for medical weight loss. This is a growing list and includes phentermine, Topamax,Qsymia, contrave, belviq and saxenda, wegovy All prescription medications could have side effects including but not limited to kidney stones, seizure disorder cardiac arrhythmias heart attack pancreatitis etc. etc.. Patient was encouraged to read the prescription insert and have coaching with their pharmacist and make an informed decision about taking medication and know that these medications are being prescribed with good intentions and we do not know how a patient would react to her medication. Sudden medications are FDA approved for weight loss and there is also off label use depending on patient's inability to afford medications in an attempt to lose weight D. Behavioral counseling was done to establish a relationship between food and an mood. Patient was provided information about local counseling and psychiatry and Dr Angela at [facility]. We would like to cover regular topics and build on low glycemic eating exercise mindful eating, using yoga and meditation along with deep breathing and connecting with friends and family. E. MASS PAT reviewed, Patient's current medications were reviewed and opinion was given on medication that can cause weight gain and can be substituted F. Patient was assessed for risk with obesity including and not limiting to atherosclerosis heart disease stroke kidney disease, restrictive lung disease, irritable bowel syndrome and overall mortality. Risk of developing prediabetes diabetes and metabolic syndrome was discussed G. Therapeutic plan: We have decided to make therapeutic plan which would include choosing wisely on calories restricting portion getting active, tracking weight, getting good quality sleep and working on time management H. Patient will follow up in (4) weeks for weight management Of note, some information is being carried forward from prior records for informational purposes only and is being cited so that efficiency, safety and quality of the patient's care is not compromised This note was prepared using voice recognition software and direct typing Please excuse inadvertent laser technician or typing errors, or uncorrected word substitutions Although every attempt has been made by the provider to proofread this document, occasional misspellings and typographical errors may still be present Due to the previous pandemic, and the use of personal protective equipment (PPE) This may decrease voice recognition accuracy Inadvertent laser technician errors may occur 08/31/2023 Body mass index [BMI] 33.0-33.9, adult (ICD-10 - Z68.33) #Weight Management 08/31/2023 Discussed compounded semaglutide program Will initiate this 0.25mg, and plan to transition to tradename Rowan Total time spent today was 30 minutes of which greater than 50% was spent on coordinating and counseling Patient has been found to be obese with a BMI of (33). Patient has class (1) obesity. We are a board certified obesity and weight management practice Patient has trialed behavioral modification, dietary restrictions and exercise for a minimum of 6 months The most recent [place] [employer]ocrinologists and [place] [employer] guidelines recommend patients who [...] of follow-up The patient understands and agrees Patient was reassured and welcomed to the practice. We discussed that we stress a hollistic medical approach with emphasis on lifestyle modification. Patient was informed that a healthy lifestyle with exercise and good eating habits can help reduce his risk of medical complications. He is explained that obesity increases his risk of diabetes, cardiovascular disease, or organ damage. We spent a lot of time discussing the relationship between food, exercise, sleep, mental health and obesity. Patient was counseled on the importance EATING local, organic food when possible. Patient was educated on clean 15 and dirty dozen. I provided information about reading books called The Food Rules by Troy Dumont and Eat Fat Get Lean by Dr Paul Lombardi. Self education is important in the journey for weight management. Patient was offered diagnostic testing. We want to measure visceral adiposity, advanced body composition, adverse lipids, fatty acid balance, risk for heart disease and atherosclerosis, markers of inflammation and genetic susceptibility. Patient was counseled on weight management and was advised to lose weight using A. Meal Replacement Products We discussed the lifelong requirement of nutritional supplementation and adherence to an exercise regimen as well as importance of dietary f/u Patient was educated on the replacement products called optifast. This is a good way of taking fixed amount of calories. It has been shown in studies to be ineffective weight management tool. We also recommend maintaining adequate protein intake and muscle composition, 1.5mg/kg This however has to be coupled with lifestyle intervention as well as laboratory data and EKG monitoring. It is impossible to know how a person will tolerate complete meal replacement. The side effects of meal replacement and weight loss could include syncopal attacks, dizziness, gallstones, potential cholecystectomy, possible heart attack and even . The benefits of meal replacement would be potential weight loss but no guarantees can be made. Meal replacement products are not covered by insurance. Once the patient has bought these products we cannot return them B. Lifestyle management which includes several strategies as below 1. Eat a low carbohydrate good fat good protein diet. Eliminate refined carbohydrates from the diet. Continue blood sugar and sugared beverages. Eat local organic when possible. Cook your own meals. Read food labels. None about healthy snacks. Portion control and food with low glycemic index 2. Exercise regularly. Try to get at least 6000 steps a day. Use a predominant to track activity level. Consider using apps like Goombal, [employer]fitnesspal, lose it, stick as needed for self-monitoring and weight management. Consider group exercises. Consider hiring a personal financial advisor. Regular exercise is forbes to sustainable health and prevents as a buffer against weight regain 3. Sleep is most important for healing. Tried to sleep at least 8 hours a night. A good quality sleep needs a sleep ritual with ideal room temperature of around 68. It might help to take a shower and have no electronics in the room and sleep in a very dark room without artificial light. Start her sleep routine and get up early in the morning and go to bed on time 4. Make a social connection. Surround yourself with positive people with positive energy. Connect with friends and family. 5. Get into the habit of meditating and mindfulness while doing everything. 6. Go outside and connect with nature. C. Prescription medications Patient was educated on the use of prescription medications for medical weight loss. This is a growing list and includes phentermine, Topamax,Qsymia, contrave, belviq and saxenda, wegovy All prescription medications could have side effects including but not limited to kidney stones, seizure disorder cardiac arrhythmias heart attack pancreatitis etc. etc.. Patient was encouraged to read the prescription insert and have coaching with their pharmacist and make an informed decision about taking medication and know that these medications are being prescribed with good intentions and we do not know how a patient would react to her medication. Sudden medications are FDA approved for weight loss and there is also off label use depending on patient's inability to afford medications in an attempt to lose weight D. Behavioral counseling was done to establish a relationship between food and an mood. Patient was provided information about local counseling and psychiatry and Dr Angela at [facility]. We would like to cover regular topics and build on low glycemic eating exercise mindful eating, using yoga and meditation along with deep breathing and connecting with friends and family. E. MASS PAT reviewed, Patient's current medications were reviewed and opinion was given on medication that can cause weight gain and can be substituted F. Patient was assessed for risk with obesity including and not limiting to atherosclerosis heart disease stroke kidney disease, restrictive lung disease, irritable bowel syndrome and overall mortality. Risk of developing prediabetes diabetes and metabolic syndrome was discussed G. Therapeutic plan: We have decided to make therapeutic plan which would include choosing wisely on calories restricting portion getting active, tracking weight, getting good quality sleep and working on time management H. Patient will follow up in (4) weeks for weight management Of note, some information is being carried forward from prior records for informational purposes only and is being cited so that efficiency, safety and quality of the patient's care is not compromised This note was prepared using voice recognition software and direct typing Please excuse inadvertent laser technician or typing errors, or uncorrected word substitutions Although every attempt has been made by the provider to proofread this document, occasional misspellings and typographical errors may still be present Due to the previous pandemic, and the use of personal protective equipment (PPE) This may decrease voice recognition accuracy Inadvertent laser technician errors may occur 08/31/2023 Bipolar 1 disorder (ICD-10 - F31.9) #Weight Management 08/31/2023 Discussed compounded semaglutide program Will initiate this 0.25mg, and plan to transition to tradename Rowan Total time spent today was 30 minutes of which greater than 50% was spent on coordinating and counseling Patient has been found to be obese with a BMI of (33). Patient has class (1) obesity. We are a board certified obesity and weight management practice Patient has trialed behavioral modification, dietary restrictions and exercise for a minimum of 6 months The most recent [place] [employer]ocrinologists and [place] [employer] guidelines recommend patients who [...] of follow-up The patient understands and agrees Patient was reassured and welcomed to the practice. We discussed that we stress a hollistic medical approach with emphasis on lifestyle modification. Patient was informed that a healthy lifestyle with exercise and good eating habits can help reduce his risk of medical complications. He is explained that obesity increases his risk of diabetes, cardiovascular disease, or organ damage. We spent a lot of time discussing the relationship between food, exercise, sleep, mental health and obesity. Patient was counseled on the importance EATING local, organic food when possible. Patient was educated on clean 15 and dirty dozen. I provided information about reading books called The Food Rules by Troy Dumont and Eat Fat Get Lean by Dr Paul Lombardi. Self education is important in the journey for weight management. Patient was offered diagnostic testing. We want to measure visceral adiposity, advanced body composition, adverse lipids, fatty acid balance, risk for heart disease and atherosclerosis, markers of inflammation and genetic susceptibility. Patient was counseled on weight management and was advised to lose weight using A. Meal Replacement Products We discussed the lifelong requirement of nutritional supplementation and adherence to an exercise regimen as well as importance of dietary f/u Patient was educated on the replacement products called optifast. This is a good way of taking fixed amount of calories. It has been shown in studies to be ineffective weight management tool. We also recommend maintaining adequate protein intake and muscle composition, 1.5mg/kg This however has to be coupled with lifestyle intervention as well as laboratory data and EKG monitoring. It is impossible to know how a person will tolerate complete meal replacement. The side effects of meal replacement and weight loss could include syncopal attacks, dizziness, gallstones, potential cholecystectomy, possible heart attack and even . The benefits of meal replacement would be potential weight loss but no guarantees can be made. Meal replacement products are not covered by insurance. Once the patient has bought these products we cannot return them B. Lifestyle management which includes several strategies as below 1. Eat a low carbohydrate good fat good protein diet. Eliminate refined carbohydrates from the diet. Continue blood sugar and sugared beverages. Eat local organic when possible. Cook your own meals. Read food labels. None about healthy snacks. Portion control and food with low glycemic index 2. Exercise regularly. Try to get at least 6000 steps a day. Use a predominant to track activity level. Consider using apps like Goombal, [employer], lose it, stick as needed for self-monitoring and weight management. Consider group exercises. Consider hiring a personal financial advisor. Regular exercise is forbes to sustainable health and prevents as a buffer against weight regain 3. Sleep is most important for healing. Tried to sleep at least 8 hours a night. A good quality sleep needs a sleep ritual with ideal room temperature of around 68. It might help to take a shower and have no electronics in the room and sleep in a very dark room without artificial light. Start her sleep routine and get up early in the morning and go to bed on time 4. Make a social connection. Surround yourself with positive people with positive energy. Connect with friends and family. 5. Get into the habit of meditating and mindfulness while doing everything. 6. Go outside and connect with nature. C. Prescription medications Patient was educated on the use of prescription medications for medical weight loss. This is a growing list and includes phentermine, Topamax,Qsymia, contrave, belviq and saxenda, wegovy All prescription medications could have side effects including but not limited to kidney stones, seizure disorder cardiac arrhythmias heart attack pancreatitis etc. etc.. Patient was encouraged to read the prescription insert and have coaching with their pharmacist and make an informed decision about taking medication and know that these medications are being prescribed with good intentions and we do not know how a patient would react to her medication. Sudden medications are FDA approved for weight loss and there is also off label use depending on patient's inability to afford medications in an attempt to lose weight D. Behavioral counseling was done to establish a relationship between food and an mood. Patient was provided information about local counseling and psychiatry and Dr Angela at [facility]. We would like to cover regular topics and build on low glycemic eating exercise mindful eating, using yoga and meditation along with deep breathing and connecting with friends and family. E. MASS PAT reviewed, Patient's current medications were reviewed and opinion was given on medication that can cause weight gain and can be substituted F. Patient was assessed for risk with obesity including and not limiting to atherosclerosis heart disease stroke kidney disease, restrictive lung disease, irritable bowel syndrome and overall mortality. Risk of developing prediabetes diabetes and metabolic syndrome was discussed G. Therapeutic plan: We have decided to make therapeutic plan which would include choosing wisely on calories restricting portion getting active, tracking weight, getting good quality sleep and working on time management H. Patient will follow up in (4) weeks for weight management Of note, some information is being carried forward from prior records for informational purposes only and is being cited so that efficiency, safety and quality of the patient's care is not compromised This note was prepared using voice recognition software and direct typing Please excuse inadvertent laser technician or typing errors, or uncorrected word substitutions Although every attempt has been made by the provider to proofread this document, occasional misspellings and typographical errors may still be present Due to the previous pandemic, and the use of personal protective equipment (PPE) This may decrease voice recognition accuracy Inadvertent laser technician errors may occur 08/31/2023 Bipolar 1 disorder (ICD-10 - F31.9) #Weight Management 08/31/2023 Continue compounded We will initiate PA for Wegovy 1 mg Total time spent today was 30 minutes of which greater than 50% was spent on coordinating and counseling Patient has been found to be obese with a BMI of (33). Patient has class (1) obesity. We are a board certified obesity and weight management practice Patient has trialed behavioral modification, dietary restrictions and exercise for a minimum of 6 months The most recent [place] [employer] clinical endocrinologists and [place] [employer] guidelines recommend patients who [...] of follow-up The patient understands and agrees Patient was reassured and welcomed to the practice. We discussed that we stress a hollistic medical approach with emphasis on lifestyle modification. Patient was informed that a healthy lifestyle with exercise and good eating habits can help reduce his risk of medical complications. He is explained that obesity increases his risk of diabetes, cardiovascular disease, or organ damage. We spent a lot of time discussing the relationship between food, exercise, sleep, mental health and obesity. Patient was counseled on the importance EATING local, organic food when possible. Patient was educated on clean 15 and dirty dozen. I provided information about reading books called The Food Rules by Troy Dumont and Eat Fat Get Lean by Dr Paul Lombardi. Self education is important in the journey for weight management. Patient was offered diagnostic testing. We want to measure visceral adiposity, advanced body composition, adverse lipids, fatty acid balance, risk for heart disease and atherosclerosis, markers of inflammation and genetic susceptibility. Patient was counseled on weight management and was advised to lose weight using A. Meal Replacement Products We discussed the lifelong requirement of nutritional supplementation and adherence to an exercise regimen as well as importance of dietary f/u Patient was educated on the replacement products called optifast. This is a good way of taking fixed amount of calories. It has been shown in studies to be ineffective weight management tool. We also recommend maintaining adequate protein intake and muscle composition, 1.5mg/kg This however has to be coupled with lifestyle intervention as well as laboratory data and EKG monitoring. It is impossible to know how a person will tolerate complete meal replacement. The side effects of meal replacement and weight loss could include syncopal attacks, dizziness, gallstones, potential cholecystectomy, possible heart attack and even . The benefits of meal replacement would be potential weight loss but no guarantees can be made. Meal replacement products are not covered by insurance. Once the patient has bought these products we cannot return them B. Lifestyle management which includes several strategies as below 1. Eat a low carbohydrate good fat good protein diet. Eliminate refined carbohydrates from the diet. Continue blood sugar and sugared beverages. Eat local organic when possible. Cook your own meals. Read food labels. None about healthy snacks. Portion control and food with low glycemic index 2. Exercise regularly. Try to get at least 6000 steps a day. Use a predominant to track activity level. Consider using apps like Goomb[employer], [employer], lose it, stick as needed for self-monitoring and weight management. Consider group exercises. Consider hiring a personal financial advisor. Regular exercise is forbes to sustainable health and prevents as a buffer against weight regain 3. Sleep is most important for healing. Tried to sleep at least 8 hours a night. A good quality sleep needs a sleep ritual with ideal room temperature of around 68. It might help to take a shower and have no electronics in the room and sleep in a very dark room without artificial light. Start her sleep routine and get up early in the morning and go to bed on time 4. Make a social connection. Surround yourself with positive people with positive energy. Connect with friends and family. 5. Get into the habit of meditating and mindfulness while doing everything. 6. Go outside and connect with nature. C. Prescription medications Patient was educated on the use of prescription medications for medical weight loss. This is a growing list and includes phentermine, Topamax,Qsymia, contrave, belviq and saxenda, wegovy All prescription medications could have side effects including but not limited to kidney stones, seizure disorder cardiac arrhythmias heart attack pancreatitis etc. etc.. Patient was encouraged to read the prescription insert and have coaching with their pharmacist and make an informed decision about taking medication and know that these medications are being prescribed with good intentions and we do not know how a patient would react to her medication. Sudden medications are FDA approved for weight loss and there is also off label use depending on patient's inability to afford medications in an attempt to lose weight D. Behavioral counseling was done to establish a relationship between food and an mood. Patient was provided information about local counseling and psychiatry and Dr Angela at [facility]. We would like to cover regular topics and build on low glycemic eating exercise mindful eating, using yoga and meditation along with deep breathing and connecting with friends and family. E. MASS PAT reviewed, Patient's current medications were reviewed and opinion was given on medication that can cause weight gain and can be substituted F. Patient was assessed for risk with obesity including and not limiting to atherosclerosis heart disease stroke kidney disease, restrictive lung disease, irritable bowel syndrome and overall mortality. Risk of developing prediabetes diabetes and metabolic syndrome was discussed G. Therapeutic plan: We have decided to make therapeutic plan which would include choosing wisely on calories restricting portion getting active, tracking weight, getting good quality sleep and working on time management H. Patient will follow up in (4) weeks for weight management Of note, some information is being carried forward from prior records for informational purposes only and is being cited so that efficiency, safety and quality of the patient's care is not compromised This note was prepared using voice recognition software and direct typing Please excuse inadvertent laser technician or typing errors, or uncorrected word substitutions Although every attempt has been made by the provider to proofread this document, occasional misspellings and typographical errors may still be present Due to the previous pandemic, and the use of personal protective equipment (PPE) This may decrease voice recognition accuracy Inadvertent laser technician errors may occur 09/07/2023 Bipolar 1 disorder (ICD-10 - F31.9) #Weight Management 08/31/2023 Continue compounded We will initiate PA for Wegovy 1 mg Total time spent today was 30 minutes of which greater than 50% was spent on coordinating and counseling Patient has been found to be obese with a BMI of (33). Patient has class (1) obesity. We are a board certified obesity and weight management practice Patient has trialed behavioral modification, dietary restrictions and exercise for a minimum of 6 months The most recent [place] [employer] endocrinologists and [place] [employer] guidelines recommend patients who [...] software and direct typing Please excuse inadvertent laser technician or typing errors, or uncorrected word substitutions Although every attempt has been made by the provider to proofread this document, occasional misspellings and typographical errors may still be present Due to the previous pandemic, and the use of personal protective equipment (PPE) This may decrease voice recognition accuracy Inadvertent laser technician errors may occur 10/23/2023 Bipolar 1 disorder (ICD-10 - F31.9) #Weight Management 10/23/2023 Continue compounded We will initiate PA for Zepbound Total time spent today was 30 minutes of which greater than 50% was spent on coordinating and counseling Patient has been found to be obese with a BMI of (32). Patient has class (1) obesity. We are a board certified obesity and weight management practice Patient has trialed behavioral modification, dietary restrictions and exercise for a minimum of 6 months The most recent [place] [employer]ocrinologists and [place] [employer] guidelines recommend patients who [...] software and direct typing Please excuse inadvertent laser technician or typing errors, or uncorrected word substitutions Although every attempt has been made by the provider to proofread this document, occasional misspellings and typographical errors may still be present Due to the previous pandemic, and the use of personal protective equipment (PPE) This may decrease voice recognition accuracy Inadvertent laser technician errors may occur 12/28/2023 Bipolar 1 disorder (ICD-10 - F31.9) #Weight Management 12/28/2023 Status post laparoscopic cholecystectomy [...] minimum of 6 months The most recent [place] [employer] endocrinologists and [place] [employer] guidelines recommend patients who [...] software and direct typing Please excuse inadvertent laser technician or typing errors, or uncorrected word substitutions Although every attempt has been made by the provider to proofread this document, occasional misspellings and typographical errors may still be present Due to the previous pandemic, and the use of personal protective equipment (PPE) This may decrease voice recognition accuracy Inadvertent laser technician errors may occur 03/04/2024 Dietary counseling and [...] minimum of 6 months The most recent [place] [employer] endocrinologists and [place] [employer] guidelines recommend patients who [...] software and direct typing Please excuse inadvertent laser technician or typing errors, or uncorrected word substitutions Although every attempt has been made by the provider to proofread this document, occasional misspellings and typographical errors may still be present Due to the previous pandemic, and the use of personal protective equipment (PPE) This may decrease voice recognition accuracy Inadvertent laser technician errors may occur 03/04/2024 Bipolar 1 disorder [...] minimum of 6 months The most recent [place] [employer] of clinical endocrinologists and [place] [employer] guidelines recommend patients who [...] software and direct typing Please excuse inadvertent laser technician or typing errors, or uncorrected word substitutions Although every attempt has been made by the provider to proofread this document, occasional misspellings and typographical errors may still be present Due to the previous pandemic, and the use of personal protective equipment (PPE) This may decrease voice recognition accuracy Inadvertent laser technician errors may occur 12/28/2023 Hyperlipidemia (ICD-10 - E78.5) #Weight Management 12/28/2023 Status post laparoscopic cholecystectomy [...] minimum of 6 months The most recent [place] [employer] endocrinologists and [place] [employer] guidelines recommend patients who [...] software and direct typing Please excuse inadvertent laser technician or typing errors, or uncorrected word substitutions Although every attempt has been made by the provider to proofread this document, occasional misspellings and typographical errors may still be present Due to the previous pandemic, and the use of personal protective equipment (PPE) This may decrease voice recognition accuracy Inadvertent laser technician errors may occur 10/23/2023 Hyperlipidemia (ICD-10 - E78.5) #Weight Management 10/23/2023 Continue compounded We will initiate PA for Zepbound Total time spent today was 30 minutes of which greater than 50% was spent on coordinating and counseling Patient has been found to be obese with a BMI of (32). Patient has class (1) obesity. We are a board certified obesity and weight management practice Patient has trialed behavioral modification, dietary restrictions and exercise for a minimum of 6 months The most recent [place] [employer] of clinical endocrinologists and [place] [employer] guidelines recommend patients who [...] software and direct typing Please excuse inadvertent laser technician or typing errors, or uncorrected word substitutions Although every attempt has been made by the provider to proofread this document, occasional misspellings and typographical errors may still be present Due to the previous pandemic, and the use of personal protective equipment (PPE) This may decrease voice recognition accuracy Inadvertent laser technician errors may occur 09/07/2023 Hyperlipidemia (ICD-10 - E78.5) #Weight Management 08/31/2023 Continue compounded We will initiate PA for Wegovy 1 mg Total time spent today was 30 minutes of which greater than 50% was spent on coordinating and counseling Patient has been found to be obese with a BMI of (33). Patient has class (1) obesity. We are a board certified obesity and weight management practice Patient has trialed behavioral modification, dietary restrictions and exercise for a minimum of 6 months The most recent [place] [employer] of clinical endocrinologists and [place] [employer] guidelines recommend patients who [...] software and direct typing Please excuse inadvertent laser technician or typing errors, or uncorrected word substitutions Although every attempt has been made by the provider to proofread this document, occasional misspellings and typographical errors may still be present Due to the previous pandemic, and the use of personal protective equipment (PPE) This may decrease voice recognition accuracy Inadvertent laser technician errors may occur 08/31/2023 Hyperlipidemia (ICD-10 - E78.5) #Weight Management 08/31/2023 Continue compounded We will initiate PA for Wegovy 1 mg Total time spent today was 30 minutes of which greater than 50% was spent on coordinating and counseling Patient has been found to be obese with a BMI of (33). Patient has class (1) obesity. We are a board certified obesity and weight management practice Patient has trialed behavioral modification, dietary restrictions and exercise for a minimum of 6 months The most recent [place] [employer] of clinical endocrinologists and [place] [employer] guidelines recommend patients who [...] of follow-up The patient understands and agrees Patient was reassured and welcomed to the practice. We discussed that we stress a hollistic medical approach with emphasis on lifestyle modification. Patient was informed that a healthy lifestyle with exercise and good eating habits can help reduce his risk of medical complications. He is explained that obesity increases his risk of diabetes, cardiovascular disease, or organ damage. We spent a lot of time discussing the relationship between food, exercise, sleep, mental health and obesity. Patient was counseled on the importance EATING local, organic food when possible. Patient was educated on clean 15 and dirty dozen. I provided information about reading books called The Food Rules by Troy Dumont and Eat Fat Get Lean by Dr Paul Lombardi. Self education is important in the journey for weight management. Patient was offered diagnostic testing. We want to measure visceral adiposity, advanced body composition, adverse lipids, fatty acid balance, risk for heart disease and atherosclerosis, markers of inflammation and genetic susceptibility. Patient was counseled on weight management and was advised to lose weight using A. Meal Replacement Products We discussed the lifelong requirement of nutritional supplementation and adherence to an exercise regimen as well as importance of dietary f/u Patient was educated on the replacement products called optifast. This is a good way of taking fixed amount of calories. It has been shown in studies to be ineffective weight management tool. We also recommend maintaining adequate protein intake and muscle composition, 1.5mg/kg This however has to be coupled with lifestyle intervention as well as laboratory data and EKG monitoring. It is impossible to know how a person will tolerate complete meal replacement. The side effects of meal replacement and weight loss could include syncopal attacks, dizziness, gallstones, potential cholecystectomy, possible heart attack and even . The benefits of meal replacement would be potential weight loss but no guarantees can be made. Meal replacement products are not covered by insurance. Once the patient has bought these products we cannot return them B. Lifestyle management which includes several strategies as below 1. Eat a low carbohydrate good fat good protein diet. Eliminate refined carbohydrates from the diet. Continue blood sugar and sugared beverages. Eat local organic when possible. Cook your own meals. Read food labels. None about healthy snacks. Portion control and food with low glycemic index 2. Exercise regularly. Try to get at least 6000 steps a day. Use a predominant to track activity level. Consider using apps like [employer], [employer], lose it, stick as needed for self-monitoring and weight management. Consider group exercises. Consider hiring a personal financial advisor. Regular exercise is forbes to sustainable health and prevents as a buffer against weight regain 3. Sleep is most important for healing. Tried to sleep at least 8 hours a night. A good quality sleep needs a sleep ritual with ideal room temperature of around 68. It might help to take a shower and have no electronics in the room and sleep in a very dark room without artificial light. Start her sleep routine and get up early in the morning and go to bed on time 4. Make a social connection. Surround yourself with positive people with positive energy. Connect with friends and family. 5. Get into the habit of meditating and mindfulness while doing everything. 6. Go outside and connect with nature. C. Prescription medications Patient was educated on the use of prescription medications for medical weight loss. This is a growing list and includes phentermine, Topamax,Qsymia, contrave, belviq and saxenda, wegovy All prescription medications could have side effects including but not limited to kidney stones, seizure disorder cardiac arrhythmias heart attack pancreatitis etc. etc.. Patient was encouraged to read the prescription insert and have coaching with their pharmacist and make an informed decision about taking medication and know that these medications are being prescribed with good intentions and we do not know how a patient would react to her medication. Sudden medications are FDA approved for weight loss and there is also off label use depending on patient's inability to afford medications in an attempt to lose weight D. Behavioral counseling was done to establish a relationship between food and an mood. Patient was provided information about local counseling and psychiatry and Dr Angela at [facility]. We would like to cover regular topics and build on low glycemic eating exercise mindful eating, using yoga and meditation along with deep breathing and connecting with friends and family. E. MASS PAT reviewed, Patient's current medications were reviewed and opinion was given on medication that can cause weight gain and can be substituted F. Patient was assessed for risk with obesity including and not limiting to atherosclerosis heart disease stroke kidney disease, restrictive lung disease, irritable bowel syndrome and overall mortality. Risk of developing prediabetes diabetes and metabolic syndrome was discussed G. Therapeutic plan: We have decided to make therapeutic plan which would include choosing wisely on calories restricting portion getting active, tracking weight, getting good quality sleep and working on time management H. Patient will follow up in (4) weeks for weight management Of note, some information is being carried forward from prior records for informational purposes only and is being cited so that efficiency, safety and quality of the patient's care is not compromised This note was prepared using voice recognition software and direct typing Please excuse inadvertent laser technician or typing errors, or uncorrected word substitutions Although every attempt has been made by the provider to proofread this document, occasional misspellings and typographical errors may still be present Due to the previous pandemic, and the use of personal protective equipment (PPE) This may decrease voice recognition accuracy Inadvertent laser technician errors may occur 08/31/2023 Hyperlipidemia (ICD-10 - E78.5) #Weight Management 08/31/2023 Discussed compounded semaglutide program Will initiate this 0.25mg, and plan to transition to tradename Rowan Total time spent today was 30 minutes of which greater than 50% was spent on coordinating and counseling Patient has been found to be obese with a BMI of (33). Patient has class (1) obesity. We are a board certified obesity and weight management practice Patient has trialed behavioral modification, dietary restrictions and exercise for a minimum of 6 months The most recent [place] [employer] of [employer] endocrinologists and [place] [employer] guidelines recommend patients who [...] of follow-up The patient understands and agrees Patient was reassured and welcomed to the practice. We discussed that we stress a hollistic medical approach with emphasis on lifestyle modification. Patient was informed that a healthy lifestyle with exercise and good eating habits can help reduce his risk of medical complications. He is explained that obesity increases his risk of diabetes, cardiovascular disease, or organ damage. We spent a lot of time discussing the relationship between food, exercise, sleep, mental health and obesity. Patient was counseled on the importance EATING local, organic food when possible. Patient was educated on clean 15 and dirty dozen. I provided information about reading books called The Food Rules by Troy Dumont and Eat Fat Get Lean by Dr Paul Lombardi. Self education is important in the journey for weight management. Patient was offered diagnostic testing. We want to measure visceral adiposity, advanced body composition, adverse lipids, fatty acid balance, risk for heart disease and atherosclerosis, markers of inflammation and genetic susceptibility. Patient was counseled on weight management and was advised to lose weight using A. Meal Replacement Products We discussed the lifelong requirement of nutritional supplementation and adherence to an exercise regimen as well as importance of dietary f/u Patient was educated on the replacement products called optifast. This is a good way of taking fixed amount of calories. It has been shown in studies to be ineffective weight management tool. We also recommend maintaining adequate protein intake and muscle composition, 1.5mg/kg This however has to be coupled with lifestyle intervention as well as laboratory data and EKG monitoring. It is impossible to know how a person will tolerate complete meal replacement. The side effects of meal replacement and weight loss could include syncopal attacks, dizziness, gallstones, potential cholecystectomy, possible heart attack and even . The benefits of meal replacement would be potential weight loss but no guarantees can be made. Meal replacement products are not covered by insurance. Once the patient has bought these products we cannot return them B. Lifestyle management which includes several strategies as below 1. Eat a low carbohydrate good fat good protein diet. Eliminate refined carbohydrates from the diet. Continue blood sugar and sugared beverages. Eat local organic when possible. Cook your own meals. Read food labels. None about healthy snacks. Portion control and food with low glycemic index 2. Exercise regularly. Try to get at least 6000 steps a day. Use a predominant to track activity level. Consider using apps like Goombal, [employer], lose it, stick as needed for self-monitoring and weight management. Consider group exercises. Consider hiring a personal financial advisor. Regular exercise is forbes to sustainable health and prevents as a buffer against weight regain 3. Sleep is most important for healing. Tried to sleep at least 8 hours a night. A good quality sleep needs a sleep ritual with ideal room temperature of around 68. It might help to take a shower and have no electronics in the room and sleep in a very dark room without artificial light. Start her sleep routine and get up early in the morning and go to bed on time 4. Make a social connection. Surround yourself with positive people with positive energy. Connect with friends and family. 5. Get into the habit of meditating and mindfulness while doing everything. 6. Go outside and connect with nature. C. Prescription medications Patient was educated on the use of prescription medications for medical weight loss. This is a growing list and includes phentermine, Topamax,Qsymia, contrave, belviq and saxenda, wegovy All prescription medications could have side effects including but not limited to kidney stones, seizure disorder cardiac arrhythmias heart attack pancreatitis etc. etc.. Patient was encouraged to read the prescription insert and have coaching with their pharmacist and make an informed decision about taking medication and know that these medications are being prescribed with good intentions and we do not know how a patient would react to her medication. Sudden medications are FDA approved for weight loss and there is also off label use depending on patient's inability to afford medications in an attempt to lose weight D. Behavioral counseling was done to establish a relationship between food and an mood. Patient was provided information about local counseling and psychiatry and Dr Angela at [facility]. We would like to cover regular topics and build on low glycemic eating exercise mindful eating, using yoga and meditation along with deep breathing and connecting with friends and family. E. MASS PAT reviewed, Patient's current medications were reviewed and opinion was given on medication that can cause weight gain and can be substituted F. Patient was assessed for risk with obesity including and not limiting to atherosclerosis heart disease stroke kidney disease, restrictive lung disease, irritable bowel syndrome and overall mortality. Risk of developing prediabetes diabetes and metabolic syndrome was discussed G. Therapeutic plan: We have decided to make therapeutic plan which would include choosing wisely on calories restricting portion getting active, tracking weight, getting good quality sleep and working on time management H. Patient will follow up in (4) weeks for weight management Of note, some information is being carried forward from prior records for informational purposes only and is being cited so that efficiency, safety and quality of the patient's care is not compromised This note was prepared using voice recognition software and direct typing Please excuse inadvertent laser technician or typing errors, or uncorrected word substitutions Although every attempt has been made by the provider to proofread this document, occasional misspellings and typographical errors may still be present Due to the previous pandemic, and the use of personal protective equipment (PPE) This may decrease voice recognition accuracy Inadvertent laser technician errors may occur 12/28/2023 Status post laparoscopic cholecystectomy (ICD-10 - Z90.49) #Weight Management 12/28/2023 Status post laparoscopic cholecystectomy [...] minimum of 6 months The most recent [place] Association of clinical endocrinologists and [place] [employer] of endocrinology guidelines recommend patients who [...] software and direct typing Please excuse inadvertent laser technician or typing errors, or uncorrected word substitutions Although every attempt has been made by the provider to proofread this document, occasional misspellings and typographical errors may still be present Due to the previous pandemic, and the use of personal protective equipment (PPE) This may decrease voice recognition accuracy Inadvertent laser technician errors may occur 03/04/2024 Hyperlipidemia (ICD-10 - [...] minimum of 6 months The most recent [place] Association of clinical endocrinologists and [place] [employer] of endocrinology guidelines recommend patients who [...] software and direct typing Please excuse inadvertent laser technician or typing errors, or uncorrected word substitutions Although every attempt has been made by the provider to proofread this document, occasional misspellings and typographical errors may still be present Due to the previous pandemic, and the use of personal protective equipment (PPE) This may decrease voice recognition accuracy Inadvertent laser technician errors may occur 03/04/2024 Status post laparoscopic [...] minimum of 6 months The most recent [place] Association of clinical endocrinologists and [place] [employer] of endocrinology guidelines recommend patients who [...] software and direct typing Please excuse inadvertent laser technician or typing errors, or uncorrected word substitutions Although every attempt has been made by the provider to proofread this document, occasional misspellings and typographical errors may still be present Due to the previous pandemic, and the use of personal protective equipment (PPE) This may decrease voice recognition accuracy Inadvertent laser technician errors may occur PLAN OF TREATMENT Pending Test Test Name Order Date LIPID PANEL, STANDARD 07/24/2023 COMPREHENSIVE METABOLIC PANEL 07/24/2023 CBC (INCLUDES DIFF/PLT) 07/24/2023 URINALYSIS, COMPLETE 07/24/2023 HEMOGLOBIN A1c 07/24/2023 TSH 07/24/2023 VITAMIN D, 1,25 DIHYDROXY LC/MS/MS 07/24 Insurance Providers Payer Name Payer Address Payer Phone Subscriber Number Group Number Insured Name Patient Relationship to Insured Coverage Start Date Coverage End Date [facility] [address] [place] [address] [id number] LILIA VASQUEZ Self - patient is the insured 2 Medicare Part B J14 [address] [place] [address] [id number] LILIA VASQUEZ Self - patient is the [...]
--- OUTSIDE RECORDS SUMMARY | 2024-07-31 08:23 | XMS_ITS ---
Author Organization [facility] Address [address] [place] [address] Care Team Providers Care Terminal Block Assembler Name Role Phone JOSE LUISTIAN MARAVILLA Unavailable [phone] MEDICATIONS Medication SIG (Take, Route, Fr equency, Duration) Notes Start Date End Date Status Zepbound 2.5 MG/0.5ML 2.5 mg weekly Subc utaneous Weekly for 30 days Active Wegovy 1 MG/0.5ML 1mg Subcutaneous wee kly for 30 days Active PROBLEMS Problem Type ICD Code Onset Dates Problem Status W/U Status Risk SNOMED Code Notes Problem Hyperlipidemia (E78.5) Active confirmed Hyperlipidemia (55137329) Problem Status post laparoscopic cholecystectomy (Z90.49) Active confirmed History of cholecystectomy (964939809) Encounters Encounter Location Date Provider Diagnosis [place] [id number] [address] 03/04/2024 TIAN EWING Other obesity due to [...] minimum of 6 months The most recent [place] Association of clinical endocrinologists and [place] College of endocrinology guidelines recommend patients who [...] software and direct typing Please excuse inadvertent data developer or typing errors, or uncorrected word substitutions Although every attempt has been made by the provider to proofread this document, occasional misspellings and typographical errors may still be present Due to the previous pandemic, and the use of personal protective equipment (PPE) This may decrease voice recognition accuracy Inadvertent data developer errors may occur 03/04/2024 BMI 33.0-33.9,adult (ICD-10 [...] minimum of 6 months The most recent [place] Association of clinical endocrinologists and [place] College of endocrinology guidelines recommend patients who [...] software and direct typing Please excuse inadvertent data developer or typing errors, or uncorrected word substitutions Although every attempt has been made by the provider to proofread this document, occasional misspellings and typographical errors may still be present Due to the previous pandemic, and the use of personal protective equipment (PPE) This may decrease voice recognition accuracy Inadvertent data developer errors may occur 03/04/2024 Dietary counseling and [...] minimum of 6 months The most recent [place] Association of clinical endocrinologists and [place] College of endocrinology guidelines recommend patients who [...] software and direct typing Please excuse inadvertent data developer or typing errors, or uncorrected word substitutions Although every attempt has been made by the provider to proofread this document, occasional misspellings and typographical errors may still be present Due to the previous pandemic, and the use of personal protective equipment (PPE) This may decrease voice recognition accuracy Inadvertent data developer errors may occur 03/04/2024 Bipolar 1 disorder [...] minimum of 6 months The most recent [place] Association of clinical endocrinologists and [place] College of endocrinology guidelines recommend patients who [...] software and direct typing Please excuse inadvertent data developer or typing errors, or uncorrected word substitutions Although every attempt has been made by the provider to proofread this document, occasional misspellings and typographical errors may still be present Due to the previous pandemic, and the use of personal protective equipment (PPE) This may decrease voice recognition accuracy Inadvertent data developer errors may occur 03/04/2024 Hyperlipidemia (ICD-10 - [...] minimum of 6 months The most recent [place] Association of clinical endocrinologists and [place] College of endocrinology guidelines recommend patients who [...] software and direct typing Please excuse inadvertent data developer or typing errors, or uncorrected word substitutions Although every attempt has been made by the provider to proofread this document, occasional misspellings and typographical errors may still be present Due to the previous pandemic, and the use of personal protective equipment (PPE) This may decrease voice recognition accuracy Inadvertent data developer errors may occur 03/04/2024 Status post laparoscopic [...] minimum of 6 months The most recent [place] Association of clinical endocrinologists and [place] College of endocrinology guidelines recommend patients who [...] software and direct typing Please excuse inadvertent data developer or typing errors, or uncorrected word substitutions Although every attempt has been made by the provider to proofread this document, occasional misspellings and typographical errors may still be present Due to the previous pandemic, and the use of personal protective equipment (PPE) This may decrease voice recognition accuracy Inadvertent data developer errors may occur PLAN OF TREATMENT Medication Medication Name Sig Start Date Stop Date Notes Zepbound 2.5 MG/0.5ML 2.5 mg weekly Subc utaneous Weekly for 30 days Wegovy 1 MG/0.5ML 1mg Subcutaneous weekly for 30 days Progress Notes * SULEMAN VASQUEZOB:1970 (53 yo F)Acc No.[id number]:03/04/2024 Patient:??LILIA VASQUEZ Provider:??TIAN EWING NP :1970?Age:53 Y?Sex:Fe male Date:03/04/2024 Address:[address] [place], [place] [id number] Subjective: * Chief Complaints: * ? * HPI: ?Constitutional:? Patient is here today [...] medications, dual incretins, appetitite suppressants ?#Weight Management ?03/04/2024 ?Patient unfortunately was diagnosed with gallstone pancreatitis December 19 until December 14 at [facility] ?She underwent laparoscopic cholecystectomy ?She says [...] upstairs, Monique, for botox injections for headaches ?03/04/2024, Weight , BMI ?12/28/2023, Weight 195lbs , BMI 33 ?10/23/2023, [...] weight: 160's lbs ?Goal weight: 140-150lbs ?RONNIE screening/STOP-BANG/[place], * ?Has not had an echocardiogram recently. ?Diet: not portion controlling/calorie counting ?Exercise: Currently tracking steps daily, almost 8-10k ?Non-smoker. ?ETOH use: social. * ROS:?All Other Systems:?Review of Systems (ROS)??All others negative except those mentioned in HPI.? * Medical History:?? Objective: * Examination: ?General Examination: ?GENERAL APPEARANCE:??in no [...] post laparoscopic cholecystectomy - Z90.49?? #Weight Management 03/04/2024 Status post laparoscopic cholecystectomy [...] minimum of 6 months The most recent [place] Association of clinical endocrinologists and [place] College of endocrinology guidelines recommend patients who [...] software and direct typing Please excuse inadvertent data developer or typing errors, or uncorrected word substitutions Although every attempt has been made by the provider to proofread this document, occasional misspellings and typographical errors may still be present Due to the previous pandemic, and the use of personal protective equipment (PPE) This may decrease voice recognition accuracy Inadvertent data developer errors may occur. Plan: * Treatment: * Images: Billing Information: * Visit Code:?? * Procedure Codes:?? 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 Diet: not portion controlling/calorie counting Exercise: Currently tracking steps daily, almost 8-10k Non-smoker. ETOH use: social Examination Category Sub-Category Detail Notes Category Not es General Examination GENERAL APPEARANCE: in no ac quinault distress, well developed, well nourished HEAD: normocephalic, [...]
--- OUTSIDE RECORDS SUMMARY | 2024-07-31 08:23 | XMS_ITS ---
Author Organization [facility] Address [address] [place] [address] Care Team Providers Care Movie Actor Name Role Phone TIAN EWING Unavailable [phone] ALLERGIES Allergen (clinical drug ingredient) Drug/Non Drug [...] Problem BMI 33.0-33.9,ad ult (Z68.33) Active confirmed [id number] VITAL SIGNS Blood pressure systolic 106 mm Hg 12/28/19 24 Blood pressure diastolic 76 mm Hg 024 Heart Rate 90 /min 12/28/2023 Height 64 in 12/28/2023 Weight 195 lbs 12/28/2023 BMI 33.47 kg/m2 12/28/2023 Oximetry 98 % 12/28/2023 Encounters Encounter Location Date Provider Diagnosis [facility] [address] [facility] [address] [place] [address] 12/28/2023 TIAN EWING Other obesity due to excess calories E66.09 ; BMI 33.0-33.9,adult Z68.33 ; Dietary counseling and surveillance Z71.3 ; Bipolar 1 disorder F31.9 ; Hyperlipidemia E78.5 and Status post laparoscopic cholecystectomy Z90.49 ASSESSMENTS Encounter Date Diagnosis Assessment Notes Treatment Notes Treatment Clinical Notes Section Notes 12/28/2023 Other obesity due to excess [...] minimum of 6 months The most recent [place] Association of clinical endocrinologists and [place] [employer] of endocrinology guidelines recommend patients who [...] software and direct typing Please excuse inadvertent lamp inspector or typing errors, or uncorrected word substitutions Although every attempt has been made by the provider to proofread this document, occasional misspellings and typographical errors may still be present Due to the previous pandemic, and the use of personal protective equipment (PPE) This may decrease voice recognition accuracy Inadvertent lamp inspector errors may occur 12/28/2023 BMI 33.0-33.9,adult (ICD-10 [...] minimum of 6 months The most recent [place] Association of clinical endocrinologists and [place] [employer] of endocrinology guidelines recommend patients who [...] software and direct typing Please excuse inadvertent lamp inspector or typing errors, or uncorrected word substitutions Although every attempt has been made by the provider to proofread this document, occasional misspellings and typographical errors may still be present Due to the previous pandemic, and the use of personal protective equipment (PPE) This may decrease voice recognition accuracy Inadvertent lamp inspector errors may occur 12/28/2023 Dietary counseling and [...] minimum of 6 months The most recent [place] Association of clinical endocrinologists and [place] [employer] of endocrinology guidelines recommend patients who [...] software and direct typing Please excuse inadvertent lamp inspector or typing errors, or uncorrected word substitutions Although every attempt has been made by the provider to proofread this document, occasional misspellings and typographical errors may still be present Due to the previous pandemic, and the use of personal protective equipment (PPE) This may decrease voice recognition accuracy Inadvertent lamp inspector errors may occur 12/28/2023 Bipolar 1 disorder [...] minimum of 6 months The most recent [place] Association of clinical endocrinologists and [place] [employer] of endocrinology guidelines recommend patients who [...] software and direct typing Please excuse inadvertent lamp inspector or typing errors, or uncorrected word substitutions Although every attempt has been made by the provider to proofread this document, occasional misspellings and typographical errors may still be present Due to the previous pandemic, and the use of personal protective equipment (PPE) This may decrease voice recognition accuracy Inadvertent lamp inspector errors may occur 12/28/2023 Hyperlipidemia (ICD-10 - [...] minimum of 6 months The most recent [place] Association of clinical endocrinologists and [place] [employer] of endocrinology guidelines recommend patients who [...] software and direct typing Please excuse inadvertent lamp inspector or typing errors, or uncorrected word substitutions Although every attempt has been made by the provider to proofread this document, occasional misspellings and typographical errors may still be present Due to the previous pandemic, and the use of personal protective equipment (PPE) This may decrease voice recognition accuracy Inadvertent lamp inspector errors may occur 12/28/2023 Status post laparoscopic [...] minimum of 6 months The most recent [place] Association of clinical endocrinologists and [place] [employer] of endocrinology guidelines recommend patients who [...] software and direct typing Please excuse inadvertent lamp inspector or typing errors, or uncorrected word substitutions Although every attempt has been made by the provider to proofread this document, occasional misspellings and typographical errors may still be present Due to the previous pandemic, and the use of personal protective equipment (PPE) This may decrease voice recognition accuracy Inadvertent lamp inspector errors may occur PLAN OF TREATMENT Medication Medication Name Sig Start Date Stop Date Notes Wegovy 1 MG/0.5ML 1mg Subcutaneous weekly for 30 days Zepbound 2.5 MG/0.5ML 2.5 mg weekly Subc utaneous Weekly for 30 days Progress Notes * SULEMAN VASQUEZOB:1970 (53 yo F)Acc No.[id number]:12/28/2023 Patient:??LILIA VASQUEZ Provider:??TIAN EWING NP :1970?Age:53 Y?Sex:Fe male Date:12/28/2023 Address:[address] [place] [address] [facility] Subjective: * Chief Complaints: * ?1. wt [...] pancreatitis December 19 until December 14 at [facility] ?She underwent laparoscopic cholecystectomy ?She says her [...] weight: 160's lbs ?Goal weight: 140-150lbs ?RONNIE screening/STOP-BANG/[place], * ?Has not had an echocardiogram recently. [...] minimum of 6 months The most recent [place] Association of clinical endocrinologists and [place] [employer] of endocrinology guidelines recommend patients who [...] software and direct typing Please excuse inadvertent lamp inspector or typing errors, or uncorrected word substitutions Although every attempt has been made by the provider to proofread this document, occasional misspellings and typographical errors may still be present Due to the previous pandemic, and the use of personal protective equipment (PPE) This may decrease voice recognition accuracy Inadvertent lamp inspector errors may occur. Plan: * Treatment: * Images: Billing Information: * Visit Code:?? 11914 Office Visit, Est Pt., Level 4. * Procedure Codes:?? 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 [...]
--- OUTSIDE RECORDS SUMMARY | 2024-07-31 08:24 | XMS_ITS | Continuity of Care Document ---
Author Organization [facility] Address [address] [facility] [place] [address] Care Team Providers Care Wax Specialist Name Role Phone DESTINI SOLIS Referring Provider [phone] GONZALO WESTFALL OTHER [phone] Assessment No assessment recorded. Plan of Treatment Reminders Order Date Submit Date Provider Last Modified By Organization Details Last Modified Time Details Appointments FOLLOW UP EXT 2024 08:30A Liat Casas MD PhD Not available Not available Not available BOTOX 2024 12:00P Liat Casas MD PhD Not available Not available Not available FOLLOW UP EXT 2024 08:30A Liat Casas MD PhD Not available Not available Not available Lab None recorded . Referral None recorded . Procedures None recorded . Surgeries None recorded . Imaging None recorded . Medication Orders None recorded . Patient TargetsNo targets recorded. Patient InstructionsNo instructions recorded. Reason for Referral None Reported. 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 Procedures Surgical History Date Name Laterality Status Provider Name and Address Organization Details Recorded Time 5 botulinum injection completed Vitaliy Casas MD [address] [place] [address] [place], [phone], [facility] 07/30/2024 14:57:01 Imaging Results None recorded. Procedure Notes None recorded. Medical Equipment None Reported. Allergies Allergen ID Allergen Name Allergen Category Reaction Reaction Severity Criticality Documentation Date Start Date Code Code System Note Provider Name and Address Organization Details Recorded Time 4426 Substance with sulfonami de structure and antibacte rial mechanism of action (substanc e) medicatio n Not available Not available Not available 03/04/2024 30794 8003 [facility]ED [facility] 4 09:16:02 4427 Bactrim medicatio n Not available Not available Not available 03/04/2024 02715 9 RxNorm [place] [facility] 4 09:16:15 4428 amoxicill in medicatio n Not available Not available Not available 03/04/2024 723 RxNorm Andreea [facility] 4 09:16:24 Medications Name Sig Start Date Stop Date Status Note LastModified by Organization Details LastModified Time lamotrigine 150 mg tablet active Not Available Not Available Not Available loperamide 2 mg capsule active Not Available Not Available Not Available oxybutynin chloride ER 10 mg tablet,exte nded release 24 hr active Not Available Not Available Not Available hydrocodone 5 mg-acetamin ophen 325 mg tablet active Not Available Not Available No t Available metronidazo le 500 mg tablet active Not Available Not Available Not Available divalproex 500 mg tablet,rin yed release Take 1 tablet every day by oral route in the evening for 30 days, for migraine preventio n. active Not Available Not Available No t Available ciprofloxac in 500 mg tablet active Not Available Not Available Not Available lamotrigine 25 mg tablet active Not Available Not Available Not Available amitriptyli ne 25 mg tablet active Not Available Not Available Not Available dicyclomine 20 mg tablet active Not Available Not Available Not Available hyoscyamine sulfate 0.125 mg tablet active Not Available Not Available Not Available omeprazole 20 mg capsule,del ayed release active Not Available Not Available Not Available cefuroxime axetil 500 mg tablet active Not Available Not Available No t Available morphine 15 mg immediate release tablet active Not Available Not Available Not Available ondansetron 4 mg disintegrat ing tablet active Not Available Not Available N ot Available colestipol 1 gram tablet active Not Available Not Available Not Available Botox 100 unit injection inject up to 200 units into muscles of head, face and neck 2024 active Not Available Not Available Not Avai lable escitalopra m 20 mg tablet active Not Available Not Available Not Available eletriptan 40 mg tablet 1 tablet at the very beginning of migraine, may repeat after 1 hour, maximum 2 tablets / 24 hours, 6 tablets/w [place]. active Not Available Not Available No t Available cholestyram ine (with sugar) 4 gram oral powder active Not Available Not Available Not Available bupropion HCl XL 300 mg 24 hr tablet, extended release active Not Available Not Available Not Available Zomig 5 mg nasal spray 1 spray in one nostril, with head tilted slightly back, at the very beginning of migraine. Breath in gently through nose during the spray. May repeat once after 2 hours, maximum 2 sprays / 24 hours, 6 sprays/we ek. 2023 active Not Available Not Available Not Avai lable duloxetine 30 mg capsule,del ayed release active Not Available Not Available Not Available tizanidine 2 mg capsule active Not Available Not Available Not Available fesoterodin e ER 4 mg tablet,exte nded release 24 hr active Not Available Not Available Not Available Botox 200 unit injection active Not Available Not Available No t Available Myrbetriq 50 mg tablet,exte nded release active Not Available Not Available Not Available Emgality Pen 120 mg/mL subcutaneou s pen injector Inject 1 mL every month by subcutane ous route for 30 days, for migraine preventio n. active Not Available Not Available No t Available Aimovig Autoinjecto r 140 mg/mL subcutaneou s auto-inject or 05/14 completed Not Available Not Available Not Available Ubrelvy 100 mg tablet TAKE 1 TABLET BY MOUTH ONCE MAY REPEAT DOSE ONCE AFTER 2 HRS NEEDED NOT TO EXCEED 200 MG IN 24 HR active Not Available Not Available No t Available Ajovy 225 mg/1.5 mL subcutaneou s auto-inject or 05/14 completed Not Available Not Available Not Available Zepbound 2.5 mg/0.5 mL subcutaneou s pen injector active Not Available Not Available Not Available Vitals None Recorded Social History Question Answer Notes LastModified by Organizat ion Details LastModified Time Tobacco Smoking Status Never Smoker Andreea hillman MA [facility] 03/04/2024 09:19:03 What Is Your Level Of Alcohol Consumption? None Information not available 03/04/2024 What Is Your Level Of Caffeine Consumption? None Information not available 03/04/2024 What Is The Highest Grade Or Level Of School You Have Completed Or The Highest Degree You Have Received? [id number] Information not available 03/04/2024 Which Of Your Hands Is Dominant? Right Information not available 03/04/2024 Sex: Unknown Functional Status None recorded. Mental Status None recorded. Family History Relationship Description Onset Age of this Age Resolved Age Notes LastModified by Organization Details LastModified Time Mother Headache [email or web address] Not avail able 03/04/2024 09:16:55 Mother Tremor MS [email or web address] Not availab le 03/04/2024 09:18:02 Unspecified Relation Hypertensive disorder self [email or web address] Not available 12/2023 09:17:12 Brother Seizure [email or web address] Not avail able 03/04/2024 09:17:26 Brother Cerebrovascu lar accident [email or web address] Not available 03/04/2024 09:17:39 Medical History Condition Response Depression Y Headaches Y Thyroid Problems Y Gynecological HistoryNo gynecological history recorded. 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 13345007 G5 1.33 Health Concerns Section Related Observation LastModified by Organization Detai ls LastModified Time None Recorded Concern Status LastModified by Organization Details LastModified Time None Recorded Payers Encounter Date Sequence Insurance Name Policy Number Policy Edwards Covered Member ID Edwards Member ID Guarantor Name 07/30/2024 1 [facility] [id number] 1 Charity B B [place] [id number] Charity B [place] 07/30/2024 2 [place] [facility] Charity Soria [id number] Charity Sorai Notes Date Note Type Note Provider Name and Address Organization Details Recorded Time 07/30/2024 text/html Follow-up for botulinum toxin injections for multifocal painful muscle spasm triggering headache.? She is unaccompanied>>>> >>>>>>> July 30, 2024 BOTOX:Headaches bad, 20/10 at waking every day, dissipates with medication but comes back later in the day.Currently bilateral at the front of her head prominent. Vitaliy Casas MD [address] [place] [address] [place], [phone], [facility] 07/30/2024 15:02:35 OBGyn Episode No OBEpisode recorded.
--- OUTSIDE RECORDS SUMMARY | 2024-07-31 08:24 | XMS_ITS ---
Author Organization [facility] Address [address] [place] [address] Care Team Providers Care Technical Systems Architect Name Role Phone TIAN EWING Unavailable [phone] Encounters Encounter Location Date Provider Diagnosis [facility] [address] [facility] [address] [place] [address] 10/30/2023 TIAN EWING PLAN OF TREATMENT No Information Progress Notes * SULEMAN VASQUEZOB:1970 (53 yo F)Acc No.[id number]:10/30/2023 Patient:??LILIA VASQUEZ Provider:??TIAN EWING NP :1970?Age:53 Y?Sex:Fe male Date:10/30/2023 Address:[address] [place] [address], [id number] Subjective: * Chief Complaints: * ? * Medical History:?? Objective: Assessment: Plan: * Treatment: * Images: Billing Information: * Visit Code:?? * Procedure Codes:?? * Sign off status: Pending * Provider:??TIAN EWING NP Date:??08/2023
--- OUTSIDE RECORDS SUMMARY | 2024-07-31 08:25 | XMS_ITS | Data Portability ---
Author Organization [facility]ly [facility] [employer] Address [address] [place] [address] [place] [address] Care Team Providers Care Veneer Stapler Name Role Phone DESTINI SOLIS Referring Provider GONZALO WESTFALL OTHER Assessment Encounter Date Assessment Date Assessment LastModified by Organization Details LastModified Time 03/04/2024 03/04/2024 IMPRESSION: Chronic migraine with spots as aura, ? Presenting March 04, 2024 25/30 migraine days, 20 days/month at least partially debilitated (from migraine and/or fibromyalgia) ? March 04, [address] 500 mg nightly, Emgality monthly injection, Botox November 2023 at best wearing off, the latter without benefit recently per patient.? O ctober 2023 migraine breakthrough medications: Eletriptan oral, zolmitriptan nasal spray. >>>>>>>>>>>>Octobe r 2023 She would like me to take over management for migraine and I will do this prescribing preventative medications divalproex DR 500 mg nightly, Emgality monthly; and migraine breakthrough medications: Eletriptan oral, zolmitriptan nasal spray. We agree that our front office will address preauthorization issues if/when they come up, as preauthorization issue may rearise with new prescriber. Still divalproex DR is a class I migraine preventative but also has prominent mood stabilization efficacy. She is unsure whether her psychiatrist knows that she is on this since spring 2023. I encouraged her to share this information. Lamotrigine 75 mg daily has been prescribed by neurology for sleep, depression and migraine. Lamotrigine is not a class I migraine preventative although it sometimes use. Lamotrigine is a commonly used medication in psychiatry for mood issues. I am reluctant to continue prescribing this and I asked her to talk with psychiatry about taking lamotrigine over. She agrees. Amitriptyline 25 mg nightly has been prescribed by neurology for sleep and depression, more under the purview of psychiatry issues. Amitriptyline has class I migraine benefit but she reports that it has not helped her. I again asked her to talk with psychiatry about taking over the amitriptyline. Duloxetine 30 mg daily is described by neurology for fibromyalgia. I do not manage fibromyalgia. Duloxetine also has significant efficacy for depression and anxiety. Duloxetine also has serotonergic interaction with escitalopram which is prescribing currently by psychiatry. It also has interaction with amitriptyline. For all of these reasons, I asked her to talk with psychiatry about taking over the amitriptyline. Topiramate has not caused side effects and she thinks it helped in the past. It is a possible future direction. Propranolol has not been tried and is also a possible future direction. >>>>>>>>>>>> PLAN Charity Soria March 04, 2024 Migraine prevention: Emgality 120 mg monthly subcutaneous injection for migraine prevention Divalproex DR 500 mg every evening. Migraine breakthrough: Zomig 5 mg nasal spray: 1 spray in one nostril, with head tilted slightly back, at the very beginning of migraine. Breath in gently through nose during the spray. May repeat once after 2 hours, maximum 2 sprays / 24 hours, 6 sprays/week. Eletriptan 40 mg tablet: 1 tablet at the very beginning of migraine, may repeat after 1 hour, maximum 2 tablets / 24 hours, 6 tablets/week. Discontinue all of the above medications if you begin trying to get . Follow-up in 3 months [email or web address] Not available 03/04/2024 13:06:37 06/19/2024 06/19/2024 IMPRESSION: Chronic migraine with spots as aura, ? Presenting March 04, 2024 25/30 migraine days, 20 days/month at least partially debilitated (from migraine and/or fibromyalgia) ? March 04, [address] 500 mg nightly, Emgality monthly injection, Botox November 2023 at best wearing off, the latter without benefit recently per patient.? O ctober 2023 migraine breakthrough medications: Eletriptan oral, zolmitriptan nasal spray. -- June 19, 2024 unchanged but significantly bothersome headache frequency and character; imbalance with falls >>>>>>>>>>>>Anuja george 2024 She wishes to restart Botox. This is in the context of her stopping Botox previously because she felt it was not providing benefit. She wonders if I do it the way her previous neurologists have done it. I cannot say. I do not have notes detailing how they did it. We discussed this and she decides that she still wants Botox and I can do it the way I do it. In the absence of guidance from previous neurologist I will use a follow the great method to start off. Neurological exam reveals very mild imbalance with tandem gait? s tepping out every three or four steps? a nd is otherwise unrevealing with focus on the lower extremities and gait. Physical therapist wished me to consider MRI to investigate this. I do not know what I would be looking for and I tell the patient I do not recommend an MRI from the neurological perspective. She wonders if I believe she has multiple sclerosis. I do not believe she has multiple sclerosis. Her therapist has suggested a cane. As she is fallen, I do not disagree with this. With benign neurological exam, the only thing I might suggest is blood work: B12 studies, copper, vitamin E. I defer this blood work to primary care if not already done. >>>>>>>>>>>>Octobe r 2023 Initial impression and management directions: She would like me to take over management for migraine and I will do this prescribing preventative medications divalproex DR 500 mg nightly, Emgality monthly; and migraine breakthrough medications: Eletriptan oral, zolmitriptan nasal spray. We agree that our front office will address preauthorization issues if/when they come up, as preauthorization issue may rearise with new prescriber. Still divalproex DR is a class I migraine preventative but also has prominent mood stabilization efficacy. She is unsure whether her psychiatrist knows that she is on this since spring 2023. I encouraged her to share this information. Lamotrigine 75 mg daily has been prescribed by neurology for sleep, depression and migraine. Lamotrigine is not a class I migraine preventative although it sometimes use. Lamotrigine is a commonly used medication in psychiatry for mood issues. I am reluctant to continue prescribing this and I asked her to talk with psychiatry about taking lamotrigine over. She agrees. Amitriptyline 25 mg nightly has been prescribed by neurology for sleep and depression, more under the purview of psychiatry issues. Amitriptyline has class I migraine benefit but she reports that it has not helped her. I again asked her to talk with psychiatry about taking over the amitriptyline. Duloxetine 30 mg daily is described by neurology for fibromyalgia. I do not manage fibromyalgia. Duloxetine also has significant efficacy for depression and anxiety. Duloxetine also has serotonergic interaction with escitalopram which is prescribing currently by psychiatry. It also has interaction with amitriptyline. For all of these reasons, I asked her to talk with psychiatry about taking over the amitriptyline. Topiramate has not caused side effects and she thinks it helped in the past. It is a possible future direction. Propranolol has not been tried and is also a possible future direction. >>>>>>>>>>>> PLAN Charity Soria June 19, 2024 Migraine prevention: Emgality 120 mg monthly subcutaneous injection for migraine prevention Divalproex DR 500 mg every evening. Migraine breakthrough: Zomig 5 mg nasal spray: 1 spray in one nostril, with head tilted slightly back, at the very beginning of migraine. Breath in gently through nose during the spray. May repeat once after 2 hours, maximum 2 sprays / 24 hours, 6 sprays/week. Eletriptan 40 mg tablet: 1 tablet at the very beginning of migraine, may repeat after 1 hour, maximum 2 tablets / 24 hours, 6 tablets/week. Ubrelvy 100 mg tablet at the beginning of migraine, may repeat in 2 hours, maximum 200 mg / 24 hours Discontinue all of the above medications if you begin trying to get . Botox 200 units, using follow-up agreed method, for multifocal muscle spasm triggering migraine Follow-up in 6 months to follow medications [email or web address] Not available 06/19/2024 10:59:16 Plan of Treatment Reminders Order Date Submit [...] available Not available Not available Lab None recorded. Referral None recorded. Procedures None recorded. Surgeries None recorded. Imaging None recorded. Medication Orders divalproe x 500 mg tablet,de layed release 2023 [facility], [address] [place], [id number], 03/04/2024 10:19:24 eletripta n 40 mg tablet 2023 [facility], [address] [facility], [place], [id number], 03/04/2024 10:19:23 Zomig 5 mg nasal spray 2023 [facility], [address] [facility], [place], [address], 03/04/2024 10:19:23 Emgality Pen 120 mg/mL subcutane ous pen injector 2023 [facility], [address] [place], [address], 03/04/2024 10:19:22 Patient TargetsNo targets recorded. Patient Instructions Encounter Date Encounter Id Patient Instructions Last Modified By Organization Details Last Modified Time 03/04/2024 [id number] Discussion acros s issues of diagnoses and management and same day associated chart review and management greater than 50% greater than 60 minutes [email or web address] Not available 03/04/2024 13:06:45 06/19/2024 [id number] Discussion acros s issues of diagnoses and management and same day associated chart review and management greater than 50% greater than 40 minutes [email or web address] Not available 06/19/2024 11:00:04 Reason for Referral None Reported. Problems Name Problem SNOMED Code Status Onset Date Resolution Date Notes Provider Name and Address Organization Details Recorded Time Migraine without aura 44470473 Active 024 Esther Benz [facility] 4 09:37:47 Hemifacial spasm 74847144 Active 025 Esther Benz [facility] 5 16:54:34 Problem Notes None recorded. Procedures Surgical History Date Name Laterality Status Provider Name and Address Organization Details Recorded Time 5 botulinum injection completed Vitaliy Casas MD [address] [place] [address], [phone], [facility] 07/30/2024 14:57:01 Imaging Results None recorded. Procedure [...] Not available Not available Not available 03/04/2024 [id number] SNOMED [place] [facility] 4 09:16:02 4427 Bactrim medicatio n Not available Not available Not available 03/04/2024 [id number] RxNorm [facility] 4 09:16:15 4428 amoxicill in medicatio n Not available Not available Not available 03/04/2024 723 RxNorm [place] [facility] 4 09:16:24 Medications Name Sig Start [...] 2 tablets / 24 hours, 6 tablets/w ekuk. active Not Available Not Available No t [...] Not Available Not Available Not Available Vitals Date Recorded Body height Body mass index (BMI) Body weight Provider Name and Address Organization Details Last Updated DateTime 03/04/2024 167.64 cm 32.3 kg/m2 21538.47 g [facility] 03/04/2024 09:18:41 Social History Question Answer Notes LastModified by Organizat ion Details LastModified Time Tobacco Smoking Status Never Smoker [facility] 03/04/2024 09:19:03 What Is Your Level Of Alcohol Consumption? None Information not available 03/04/2024 What Is Your Level Of Caffeine Consumption? None [email or web address] Information not available 03/04/2024 What Is The Highest Grade Or Level Of School You Have Completed Or The Highest Degree You Have Received? [id number] [facility] [address] Information not available 03/04/2024 Which Of Your [...] available 03/04/2024 09:17:39 Medical History Condition Response Headaches Y Thyroid Problems Y Depression Y Gynecological HistoryNo gynecological history recorded. Obstetrics History GPAL:G 0 P 0 0 0 0 Past Encounters Encounter ID Performer Location Encounter Start Date Encounter Closed Date Diagnosis/Indication Diagnosis SNOMED-CT Code Diagnosis ICD10 Code Diagnosis Note [id number] Vitaliy Casas MD [facility] [address] [place] [address] [place] [address] 03/04/2024 09:00:15 03/04/2024 16:51:36 Migraine with aura 7620752 G43.109 [id number] Vitaliy Casas MD [facility] [address] [place] [address] [place] [id number] 06/19/2024 09:58:38 06/19/2024 11:39:15 Migraine with aura 0793207 G43.109 Dystonia 68653927 G24.3 Facial spasm 99110469 G5 1.33 Primary to rsion dystonia 65342493 G24.1 Keeps losing balance 249 050104 R26.81 [id number] Vitaliy Casas MD [facility] [address] [place] [address] [place] M[place] [id number] 07/30/2024 14:04:23 07/30/2024 15:35:21 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 Dystonia 15706350 G24.3 Facial spasm 94940066 G5 1.33 Health Concerns Section Related Observation LastModified by Organization Detai ls LastModified Time None Recorded Concern Status LastModified by Organization Details LastModified Time None Recorded Advance Directives Directive None Recorded Payers Encounter Date Sequence Insurance Name Policy Number Policy Edwards Covered Member ID Edwards Member ID Guarantor Name 03/04/2024 1 [facility] [id number] Charity B B Estella [id number] Charity B Estella 03/04/2024 2 MEDICARE B-[place]: [employer] Charity B Duncombe [id number] Charity B Duncombe 06/19/2024 1 [facility] [id number] 1 Charity B B Dun[place] [id number] Charity B Duncombe 06/19/2024 2 MEDICARE B-[place]: NATIONAL [employer]OVERNMENT SERVICES Charity B Estella [id number] Charity B Estella 07/30/2024 1 [facility] [id number] 1 Charity Soria [id number] Charity Soria 07/30/2024 2 MEDICARE B-[place]: [facility] [employer] Charity Sroia [id number] Charity Soria Notes Date Note Type Note Provider Name and Address Organization Details Recorded Time 03/04/2024 text/html Charity Soria presents for initial neurology consultation for assessment and management of migraine.? Past history per patient also includes body pain with diagnosis of fibromyalgia, depression, insomnia, history of ulcer relating to NSAID use, history of pancreatitis status post December 2023 hospitalization.? She is unaccompanied>>>>>>> >>>>>March 04, 2024 presenting symptomotology:She is here because she gets pretty bad migraines. Her previous neurologist retired. She has an aura of spots in her visual field currently.Migraine headache pain occurs ~25/30 days of an average month. She is incapacitated at least part of the day from headache or body pain on these days about 20 days/month. Incapacitating headache pain is present more than half of these days she is incapacitated and incapacitating body pain is present about half of the days.We review current medications related to migraine and/or prescribed by her previous neurologist. She reports no side effects to any of these medications:Botox injections every 3 months, last injections November 2023. These have not helped recently and she does not wish to continue.Emgality monthly subcutaneous migraine prevention injection: This helps. Migraine improves a few days after her injection every month. (Her pharmacy does not list Emgality. We called them and they have no record of Emgality. They do list Ajovy but the last prescription for that was filled September 2023. They do have Aimovig but the last prescription for that was filled in 2022.)Divalproex DR 500 mg every evening started October 2023, the most recent migraine prevention change. This also helps as she felt less migraine headache pain soon after she started the medication. Her mood has also been smoother, less angry since starting the medication divalproex DR.Eletriptan 40 mg, Zomig 5 mg nasal spray and Ubrelvy 100 mg all help equally well without side effects for migraine breakthrough. There is variability for each so that sometimes they help partially and other times they help completely so that for a while she has no headache. She has previously taken both sumatriptan tablets and sumatriptan nasal spray and they helped equivalently without side effects.Lamotrigine 25 mg tablets, 3 tablets daily is prescribed by her previous neurologist for sleep, depression and migraines;Amitriptyl ine 25 mg nightly is prescribed by her previous neurologist for sleep and depression. Amitriptyline did not help for headaches/migraines. Duloxetine 30 mg daily is prescribed for fibromyalgia pain by her previous neurologist.Her psychiatrist, Dr. Adrianna Chaparro, prescribes escitalopram 20 mg and bupropion 300 mg daily for depression.She also takes omeprazole 20 mg and hyoscyamine for GI issues from her GI healthcare provider; and cetirizine from PCP.OTC medications ibuprofen, vitamin B, another vitamin, magnesium, calcium, multivitamin She recognizes Topamax as a previous medication for migraine from a previous neurologist. It helped partially. She cannot say why it was discontinued. She remembers no side effects. She does not remember propranolol or venlafaxine ER. Vitaliy Casas MD [address] [place] [address], [phone], [facility] 03/04/2024 13:07:01 06/19/2024 text/html Neurology follow -up of migraine.? Past history per patient also includes body pain with diagnosis of fibromyalgia, depression, insomnia, history of ulcer relating to NSAID use, history of pancreatitis status post December 2023 hospitalization.? She is unaccompanied >>>>>>>>>>>>June 19, 2024Since March 04, 2024 Inititial neurology consultation, she continues with frequent intermittent headaches which bother her. There has been no change in character or frequency since then. She is taking Ubrelvy as one of her breakthrough medicines for migraine. We had not discussed that at initial consultation but she phoned our office to request prescription as she had forgot to mention it. I have provided that prescription. We review she now has three options for migraine breakthrough: Eletriptan, no make and the Ubrelvy. This complements her migraine preventative medication, Emgality monthly subcutaneous injection.She is also upset that her son broke his ankle in three places playing rugby at college. He declines to come home even though she feels he would do best at home finding a surgeon to do the surgery as soon as possible.She also is having problems walking. She has fallen. Physical therapist asked her to check in with me about this. Physical therapy is suggesting a cane. >>>>>>>>>>>>March 04, 2024 presenting symptomatology:She is here because she gets pretty bad migraines. Her previous neurologist retired. She has an aura of spots in her visual field currently.Migraine headache pain occurs ~25/30 days of an average month. She is incapacitated at least part of the day from headache or body pain on these days about 20 days/month. Incapacitating headache pain is present more than half of these days she is incapacitated and incapacitating body pain is present about half of the days.We review current medications related to migraine and/or prescribed by her previous neurologist. She reports no side effects to any of these medications:Botox injections every 3 months, last injections November 2023. These have not helped recently and she does not wish to continue.Emgality monthly subcutaneous migraine prevention injection: This helps. Migraine improves a few days after her injection every month. (Her pharmacy does not list Emgality. We called them and they have no record of Emgality. They do list Ajovy but the last prescription for that was filled September 2023. They do have Aimovig but the last prescription for that was filled in 2022.)Divalproex DR 500 mg every evening started October 2023, the most recent migraine prevention change. This also helps as she felt less migraine headache pain soon after she started the medication. Her mood has also been smoother, less angry since starting the medication divalproex DR.Eletriptan 40 mg, Zomig 5 mg nasal spray and Ubrelvy 100 mg all help equally well without side effects for migraine breakthrough. There is variability for each so that sometimes they help partially and other times they help completely so that for a while she has no headache. She has previously taken both sumatriptan tablets and sumatriptan nasal spray and they helped equivalently without side effects.Lamotrigine 25 mg tablets, 3 tablets daily is prescribed by her previous neurologist for sleep, depression and migraines;Amitriptyl ine 25 mg nightly is prescribed by her previous neurologist for sleep and depression. Amitriptyline did not help for headaches/migraines. Duloxetine 30 mg daily is prescribed for fibromyalgia pain by her previous neurologist.Her psychiatrist, Dr. Adrianna Chaparro, prescribes escitalopram 20 mg and bupropion 300 mg daily for depression.She also takes omeprazole 20 mg and hyoscyamine for GI issues from her GI healthcare provider; and cetirizine from PCP.OTC medications ibuprofen, vitamin B, another vitamin, magnesium, calcium, multivitamin She recognizes Topamax as a previous medication for migraine from a previous neurologist. It helped partially. She cannot say why it was discontinued. She remembers no side effects. She does not remember propranolol or venlafaxine ER. Vitaliy Casas MD [address] [place] [address] [place], [phone], [facility] 06/19/2024 11:01:44 07/30/2024 text/html Follow-up for botulinum toxin injections for multifocal painful muscle spasm triggering headache.? She is unaccompanied>>>>>>> >>>> July 30, 2024 BOTOX:Headaches bad, 20/10 at waking every day, dissipates with medication but comes back later in the day.Currently bilateral at the front of her head prominent. Vitaliy Casas MD [address] [place] [address] [place], [phone], [facility] 07/30/2024 15:02:35 OBGyn Episode No OBEpisode recorded.
== END 2024-07-31 11:31 | disposition home or self-care (01) ==
PROVIDERS: PCP Family Medicine; Visit Provider Internal Medicine Gastroenterology
DX: K85.30 Drug induced acute pancreatitis without necrosis or infection (principal); R74.8 Abnormal levels of other serum enzymes; R10.32 Left lower quadrant pain; K52.9 Noninfective gastroenteritis and colitis, unspecified
CPT/HCPCS: 99214

== ENCOUNTER → 2024-07-31 08:09 | Outpatient (BNVA) | payer OTHER, MEDICARE, SELFPAY | PROVIDERS: PCP Family Medicine; Visit Provider Internal Medicine Gastroenterology ==

== ENCOUNTER 2024-09-03 10:02 | Emergency (ER) | payer MEDICARE, OTHER, SELFPAY ==
--- NOTE | ~2024-09-03 | XR_ITS ---
EXAMINATION: XR WRIST, LEFT CLINICAL INFORMATION: pain COMPARISON: None available. TECHNIQUE: PA, lateral, oblique, and scaphoid views of the left wrist. FINDINGS: The bones and soft tissues are normal. No fracture. Alignment is anatomic with normal joint spaces. No erosions or abnormal soft tissue calcifications. XR/XR wrist LT min 3V IMPRESSION: Normal left wrist. Electronically signed by: Malcom Carolina MD 09/03/2024 12:16 PM EDT
[2024-09-03 10:24] VITALS: BP 123/57; BP 178/102; PULSE 97; RESP 22; TEMP 36.7; O2SAT 99; BMI 32.3
--- NOTE | 2024-09-03 10:44 | ED_ITS ---
HPI - Extremity Problem General Chief complaint: Extremity Injury, Upper Stated complaint: BUE WEAK/NUMB/PAIN PER EMS Time Seen by Provider: 09/03/24 10:43 Source: patient and RN notes reviewed Mode of arrival: EMS Limitations: no limitations History of Present Illness ED Provider: Sally Werner PA-C HPI Narrative: This is a 54-year-old female, with a history of carpal tunnel syndrome, pancreatitis, GERD, migraines, who presents emergency department with concerns for left wrist pain since this morning. Patient reports that she woke up this morning with left wrist pain. She states that she tried to go about her day however when she was driving the pain worsened. She states that she has had numbness and tingling into her fingers. She has a history of carpal tunnel in her symptoms feel like this however more severe. She states that the pain starts in her left wrist and radiates up into her left elbow. Pain worsens with movement, and with palpation. She denies any fevers, dizziness, blurred vision, chest pain, shortness of breath, abdominal pain, nausea, vomiting or diarrhea. Denies taking any medications at home to treat her current symptoms. Denies any other complaints or concerns at this time. MD Complaint: extremity pain Quality: aching Relieving factors: nothing Exacerbating factors: range of motion and palpation Associated symptoms: denies other symptoms Related Data Home Medications ?Medication ?Instructions ?Recorded ?Confirmed amitriptyline 25 mg tablet 50 mg PO BEDTIME 12/23/23 07/31/24 bupropion HCl 300 mg 24 hr tablet, 300 mg PO DAILY 12/23/23 07/31/24 extended release calcium 500 mg 1 tab PO DAILY 12/23/23 07/31/24 (carb,gluconate)-magnesium 250 mg (gluc,oxide) tablet (Calcium Magnesium) divalproex 500 mg tablet,delayed 500 mg PO BEDTIME 12/23/23 07/31/24 release duloxetine 30 mg capsule,delayed 60 mg PO DAILY 12/23/23 07/31/24 release eletriptan 40 mg tablet 40 mg PO DAILY MRX1 PRN Migraine 12/23/23 07/31/24 Headache escitalopram oxalate 20 mg tablet 20 mg PO DAILY 12/23/23 07/31/24 fesoterodine 4 mg tablet,extended 4 mg PO DAILY 12/23/23 07/31/24 release 24 hr hyoscyamine sulfate 0.125 mg tablet 0.25 mg PO BID PRN GI Upset 12/23/23 07/31/24 lamotrigine 25 mg tablet 75 mg PO DAILY 12/23/23 07/31/24 oxybutynin chloride 10 mg 10 mg PO DAILY 12/23/23 07/31/24 tablet,extended release 24 hr tirzepatide (weight loss) 2.5 2.5 mg subcut TU@0900 12/23/23 07/31/24 mg/0.5 mL subcutaneous pen injector (Zepbound) vitamin B complex 1 cap PO DAILY 12/23/23 07/31/24 zolmitriptan 5 mg nasal spray 5 mg intranasal DAILY MRX1 PRN 12/23/23 07/31/24 Migraine Headache Previous Rx's ?Medication ?Instructions ?Recorded dicyclomine 20 mg tablet 20 mg PO QID PRN abdominal pain 02/05/24 #20 tabs loperamide 2 mg tablet (Imodium 2 mg PO Q6H PRN loose stool #14 02/05/24 A-D) tabs omeprazole 20 mg tablet,delayed 20 mg PO BID 60 days #120 tabs 04/17/24 release morphine 15 mg immediate release 15 mg PO Q6H PRN pain #10 tabs 04/21/24 tablet ondansetron 4 mg disintegrating 4 mg PO Q8H PRN nausea and 04/21/24 tablet vomiting #20 tabs colestipol 1 gram tablet 1 g PO TID 30 days #90 tabs 06/11/24 bisacodyl 5 mg tablet,delayed 20 mg (4 x 5 mg) PO ONCE colon 07/31/24 release (Dulcolax (bisacodyl)) prep 1 day #4 tabs polyethylene glycol 3350 17 17 g PO DAILY 1 day #238 grams 07/31/24 gram/dose oral powder (Miralax) acetaminophen 500 mg tablet 1,000 mg (2 x 500 mg) PO Q6H PRN 09/03/24 (Tylenol Extra Strength) pain #30 tabs cyclobenzaprine 10 mg tablet 10 mg PO TID #12 tabs 09/03/24 ketorolac 10 mg tablet 10 mg PO Q8H 2 days #6 tabs 09/03/24 Allergies Allergy/AdvReac Type Severity Reaction Status Date / Time Sulfa (Sulfonamide Allergy Severe Rash Verified 09/03/24 10:29 Antibiotics) sulfamethoxazole Allergy Severe Rash Verified 07/31/24 08:13 [From Bactrim] trimethoprim [From Bactrim] Allergy Severe Rash Verified 07/31/24 08:13 Erythromycin Allergy Severe Gastrointestinal Uncoded 04/21/24 19:16 Upset Review of Systems 2 Review of Systems: Yes all other systems are reviewed and are negative Constitutional: Constitutional: Reports as per [facility] Past Medical History Attestation statement: The following information was validated with the patient. Medical History RONNIE (obstructive sleep apnea) Migraine Depression Surgical History H/O colonoscopy History of appendectomy Social History Social History Household Members: Family Housing: House Do you presently have visiting nurse or other home services: No Alcohol intake: never Patient Tobacco Use Status: Never used Tobacco Advance Directives Date on File: 12/27/23 service: No Physical Exam 2 Vital Signs: Vital Signs: Last Vital Signs Temp 97.8 F 09/03/24 15:40 Pulse 74 09/03/24 15:40 Resp 14 09/03/24 15:40 BP 112/67 09/03/24 15:40 Pulse Ox 96 09/03/24 15:40 O2 Del Method Room Air 09/03/24 15:40 BMI result Body Mass Index 32.3 Const: General: cooperative, comfortable and no acute distress O rientation/consciousness: patient oriented x3 Limitations: no limitations HEENT: Head: Yes normal to inspection, Yes normocephalic and Yes atraumatic Ears: hearing grossly normal bilaterally General nose exam: Normal external nose present Face and sinus: Yes normal facial exam Mouth: Normal oral and palatal mucosa present, oropharynx normal and moist mucous membranes Throat: Yes posterior oropharynx normal Eyes: General: appearance normal, both eyes and all related structures E yelids: Yes eyelids normal Conjunctivae: conjunctivae normal Sclerae: s clerae normal Pupils: Equal, round and reactive pupils present EOM: EOMs intact bilaterally Neck: Neck: Yes normal visual inspection, Yes full ROM and Yes no lymphadenopathy Lymphatic: no lymphadenopathy noted Chest: Chest palpation & inspection: normal inspection of the chest Resp: Effort & Inspection: normal respiratory effort and able to speak in complete sentences Auscultation: clear to auscultation bilaterally, no crackles, no rales, no rhonchi and no wheezes Cardio: Rate: regular rate Rhythm: regular rhythm Heart sounds: S1 normal heart sound present and S2 normal heart sound present GI: Inspection: Yes normal to inspection Skin: General skin exam: no rashes or lesions noted Trauma: no lacerations or abrasions Wounds: no wounds Neuro: General: patient oriented x3 and moves all extremities Cranial nerves: Yes CN's II-XII intact bilaterally and Yes Equal, round and reactive pupils present Cognition (Neuro): normal cognition Gait exam (Neuro): N ormal gait present Motor exam (neuro): 5/5 motor strength present throughout and Pronator motor function not present Extrem: Other: Left wrist with no obvious bony deformity or swelling. No overlying erythema or warmth. Strong radial pulse. Limited ROM secondary to pain. Compartments are soft. Patient with positive prayer sign and positive Tinel's sign. General: Yes normal to inspection Right upper extremity: normal to inspection Right lower extremity: normal to inspection Left lower extremity: normal to inspection Course Reevaluation(s) Reevaluation #1: Patient reports moderate pain relief after receiving Dilaudid, given that patient's etiology is likely an inflammatory process, will order Toradol 15 mg IV. Patient with full ROM of the wrist, does appreciate some pain with movement however better ROM after receiving dose. Reevaluation #2: Patient feeling much better after receiving 1 time dose of Toradol.. Symptoms consistent with carpal tunnel syndrome. Given strict return precautions. She will follow-up with the magneto specialist. She was placed in wrist splint. Patient stable for discharge. Patient reports slight increase of pain just prior to discharge, given Tylenol, and small dose of Dilaudid prior to her departure. Patient inquired on whether not she would see an orthopedic or hand surgeon while in the emergency department today. I advised patient that given that she has full ROM of her wrist, with no overlying skin changes and reassuring workup, she can follow-up outpatient. Given that she has full ROM, with no overlying skin changes, warmth, and a strong radial pulse, this is not indicated at this time however I stressed the importance of wearing brace, taking anti-inflammatory, and following up with the Orthopedic, advised to call today to make an appointment. She is very comfortable, appears to be under no acute distress. She understands and agrees with plan. Patient stable for discharge. Time: 15:43 Medications Administered Discontinued Medications Generic Name Dose Route Start Last Admin Trade Name Tony PRN Reason Stop Dose Admin Hydromorphone HCl 1 mg 09/03/24 10:57 09/03/24 11:25 Hydromorphone Hcl 1 Mg/Ml Syringe IVPUSH 09/03/24 10:58 1 mg ONCE ONE Administration Protocol Hydromorphone HCl 0.5 mg 09/03/24 14:40 09/03/24 14:53 Hydromorphone Hcl 0.5 Mg/0.5 Ml Syringe IVPUSH 09/03/24 14:41 0.5 mg ONCE ONE Administration Protocol Acetaminophen 1,000 mg in 100 mls @ 400 mls/hr 09/03/24 14:45 09/03/24 15:17 Ofirmev IV 09/03/24 14:59 Infused ONCE ONE Infusion Ketorolac Tromethamine 15 mg 09/03/24 12:42 09/03/24 12:54 Ketorolac Tromethamine 15 Mg/Ml Vial IVPUSH 09/03/24 12:43 15 mg ONCE ONE Administration Medical Decision Making Medical Decision Making [facility] Narrative: This is a 54-year-old female who presents emergency department for evaluation of left wrist pain which started this morning. Patient states that she has a history of carpal tunnel and states that her symptoms feel similar to however much more severe. On arrival, vital signs within normal limits. She is speaking in full sentences. Patient with sunglasses on, with clenched left fist. Advised patient to clench her fist and relax her left arm as this is only going to worsen her symptoms. Differential diagnoses include carpal tunnel, gout, compartment syndrome, atypical ACS. We will obtain labs, EKG, x-rays. Patient reporting that she was in very severe pain, and I advised that we can start with ibuprofen and Tylenol however states that she is very very uncomfortable, will order 1 time dose of Dilaudid. She states that she does not tolerate morphine well - states that she has previously tolerated Dilaudid without any complications. She is neurologically intact with no focal deficits on examination. We will continue to closely monitor pending overall workup today. Differential Diagnosis Differential Diagnoses: The differential diagnosis associated with the presentation includes See above Lab Data MDM Lab Attestation statement: I reviewed the patient's lab results. No leukocytosis, stable H&H, chemistry with no significant electrolyte derangement. Inflammatory markers within normal range. Troponin x2 negative. 09/03/24 11:25 09/03/24 11:25 Labs: Lab Results 09/03/24 09/03/24 Range/Units 11:25 13:50 WBC 4.8 (4.8-10.8) X10*3/uL RBC 4.03 L (4.20-5.50) X10*6/uL Hgb 12.6 (12.0-16.0) g/dl Hct 36.0 L (37.0-47.0) % MCV 89.3 (80.0-98.0) fL MCH 31.3 (27.0-33.0) pg MCHC 35.0 (31.0-35.0) g/dl RDW 12.8 (11.0-16.0) % Plt Count 244 (160-400) X10*3/uL MPV 8.9 L (9.4-12.3) fL Immature Gran % (Auto) 0.6 H (0.0-0.4) % Neut % (Auto) 54.5 (45-73) % Lymph % (Auto) 33.1 (20-40) % Major % (Auto) 8.0 (2-11) % Eos % (Auto) 3.2 (0-4) % Baso % (Auto) 0.6 (0-2) % Lymph # (Auto) 1.6 (1.2-4.9) X10*3/uL Major # (Auto) 0.4 (0.1-1.2) X10*3/uL Eos # (Auto) 0.2 (0.0-0.4) X10*3/uL Baso # (Auto) 0.0 (0.0-0.2) X10*3/uL Abs Immat Gran (auto) 0.03 (0.00-0.03) X10*3/uL Absolute Neuts (auto) 2.6 (2.0-8.3) x10*3/uL Absolute Nucleated RBC 0.000 (0.0-0.012) X10*3/uL Nucleated RBC % (auto) 0.0 (0.0-0.2) /100WBC ESR 1 (0-20) MM/HR Sodium 142 (135-145) mmol/L Potassium 4.0 (3.3-5.1) mmol/L Chloride 112 H (96-108) mmol/L Carbon Dioxide 25 (22-29) mmol/L Anion Gap 9 L (12-20) BUN 15 (9-16) mg/dL Creatinine 0.61 (0.5-1.4) mg/dL Estim Creat Clear Calc 116.8 Estimated GFR > 60 Random Glucose 97 (60-115) mg/dL Uric Acid 4.6 (2.4-5.7) mg/dL Calcium 9.0 D (8.4-10.2) mg/dL Magnesium 2.0 (1.6-2.6) mg/dL Total Bilirubin 0.4 (0.0-1.0) mg/dL Direct Bilirubin 0.1 (0.0-0.5) mg/dL AST 22 (5-31) U/L ALT 21 (0-31) U/L Alkaline Phosphatase 74 (39-117) U/L Troponin I High Sens < 2.7 < 2.7 (<3.5-17.0) ng/L C-Reactive Protein 0.39 (< or = 0.50) mg/dL Total Protein 6.4 L (6.5-8.0) g/dL Albumin 3.9 (3.5-5.0) g/dL Lipase 10 (8-78) U/L Independent Interpretation I performed an independent interpretation of an: EKG Interpretation: Normal sinus rhythm at a ventricular rate of 70 beats per minute, QT QTC 380/for 10, no ST elevation or depression. Radiology Impression Discussion of test interpretation with radiology: I have reviewed the radiologist's reading. Radiologist Impression: EXAMINATION: XR WRIST, LEFT CLINICAL INFORMATION: pain COMPARISON: None available. TECHNIQUE: PA, lateral, oblique, and scaphoid views of the left wrist. FINDINGS: The bones and soft tissues are normal. No fracture. Alignment is anatomic with normal joint spaces. No erosions or abnormal soft tissue calcifications. XR/XR wrist LT min 3V IMPRESSION: Normal left wrist. Electronically signed by: Malcom Carolina MD 09/03/2024 12:16 PM EDT RP Dictated By: Malcom Carolina MD Discharge Plan Discharge Clinical Impression: Acute carpal tunnel syndrome of left wrist Patient Disposition: Home, Self-Care Instructions: Wrist Injury (ED) Additional Instructions: You were seen in the emergency department today due to left wrist pain. Your findings are consistent with carpal tunnel syndrome. You need to follow-up with the magneto specialist. Call today to make an appointment. Please wear wrist splint at all times, even at bedtime. You responded well to an anti-inflammatory known as ketorolac. This is good short-term however can not be used with any other NSAIDs such as ibuprofen, naproxen, or aspirin. Alternate between ibuprofen and or Tylenol as needed for pain and symptoms. Take muscle relaxants as prescribed. Please be advised that this can cause drowsiness, do not drink alcohol or drive while taking this medication. If any new or worsening symptoms occur including but not limited to inability to move wrist, please seek emergent care. Prescriptions: New ketorolac 10 mg tablet 10 mg PO Q8H 2 Days Qty: 6 0RF cyclobenzaprine 10 mg tablet 10 mg PO TID Qty: 12 0RF acetaminophen [Tylenol Extra Strength] 500 mg tablet 1,000 mg PO Q6H PRN (Reason: pain) Qty: 30 0RF No Action colestipol 1 gram tablet 1 g PO TID 30 Days Qty: 90 3RF morphine 15 mg tablet 15 mg PO Q6H PRN (Reason: pain) Qty: 10 0RF Rx Instructions: partial fill okay; Partial Fill upon patient request. ondansetron 4 mg tablet,disintegrating 4 mg PO Q8H PRN (Reason: nausea and vomiting) Qty: 20 0RF oxybutynin chloride 10 mg tablet extended release 24hr 10 mg PO DAILY divalproex 500 mg tablet,delayed release (DR/EC) 500 mg PO BEDTIME lamotrigine 25 mg tablet 75 mg PO DAILY amitriptyline 25 mg tablet 50 mg PO BEDTIME hyoscyamine sulfate 0.125 mg tablet 0.25 mg PO BID PRN (Reason: GI Upset) escitalopram oxalate 20 mg tablet 20 mg PO DAILY eletriptan 40 mg tablet 40 mg PO DAILY MRX1 PRN (Reason: Migraine Headache) bupropion HCl 300 mg tablet extended release 24 hr 300 mg PO DAILY zolmitriptan 5 mg spray,non-aerosol 5 mg intranasal DAILY MRX1 PRN (Reason: Migraine Headache) duloxetine 30 mg capsule,delayed release(DR/EC) 60 mg PO DAILY fesoterodine 4 mg tablet extended release 24 hr 4 mg PO DAILY Zepbound 2.5 mg/0.5 mL pen injector 2.5 mg subcut TU@0900 vitamin B complex Capsule 1 cap PO DAILY Calcium Magnesium 500 mg calcium- 250 mg Tablet 1 tab PO DAILY dicyclomine 20 mg tablet 20 mg PO QID PRN (Reason: abdominal pain) Qty: 20 0RF loperamide [Imodium A-D] 2 mg tablet 2 mg PO Q6H PRN (Reason: loose stool) Qty: 14 0RF omeprazole 20 mg tablet,delayed release (DR/EC) 20 mg PO BID 60 Days Qty: 120 2RF bisacodyl [Dulcolax (bisacodyl)] 5 mg tablet,delayed release (DR/EC) 20 mg PO ONCE 1 Days Qty: 4 0RF Rx Instructions: Take 4 tablets at 12 pm the day before colonoscopy appointment polyethylene glycol 3350 [Miralax] 17 gram/dose powder 17 g PO DAILY 1 Days Qty: 238 0RF Rx Instructions: Mix Miralax with 64 oz(8 cups) of Crystal light. Take 2 tablets of Dulcolax qt 12 pm. Wait to have your 1st bowel movement, then begin drinking Miralax. Drink a glass of Miralax every 10-15 minutes until you are finished. You will drink at least another 4 cups of clear liquid of your choice over the next 2 hours. Please drink as many clear liquids as possible You may have clear liquids up to four hours before your procedure Referrals: [facility] – [place] Orthopedic Surgeons [Provider Group] Interventions: ED Discharge Assessment Last Done: 09/03/24 15:40 Discharge Date/Time: 09/03/24 15:51 Print Language: Syriac
--- NOTE | 2024-09-03 10:45 | ECG_ITS ---
Test Reason : ARM PAIN Blood Pressure : */* mmHG Vent. Rate : 70 BPM Atrial Rate : 70 BPM P-R Int : 184 ms QRS Dur : 86 ms QT Int : 380 ms P-R-T Axes : 34 -4 -13 degrees QTcB Int : 410 ms Normal sinus rhythm Minimal voltage criteria for LVH, may be normal variant ( R in aVL ) Inferior infarct , age undetermined Anterior infarct (cited on or before 21-Oct-2020) Abnormal ECG When compared with ECG of 21-Oct-2020 17:45, Inferior infarct is now Present Questionable change in initial forces of Anterior leads Nonspecific T wave abnormality now evident in Lateral leads QT has shortened Referred By: Sally Werner Electronically Signed By: Johnathon Lindquist
[2024-09-03] MEDS: HYDROmorphone HCl 1 MG/ML SYRINGE IVPUSH (11:25)
[2024-09-03 11:32] LABS: MANUAL DIFF FLAG NO
[2024-09-03 11:35] LABS: Basophils Percent Auto 0.6 % (0-2); Eosinophils Absolute Auto 0.2 X10*3/uL (0.0-0.4); Eosinophils Percent Auto 3.2 % (0-4); Hemoglobin 12.6 g/dl (12.0-16.0); Imm Gran Abs Auto 0.03 X10*3/uL (0.00-0.03); Imm Gran Pct Auto 0.6 % (0.0-0.4); Lymphocytes Absolute Auto 1.6 X10*3/uL (1.2-4.9); Lymphocytes Percent Auto 33.1 % (20-40); Mean Corpuscular Hemoglobin 31.3 pg (27.0-33.0); Mean Corpuscular Volume 89.3 fL (80.0-98.0); Mean Platelet Volume 8.9 fL (9.4-12.3); Monocytes Absolute Auto 0.4 X10*3/uL (0.1-1.2); Neutrophils Absolute Auto 2.6 x10*3/uL (2.0-8.3); Neutrophils Percent Auto 54.5 % (45-73); Platelet Count 244 X10*3/uL (160-400); Red Blood Count 4.03 X10*6/uL (4.20-5.50); Red Cell Distribution Width 12.8 % (11.0-16.0); White Blood Count 4.8 X10*3/uL (4.8-10.8)
[2024-09-03 11:47] LABS: C Reactive Protein 0.39 mg/dL (< or = 0.50); Uric Acid 4.6 mg/dL (2.4-5.7)
[2024-09-03 11:51] LABS: Alanine Aminotransferase 21 U/L (0-31); Albumin Level 3.9 g/dL (3.5-5.0); Alkaline Phosphatase 74 U/L (39-117); Anion Gap 9 (12-20); Aspartate Amino Transferase 22 U/L (5-31); Bilirubin Direct 0.1 mg/dL (0.0-0.5); Bilirubin Total 0.4 mg/dL (0.0-1.0); Blood Urea Nitrogen 15 mg/dL (9-16); Carbon Dioxide 25 mmol/L (22-29); Chloride 112 mmol/L (96-108); Creatinine Clr Calc Pharmacy 116.8; Estimated Glomerular Filt Rate > 60; Glucose Random 97 mg/dL (60-115); Lipase 10 U/L (8-78); Sodium 142 mmol/L (135-145); Total Protein 6.4 g/dL (6.5-8.0)
[2024-09-03 11:56] LABS: Troponin-I High Sensitivity < 2.7 ng/L (<3.5-17.0)
[2024-09-03 12:13] LABS: Erythrocyte Sedimentation Rate 1 MM/HR (0-20)
[2024-09-03] MEDS: Ketorolac Tromethamine 15 MG/ML VIAL IVPUSH (12:54)
--- OUTSIDE RECORDS SUMMARY | 2024-09-03 13:01 | XMS_ITS | Patient Health Record ---
Author Organization [facility] Address [address] [address] Care Team Providers Care Cellular Equipment Repairer Name Role Phone TIAN EWING Unavailable [phone] ALLERGIES Allergen (clinical drug ingredient) Drug/Non Drug [...] due to excess calories (E66.09) Active confirmed 614407270 Problem Acquired hypothyroidism (E03.9) Active confirmed Acquired hypothyroidism (044937774) Problem Bipolar 1 disorder (F31.9) Active confirmed [id number] Problem BMI 33.0-33.9,adult (Z68.33) Active confirmed 704589885 Problem BMI 32.0-32.9,adult (Z68.32) Active confirmed 574343921 Problem Abnormal metabolic state due to diabetes mellitus (E11.9) Active confirmed Abnormal metabolic state due to diabetes mellitus (780582160) Problem Hyperlipidemia (E78.5) Active confirmed Hyperlipidemia (32612348) Problem Status post laparoscopic cholecystectomy (Z90.49) Active confirmed History of cholecystectomy (205675916) VITAL SIGNS Heart Rate 90 /min 12/28/2023 Blood pressure diastolic 76 mm Hg 12/28/2023 Oximetry 98 % 12/28/2023 Height 64 in 12/28/2023 Blood pressure systolic 106 mm Hg 12/28/2023 Weight 195 lbs 12/28/2023 BMI 33.47 kg/m2 12/28/2023 Encounters Encounter Location Date Provider Diagnosis [facility] [address] [place] [address] 09/04/[address] [facility] [address] [place], [place] 09/07/2023 TIAN EWING Other obesity due to excess calories E66.09 ; Body mass index [BMI] 33.0-33.9, adult Z68.33 ; Bipolar 1 disorder F31.9 and Hyperlipidemia E78.[address] [facility] [address] [place] [address] 09/11/[address] [facility] [address] [facility] [address] [place] [address] 09/13/[address] [facility] [address] [facility] [address] [place], [place] 09/20/[address] [facility] [address] [facility] [address] [place] [address] 09/27/[address] [facility] [address] [facility] [address] [place] [address] 09/28/[address] [facility] [address] [place], [place] 10/03/[address] [facility] [address] [facility] [address] [place] [address] 10/08/[address] [facility] [address] [facility] [address] [place], [place] 10/09/[address] [facility] [address] [place] [address] 10/16/[address] [facility] [address] [facility] [address] [place] [address] 10/30/2023 TIAN BORHOT [facility] [address] [address] 03/04/2024 TIAN BORHOT Other obesity due to excess calories E66.09 ; BMI 33.0-33.9,adult Z68.33 ; Dietary counseling and surveillance Z71.3 ; Bipolar 1 disorder F31.9 ; Hyperlipidemia E78.5 and Status post laparoscopic cholecystectomy Z90.49 [facility] [address] [address] 10/23/2023 TIAN BORHOT Other obesity due to excess calories E66.09 ; BMI 32.0-32.9,adult Z68.32 ; Dietary counseling and surveillance Z71.3 ; Bipolar 1 disorder F31.9 and Hyperlipidemia E78.5 [place] [address] [address] 12/28/2023 TIAN BORHOT Other obesity due to excess calories E66.09 ; BMI 33.0-33.9,adult Z68.33 ; Dietary counseling and surveillance Z71.3 ; Bipolar 1 disorder F31.9 ; Hyperlipidemia E78.5 and Status post laparoscopic cholecystectomy Z90.49 [facility] [address] [place] [address] 09/04/2023 TIAN BORHOT [facility] [address] [address] 09/12/2023 [facility] [address] [place] [address] 09/27/2023 TIAN JOSE LUISHOT [place] [address] [address] 10/23/2023 TIAN BORHOT ASSESSMENTS Encounter Date Diagnosis Assessment Notes Treatment Notes Treatment Clinical Notes Section Notes 09/07/2023 Other obesity due to excess calories [...] minimum of 6 months The most recent [place] [employer]in[employer] and [employer] guidelines recommend patients who [...] software and direct typing Please excuse inadvertent powertrain control systems engineer or typing errors, or uncorrected word substitutions Although every attempt has been made by the provider to proofread this document, occasional misspellings and typographical errors may still be present Due to the previous pandemic, and the use of personal protective equipment (PPE) This may decrease voice recognition accuracy Inadvertent powertrain control systems engineer errors may occur 10/23/2023 Other obesity due [...] minimum of 6 months The most recent [place] [employer]inologists and [employer] guidelines recommend patients who [...] software and direct typing Please excuse inadvertent powertrain control systems engineer or typing errors, or uncorrected word substitutions Although every attempt has been made by the provider to proofread this document, occasional misspellings and typographical errors may still be present Due to the previous pandemic, and the use of personal protective equipment (PPE) This may decrease voice recognition accuracy Inadvertent powertrain control systems engineer errors may occur 10/23/2023 BMI 32.0-32.9,adult (ICD-10 [...] minimum of 6 months The most recent [place] [employer]inologists and [employer] guidelines recommend patients who [...] software and direct typing Please excuse inadvertent powertrain control systems engineer or typing errors, or uncorrected word substitutions Although every attempt has been made by the provider to proofread this document, occasional misspellings and typographical errors may still be present Due to the previous pandemic, and the use of personal protective equipment (PPE) This may decrease voice recognition accuracy Inadvertent powertrain control systems engineer errors may occur 12/28/2023 Other obesity due [...] minimum of 6 months The most recent [place] [employer]ocrinologists and [employer] guidelines recommend patients who [...] software and direct typing Please excuse inadvertent powertrain control systems engineer or typing errors, or uncorrected word substitutions Although every attempt has been made by the provider to proofread this document, occasional misspellings and typographical errors may still be present Due to the previous pandemic, and the use of personal protective equipment (PPE) This may decrease voice recognition accuracy Inadvertent powertrain control systems engineer errors may occur 12/28/2023 BMI 33.0-33.9,adult (ICD-10 [...] minimum of 6 months The most recent [place] [employer]inologists and [employer] guidelines recommend patients who [...] software and direct typing Please excuse inadvertent powertrain control systems engineer or typing errors, or uncorrected word substitutions Although every attempt has been made by the provider to proofread this document, occasional misspellings and typographical errors may still be present Due to the previous pandemic, and the use of personal protective equipment (PPE) This may decrease voice recognition accuracy Inadvertent powertrain control systems engineer errors may occur 03/04/2024 Other obesity due [...] minimum of 6 months The most recent [place] [employer]ocrinologists and [employer] guidelines recommend patients who [...] software and direct typing Please excuse inadvertent powertrain control systems engineer or typing errors, or uncorrected word substitutions Although every attempt has been made by the provider to proofread this document, occasional misspellings and typographical errors may still be present Due to the previous pandemic, and the use of personal protective equipment (PPE) This may decrease voice recognition accuracy Inadvertent powertrain control systems engineer errors may occur 03/04/2024 BMI 33.0-33.9,adult (ICD-10 [...] minimum of 6 months The most recent [place] [employer]ocrinologists and [employer] guidelines recommend patients who [...] software and direct typing Please excuse inadvertent powertrain control systems engineer or typing errors, or uncorrected word substitutions Although every attempt has been made by the provider to proofread this document, occasional misspellings and typographical errors may still be present Due to the previous pandemic, and the use of personal protective equipment (PPE) This may decrease voice recognition accuracy Inadvertent powertrain control systems engineer errors may occur 12/28/2023 Dietary counseling and [...] minimum of 6 months The most recent [place] [employer]ocrinologists and [employer] [employer] guidelines recommend patients who [...] software and direct typing Please excuse inadvertent powertrain control systems engineer or typing errors, or uncorrected word substitutions Although every attempt has been made by the provider to proofread this document, occasional misspellings and typographical errors may still be present Due to the previous pandemic, and the use of personal protective equipment (PPE) This may decrease voice recognition accuracy Inadvertent powertrain control systems engineer errors may occur 10/23/2023 Dietary counseling and [...] minimum of 6 months The most recent [place] [employer]ocrinologists and [employer] [employer] guidelines recommend patients who [...] software and direct typing Please excuse inadvertent powertrain control systems engineer or typing errors, or uncorrected word substitutions Although every attempt has been made by the provider to proofread this document, occasional misspellings and typographical errors may still be present Due to the previous pandemic, and the use of personal protective equipment (PPE) This may decrease voice recognition accuracy Inadvertent powertrain control systems engineer errors may occur 09/07/2023 Body mass index [...] minimum of 6 months The most recent [place] [employer]ocrinologists and [employer] [employer] guidelines recommend patients who [...] software and direct typing Please excuse inadvertent powertrain control systems engineer or typing errors, or uncorrected word substitutions Although every attempt has been made by the provider to proofread this document, occasional misspellings and typographical errors may still be present Due to the previous pandemic, and the use of personal protective equipment (PPE) This may decrease voice recognition accuracy Inadvertent powertrain control systems engineer errors may occur 09/07/2023 Bipolar 1 disorder [...] minimum of 6 months The most recent [place] [employer]ocrinologists and [employer] [employer] guidelines recommend patients who [...] software and direct typing Please excuse inadvertent powertrain control systems engineer or typing errors, or uncorrected word substitutions Although every attempt has been made by the provider to proofread this document, occasional misspellings and typographical errors may still be present Due to the previous pandemic, and the use of personal protective equipment (PPE) This may decrease voice recognition accuracy Inadvertent powertrain control systems engineer errors may occur 10/23/2023 Bipolar 1 disorder [...] minimum of 6 months The most recent [place] [employer]ocrinologists and [employer] [employer] guidelines recommend patients who [...] software and direct typing Please excuse inadvertent powertrain control systems engineer or typing errors, or uncorrected word substitutions Although every attempt has been made by the provider to proofread this document, occasional misspellings and typographical errors may still be present Due to the previous pandemic, and the use of personal protective equipment (PPE) This may decrease voice recognition accuracy Inadvertent powertrain control systems engineer errors may occur 12/28/2023 Bipolar 1 disorder [...] minimum of 6 months The most recent [place] [employer]ocrinologists and [employer] [employer] guidelines recommend patients who [...] software and direct typing Please excuse inadvertent powertrain control systems engineer or typing errors, or uncorrected word substitutions Although every attempt has been made by the provider to proofread this document, occasional misspellings and typographical errors may still be present Due to the previous pandemic, and the use of personal protective equipment (PPE) This may decrease voice recognition accuracy Inadvertent powertrain control systems engineer errors may occur 03/04/2024 Dietary counseling and [...] minimum of 6 months The most recent [place] [employer]ocrinologists and [employer] [employer] guidelines recommend patients who [...] software and direct typing Please excuse inadvertent powertrain control systems engineer or typing errors, or uncorrected word substitutions Although every attempt has been made by the provider to proofread this document, occasional misspellings and typographical errors may still be present Due to the previous pandemic, and the use of personal protective equipment (PPE) This may decrease voice recognition accuracy Inadvertent powertrain control systems engineer errors may occur 03/04/2024 Bipolar 1 disorder [...] minimum of 6 months The most recent [place] [employer]ocrinologists and [employer] [employer] guidelines recommend patients who [...] software and direct typing Please excuse inadvertent powertrain control systems engineer or typing errors, or uncorrected word substitutions Although every attempt has been made by the provider to proofread this document, occasional misspellings and typographical errors may still be present Due to the previous pandemic, and the use of personal protective equipment (PPE) This may decrease voice recognition accuracy Inadvertent powertrain control systems engineer errors may occur 12/28/2023 Hyperlipidemia (ICD-10 - [...] minimum of 6 months The most recent [place] [employer]ocrinologists and [employer] [employer] guidelines recommend patients who [...] software and direct typing Please excuse inadvertent powertrain control systems engineer or typing errors, or uncorrected word substitutions Although every attempt has been made by the provider to proofread this document, occasional misspellings and typographical errors may still be present Due to the previous pandemic, and the use of personal protective equipment (PPE) This may decrease voice recognition accuracy Inadvertent powertrain control systems engineer errors may occur 10/23/2023 Hyperlipidemia (ICD-10 - [...] minimum of 6 months The most recent [place] [employer]ocrinologists and [employer] [employer] guidelines recommend patients who [...] software and direct typing Please excuse inadvertent powertrain control systems engineer or typing errors, or uncorrected word substitutions Although every attempt has been made by the provider to proofread this document, occasional misspellings and typographical errors may still be present Due to the previous pandemic, and the use of personal protective equipment (PPE) This may decrease voice recognition accuracy Inadvertent powertrain control systems engineer errors may occur 09/07/2023 Hyperlipidemia (ICD-10 - [...] minimum of 6 months The most recent [place] [employer]ocrinologists and [employer] guidelines recommend patients who [...] software and direct typing Please excuse inadvertent powertrain control systems engineer or typing errors, or uncorrected word substitutions Although every attempt has been made by the provider to proofread this document, occasional misspellings and typographical errors may still be present Due to the previous pandemic, and the use of personal protective equipment (PPE) This may decrease voice recognition accuracy Inadvertent powertrain control systems engineer errors may occur 12/28/2023 Status post laparoscopic [...] minimum of 6 months The most recent [place] [employer]ocrinologists and [employer] [employer] guidelines recommend patients who [...] software and direct typing Please excuse inadvertent powertrain control systems engineer or typing errors, or uncorrected word substitutions Although every attempt has been made by the provider to proofread this document, occasional misspellings and typographical errors may still be present Due to the previous pandemic, and the use of personal protective equipment (PPE) This may decrease voice recognition accuracy Inadvertent powertrain control systems engineer errors may occur 03/04/2024 Hyperlipidemia (ICD-10 - [...] minimum of 6 months The most recent [place] [employer]ocrinologists and [employer] [employer] guidelines recommend patients who [...] software and direct typing Please excuse inadvertent powertrain control systems engineer or typing errors, or uncorrected word substitutions Although every attempt has been made by the provider to proofread this document, occasional misspellings and typographical errors may still be present Due to the previous pandemic, and the use of personal protective equipment (PPE) This may decrease voice recognition accuracy Inadvertent powertrain control systems engineer errors may occur 03/04/2024 Status post laparoscopic [...] minimum of 6 months The most recent [place] [employer]ocrinologists and [employer] [employer] guidelines recommend patients who [...] software and direct typing Please excuse inadvertent powertrain control systems engineer or typing errors, or uncorrected word substitutions Although every attempt has been made by the provider to proofread this document, occasional misspellings and typographical errors may still be present Due to the previous pandemic, and the use of personal protective equipment (PPE) This may decrease voice recognition accuracy Inadvertent powertrain control systems engineer errors may occur PLAN OF TREATMENT Pending Test Test Name Order Date LIPID PANEL, STANDARD 07/24/2023 COMPREHENSIVE METABOLIC PANEL 07/24/2023 CBC (INCLUDES DIFF/PLT) 07/24/2023 URINALYSIS, COMPLETE 07/24/2023 HEMOGLOBIN A1c 07/24/2023 TSH 07/24/2023 VITAMIN D, 1,25 DIHYDROXY LC/MS/MS 07/24 Insurance Providers Payer Name Payer Address Payer Phone Subscriber Number Group Number Insured Name Patient Relationship to Insured Coverage Start Date Coverage End Date [facility] [address] [place] [address] [id number] LILIA VASQUEZ Self - patient is the insured 2 Medicare Part B [address] [place] [address] [id number] LILIA VASQUEZ Self - patient is the [...]
--- OUTSIDE RECORDS SUMMARY | 2024-09-03 13:01 | XMS_ITS ---
Author Organization [facility] Address [address] [place] [address] Care Team Providers Care Supervisor Erection Shop Name Role Phone JOSE LUISTIAN MARAVILLA Unavailable [phone] MEDICATIONS Medication SIG (Take, Route, Fr equency, Duration) Notes Start Date End Date Status Zepbound 2.5 MG/0.5ML 2.5 mg weekly Subc utaneous Weekly for 30 days Active Wegovy 1 MG/0.5ML 1mg Subcutaneous wee kly for 30 days Active PROBLEMS Problem Type ICD Code Onset Dates Problem Status W/U Status Risk SNOMED Code Notes Problem Hyperlipidemia (E78.5) Active confirmed Hyperlipidemia (22467580) Problem Status post laparoscopic cholecystectomy (Z90.49) Active confirmed History of cholecystectomy (868737486) Encounters Encounter Location Date Provider Diagnosis [place] [address] [address] 03/04/2024 TIAN EWING Other obesity due to [...] minimum of 6 months The most recent [place] [employer] of clinical endocrinologists and [place] [employer] of endocrin[employer] guidelines recommend patients who [...] software and direct typing Please excuse inadvertent construction project coordinator or typing errors, or uncorrected word substitutions Although every attempt has been made by the provider to proofread this document, occasional misspellings and typographical errors may still be present Due to the previous pandemic, and the use of personal protective equipment (PPE) This may decrease voice recognition accuracy Inadvertent construction project coordinator errors may occur 03/04/2024 BMI 33.0-33.9,adult [...] minimum of 6 months The most recent [place] [employer] of clinical endocrinologists and [place] [employer] of endocrinology guidelines recommend patients who [...] software and direct typing Please excuse inadvertent construction project coordinator or typing errors, or uncorrected word substitutions Although every attempt has been made by the provider to proofread this document, occasional misspellings and typographical errors may still be present Due to the previous pandemic, and the use of personal protective equipment (PPE) This may decrease voice recognition accuracy Inadvertent construction project coordinator errors may occur 03/04/2024 Dietary counseling [...] minimum of 6 months The most recent [place] [employer] of clinical endocrinologists and [place] [employer] of endocrinology guidelines recommend patients who [...] software and direct typing Please excuse inadvertent construction project coordinator or typing errors, or uncorrected word substitutions Although every attempt has been made by the provider to proofread this document, occasional misspellings and typographical errors may still be present Due to the previous pandemic, and the use of personal protective equipment (PPE) This may decrease voice recognition accuracy Inadvertent construction project coordinator errors may occur 03/04/2024 Bipolar 1 [...] minimum of 6 months The most recent [place] [employer] of clinical endocrinologists and [place] [employer] endocrinology guidelines recommend patients who [...] software and direct typing Please excuse inadvertent construction project coordinator or typing errors, or uncorrected word substitutions Although every attempt has been made by the provider to proofread this document, occasional misspellings and typographical errors may still be present Due to the previous pandemic, and the use of personal protective equipment (PPE) This may decrease voice recognition accuracy Inadvertent construction project coordinator errors may occur 03/04/2024 Hyperlipidemia (ICD-10 [...] minimum of 6 months The most recent [place] [employer] of clinical endocrinologists and [place] [employer] of endocrinology guidelines recommend patients who [...] software and direct typing Please excuse inadvertent construction project coordinator or typing errors, or uncorrected word substitutions Although every attempt has been made by the provider to proofread this document, occasional misspellings and typographical errors may still be present Due to the previous pandemic, and the use of personal protective equipment (PPE) This may decrease voice recognition accuracy Inadvertent construction project coordinator errors may occur 03/04/2024 Status post [...] minimum of 6 months The most recent [place] [employer] of clinical endocrinologists and [place] [employer] of endocrinology guidelines recommend patients who [...] software and direct typing Please excuse inadvertent construction project coordinator or typing errors, or uncorrected word substitutions Although every attempt has been made by the provider to proofread this document, occasional misspellings and typographical errors may still be present Due to the previous pandemic, and the use of personal protective equipment (PPE) This may decrease voice recognition accuracy Inadvertent construction project coordinator errors may occur PLAN OF TREATMENT Medication Medication Name Sig Start Date Stop Date Notes Zepbound 2.5 MG/0.5ML 2.5 mg weekly Subc utaneous Weekly for 30 days Wegovy 1 MG/0.5ML 1mg Subcutaneous weekly for 30 days Progress Notes * SULEMAN VASQUEZOB:1970 (54 yo F)Acc No.[id number]:03/04/2024 Patient:??LILIA VASQUEZ Provider:??TIAN EWING NP :1970?Age:53 Y?Sex:Fe male Date:03/04/2024 Address:[address] [place], [place] [id number] Subjective: * Chief Complaints: * ? * [...] pancreatitis December 19 until December 14 at [facility] ?She underwent laparoscopic cholecystectomy ?She says [...] weight: 160's lbs ?Goal weight: 140-150lbs ?RONNIE screening/STOP-BANG/[place], * ?Has not had an echocardiogram recently. [...] minimum of 6 months The most recent [place] [employer] of clinical endocrinologists and [place] [employer] of endocrinology guidelines recommend patients who [...] software and direct typing Please excuse inadvertent construction project coordinator or typing errors, or uncorrected word substitutions Although every attempt has been made by the provider to proofread this document, occasional misspellings and typographical errors may still be present Due to the previous pandemic, and the use of personal protective equipment (PPE) This may decrease voice recognition accuracy Inadvertent construction project coordinator errors may occur. 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 Diet: not portion controlling/calorie counting Exercise: Currently tracking steps daily, almost 8-10k Non-smoker. ETOH use: social Examination Category Sub-Category Detail Notes Category Not es General Examination GENERAL APPEARANCE: in no ac eagle distress, well developed, well nourished HEAD: normocephalic, [...]
--- OUTSIDE RECORDS SUMMARY | 2024-09-03 13:01 | XMS_ITS | Data Portability ---
Author Organization [facility] Address [address] [place] [address] [place] [address] Care Team Providers Care Sorting Grapple Operator Name Role Phone DESTINI SOLIS Referring Provider Unavailable DESTINI SOLIS Referring Provider [phone] GONZALO WESTFALL Assessment Encounter Date Assessment Date Assessment LastModified [...] to get . Follow-up in 3 months barbara Not available 03/04/2024 13:06:37 06/19/2024 06/19/2024 IMPRESSION: [...] frequency and character; imbalance with falls >>>>>>>>>>>>Anuja y 2024 She wishes to restart Botox. This [...] Follow-up in 6 months to follow medications barbara Not available 06/19/2024 10:59:16 Plan of Treatment Reminders Order Date Submit Date Provider Last Modified By Organization Details Last Modified Time Details Appointments FOLLOW UP EXT 2024 08:30A Liat Casas MD PhD Not available Not available Not available BOTOX 60 2024 12:00P Liat Casas MD PhD Not available Not available Not available FOLLOW UP EXT 2024 08:30A Liat Casas MD PhD Not available Not available Not available Lab None recorded. Referral None recorded. Procedures None recorded. Surgeries None recorded. Imaging None recorded. Medication Orders divalproe x 500 mg tablet,de layed release 2023 [facility] [address] [place], [address], 03/04/2024 10:19:24 eletripta n 40 mg tablet 2023 [facility], [address] [facility] [place], [address], 03/04/2024 10:19:23 Zomig 5 mg nasal spray 2023 [facility] [address] [facility] [place], [address], 03/04/2024 10:19:23 Emgality Pen 120 mg/mL subcutane ous pen injector 2023 [facility], [address] [facility] [place], [address], 03/04/2024 10:19:22 Patient TargetsNo targets recorded. Patient Instructions Encounter Date Encounter Id Patient Instructions Last Modified By Organization Details Last Modified Time 03/04/2024 [id number] Discussion acros s issues of diagnoses and management and same day associated chart review and management greater than 50% greater than 60 minutes mrossen Not available 03/04/2024 13:06:45 06/19/2024 [id number] Discussion acros s issues of diagnoses and management and same day associated chart review and management greater than 50% greater than 40 minutes mrossen Not available 06/19/2024 11:00:04 Reason for Referral None Reported. Problems Name Problem SNOMED Code Status Onset Date Resolution Date Notes Provider Name and Address Organization Details Recorded Time Migraine without aura 53915029 Active 024 Esther Benz [facility] 4 09:37:47 Hemifacial spasm 20706411 Active 025 Esther Benz [facility] 5 16:54:34 Problem Notes None recorded. Procedures Surgical History Date Name Laterality Status Provider Name and Address Organization Details Recorded Time 5 botulinum injection completed Vitaliy Casas MD [address] [place] [address], [id number], [facility] 07/30/2024 14:57:01 Imaging Results None recorded. Procedure [...] Not available Not available Not available 03/04/2024 85180 8003 SNOMED [place] on [facility] 4 09:16:02 4427 Bactrim medicatio n Not available Not available Not available 03/04/2024 46055 9 RxNorm Andreea [place] on [facility] 4 09:16:15 4428 amoxicill in medicatio n Not available Not available Not available 03/04/2024 723 RxNorm Andreea [place] on [facility] 4 09:16:24 Medications Name [...] Available divalproex 500 mg tablet,rin yed release TAKE ONE TABLET BY MOUTH EVERY EVENING FOR MIGRAINE PREVENTIO N 2024 active Not Available Not Available Not Avai lable ciprofloxac in 500 mg tablet active Not [...] Available Not Available Botox 100 unit injection active Not Available Not Available No t Available escitalopra m 20 mg tablet active Not Available Not Available Not Available eletriptan 40 mg tablet 1 tablet at the very beginning of migraine, may repeat after 1 hour, maximum 2 tablets / 24 hours, 6 tablets/w [place]. active Not Available Not Available No t [...] Available Not Available Ubrelvy 100 mg tablet active Not Available Not Available [...] Updated DateTime 03/04/2024 167.64 cm 32.3 kg/m2 [address] [facility] 03/04/2024 09:18:41 Social History Question Answer Notes LastModified by Organizat ion Details LastModified Time Tobacco Smoking Status Never Smoker [facility] 03/04/2024 09:19:03 What Is Your Level Of Alcohol Consumption? None Information not available 03/04/2024 What Is Your Level Of Caffeine Consumption? None Information not available 03/04/2024 What Is The Highest Grade Or Level Of School You Have Completed Or The Highest Degree You Have Received? [id number] [facility] Information not available 03/04/2024 Which Of Your Hands Is Dominant? Right [place] Information not available 03/04/2024 Sex: Unknown Functional [...] SNOMED-CT Code Diagnosis ICD10 Code Diagnosis Note [id number] Vitaliy Casas MD [facility] [address] [place] [address] [place] [address] 03/04/2024 09:00:15 03/04/2024 16:51:36 Migraine with aura 9539610 G43.109 [id number] Vitaliy Casas MD [facility] [address] [place] [address] [place] [address] 06/19/2024 09:58:38 06/19/2024 11:39:15 Migraine with aura 0242028 G43.109 Dystonia 10685175 G24.3 Facial spasm 54441362 G5 1.33 Primary to rsion dystonia 89361695 G24.1 Keeps losing balance 249 511066 R26.81 [id number] Vitaliy Casas MD [facility] [address] [place] [address] [place] [address] 07/30/2024 14:04:23 07/30/2024 15:35:21 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 Dystonia 81343769 G24.3 Facial spasm 41232883 G5 1.33 Health Concerns Section Related Observation LastModified by Organization Detai ls LastModified Time None Recorded Concern Status LastModified by Organization Details LastModified Time None Recorded Advance Directives Directive None Recorded Payers Encounter Date Sequence Insurance Name Policy Number Policy Edwards Covered Member ID Edwards Member ID Guarantor Name 03/04/2024 1 [facility] [id number] 1 Charity [place] [id number] Charity [place] 03/04/2024 2 MEDICARE [place]: [employer] Charity B [place] [id number] Charity B [place] 06/19/2024 1 [facility] [id number] 1 Charity B [place] [id number] Charity B [place] 06/19/2024 2 MEDICARE [place]: NATIONAL [employer]MENT [employer] Charity B [place] [id number] Charity B [place] 07/30/2024 1 [facility] [id number] 1 Charity B B [place] [id number] Charity B [place] 07/30/2024 2 [place]: [facility] Charity [place] [id number] Charity [place] Notes Date Note Type Note [...] propranolol or venlafaxine ER. Vitaliy Casas MD [address] [place] [address], [phone], [facility] 03/04/2024 13:07:01 06/19/2024 text/html Neurology follow -up [...] propranolol or venlafaxine ER. Vitaliy Casas MD [address] [place] [address] [place], [address], [facility] 06/19/2024 11:01:44 07/30/2024 text/html Follow-up for botulinum toxin injections for multifocal painful muscle spasm triggering headache.? She is unaccompanied>>>>>>> >>>> July 30, 2024 BOTOX:Headaches bad, 20/10 at waking every day, dissipates with medication but comes back later in the day.Currently bilateral at the front of her head prominent. Vitaliy Casas MD [address] [place] [address] [place], [address], [facility] 07/30/2024 15:02:35 OBGyn Episode No OBEpisode recorded.
--- OUTSIDE RECORDS SUMMARY | 2024-09-03 13:01 | XMS_ITS ---
Author Organization [facility] Address [address] [place] [address] Care Team Providers Care Case Technician Name Role Phone TIAN EWING Unavailable [phone] ALLERGIES Allergen (clinical drug ingredient) Drug/Non Drug [...] Problem BMI 33.0-33.9,ad ult (Z68.33) Active confirmed 022794589 VITAL SIGNS Blood pressure systolic 106 mm Hg 12/28/19 24 Blood pressure diastolic 76 mm Hg 024 Heart Rate 90 /min 12/28/2023 Height 64 in 12/28/2023 Weight 195 lbs 12/28/2023 BMI 33.47 kg/m2 12/28/2023 Oximetry 98 % 12/28/2023 Encounters Encounter Location Date Provider Diagnosis [facility] [address] [facility] [address] [place] [address] 12/28/2023 TIAN EWING Other obesity due to [...] minimum of 6 months The most recent [place] [employer] of clinical endocrinologists and [place] [employer] endocrinology guidelines recommend patients who [...] software and direct typing Please excuse inadvertent urinalysis technician or typing errors, or uncorrected word substitutions Although every attempt has been made by the provider to proofread this document, occasional misspellings and typographical errors may still be present Due to the previous pandemic, and the use of personal protective equipment (PPE) This may decrease voice recognition accuracy Inadvertent urinalysis technician errors may occur 12/28/2023 BMI 33.0-33.9,adult [...] minimum of 6 months The most recent [place] [employer] of clinical endocrinologists and [place] [employer] endocrinology guidelines recommend patients who [...] software and direct typing Please excuse inadvertent urinalysis technician or typing errors, or uncorrected word substitutions Although every attempt has been made by the provider to proofread this document, occasional misspellings and typographical errors may still be present Due to the previous pandemic, and the use of personal protective equipment (PPE) This may decrease voice recognition accuracy Inadvertent urinalysis technician errors may occur 12/28/2023 Dietary counseling [...] minimum of 6 months The most recent [place] [employer] of clinical endocrinologists and [place] [employer] of endocrinology guidelines recommend patients who [...] software and direct typing Please excuse inadvertent urinalysis technician or typing errors, or uncorrected word substitutions Although every attempt has been made by the provider to proofread this document, occasional misspellings and typographical errors may still be present Due to the previous pandemic, and the use of personal protective equipment (PPE) This may decrease voice recognition accuracy Inadvertent urinalysis technician errors may occur 12/28/2023 Bipolar 1 [...] minimum of 6 months The most recent [place] [employer] of clinical endocrinologists and [place] [employer] of endocrinology guidelines recommend patients who [...] software and direct typing Please excuse inadvertent urinalysis technician or typing errors, or uncorrected word substitutions Although every attempt has been made by the provider to proofread this document, occasional misspellings and typographical errors may still be present Due to the previous pandemic, and the use of personal protective equipment (PPE) This may decrease voice recognition accuracy Inadvertent urinalysis technician errors may occur 12/28/2023 Hyperlipidemia (ICD-10 [...] minimum of 6 months The most recent [place] [employer] of clinical endocrinologists and [place] [employer] of endocrinology guidelines recommend patients who [...] software and direct typing Please excuse inadvertent urinalysis technician or typing errors, or uncorrected word substitutions Although every attempt has been made by the provider to proofread this document, occasional misspellings and typographical errors may still be present Due to the previous pandemic, and the use of personal protective equipment (PPE) This may decrease voice recognition accuracy Inadvertent urinalysis technician errors may occur 12/28/2023 Status post [...] minimum of 6 months The most recent [place] [employer] of clinical endocrinologists and [place] [employer] of endocrinology guidelines recommend patients who [...] software and direct typing Please excuse inadvertent urinalysis technician or typing errors, or uncorrected word substitutions Although every attempt has been made by the provider to proofread this document, occasional misspellings and typographical errors may still be present Due to the previous pandemic, and the use of personal protective equipment (PPE) This may decrease voice recognition accuracy Inadvertent urinalysis technician errors may occur PLAN OF TREATMENT Medication Medication Name Sig Start Date Stop Date Notes Wegovy 1 MG/0.5ML 1mg Subcutaneous weekly for 30 days Zepbound 2.5 MG/0.5ML 2.5 mg weekly Subc utaneous Weekly for 30 days Progress Notes * SULEMAN VASQUEZOB:1970 (53 yo F)Acc No.[id number]:12/28/2023 Patient:??LILIA VASQUEZ Provider:??TIAN EWING NP :1970?Age:53 Y?Sex:Fe male Date:12/28/2023 Address:[address] [place] [address] [facility] Subjective: * Chief Complaints: * ?1. wt [...] pancreatitis December 19 until December 14 at [facility] ?She underwent laparoscopic cholecystectomy ?She says [...] weight: 160's lbs ?Goal weight: 140-150lbs ?RONNIE screening/STOP-BANG/[place], * ?Has not had an echocardiogram recently. [...] minimum of 6 months The most recent [place] [employer] of clinical endocrinologists and [place] [employer] endocrinology guidelines recommend patients who [...] software and direct typing Please excuse inadvertent urinalysis technician or typing errors, or uncorrected word substitutions Although every attempt has been made by the provider to proofread this document, occasional misspellings and typographical errors may still be present Due to the previous pandemic, and the use of personal protective equipment (PPE) This may decrease voice recognition accuracy Inadvertent urinalysis technician errors may occur. Plan: * Treatment: * Images: Billing Information: * Visit Code:?? 38459 Office Visit, Est Pt., Level 4. 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 [...]
--- OUTSIDE RECORDS SUMMARY | 2024-09-03 13:01 | XMS_ITS ---
Author Organization [facility] Address [address] [place] [address] Care Team Providers Care Fur Tinter Name Role Phone TIAN EWING Unavailable [phone] Encounters Encounter Location Date Provider Diagnosis [facility] 119 299 [facility] [address] [place] [address] 10/30/2023 TIAN EWING PLAN OF TREATMENT No Information Progress Notes * SULEMAN VASQUEZOB:1970 (54 yo F)Acc No.[id number]:10/30/2023 Patient:??LILIA VASQUEZ Provider:??TIAN EWING NP :1970?Age:53 Y?Sex:Fe male Date:10/30/2023 Address:[address] [place] [address], [facility] Subjective: * Chief Complaints: * ? * Medical History:?? Objective: Assessment: Plan: * Treatment: * Images: Billing Information: * Visit Code:?? * Procedure Codes:?? * Sign off status: Pending * Provider:??TIAN EWING NP Date:??08/2023
[2024-09-03 14:18] VITALS: BP 112/67; PULSE 74; RESP 14; TEMP 36.6; O2SAT 96
[2024-09-03 14:21] LABS: Troponin-I High Sensitivity < 2.7 ng/L (<3.5-17.0)
[2024-09-03] MEDS: HYDROmorphone HCl 0.5 MG/0.5 ML SYRINGE IVPUSH (14:53)
[2024-09-03] MEDS: Acetaminophen 1,000 MG/100 ML PIGGYBACK 400 MG IV (14:54)
[2024-09-03 15:40] VITALS: BP 112/67; PULSE 74; RESP 14; TEMP 36.6; O2SAT 96
== END 2024-09-03 15:51 | disposition home or self-care (01) ==
PROVIDERS: Physician Assistant Medical; Emergency Provider Emergency Medicine; PCP Family Medicine
DX: G56.02 Carpal tunnel syndrome, left upper limb (principal); M25.532 Pain in left wrist; R94.31 Abnormal electrocardiogram [ECG] [EKG]; Z79.899 Other long term (current) drug therapy
CPT/HCPCS: 29125; 36415; 73110; 80048; 80076; 83690; 83735; 84484; 84550; 85025; 85652; 86140; 93005; 96365; 96375; 96376; 99284; 99285; J0131; J1171; J1885

== ENCOUNTER → 2024-09-03 10:45 | Outpatient (BNV) | payer MEDICARE, OTHER, SELFPAY | PROVIDERS: Emergency Provider Emergency Medicine; PCP Family Medicine; Visit Provider Internal Medicine Cardiovascular Disease | DX: I25.2 Old myocardial infarction (principal) | CPT/HCPCS: 93010 ==

== ENCOUNTER → 2024-09-03 11:59 | Outpatient (BNV) | payer MEDICARE, OTHER, SELFPAY | PROVIDERS: Emergency Provider Emergency Medicine; PCP Family Medicine; Visit Provider Radiology Diagnostic Radiology | DX: M25.532 Pain in left wrist (principal) | CPT/HCPCS: 73110 ==

== ENCOUNTER 2024-12-15 11:12 | Outpatient (AMB) | payer MEDICARE, OTHER, SELFPAY ==
--- OUTSIDE RECORDS SUMMARY | 2024-03-04 05:00 | XMS_ITS ---
Author Organization [facility] [address] Address [address] [place] [address] Care Team Providers Care Stem Maker Name Role Phone ALENTomasz TIAN Unavailable [phone] Medications Medication SIG (Take, Route, Fr equency, Duration) Notes Start Date End Date Status Zepbound 2.5 MG/0.5ML 2.5 mg weekly Subc utaneous Weekly; Duration: 30 days Active Wegovy 1 MG/0.5ML 1mg Subcutaneous wee kly; Duration: 30 days Active Problems Problem Type SNOMED Code ICD Code Onset Dates Problem Status W/U Status Risk Notes Problem Hyperlipidemia (52662778) Hyperlipidemia (E78.5) Active confirmed Problem History of cholecystectomy (940396621) Status post laparoscopic cholecystectomy (Z90.49) Active confirmed Encounters Encounter Location Date Provider Diagnosis [facility] [address] [place] [phone] 03/04/2024 TIAN EWING Other obesity due to [...] minimum of 6 months The most recent [place] [employer]in[employer] and [employer] guidelines recommend patients who [...] software and direct typing Please excuse inadvertent demo coordinator or typing errors, or uncorrected word substitutions Although every attempt has been made by the provider to proofread this document, occasional misspellings and typographical errors may still be present Due to the previous pandemic, and the use of personal protective equipment (PPE) This may decrease voice recognition accuracy Inadvertent demo coordinator errors may occur 03/04/2024 BMI 33.0-33.9,adult (ICD-10 [...] minimum of 6 months The most recent [place] [employer]inologists and [employer] guidelines recommend patients who [...] software and direct typing Please excuse inadvertent demo coordinator or typing errors, or uncorrected word substitutions Although every attempt has been made by the provider to proofread this document, occasional misspellings and typographical errors may still be present Due to the previous pandemic, and the use of personal protective equipment (PPE) This may decrease voice recognition accuracy Inadvertent demo coordinator errors may occur 03/04/2024 Dietary counseling and [...] minimum of 6 months The most recent [place] [employer]ocrinologists and [employer] guidelines recommend patients who [...] software and direct typing Please excuse inadvertent demo coordinator or typing errors, or uncorrected word substitutions Although every attempt has been made by the provider to proofread this document, occasional misspellings and typographical errors may still be present Due to the previous pandemic, and the use of personal protective equipment (PPE) This may decrease voice recognition accuracy Inadvertent demo coordinator errors may occur 03/04/2024 Bipolar 1 disorder [...] minimum of 6 months The most recent [place] [employer]inologists and [employer] guidelines recommend patients who [...] software and direct typing Please excuse inadvertent demo coordinator or typing errors, or uncorrected word substitutions Although every attempt has been made by the provider to proofread this document, occasional misspellings and typographical errors may still be present Due to the previous pandemic, and the use of personal protective equipment (PPE) This may decrease voice recognition accuracy Inadvertent demo coordinator errors may occur 03/04/2024 Hyperlipidemia (ICD-10 - [...] minimum of 6 months The most recent [place] [employer]ocrinologists and [employer] guidelines recommend patients who [...] software and direct typing Please excuse inadvertent demo coordinator or typing errors, or uncorrected word substitutions Although every attempt has been made by the provider to proofread this document, occasional misspellings and typographical errors may still be present Due to the previous pandemic, and the use of personal protective equipment (PPE) This may decrease voice recognition accuracy Inadvertent demo coordinator errors may occur 03/04/2024 Status post laparoscopic [...] minimum of 6 months The most recent [place] [employer]ocrinologists and [employer] guidelines recommend patients who [...] software and direct typing Please excuse inadvertent demo coordinator or typing errors, or uncorrected word substitutions Although every attempt has been made by the provider to proofread this document, occasional misspellings and typographical errors may still be present Due to the previous pandemic, and the use of personal protective equipment (PPE) This may decrease voice recognition accuracy Inadvertent demo coordinator errors may occur Plan Of Treatment Medication Medication Name Sig Start Date Stop Date Notes Zepbound 2.5 MG/0.5ML 2.5 mg weekly Subc utaneous Weekly; Duration: 30 days Wegovy 1 MG/0.5ML 1mg Subcutaneous wee kly; Duration: 30 days Progress Notes * SULEMAN VASQUEZOB:1970 (54 yo F)Acc No.[id number]:03/04/2024 Patient: Bernadette LILIA LAUGHLIN Provider: Bernadette EWING NP :1970 A ge:53 Y S ex:Female Date:03/04/2024 Address:[address] [place], [place] [id number] Subjective: * Chief Complaints: * * HPI: [...] pancreatitis December 19 until December 14 at [facility] She underwent laparoscopic cholecystectomy She says her [...] of the practice 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 [...] calories - E66.09 (Primary) 2 . B SD 33.0-33.9,adult - Z68.33 3 . D ietary [...] minimum of 6 months The most recent [place] [employer]ocrinologists and [employer] guidelines recommend patients who [...] software and direct typing Please excuse inadvertent demo coordinator or typing errors, or uncorrected word substitutions Although every attempt has been made by the provider to proofread this document, occasional misspellings and typographical errors may still be present Due to the previous pandemic, and the use of personal protective equipment (PPE) This may decrease voice recognition accuracy Inadvertent demo coordinator errors may occur. 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 [...]
[2024-12-15 11:44] VITALS: BMI 34.9
--- NOTE | 2024-12-15 11:44 | A.OFFVIS_ITS ---
VS Expanded 12/15/24 11:44 12/30/24 12:00 Height 5 ft 6 in 5 ft 6 in Weight 216 lb 0.848 oz 216 lb BMI 34.9 34.9 Intake Visit Reasons: Irritable bowel syndrome Allergies Sulfa (Sulfonamide Antibiotics) Allergy (Severe, Verified 09/03/24 10:29) Rash sulfamethoxazole (From Bactrim) Allergy (Severe, Verified 07/31/24 08:13) Rash trimethoprim (From Bactrim) Allergy (Severe, Verified 07/31/24 08:13) Rash Erythromycin Allergy (Severe, Uncoded 04/21/24 19:16) Gastrointestinal Upset Nutrition Presentation Details: PT presents for MNT for IBS Pt reports she also wants to work on weight loss Reports lacking meal routine food frequency fruits: 0-1/d ve-1/d dairy : lactose free 1-2/d protein: 46 -60 g/day beverages: water, juices, tea physical activity : ADL etoh/smoking--- BS Monitoring Most Recent Diabetes Results: Creatinine, (0.5-1.4) 0.61 mg/dL 09/03/24 BUN, (9-16) 15 mg/dL 09/03/24 Sodium, (135-145) 142 mmol/L 09/03/24 Potassium, (3.3-5.1) 4.0 mmol/L 09/03/24 Chloride, (96-108) 112 mmol/L H 09/03/24 Carbon Dioxide, (22-29) 25 mmol/L 09/03/24 Calcium, (8.4-10.2) 9.0 mg/dL Δ 09/03/24 AST, (5-31) 22 U/L 09/03/24 ALT, (0-31) 21 U/L 09/03/24 Total Protein, (6.5-8.0) 6.4 g/dL L 09/03/24 Albumin, (3.5-5.0) 3.9 g/dL 09/03/24 OML-Pjnbnrf-Tl.Jeor Equation Height: 5 ft 6 in Weight: 216 lb Resting Metabolic Rate: 1590.01 Calculated Activity Level: Sedentary Calories Needed to Maintain Weight: 1908.01 Diagnosis Nutrition problem #1: excessive energy intake As related to (etiology) #1: lack of nutrit education and diagnosis (IBS and low prot as per labs on 09/19) As evidenced by (sign/symptom) #1: high BMI and knowledge deficit of diet Monitoring/Goals Nutrition problem monitoring: total CHO intake (and choices) PFSH Medical History RONNIE (obstructive sleep apnea) Migraine Depression Surgical History H/O colonoscopy History of appendectomy Social History Household Members: Family Housing: House Do you presently have visiting nurse or other home services: No Alcohol intake: never Patient Tobacco Use Status: Never used Tobacco Advance Directives Date on File: 12/27/23 service: No Assessment & Plan Assessment & Plan (1) IBS (irritable bowel syndrome): Comment: Pt also wants to work on weight loss Code(s): K58.9 - Irritable bowel syndrome, unspecified Category: Medical Plan: Wt: 98 Kg ( 01/19 ) Est kcal needs as per MSJ: 1900 (40% carb, 30% protein/fat) Est fluid needs as per 25-30 ml/d: 2900 Est prot per day as per 1 g/kg bw: 100 Recommend fiber intake : 8-10 g per day and gradually increase as tolerated Recommend sodium intake per day : less than 2300 mg Educated patient on : Gradually introduce to LOW FODMAP food concepts related to IBS and reduction of high FODMAP which can also improve IBS symptoms : ( R = reviewed V = verbalizes understanding N/R = needs review N/A = not applicable * Today discussed low lactose food options including when eating out : R * Differences between complex carbohydrates a simple carbohydrates, role of fiber in diet: R V N/R * Lean protein sources of foods: R V NR * Differences between types of fats and role in diet (mono on saturated fat fatty acids, saturated fatty acids, trans fats): R V N/R * Food sources of sodium in salt and healthy modifications for heart health in kidney health: R V R/V * Vitamins and minerals: R V N/R * Healthy plate method concept: R V N/R * Physical activity: Benefits a precaution: R * Patient Instructions: Choose lactose free food options (keep in mind butter, breads, batters, pastries typically have lactose containing ingredients) see meal ideas free of lactose , consisting of less than 60 g total carb per meal (3 meals/day) Practice mindful eating Drink water with meals/snack Coding Level of Care Code Nutr Indiv Intake (85869) Diagnoses IBS (irritable bowel syndrome) K58.9 Time Spent (min) 30
--- OUTSIDE RECORDS SUMMARY | 2024-12-15 12:22 | XMS_ITS | Encounter Summary ---
Author Organization [facility] Address [address] [place] [address] [place] [phone] Phone Care Team Providers Care Oil Furnace Installer Name Role Phone Cheyanne Avina MD Primary Care Provider [phone] Unknown, Unknown Primary Care Provider Sharlene Lundberg MD Primary Care Provider + Encounter Details Date Type Department Care Team (Late st Contact Info) Description 04/07/2021 Procedure Pass [facility], Ct Scan - [facility] [address] [place] [address] Social History Tobacco Use Types Packs/Day Years Used Date Smoking Tobacco: Never Smokeless Tobacco: Never Alcohol Use Standard Drinks/Week Comments Yes 0 (1 standard drink = 0.6 oz pur e alcohol) very rare Comments Unknown Sex and Gender Information Value Date Recorded Sex Assigned at Female 04/07/2021 12:49 PM EST Legal Sex Female 10:32 PM EDT Gender Identity Female 04/07/2021 12:49 PM EST Sexual Orientation Not on file documented as of this encounter Functional Status * Calculated C-SSRS Risk Score (Lifetime/Recent) Answer Date of Assessment Author No Risk Indicated 04/07/2021 12:48 PM Angeline Denny RN * [place] Suicide Severity Rating Scale (Screener/Recent Self-Report) Question Answer Date of Assessment Author 1. Wish to be (Past 1 Month) No 021 12:48 PM Angeline Denny RN 2. Non-Specific Active Suici gilma Thoughts (Past 1 Month) No 04/07/2021 12:48 PM Angeline Denny RN 6. Suicidal Behavior (Lifetime) No 12:48 PM Angeline Denny RN documented as of this encounter Plan of Treatment Not on file documented as of this encounter Visit Diagnoses Not on filedocumented in this encounter Additional Health Concerns Infection Onset Date Last Indicated Resolved Time CoV-Risk 08/23/2022 08/23/2022 09/03/2022 1:22 AM EDT documented as of this encounter Care Teams Oil Furnace Installer Relationship Specialty Start Date End Date Cheyanne Avina MD [address] [place] [phone] [email or web address] PCP - General Internal Medicine 04/07/21 02/14/23 Unknown, Candida, PCP - General 02/15/23 05/16/23 Sharlene Pizano MD [email or web address] PCP - General Family Medicine 05/17/23 documented as of this encounter Additional Source Comments The information contained in this document represents components of the legal health record. It is not the complete legal health record.[facility]
[2024-12-30 12:00] VITALS: BMI 34.9
== END 2024-12-15 12:34 | disposition home or self-care (01) ==
LOC: HO.ENCR 11:13
PROVIDERS: PCP Family Medicine; Visit Provider Dietitian, Registered
DX: K58.9 Irritable bowel syndrome, unspecified (principal)

== ENCOUNTER → 2024-12-15 11:12 | Outpatient (BNVA) | payer MEDICARE, OTHER, SELFPAY | PROVIDERS: PCP Family Medicine; Visit Provider Dietitian, Registered | DX: K58.9 Irritable bowel syndrome, unspecified (principal) | CPT/HCPCS: 97802 ==

== ENCOUNTER 2025-01-14 09:00 | Outpatient (AMB) | payer MEDICARE, OTHER, SELFPAY ==
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
--- NOTE | 2025-01-14 09:03 | A.OFFVIS_ITS ---
Intake Visit Reasons: migraine Allergies Sulfa (Sulfonamide Antibiotics) Allergy (Severe, Verified 09/03/24 10:29) Rash sulfamethoxazole (From Bactrim) Allergy (Severe, Verified 07/31/24 08:13) Rash trimethoprim (From Bactrim) Allergy (Severe, Verified 07/31/24 08:13) Rash Erythromycin Allergy (Severe, Uncoded 04/21/24 19:16) Gastrointestinal Upset Medication List - Last Reconciled 01/14/25 by Rosalio Dukes MD acetaminophen (Tylenol Extra Strength) 1,000 mg (2 x 500 mg) PO Q6H PRN amitriptyline 50 mg PO BEDTIME bupropion HCl XL 300 mg PO DAILY calcium carb,gluc-mag gluc,ox 500 mg calcium- 250 mg (Calcium Magnesium) 1 tab PO DAILY colestipol 1 g PO TID 30 days eletriptan 40 mg PO DAILY MRX1 PRN escitalopram oxalate 20 mg PO DAILY omeprazole 20 mg PO BID 60 days ubrogepant (Ubrelvy) 100 mg PO .prn vitamin B complex 1 cap PO DAILY HPI Comments Details: This is a 54-year-old right-handed woman with a long history of migraine headaches that started at age 17. She [place] 16 [place] was amnesic for 3 days being hospitalized. She currently gets a headache every single day and has photosensitivity. 20/30 days she gets a visual aura. In the past she says that she has failed Botox injections and many years ago tried topiramate but does not feel that it did much for her. Current medications are amitriptyline 50 mg at bedtime without which she can not sleep, Eletriptan p.r.n. Ubrelvy p.r.n.. She was taking Emgality injections which seemed to help to some degree but has not taken 1 in 3 months. She was under the care of Dr. Echeverria who left the area 2 years ago. She does not identify any triggers. She has constant headache with throbbing and sensitivity of the scalp as well as neck pain and stiffness and tightness in his shoulders. She is sensitive to lights all the time. [facility] Medical History (Updated 01/14/25 @ 09:40 by Rosalio Dukes MD) RONNIE (obstructive sleep apnea) Migraine Depression Surgical History H/O colonoscopy History of appendectomy Social History Household Members: Family Housing: House Do you presently have visiting nurse or other home services: No Alcohol intake: never Patient Tobacco Use Status: Never used Tobacco Advance Directives Date on File: 12/27/23 service: No Review of Systems Const Reports headache(s) ENT Reports headache(s) Neuro Reports headache(s) Psych Reports depression Physical Exam Neuro Other: Neurological Abnormal neurological findings:??none.? Mental Status:?alert and oriented X 3,?Normal attention, orientation, memory and affect.? Cranial Nerves:?Pupils are equal, round and reactive to light. Fundoscopy shows normal disc bilaterally. External occular muscles are intact. Visual araujo are full, no ptosis. Face is symmetrical, no facial weakness or droop. Facial sensations are normal. Tongue protrudes in midline. Palate elevates symmetrically. Shoulder shrugging is normal..? Motor Examination:?Normal muscle tone, bulk and strength,?No atrophy or fasciculations,?No drift of the extended upper extremities,?Deep tendon reflexes are 2+?,?Plantars are flexor?.? Motor Strength:?Proximal Muscles (out of 5):5Distal Muscles (out of 5):5Neck Flexors (out of 5):5Neck Extensors (out of 5):5Deltoid (out of 5):5Biceps (out of 5):5Triceps (out of 5):5Serratus Anterior (out of 5):5Wrist Extensors (out of 5):5APB (out of 5):5Finger Spread (out of 5):5Ileopsoas (out of 5):5Quadriceps (out of 5):5Hamstrings (out of 5):5Tibialis Anterior (out of 5):5Peronei (out of 5):5EDB (out of 5):5Gastrocnemius (out of 5):5Straight Leg Raising:?90 degrees.? Sensory Exam:?Normal light touch, temperature, pinprick, vibration and joint- position sensations?,?Rhomberg sign is absent.? Coordination:?no ataxia,?no titubation,?qyrlss-uh-wufj, whkx-vbzo-letc test and rapid alternating movements were normal.? Gait Exam:?Within normal limits.? Cerebellar Signs:?Mywbgi-ep-wkvc and jybv-zr-xcki is normal,?no dysdiadochokin esia?.? Extrapyramidal System:?No tremor, rigidity with normal facial expressions,?No bradykinesia, no bradyphrenia. Normal arm swing and posture. No propulsion or retropulsion.? Speech:?Normal,?no dysphasia or dysarthria..? Mini Mental Status Exam Level of Consciousness:?Alert.? Orientation:?Knows correct year, month, date, day and season,?Knows correct city, county and state. Knows correct location and floor.? Registration:?Able to register 3 objects.? Attention:?Serial 7's performed accurately.? Recall:?Able to recall 3 out of 3 objects.? Language:?Normal spontaneous speech, fluency, repetition,naming, comprehension, reading and writing.? Total Score:?30/30.? General Examination GENERAL APPEARANCE:?normal,?in no acute distress.? HEAD:?normocephalic,?atraumatic.? EYES:?sclera non-icteric,?conjunctiva clear.? EARS:?auditory canal clear,?tympanic membrane intact, clear.? NOSE:?no lesions.? ORAL CAVITY:?gums normal,?mucosa moist,?no lesions.? THROAT:?clear.? NECK/THYROID:?no cervical lymphadenopathy,?thyroid normal,?neck supple, full range of motion,?no carotid bruit.? SKIN:?no rashes,?no significant birthmarks.? HEART:?S1, S2 normal,?no murmurs.? LUNGS:?clear anteriorly and posteriorly.? CHEST:?no gross rib deformity,?clear to auscultation.? BACK:?normal exam of spine.? EXTREMITIES:?no edema.? PERIPHERAL PULSES:?normal.? PSYCH:?alert, oriented,?cognitive function intact,?cooperative with exam.? Assessment & Plan Assessment & Plan (1) Migraine: Code(s): G43.909 - Migraine, unspecified, not intractable, without status migrainosus Category: Medical Plan Migraine prophylaxis with Topiramate, amitriptyline and Emgality. Abortive therapy with Ubrelvy Medications: New topiramate 50 mg PO BID 60 tabs 5RF 30 days ubrogepant (Ubrelvy) 100 mg PO .prn 14 tabs 5RF 30 days galcanezumab-gnlm (Emgality Pen) 120 mg subcut QMONTH 1 mL 5RF 4 weeks Changed From amitriptyline 50 mg PO BEDTIME To amitriptyline 75 mg (3 x 25 mg) PO BEDTIME 90 tabs 5RF 30 days Refilled omeprazole 20 mg PO BID 120 tabs 2RF 60 days Coding Level of Care Code New Pt Level 5 (44737) Diagnoses Migraine G43.909
--- OUTSIDE RECORDS SUMMARY | 2025-01-14 09:43 | XMS_ITS | Encounter Summary ---
Author Organization [facility] Address [address] [place] [address] [place] [phone] Phone Care Team Providers Care Tank Storage Supervisor Name Role Phone Cheyanne Avina MD Primary Care Provider [phone] Unknown, Unknown Primary Care Provider Sharlene Lundberg MD Primary Care Provider + Encounter Details Date Type Department Care Team (Late st Contact Info) Description 04/07/2021 Procedure Pass [facility], Ct Scan - [facility] [address] [place] [address] Social History Tobacco Use Types Packs/Day Years [...] 04/07/2021 12:48 PM Angeline Denny RN * [place] Suicide Severity Rating Scale (Screener/Recent Self-Report) Question [...] documented as of this encounter Care Teams Tank Storage Supervisor Relationship Specialty Start Date End Date Cheyanne Avina MD [address] [place] [phone] [email or web address] PCP - General Internal Medicine 04/07/21 02/14/23 Unknown, Candida, PCP - General 02/15/23 05/16/23 Sharlene Pizano MD [email or web address] PCP - General Family Medicine 05/17/23 documented as of this encounter Additional Source Comments The information contained in this document represents components of the legal health record. It is not the complete legal health record.[facility]
== END 2025-01-14 09:44 | disposition home or self-care (01) ==
LOC: HO.HSM 09:01
PROVIDERS: PCP Family Medicine; Referring Provider Family Medicine; Visit Provider Psychiatry & Neurology Neurology
DX: G43.909 Migraine, unspecified, not intractable, without status migrainosus (principal)
CPT/HCPCS: 99204

== ENCOUNTER → 2025-01-14 09:00 | Outpatient (BNVA) | payer MEDICARE, OTHER, SELFPAY | PROVIDERS: PCP Family Medicine; Referring Provider Family Medicine; Visit Provider Psychiatry & Neurology Neurology | DX: G43.909 Migraine, unspecified, not intractable, without status migrainosus (principal) | CPT/HCPCS: 99202 ==

== ENCOUNTER 2025-03-03 08:32 | Outpatient (AMB) | payer MEDICARE, OTHER, SELFPAY ==
--- OUTSIDE RECORDS SUMMARY | 2023-10-16 05:45 | XMS_ITS ---
Author Organization [facility] [address] Address [address] [place] [address] Care Team Providers Care Lead Python Developer Name Role Phone TIAN EWING Unavailable [phone] REASON FOR VISIT pt here for sema injection; pt signed consent; 1mg administered subcutaneously into LLQ abd; pt tolerated well and left in stable condition Medications Medication SIG (Take, Route, Frequency, Duration) Notes Start Date End Date Status Eletriptan Hydrobromide 40 MG 1 tablet Orally Once a day A ctive Myrbetriq 50 MG 1 tablet Orally Once a day Active Wegovy 1 MG/0.5ML 1mg Subcutaneous wee kly; Duration: 30 days Active Omeprazole 20 MG 1 capsule 30 minutes before morning meal Orally Once a day Active Multivitamin - 1 tablet Orally Once a day Active Encounters Encounter Location Date Provider Diagnosis [facility] [address] [place] [id number] 10/16/2023 TIAN EWING Plan Of Treatment No Information Medications Administered Medication Instructions Date of Administration Dosage Notes Semaglutide 10/16/2023 1 mg Progress Notes * SULEMAN VASQUEZOB:1970 (54 yo F)Acc No.[id number]:10/16/2023 Patient: Bernadette LILIA LAUGHLIN Provider: Bernadette EWING NP :1970 A ge:53 Y S ex:Female Date:10/16/2023 Address:[address] [place] [address], [facility] [id number] Subjective: * Chief Complaints: * 1 . pt here for sema injection; pt signed consent; 1mg administered subcutaneously into LLQ abd; pt tolerated well and left in stable condition. * Medical History: * Medications: T aking Omeprazole 20 MG Capsule Delayed Release 1 capsule 30 minutes before morning meal Orally Once a day , Taking Multivitamin - Tablet 1 tablet Orally Once a day , Taking Eletriptan Hydrobromide 40 MG Tablet 1 tablet Orally Once a day , Taking Myrbetriq 50 MG Tablet Extended Release 24 Hour 1 tablet Orally Once a day , Taking Wegovy 1 MG/0.5ML Solution Auto-injector 1mg Subcutaneous weekly Objective: * Vitals: Assessment: Plan: * Treatment: * Therapeutic Injections: Semaglutide : 1 mg (Route: Subcutaneous) given by Kayleen Nguyen on subcutaneus * Images: Billing Information: * Visit Code: * Procedure Codes: * Electronic signature of ERIC EWING on 03/03/2025 at 09:07 AM EDT Sign off status: Pending * Provider: Bernadette EWING NP Date: 0 10/16/2023 Generated for Daylin baker/Joseph/Jorge on: 09:07 AM EDT
--- OUTSIDE RECORDS SUMMARY | 2023-10-30 05:15 | XMS_ITS ---
Author Organization [facility] [address] Address [address] [place] [address] Care Team Providers Care Supervisor [employer] Name Role Phone TIAN EWING Unavailable [phone] Encounters Encounter Location Date Provider Diagnosis [facility] [address] [address] 10/30/2023 TIAN EWING Plan Of Treatment No Information Progress Notes * SULEMAN VASQUEZOB:1970 (54 yo F)Acc No.[id number]:10/30/2023 Patient: Bernadette LILIA LAUGHLIN Provider: Bernadette EWING NP :1970 A ge:53 Y S ex:Female Date:10/30/2023 Address:[address] [place] [address] [place] [id number] Subjective: * Chief Complaints: * * Medical History: Objective: * Vitals: Assessment: Plan: * Treatment: * Images: Billing Information: * Visit Code: * Procedure Codes: * Electronic signature of ERIC EWING on 03/03/2025 at 09:07 AM EDT Sign off status: Pending * Provider: Bernadette EWING NP Date: 0 10/30/2023 Generated for Daylin baker/Joseph/eTransmitting on: 1 09:07 AM EDT
--- OUTSIDE RECORDS SUMMARY | 2024-03-04 05:00 | XMS_ITS ---
Author Organization [facility] [address] Address [address] [place] [address] Care Team Providers Care Seat Covers Trimmer Name Role Phone ALENTomasz TIAN Unavailable [phone] Medications Medication SIG (Take, Route, Fr equency, Duration) Notes Start Date End Date Status Zepbound 2.5 MG/0.5ML 2.5 mg weekly Subc utaneous Weekly; Duration: 30 days Active Wegovy 1 MG/0.5ML 1mg Subcutaneous wee kly; Duration: 30 days Active Problems Problem Type SNOMED Code ICD Code Onset Dates Problem Status W/U Status Risk Notes Problem Hyperlipidemia (24798601) Hyperlipidemia (E78.5) Active confirmed Problem History of cholecystectomy (890797866) Status post laparoscopic cholecystectomy (Z90.49) Active confirmed Encounters Encounter Location Date Provider Diagnosis [facility] [address] [place] [phone] 03/04/2024 TIAN EWING Other obesity due to [...] minimum of 6 months The most recent [place] [employer] of clinical endocrinologists and [place] [employer] end[employer]in[employer] guidelines recommend patients who [...] software and direct typing Please excuse inadvertent airfield services officer or typing errors, or uncorrected word substitutions Although every attempt has been made by the provider to proofread this document, occasional misspellings and typographical errors may still be present Due to the previous pandemic, and the use of personal protective equipment (PPE) This may decrease voice recognition accuracy Inadvertent airfield services officer errors may occur 03/04/2024 BMI 33.0-33.9,adult (ICD-10 [...] minimum of 6 months The most recent [place] [employer] of clinical endocrinologists and [place] [employer] endocrin[employer] guidelines recommend patients who [...] software and direct typing Please excuse inadvertent airfield services officer or typing errors, or uncorrected word substitutions Although every attempt has been made by the provider to proofread this document, occasional misspellings and typographical errors may still be present Due to the previous pandemic, and the use of personal protective equipment (PPE) This may decrease voice recognition accuracy Inadvertent airfield services officer errors may occur 03/04/2024 Dietary counseling and [...] minimum of 6 months The most recent [place] [employer] of clinical endocrinologists and [place] [employer] endocrinology guidelines recommend patients who [...] software and direct typing Please excuse inadvertent airfield services officer or typing errors, or uncorrected word substitutions Although every attempt has been made by the provider to proofread this document, occasional misspellings and typographical errors may still be present Due to the previous pandemic, and the use of personal protective equipment (PPE) This may decrease voice recognition accuracy Inadvertent airfield services officer errors may occur 03/04/2024 Bipolar 1 disorder [...] minimum of 6 months The most recent [place] [employer] of clinical endocrinologists and [place] [employer] endocrinology guidelines recommend patients who [...] software and direct typing Please excuse inadvertent airfield services officer or typing errors, or uncorrected word substitutions Although every attempt has been made by the provider to proofread this document, occasional misspellings and typographical errors may still be present Due to the previous pandemic, and the use of personal protective equipment (PPE) This may decrease voice recognition accuracy Inadvertent airfield services officer errors may occur 03/04/2024 Hyperlipidemia (ICD-10 - [...] minimum of 6 months The most recent [place] [employer] of clinical endocrinologists and [place] [employer] endocrinology guidelines recommend patients who [...] software and direct typing Please excuse inadvertent airfield services officer or typing errors, or uncorrected word substitutions Although every attempt has been made by the provider to proofread this document, occasional misspellings and typographical errors may still be present Due to the previous pandemic, and the use of personal protective equipment (PPE) This may decrease voice recognition accuracy Inadvertent airfield services officer errors may occur 03/04/2024 Status post laparoscopic [...] minimum of 6 months The most recent [place] [employer] of clinical endocrinologists and [place] [employer] endocrinology guidelines recommend patients who [...] software and direct typing Please excuse inadvertent airfield services officer or typing errors, or uncorrected word substitutions Although every attempt has been made by the provider to proofread this document, occasional misspellings and typographical errors may still be present Due to the previous pandemic, and the use of personal protective equipment (PPE) This may decrease voice recognition accuracy Inadvertent airfield services officer errors may occur Plan Of Treatment Medication Medication Name Sig Start Date Stop Date Notes Zepbound 2.5 MG/0.5ML 2.5 mg weekly Subc utaneous Weekly; Duration: 30 days Wegovy 1 MG/0.5ML 1mg Subcutaneous wee kly; Duration: 30 days Progress Notes * SULEMAN VASQUEZOB:1970 (54 yo F)Acc No.[id number]:03/04/2024 Patient: Bernadette LILAI LAUGHLIN Provider: Bernadette EWING NP :1970 A ge:53 Y S ex:Female Date:03/04/2024 Address:[address] [place], [place] [id number] Subjective: * Chief Complaints: * * HPI: [...] pancreatitis December 19 until December 14 at [facility] She underwent laparoscopic cholecystectomy She says [...] of the practice 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 [...] calories - E66.09 (Primary) 2 . B IN 33.0-33.9,adult - Z68.33 3 . D ietary [...] minimum of 6 months The most recent [place] [employer] of clinical endocrinologists and [place] [employer] of endocrinology guidelines recommend patients who [...] software and direct typing Please excuse inadvertent airfield services officer or typing errors, or uncorrected word substitutions Although every attempt has been made by the provider to proofread this document, occasional misspellings and typographical errors may still be present Due to the previous pandemic, and the use of personal protective equipment (PPE) This may decrease voice recognition accuracy Inadvertent airfield services officer errors may occur. 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 [...]
[2025-03-03 08:43] VITALS: BP 138/82; PULSE 75; RESP 16; O2SAT 96; BMI 34.2
--- NOTE | 2025-03-03 08:43 | A.OFFVIS_ITS ---
Vital Signs 03/03/25 08:43 Height 5 ft 6 in Weight 212 lb BMI 34.2 BP 138/82 Blood Pressure Location Rt brachial Position Sitting Respiration 16 Pulse 75 Pulse Source Pulse Oximeter Pulse Oximetry (%) 96 Oxygen Delivery Method Room Air Intake Visit Reasons: headache Allergies Sulfa (Sulfonamide Antibiotics) Allergy (Severe, Verified 03/03/25 08:43) Rash sulfamethoxazole (From Bactrim) Allergy (Severe, Verified 03/03/25 08:43) Rash trimethoprim (From Bactrim) Allergy (Severe, Verified 03/03/25 08:43) Rash Erythromycin Allergy (Severe, Uncoded 03/03/25 08:43) Gastrointestinal Upset HPI Comments Details: The patient is a 54-year-old female presenting with chronic migraine headaches. She has a longstanding history of migraines and has previously undergone Botox therapy and used various medications including amitriptyline, eletriptan, and ubrelvy. Currently, she is on amitriptyline 75 mg nightly and receives Emgality injections monthly. The patient reports experiencing hallucinations when she was on topiramate, which led to discontinuation of the medication. She described the hallucinations as feeling like her body was numb and experiencing sensations outside her body. She experiences migraines approximately 25 days per month, with at least 15 days being severe. The migraines are exacerbated by stress and are associated with symptoms such as nausea, dizziness, and visual auras. The patient has tried various abortive therapies, including eletriptan and ubrelvy, with varying degrees of success. [facility] Medical History (Updated 03/03/25 @ 09:28 by Saima Blackwell CNP) RONNIE (obstructive sleep apnea) Migraine Depression Surgical History H/O colonoscopy History of appendectomy Social History Household Members: Family Housing: House Do you presently have visiting nurse or other home services: No Alcohol intake: never Patient Tobacco Use Status: Never used Tobacco Advance Directives Date on File: 12/27/23 service: No Review of Systems Const All systems reviewed & are unremarkable except as noted in HPI and below Physical Exam Vital Signs: Last Vital Signs Pulse 75 03/03/25 08:43 Resp 16 03/03/25 08:43 BP 138/82 03/03/25 08:43 Pulse Ox 96 03/03/25 08:43 Oxygen Delivery Method Room Air 03/03/25 08:43 BMI result Body Mass Index 34.2 Const General: cooperative, healthy appearing, comfortable and no acute distress Nutritional Appearance: well nourished Orientation/consciousness: patient oriented x3 Limitations: no limitations HEENT Head: Yes normal to inspection and Yes normocephalic Eyes General: appearance normal, both eyes and all related structures Visual Araujo: normal visual araujo by confrontation Alignment and Position: alignment normal Periorbital: periorbital findings normal Eyelids: Yes eyelids normal Conjunctivae: conjunctivae normal Sclerae: sclerae normal Back/Spine/Pelvis Other: Bilateral trapezius trigger points Neuro General: patient oriented x3 Cranial nerves: Yes CN's II-XII intact bilaterally and Yes Facial sensation intact/muscles of mastication intact Cognition (Neuro): normal cognition Gait exam (Neuro): Normal gait present Motor exam (neuro): 5/5 motor strength present throughout and no tremor noted Romberg Test: Negative Psych Appearance: grossly normal Mental Status: mental status grossly normal Speech and movement: Normal speech and movement present and Clear speech present Affect: normal affect Attitude: cooperative Thought process: Normal thought process present Thought content: Normal thought content present Insight: Good insight present (Psych) Judgement: Good judgement present (Psych) Office Procedures Therapeutic Injection Therapeutic Injection Details: Trigger point injection procedure: Laterally:Bilateral Indications: Chronic headaches, myofascial pain Following universal hygiene protocol, after explaining the risks and benefits as well as hazards of the procedure to the patient, consent was signed and placed in the chart. Time-out prior to starting the procedure was performed. The areas over the bilateral trapezius muscles were cleansed with alcohol. 3 Sites in each trapezius muscle injected with a 27 gauge 1.5 in needle with myofascial spasm. Patient tolerated the procedure well, localized bleeding was controlled. Patient monitored in the clinic for 15 minutes for complications. Patient was discharged home with instructions to apply ice to the back of their head as needed. 90933-Uryygez Point Injection 3 or more All charges added?: Procedure code (CPT) selection complete Office Meds bupivacaine (PF) 0.25 % (2.5 mg/mL) injection solution Performing Provider: Saima Blackwell CNP Performing Location: [facility] [place] Neurology and Sleep-Hol Administered by: Saima Blackwell CNP on 03/03/25 09:29 Dose Route Admin Location Dispensed Lot Number Expiration Date [facility] [employer]ulation [employer] 6 mL Infiltration 10 mL [id number] [employer] Total Dispensed Waste 10 mL 40 % Assessment & Plan Assessment & Plan (1) Trigger point of shoulder region: Code(s): M25.519 - Pain in unspecified shoulder Category: Medical (2) Chronic migraine without aura without status migrainosus, not intractable: Code(s): G43.709 - Chronic migraine without aura, not intractable, without status migrainosus Category: Medical Plan The patient is a 54-year-old female presenting with chronic migraine headaches. She has a longstanding history of migraines and has previously undergone Botox therapy and used various medications including amitriptyline, eletriptan, and ubrelvy. Currently, she is on amitriptyline 75 mg nightly and receives Emgality injections monthly. She is still having significant migraines though she does have an added amount of stress with her has been in ICU or recently. Even prior to this, was having 23 migraine days per month 15 of which were very severe. I did outlines some options for her including Vyepti infusions, retrial of Botox, or switching over to 1 of the other injectable therapies. We also discussed trigger point injections. Ultimately, she wanted to try trigger point injections today especially because her trapezius muscles are so tight and tender. We performed trigger point injections without any complications. She was discharged at baseline. We will continue Emgality 120 subcutaneous monthly injections for now and amitriptyline 75 mg nightly. She will also continue Ubrelvy for as-needed therapy. We will re-evaluate in 1 month or sooner if needed at the 1 month malena, as she did have some improvement with trigger point injections, we will plan to perform them again. We can also consider Vyepti as an alternative. Orders: Orders AMB Trigger Point Injection Today G43.909 - Migraine, unspecified, not intractable, without status migrainosus, M25.519 - Pain in unspecified shoulder Coding Level of Care Code New Pt Level 4 (70394) Diagnoses Trigger point of shoulder region M25.519 Chronic migraine without aura without status migrainosus, not intractable G43.709 CPT Codes Therapeutic Injection - Ther Injection 2: 40487-Xfcsnib Point Injection 3 or more ([id number])
--- OUTSIDE RECORDS SUMMARY | 2025-03-03 09:07 | XMS_ITS | Patient Health Record ---
Author Organization [facility] [address] Address [address] [place] [address] Care Team Providers Care Extruding Machine Operator Name Role Phone TIAN EWING Unavailable [phone] Allergies Allergen (clinical drug ingredient) Drug/Non Drug Allergy documented on EMR Reaction Allergy Type Onset Date Status Substance with sulfonamide structure and antibacterial mechanism of action (substance) sulfa anti (uncoded) rash Allergy Active erythromycin Erythromycin stomach upset Drug Allergy Active Reason For Referral No Information Medications Medication SIG (Take, Route, Frequency, Duration) [...] 1 tablet Orally Once a day Active Problems Problem Type SNOMED Code ICD Code Onset Dates Problem Status W/U Status Risk Notes Problem Obesity due to excess calories (595988710) Other obesity due to excess calories (E66.09) Active confirmed Problem Acquired hypothyroidism (855661579) Acquired hypothyroidism (E03.9) Active confirmed Problem Bipolar 1 disorder (233386188) Bipolar 1 disorder (F31.9) Active confirmed Problem Obese class I (437317110393934) BMI 33.0-33.9,adult (Z68.33) Active confirmed Problem BMI 30+ - obesity (987922505) BMI 32.0-32.9,adult (Z68.32) Active confirmed Problem Abnormal metabolic state due to diabetes mellitus (036275448) Abnormal metabolic state due to diabetes mellitus (E11.9) Active confirmed Problem Hyperlipidemia (01224587) Hyperlipidemia (E78.5) Active confirmed Problem History of cholecystectomy (671669743) Status post laparoscopic cholecystectomy (Z90.49) Active confirmed Assessments Encounter Date Diagnosis (ICD Code) Assessment Notes Treatment Notes Treatment Clinical Notes Section Notes 03/04/2024 #Weight Management 03/04/2024 Status post laparoscopic cholecystectomy [...] minimum of 6 months The most recent [employer] Association of clinical endocrinologists and [employer] College of endocrinology guidelines recommend patients who [...] or arrhythmias In the setting of potential stimulant/amphetami ne use such as phentermine We have also [...] software and direct typing Please excuse inadvertent knife operator or typing errors, or uncorrected word substitutions Although every attempt has been made by the provider to proofread this document, occasional misspellings and typographical errors may still be present Due to the previous pandemic, and the use of personal protective equipment (PPE) This may decrease voice recognition accuracy Inadvertent knife operator errors may occur Plan Of Treatment Pending Test Test Name Order Date LIPID PANEL, STANDARD 07/24/2023 COMPREHENSIVE METABOLIC PANEL 07/24/2023 CBC (INCLUDES DIFF/PLT) 07/24/2023 URINALYSIS, COMPLETE 07/24/2023 HEMOGLOBIN A1c 07/24/2023 TSH 07/24/2023 VITAMIN D, 1,25 DIHYDROXY LC/MS/MS 07/24 Insurance Providers Payer Name Payer Address Payer Phone Subscriber Number Group Number Insured Name Patient Relationship to Insured Coverage Start Date Coverage End Date [facility] [address] [place] [address] [id number] LILIA VASQUEZ Self - patient is the insured 2 Medicare Part B [address] [facility] [place] [address] [id number] LILIA VASQUEZ Self - patient is the insured 3 Medications Administered Medication Instructions Date of Administration [...] 10/16/2023 1 mg Semaglutide 10/23/2023 1 mg Medical (General) History Medical History History ICD Code headaches/ migraines weight gain/loss seasonal allergies Surgical History Surgery Date(Month/Year) appendectomy vaginal delivery
--- OUTSIDE RECORDS SUMMARY | 2025-03-03 09:07 | XMS_ITS | Encounter Summary ---
Author Organization [facility] Address [address] [place] [address] [place] [address] Phone Care Team Providers Care Monkey Trainer Name Role Phone Cheyanne Avina MD Primary Care Provider [phone] Unknown, Unknown Primary Care Provider Sharlene Lundberg MD Primary Care Provider + Encounter Details Date Type Department Care Team (Late st Contact Info) Description 04/07/2021 Procedure Pass [facility], Ct Scan - [facility] [address] [place] [address] Social History Tobacco Use Types Packs/Day Years [...] 04/07/2021 12:48 PM Angeline Denny RN * [place] Suicide Severity Rating Scale (Screener/Recent Self-Report) Question Answer Date of Assessment Author 1. Wish to be (Past 1 Month) No 021 12:48 PM Angeline Denny RN 2. Non-Specific Active Suici gimla Thoughts (Past 1 Month) No 04/07/2021 12:48 [...] documented as of this encounter Care Teams Monkey Trainer Relationship Specialty Start Date End Date Cheyanne Avina MD [address] [place] [address] [email or web address] PCP - General Internal Medicine 04/07/21 02/14/23 Unknown, Candida, PCP - General 02/15/23 05/16/23 Sharlene Pizano MD [email or web address] PCP - General Family Medicine 05/17/23 documented as of this encounter Additional Source Comments The information contained in this document represents components of the legal health record. It is not the complete legal health record.[facility]
--- OUTSIDE RECORDS SUMMARY | 2025-03-03 09:08 | XMS_ITS | Encounter Summary ---
Author Organization [facility] Address [address] [place] [address] [place] [phone] Phone Care Team Providers Care Thread Cutter Name Role Phone Cheyanne Avina MD Primary Care Provider [phone] Unknown, Unknown Primary Care Provider Sharlene Lundberg MD Primary Care Provider + Encounter Details Date Type Department Care Team (Late st Contact Info) Description 04/07/2021 Procedure Pass [facility], Ct Scan - [facility] [address] [place] [address] Social History Tobacco Use Types Packs/Day Years [...] 04/07/2021 12:48 PM Angeline Denny RN * [place] Suicide Severity Rating Scale (Screener/Recent Self-Report) Question [...] documented as of this encounter Care Teams Thread Cutter Relationship Specialty Start Date End Date Cheyanne Avina MD [address] [place] [address] [email or web address] PCP - General Internal Medicine 04/07/21 02/14/23 Unknown, Candida, PCP - General 02/15/23 05/16/23 Sharlene Pizano MD [email or web address] PCP - General Family Medicine 05/17/23 documented as of this encounter Additional Source Comments The information contained in this document represents components of the legal health record. It is not the complete legal health record.[facility]
--- OUTSIDE RECORDS SUMMARY | 2025-03-03 09:08 | XMS_ITS | Encounter Summary ---
Author Organization [facility] Address [address] [facility] [address] [place] [address] Phone Care Team Providers Care Spinner Hydraulic Name Role Phone Sharlene Pizano MD Primary Care Provider + Encounter Details Date Type Department Care Team (Late st Contact Info) Description 05/17/2023 Procedure Pass [facility], Ct Scan - [address] [address] Social History Tobacco Use Types Packs/Day Years Used Date Smoking Tobacco: Never Smokeless Tobacco: Never Alcohol Use Standard Drinks/Week Comments Yes 0 (1 standard drink = 0.6 oz pur e alcohol) very rare 3 x year Education Answer Date Recorded Are you interested in more education? Not on sawyer e 09/22/2022 Are you concerned about learning? Not on file 09/22/2022 No 09/22/2022 No 09/22/2022 Digital Access Answer Date Recorded No 10/23/2022 No 10/23/2022 Reliable internet access at home? Not on file 10/23/2022 Device with a working camera? Not on file Intimate Partner Violence Answer Date R ecorded Are you denied basic needs s uch as food, clothing, or medical care? No 05/17/2023 In the past 12 months have y ou been in a relationship with a person who hurts, threatens, or tries to control you? No 05/17/2023 Are you denied basic needs s uch as food, clothing, or medical care? No 05/17/2023 In the past 12 months have y ou been in a relationship with a person who hurts, threatens, or tries to control you? No 05/17/2023 Comments Unknown Sex and Gender Information Value Date Recorded Sex Assigned at Female 04/07/2021 12:49 PM EST Legal Sex Female 10:32 PM EDT Gender Identity Female 04/07/2021 12:49 PM EST Sexual Orientation Not on file documented as of this encounter Functional Status * Calculated C-SSRS Risk Score (Lifetime/Recent) Answer Date of Assessment Author No Risk Indicated 05/17/2023 11:39 AM Angeline Denny RN * [place] Suicide Severity Rating Scale (Screener/Recent Self-Report) Question Answer Date of Assessment Author 1. Wish to be (Past 1 Month) No 023 11:39 AM Angeline Denny RN 2. Non-Specific Active Suici gilma Thoughts (Past 1 Month) No 05/17/2023 11:39 AM Angeline Denny RN 6. Suicidal Behavior (Lifetime) No 11:39 AM Angeline Denny RN documented as of this encounter Plan of Treatment Not on file documented as of this encounter Visit Diagnoses Not on filedocumented in this encounter Care Teams Spinner Hydraulic Relationship Specialty Start Date End Date Sharlene Pizano MD [email or web address] PCP - General Family Medicine 05/17/23 documented as of this encounter Additional Source Comments The information contained in this document represents components of the legal health record. It is not the complete legal health record.[facility]
--- OUTSIDE RECORDS SUMMARY | 2025-03-03 09:08 | XMS_ITS | Encounter Summary ---
Author Organization [facility] Address [address] [place] [address] [place] [address] Phone Care Team Providers Care Domestic Freight Forwarder Name Role Phone Cheyanne Avina MD Primary Care Provider [phone] Unknown, Unknown Primary Care Provider Sharlene Lundberg MD Primary Care Provider + Encounter Details Date Type Department Care Team (Late st Contact Info) Description 04/07/2021 Procedure Pass [facility], Ct Scan - [facility] [address] [place] [address] Social History Tobacco Use Types Packs/Day Years [...] 04/07/2021 12:48 PM Angeline Denny RN * [place] Suicide Severity Rating Scale (Screener/Recent Self-Report) Question [...] documented as of this encounter Care Teams Domestic Freight Forwarder Relationship Specialty Start Date End Date Cheyanne Avina MD [address] [place] [phone] [email or web address] PCP - General Internal Medicine 04/07/21 02/14/23 Unknown, Candida, PCP - General 02/15/23 05/16/23 Sharlene Pizano MD [email or web address] PCP - General Family Medicine 05/17/23 documented as of this encounter Additional Source Comments The information contained in this document represents components of the legal health record. It is not the complete legal health record.[facility]
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
== END 2025-03-03 09:18 | disposition home or self-care (01) ==
PROVIDERS: Visit Provider Nurse Practitioner
DX: G43.709 Chronic migraine without aura, not intractable, without status migrainosus (principal); M25.519 Pain in unspecified shoulder
CPT/HCPCS: 20553; 99204

== ENCOUNTER → 2025-03-03 08:32 | Outpatient (BNVA) | payer MEDICARE, OTHER, SELFPAY | PROVIDERS: Visit Provider Nurse Practitioner | DX: G43.709 Chronic migraine without aura, not intractable, without status migrainosus (principal); M79.18 Myalgia, other site; M25.519 Pain in unspecified shoulder | CPT/HCPCS: 20553; 99202; J0665 ==

== ENCOUNTER 2025-04-02 08:08 | Outpatient (AMB) | payer MEDICARE, OTHER, SELFPAY ==
--- NOTE | 2025-04-02 08:08 | MHC.OFFVIS ---
Vital Signs 04/02/25 08:16 Height 5 ft 6 in Weight 210 lb BMI 33.9 BP 116/78 Blood Pressure Location Rt brachial Position Sitting Respiration 16 Pulse 77 Pulse Source Pulse Oximeter Pulse Oximetry (%) 99 Oxygen Delivery Method Room Air Intake Visit Reasons: 1 month Data Steward Required: No Allergies Sulfa (Sulfonamide Antibiotics) Allergy (Severe, Verified 04/02/25 08:19) Rash sulfamethoxazole (From Bactrim) Allergy (Severe, Verified 04/02/25 08:19) Rash trimethoprim (From Bactrim) Allergy (Severe, Verified 04/02/25 08:19) Rash erythromycin base Adverse Reaction (Severe, Verified 04/02/25 08:19) Gastrointestinal Upset HPI Comments Details: Charity is a 54-year-old female patient who follows in the clinic for chronic migraine headaches. She has undergone several medication trials in the past including Botox therapy, amitriptyline, eletriptan, and Ubrelvy. She is currently taking amitriptyline 75 mg nightly and Emgality injections monthly. When I saw her for the 1st time approximately 1 month ago, headaches were still not well controlled though she did have a significant amount of added stress with her in ICU. She did report having 23 migraine days per month on average and 15 of which were very severe. We did a trial of trigger point injections at the time of her last visit. We plan to re-evaluate in 1 month and consider continuing trigger point injections or switching her over to Vyepti infusions as an alternative. We could also consider Botox therapy again. She tells me today that after her trigger point injections during our last visit, she did see a significant reduction in her headaches. She estimates at least a 50% reduction in her headaches in terms or frequency and severity for approximately 2 weeks after her trigger point injections. After the 2 weeks, headaches did start to ramp back up. She has back to feeling like she was when I saw her last in terms of frequency and severity. She does note that her sleep in general has been compromised due to her 's health however her is home from his hospital admission though he was recently diagnosed with stage 4 bladder cancer. She has continued to take her Emgality injections and is due to take her next 1 in a proximally 1 week. She does not feel that it has made a substantial difference in her headaches. She is open to trying new options. She does continue to take Ubrelvy as needed which she feels works significantly well. [facility], [facility] Medical History (Updated 03/25/25 @ 14:14 by Licha Noriega RN) IBS (irritable bowel syndrome) RONNIE (obstructive sleep apnea) Migraine Depression Surgical History H/O colonoscopy History of appendectomy Social History Household Members: Family Housing: House Do you presently have visiting nurse or other home services: No Alcohol intake: never Patient Tobacco Use Status: Never used Tobacco Advance Directives Date on File: 12/27/23 service: No Review of Systems Const All systems reviewed & are unremarkable except as noted in HPI and below Physical Exam Const General: cooperative, healthy appearing, comfortable and no acute distress Nutritional Appearance: well nourished Orientation/consciousness: patient oriented x3 Limitations: no limitations HEENT Head: Yes normal to inspection and Yes normocephalic Eyes General: appearance normal, both eyes and all related structures Visual Thomas: normal visual thomas by confrontation Alignment and Position: alignment normal Periorbital: periorbital findings normal Eyelids: Yes eyelids normal Conjunctivae: conjunctivae normal Sclerae: sclerae normal Back/Spine/Pelvis Other: Bilateral trapezius trigger points Neuro General: patient oriented x3 Cranial nerves: Yes CN's II-XII intact bilaterally and Yes Facial sensation intact/muscles of mastication intact Cognition (Neuro): normal cognition Gait exam (Neuro): Normal gait present Motor exam (neuro): 5/5 motor strength present throughout and no tremor noted Romberg Test: Negative Psych Appearance: grossly normal Mental Status: mental status grossly normal Speech and movement: Normal speech and movement present and Clear speech present Affect: normal affect Attitude: cooperative Thought process: Normal thought process present Thought content: Normal thought content present Insight: Good insight present (Psych) Judgement: Good judgement present (Psych) Office Procedures Therapeutic Injection Therapeutic Injection Details: Trigger point injection procedure: Laterally:Bilateral Indications: Chronic headaches, myofascial pain Following universal hygiene protocol, after explaining the risks and benefits as well as hazards of the procedure to the patient, consent was signed and placed in the chart. Time-out prior to starting the procedure was performed. The areas over the bilateral trapezius muscles were cleansed with alcohol. 2 Sites in each trapezius muscle injected with a 27 gauge 1.5 in needle with myofascial spasm. Patient tolerated the procedure well, localized bleeding was controlled. Patient monitored in the clinic for 15 minutes for complications. Patient was discharged home with instructions to apply ice to the back of their head as needed. [id number]-[id number] Point Injection 3 or more All charges added?: Procedure code (CPT) selection complete Office Meds bupivacaine (PF) 0.25 % (2.5 mg/mL) injection solution Performing Provider: Saima Blackwell CNP Performing Location: [facility] Administered by: Saima Blackwell CNP on 04/02/25 08:52 Dose Route Admin Location Dispensed Lot Number Expiration Date [facility] Ultimate [employer] Scoreboard Operator 5 mL Infiltration 10 mL [id number] [employer] Liquid Scenarios Total Dispensed Waste 10 mL 50 % Assessment & Plan Assessment & Plan (1) Migraine: Code(s): G43.909 - Migraine, unspecified, not intractable, without status migrainosus Category: Medical (2) Trigger point of shoulder region: Code(s): M25.519 - Pain in unspecified shoulder Category: Medical (3) Chronic migraine without aura without status migrainosus, not intractable: Code(s): G43.709 - Chronic migraine without aura, not intractable, without status migrainosus Category: Medical Plan Charity is a 54-year-old female patient who follows in the clinic for chronic migraine headaches. She has undergone several medication trials in the past including Botox therapy, amitriptyline, eletriptan, and Ubrelvy. She is currently taking amitriptyline 75 mg nightly and Emgality injections monthly. She does have significant trigger points on exam and did respond well to trigger point injections. Emgality has seemingly not been substantially helpful for her migraine prevention. She is looking to trial another alternative agent. We discussed options and she would like to move forward with a trial of Vyepti. In the meantime, we should continue trigger point injections given that she has responded well to these. I will see her again in 1 month for repeat trigger point injections. -stop Emgality injections -start a trial of Vyepti infusions every 3 months -return to the clinic in 1 month for repeat trigger point injections -can continue Ubrelvy as needed for acute migraine therapy Orders: Orders AMB Trigger Point Injection Today G43.709 - Chronic migraine without aura, not intractable, without status migrainosus, G43.909 - Migraine, unspecified, not intractable, without status migrainosus, M25.519 - Pain in unspecified shoulder Coding Level of Care Code Est Pt Level 4 (07754) Diagnoses Migraine G43.909 Trigger point of shoulder region M25.519 Chronic migraine without aura without status migrainosus, not intractable G43.709 CPT Codes Therapeutic Injection - Ther Injection 2: [id number] Point Injection 3 or more ([id number])
[2025-04-02 08:16] VITALS: BP 116/78; PULSE 77; RESP 16; O2SAT 99; BMI 33.9
--- OUTSIDE RECORDS SUMMARY | 2025-04-02 08:25 | XMS_ITS | Encounter Summary ---
Author Organization [facility] Address [address] [place] [address] [place] [phone] Phone Care Team Providers Care Signal Repairer Name Role Phone Cheyanne Avina MD Primary Care Provider [phone] Unknown, Unknown Primary Care Provider Sharlene Lundberg MD Primary Care Provider + Encounter Details Date Type Department Care Team (Late st Contact Info) Description 04/07/2021 Procedure Pass [facility], Ct Scan - [facility] [address] [place] [address] Social History Tobacco Use Types Packs/Day Years [...] 04/07/2021 12:48 PM Angeline Denny RN * [place] Suicide Severity Rating Scale (Screener/Recent Self-Report) Question [...] documented as of this encounter Care Teams Signal Repairer Relationship Specialty Start Date End Date Cheyanne Avina MD [address] [place] [phone] [email or web address] PCP - General Internal Medicine 04/07/21 02/14/23 Unknown, Candida, PCP - General 02/15/23 05/16/23 Sharlene Pizano MD [email or web address] PCP - General Family Medicine 05/17/23 documented as of this encounter Additional Source Comments The information contained in this document represents components of the legal health record. It is not the complete legal health record.[facility]
--- OUTSIDE RECORDS SUMMARY | 2025-04-02 08:25 | XMS_ITS | Clinical Summary ---
Author Organization [facility] Address [address] [place] [phone] Phone Care Team Providers Care Contract Administration Coordinator Name Role Phone Sharlene Pizano MD Primary [...] & Plan (11/25/2021 3:46 PM EDT): Sees card checker mammo and colonoscopy UTD SBE Adjustment disorder [...] 08/02/2030 Adult Td,Tdap Booster 11/26/2031 11/25/2021, 007 RSV VACCINE (1 - 1-dose 75+ series) 08/12/2043 HEPATITIS C SCREENING Completed 10/30/2022 HIV ONE-TIME [...] AM EDT) HCV NON-REACTIV E NON-REACTI VE [facility] Blood 10/30/2022 9:54 AM EDT 10/30/2022 10:00 AM EDT Cheyanne Avina MD LAB BLOOD BKR ORDERABLES Fin al Result [address] [address] * (ABNORMAL) Glucose (10/30/2022 9:54 AM EDT) GLUCOSE 119(H) 70 - 99 mg/dL [facility] Blood 10/30/2022 9:54 AM EDT 10/30/2022 10:00 AM EDT Cheyanne Avina MD LAB BLOOD BKR ORDERABLES Fin al Result Performing Organization Address [facility] Co de Phone Number [address] [address] * (ABNORMAL) Lipid panel (10/30/2022 9:54 AM EDT) HDL 63 mg/dL [facility] Comment: Interpretation <40 mg/dL: Low HDL cholesterol (major risk factor for CHD) Greater than or equal to 60 mg/dL: High HDL cholesterol ( negative risk factor for CHD) HDL - cholesterol is affected by a number of factors, e.g. smoking, excerise, hormones, sex and age. CHOLESTEROL 238 0 - 240 mg/dL [facility] TRIGLYCERIDES 81 30 - 160 mg/dL [facility] LDL 159(H) 50 - 129 mg/dL [facility] Comment: LDL levels in terms of risk for coronary heart disease: <100 mg/dL: Optimal 100-129 mg/dL: Near or above optimal 130-159 mg/dL: Borderline high 160-189 mg/dL: High >190 mg/dL: Very High CARDIAC RISK RATIO 3.8 3.3 - 4.4 C [facility] Blood 10/30/2022 9:54 AM EDT 10/30/2022 10:00 AM EDT Cheyanne Avina MD LAB BLOOD BKR ORDERABLES Fin al Result [facility] [address] [place] [address] * COLONOSCOPY FOR RESULT ENTRY ONLY (08/02/2020) us Historical Provider HEALTH MAINTENANCE Final Result from Last 3 Months or Most Recently Relevant to Health Maintenance Insurance [facility] & B [facility] & [place] [address] [place] [address] [place] [address] [facility] MEDICARE PART A & [facility] [address] [place] [address] MEDICARE PART A & B [facility] & [facility] & B [facility] H[employer] SAFETY INSURANCE [address] [address] HMO MEDICARE PART A & B Care Teams Contract Administration Coordinator Relationship Specialty Start Date End Date Sharlene Pizano MD [email or web address] PCP - General Family Medicine 05/17/23 Additional Source Comments The information contained in this document represents components of the legal health record. It is not the complete legal health record.[facility]
--- OUTSIDE RECORDS SUMMARY | 2025-04-02 08:25 | XMS_ITS | Encounter Summary ---
Author Organization [facility] Address [address] [place] [address] [place] [phone] Phone Care Team Providers Care Pattern Vault Clerk Name Role Phone Cheyanne Avina MD Primary Care Provider [phone] Unknown, Unknown Primary Care Provider Sharlene Lundberg MD Primary Care Provider + Encounter Details Date Type Department Care Team (Late st Contact Info) Description 04/07/2021 Procedure Pass [facility], Ct Scan - [facility] [address] [place] [address] Social History Tobacco Use Types Packs/Day Years [...] 04/07/2021 12:48 PM Angeline Denny RN * [place] Suicide Severity Rating Scale (Screener/Recent Self-Report) Question [...] documented as of this encounter Care Teams Pattern Vault Clerk Relationship Specialty Start Date End Date Cheyanne Avina MD [address] [place] [phone] [email or web address] PCP - General Internal Medicine 04/07/21 02/14/23 Unknown, Candida, PCP - General 02/15/23 05/16/23 Sharlene Pizano MD [email or web address] PCP - General Family Medicine 05/17/23 documented as of this encounter Additional Source Comments The information contained in this document represents components of the legal health record. It is not the complete legal health record.[facility]
--- OUTSIDE RECORDS SUMMARY | 2025-04-02 08:25 | XMS_ITS | Data Portability ---
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 Name Role Phone DESTINI SOLIS Referring Provider Unavailable DESTINI SOLIS Referring Provider GONZALO WESTFALL OTHER Assessment Encounter Date Assessment Date Assessment LastModified by Organization Details LastModified Time 03/04/2024 03/04/2024 IMPRESSION: Chronic migraine with spots as aura, Presenting March 04, 2024 25/30 migraine days, 20 days/month at least partially debilitated (from migraine and/or fibromyalgia) March 04, [address] 500 mg nightly, Emgality monthly injection, Botox November 2023 at best wearing off, the latter without benefit recently per patient. O ctober 2023 migraine breakthrough medications: Eletriptan [...] to get . Follow-up in 3 months mrossen Not available 03/04/2024 13:06:37 06/19/2024 06/19/2024 IMPRESSION: Chronic migraine with spots as aura, Presenting March 04, 2024 25/30 migraine days, 20 days/month at least partially debilitated (from migraine and/or fibromyalgia) March 04, [address] 500 mg nightly, Emgality monthly injection, Botox November 2023 at best wearing off, the latter without benefit recently per patient. O ctober 2023 migraine breakthrough medications: Eletriptan [...] exam reveals very mild imbalance with tandem gait s tepping out every three or four steps a nd is otherwise unrevealing with focus [...] follow medications mrossen Not available 06/19/2024 10:59:16 10/02/2024 10/02/2024 IMPRESSION: Chronic migraine with spots as aura, Presenting March 04, 2024 migraine days, 20 days/month at least partially debilitated (from migraine and/or fibromyalgia) March 04, [address] 500 mg nightly, Emgality monthly injection, Botox November 2023 at best wearing off, the latter without benefit recently per patient. O ct2023 migraine breakthrough medications: Eletriptan oral, zolmitriptan nasal spray. -- June 19, 2024 unchanged but significantly bothersome headache frequency and character; imbalance with falls --October 02, 2024 Botox trial #1: No help and headaches possibly worse, although possibly better relating to changing diet. >>>>>>>>>>>>October 02, 2024 She wishes physical therapy to see if that will help as she hypothesizes that there is such a powerful trigger from her headache from her muscles in her posterior neck. She has seen Rosette Reardon previously and physical therapy with her helped a little. We will send her back, we agree. She would like to hold off on Botox scheduled October 29, 2024 but feels she will want to continue at a later date a fter she has her neck checked out by physical therapy. >>>>>>>>>>>>Anuja 2024 She wishes to restart Botox. This [...] exam reveals very mild imbalance with tandem gait s tepping out every three or four steps a nd is otherwise unrevealing with focus [...] to primary care if not already done. >>>>>>>>>>>>Kathrine r 2023 Initial impression and management directions: [...] possible future direction. >>>>>>>>>>>> PLAN Charity Soria October 02, 2024 Myofascial evaluation and treatment, context headache: Rosette Reardon MBA, PT [address] [address] [email or web address] We will send a referral to the physical therapist for physical therapy. It is your responsibility to make the initial phone call to the above number to set up an initial appointment Migraine prevention: Emgality 120 mg monthly subcutaneous [...] if you begin trying to get . ON HOLD: Botox 200 units, using follow-up agreed method, for multifocal muscle spasm triggering migraine Follow-up in 6 months to follow medications mrossen Not available 10/02/2024 09:13:19 Plan of Treatment Reminders Order Date Submit Date Provider Last Modified By Organization Details Last Modified Time Details Appointments None recorded. Lab None recorded. Referral neurologic physical therapist referral - Myofascial evaluation and treatment, context headaches ? y ou have seen her in years past. 2024 025 veronica Reardon PT, [address] [place], [address], 5 15:09:59 Procedures None recorded. Surgeries None recorded. Imaging None recorded. Medication Orders divalproex 500 mg tablet,del ayed release 2023 [facility] [address] [place], [address], 4 10:19:24 eletriptan 40 mg tablet 2023 024 [facility], [address] [place], [address], 4 10:19:23 Zomig 5 mg nasal spray 2023 [facility], [address] [place], [address], 4 10:19:23 Emgality Pen 120 mg/mL subcutaneo us pen injector 2023 024 [facility], [address] [place], [address], 4 10:19:22 Patient TargetsNo targets recorded. Patient Instructions Encounter Date Encounter Id Patient Instructions Last Modified By Organization Details Last Modified Time 03/04/2024 [id number] Discussion acros s issues of diagnoses and management and same day associated chart review and management greater than 50% greater than 60 minutes mrossen Not available 03/04/2024 13:06:45 06/19/2024 [id number] Discussion acros s issues of diagnoses and management and same day associated chart review and management greater than 50% greater than 40 minutes mrossen Not available 06/19/2024 11:00:04 10/02/2024 [id number] Discussion acros s issues of diagnoses and management and same day associated chart review and management greater than 50% greater than 30 minutes Chronic condition with exacerbation; prescription medication management mrossen Not available 10/02/2024 09:12:13 Reason for Referral Myofascial evaluation and tr eatment, context headaches you have seen her in years past. Referring Physician: Vitaliy Casas, Neurology, Encounter Date: 10/02/2024 Problems Name Problem SNOMED Code Status Onset Date Resolution Date Notes Provider Name and Address Organization Details Recorded Time Migraine without aura 24469976 Active 024 Esther hillman [facility] 4 09:37:47 Hemifacial spasm 44207118 Active 025 Esther hillman [facility] 5 16:54:34 Problem Notes None recorded. Procedures Surgical History Date Name Laterality Status Provider Name and Address Organization Details Recorded Time 03/05/202 5 botulinum injection completed Vitaliy Casas MD [address] [place] [address] [place], [phone], [facility] 07/30/2024 14:57:01 Imaging Results None recorded. [...] Not available Not available Not available 03/04/2024 [id number] 8003 SNOMED [place] [facility] 4 09:16:02 4427 Bactrim medicatio n Not available Not available Not available 03/04/2024 [id number] 9 RxNorm [facility]reea [facility] 4 09:16:15 4428 amoxicill in medicatio n Not available Not available Not available 03/04/2024 723 RxNorm Andreea [facility] 4 09:16:24 Medications Name Sig Start Date [...] 2 tablets / 24 hours, 6 tablets/w rampart. active Not Available Not Available No t [...] MAY REPEAT DOSE ONCE AFTER 2 HRS NEEDED, MAX 2 TABS IN 24 HR active Not Available Not [...] Updated DateTime 03/04/2024 167.64 cm 32.3 kg/m2 03025.47 g Andreea Lawson [facility] 03/04/2024 09:18:41 Social History Question Answer Notes LastModified by Organizat ion Details LastModified Time Tobacco Smoking Status [facility] 03/04/2024 09:19:03 What Is Your Level Of Caffeine Consumption? None Information not available 03/04/2024 What Is The Highest Grade Or Level Of School You Have Completed Or The Highest Degree You Have Received? [id number] Information not available 03/04/2024 Which Of Your Hands Is Dominant? Right Information not available 03/04/2024 Sex: Unknown Functional Status Question Answer Note LastModified by Organization D etails LastModified Time What is your level of alcohol consumption? None Information not available 03/04/2024 Mental Status None recorded. Family History Relationship [...] Diagnosis SNOMED-CT Code Diagnosis ICD10 Code Diagnosis IMO Codes Diagnosis Note [id number] Vitaliy Casas MD [facility] [address] [place] [address] [place] [address] 03/04/2024 09:00:15 03/04/2024 16:51:36 Migraine with aura 9436818 G43.109 [id number] Vitaliy Casas MD [facility] [address] [place] [address] [place] [address] 06/19/2024 09:58:38 06/19/2024 11:39:15 Migraine with aura 8609179 G43.109 Dystonia 11530502 G24.3 Facial spasm 65381779 G5 1.33 Primary to rsion dystonia 16658283 G24.1 Keeps losing balance 249 372192 R26.81 [id number] Vitaliy Casas MD [facility] [address] [place] [address] [place] [address] 07/30/2024 14:04:23 07/30/2024 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 Dystonia 55211773 G24.3 Facial spasm 60303303 G5 1.33 [id number] Vitaliy Casas MD [facility] [address] [place] [address] [place] [id number] 10/02/2024 08:35:16 10/02/2024 10:24:45 Dystonia 81424826 G24.3 Facial spasm 53893435 G5 1.33 Primary to rsion dystonia 77183432 G24.1 Migraine with aura 11915 06 G43.109 Keeps losing balance 249 814587 R26.81 Health Concerns Section Related Observation LastModified by Organization Detai ls LastModified Time None Recorded Concern Status LastModified by Organization Details LastModified Time None Recorded Advance Directives Directive None Recorded Payers Insurance Date Sequence Insurance Name Policy Number Policy Edwards Covered Member ID Edwards Member ID Guarantor Name 12/05/2024 1 [facility] [id number] 1 Charity Soria [id number] Charity Soria 12/15/2024 2 [place] [employer] Charity Soria [id number] Charity Soria 04/15/2024 2 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 Past history per patient also includes body pain with diagnosis of fibromyalgia, depression, insomnia, history of ulcer relating to NSAID use, history of pancreatitis status post December 2023 hospitalization. She is unaccompanied>>>>>>> >>>>>March 04, 2024 presenting [...] by her previous neurologist.Her psychiatrist, Dr. Adrianna Cahparro, prescribes escitalopram 20 mg and bupropion 300 [...] propranolol or venlafaxine ER. Vitaliy Casas MD [address] [place] [address], [phone], [facility] 03/04/2024 13:07:01 06/19/2024 text/html Neurology follow-up of migraine. Past history per patient also includes body pain with diagnosis of fibromyalgia, depression, insomnia, history of ulcer relating to NSAID use, history of pancreatitis status post December 2023 hospitalization. 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 Vitaliy Casas MD [address] [place] [address] [place], [phone], [facility] 06/19/2024 11:01:44 07/30/2024 text/html Follow-up for botulinum toxin injections for multifocal painful muscle spasm triggering headache. She is unaccompanied>>>>>>> >>>> July 30, 2024 BOTOX:Headaches bad, 20/10 at waking every day, dissipates with medication but comes back later in the day.Currently bilateral at the front of her head prominent. Vitaliy Casas MD [address] [place] [address] [place], [phone], [facility] 07/30/2024 15:02:35 10/02/2024 text/html Neurology follow-up of migraine. Past history per patient also includes body pain with diagnosis of fibromyalgia, depression, insomnia, history of ulcer relating to NSAID use, history of pancreatitis status post December [address] Soria is unaccompanied >>>>>>>>>>>>October 02, 2024Since July 28, 2024 Neurology follow-up encounter for our first trial of Botox injections for painful muscle spasm (especially in her posterior neck the patient emphasizes) exacerbating/trigger ing migraine, she has had no benefit. She has had no weakness or heaviness of head or eyelid droop to suggest side effects. She has modified her diet and thinks this helps her headaches somewhat. Ubrelvy helps her headaches. Yet she does not have enough Ubrelvy j ust 6/month from insurance. We agree she will check with our front office to see if there can be an override for this.She wonders about the effect of Tylenol on her liver. I suggest a limit of 3 days/week, 2000 mg Tylenol maximum on such days. >>>>>>>>>>>>June 19, 2024Since March 04, 2024 Inititial [...] propranolol or venlafaxine ER. Vitaliy Casas MD [address] [place] [address] [place], [phone], [facility] 10/02/2024 09:13:26 OBGyn Episode No OBEpisode recorded.
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
--- OUTSIDE RECORDS SUMMARY | 2025-04-02 08:25 | XMS_ITS | Encounter Summary ---
Author Organization [facility] Address [address] [place] [address] [place] [address] Phone Care Team Providers Care Dye Range Feeder Name Role Phone Cheyanne Avina MD Primary Care Provider [phone] Unknown, Unknown Primary Care Provider Sharlene Lundberg MD Primary Care Provider + Encounter Details Date Type Department Care Team (Late st Contact Info) Description 04/07/2021 Procedure Pass [facility], Ct Scan - [facility] [address] [place] [address] Social History Tobacco Use Types Packs/Day Years [...] 04/07/2021 12:48 PM Angeline Denny RN * [place] Suicide Severity Rating Scale (Screener/Recent Self-Report) Question [...] documented as of this encounter Care Teams Dye Range Feeder Relationship Specialty Start Date End Date Cheyanne Avina MD [address] [place] [id number] [email or web address] PCP - General Internal Medicine 04/07/21 02/14/23 Unknown, Candida, PCP - General 02/15/23 05/16/23 Sharlene Pizano MD [email or web address] PCP - General Family Medicine 05/17/23 documented as of this encounter Additional Source Comments The information contained in this document represents components of the legal health record. It is not the complete legal health record.[facility]
--- OUTSIDE RECORDS SUMMARY | 2025-04-02 08:25 | XMS_ITS | Encounter Summary ---
Author Organization [facility] Address [address] [facility] [facility] [address] [place] [address] Phone Care Team Providers Care Hog Trader Name Role Phone Sharlene Pizano MD Primary Care Provider + Encounter Details Date Type Department Care Team (Late st Contact Info) Description 05/17/2023 Procedure Pass [facility], Ct Scan - [address] [address] Social History Tobacco Use Types Packs/Day Years [...] 05/17/2023 11:39 AM Angeline Denny RN * [place] Suicide Severity Rating Scale (Screener/Recent Self-Report) Question Answer Date of Assessment Author 1. Wish to be (Past 1 Month) No 023 11:39 AM Angeline Denyn RN 2. Non-Specific Active Suici gilma Thoughts (Past 1 Month) No 05/17/2023 11:39 AM Angeline Denny RN 6. Suicidal Behavior (Lifetime) No 11:39 AM Angeline Denny RN documented as of this encounter Plan of Treatment Not on file documented as of this encounter Visit Diagnoses Not on filedocumented in this encounter Care Teams Hog Trader Relationship Specialty Start Date End Date Sharlene Pizano MD [email or web address] PCP - General Family Medicine 05/17/23 documented as of this encounter Additional Source Comments The information contained in this document represents components of the legal health record. It is not the complete legal health record.[facility]
== END 2025-04-02 08:45 | disposition home or self-care (01) ==
LOC: HO.HSM 08:08
PROVIDERS: Visit Provider Nurse Practitioner
DX: M25.519 Pain in unspecified shoulder (principal); G43.709 Chronic migraine without aura, not intractable, without status migrainosus; G43.909 Migraine, unspecified, not intractable, without status migrainosus; M79.12 Myalgia of auxiliary muscles, head and neck
CPT/HCPCS: 20553; 99214

== ENCOUNTER → 2025-04-02 08:08 | Outpatient (BNVA) | payer MEDICARE, OTHER, SELFPAY | PROVIDERS: Visit Provider Nurse Practitioner | DX: G43.709 Chronic migraine without aura, not intractable, without status migrainosus (principal); M79.18 Myalgia, other site | CPT/HCPCS: 20553; 99212; J0665 ==

== ENCOUNTER 2025-05-05 08:51 | Outpatient (AMB) | payer MEDICARE, OTHER, SELFPAY ==
[2025-05-05 09:10] VITALS: BP 140/80; PULSE 88; RESP 16; O2SAT 97; BMI 34.5
--- NOTE | 2025-05-05 09:10 | A.OFFVIS_ITS ---
Vital Signs 05/05/25 09:10 Height 5 ft 6 in Weight 214 lb BMI 34.5 BP 140/80 H Blood Pressure Location Rt brachial Position Sitting Respiration 16 Pulse 88 Pulse Source Pulse Oximeter Pulse Oximetry (%) 97 Intake Visit Reasons: Trigger point injection Allergies Sulfa (Sulfonamide Antibiotics) Allergy (Severe, Verified 05/05/25 09:24) Rash sulfamethoxazole (From Bactrim) Allergy (Severe, Verified 05/05/25 09:24) Rash trimethoprim (From Bactrim) Allergy (Severe, Verified 05/05/25 09:24) Rash erythromycin base Adverse Reaction (Severe, Verified 05/05/25 09:24) Gastrointestinal Upset HPI Comments Details: Charity is a 54-year-old female patient who follows in the clinic for chronic migraine headaches. She has undergone several medication trials in the past including Botox therapy, amitriptyline, eletriptan, and Ubrelvy. She is currently taking amitriptyline 75 mg nightly and Emgality injections monthly. W david Chirinos saw her for the 1st time approximately 1 month ago, headaches were still not well controlled though she did have a significant amount of added stress with her in ICU. She did report having 23 migraine days per month on average and 15 of which were very severe. We did a trial of trigger point injections at the time of her last visit. We plan to re-evaluate in 1 month and consider continuing trigger point injections or switching her over to Vyepti infusions as an alternative. We could also consider Botox therapy again. She has had estimated 50% reduction in headaches since starting the trigger point injections. She sees a reduction in both the frequency and severity now with the trigger point injections. She will be starting up her Vyepti infusions tomorrow. She continues to deal with a significant amount of stress relatign to her who is currently undergoing chemotherapy for bladder cancer. Sleep continues to be difficult for now which again she attributes to her 's health. She does continue to take Ubrelvy as needed which she feels works significantly well. She ran out of her current prescription and has not yet had a chance to pickle maker the script and inquires about a sample today. [facility] Medical History (Updated 05/05/25 @ 09:21 by Saima Blackwell CNP) IBS (irritable bowel syndrome) RONNIE (obstructive sleep apnea) Migraine Depression Surgical History H/O colonoscopy History of appendectomy Social History Household Members: Family Housing: House Do you presently have visiting nurse or other home services: No Alcohol intake: never Patient Tobacco Use Status: Never used Tobacco Advance Directives Date on File: 12/27/23 service: No Review of Systems Const All systems reviewed & are unremarkable except as noted in HPI and below Physical Exam Const General: cooperative, healthy appearing, comfortable and no acute distress Nutritional Appearance: well nourished Orientation/consciousness: patient oriented x3 Limitations: no limitations HEENT Head: Yes normal to inspection and Yes normocephalic Eyes General: appearance normal, both eyes and all related structures Visual Thomas: normal visual thomas by confrontation Alignment and Position: alignment normal Periorbital: periorbital findings normal Eyelids: Yes eyelids normal Conjunctivae: conjunctivae normal Sclerae: sclerae normal Back/Spine/Pelvis Other: Bilateral trapezius trigger points Neuro General: patient oriented x3 Cranial nerves: Yes CN's II-XII intact bilaterally and Yes Facial sensation intact/muscles of mastication intact Cognition (Neuro): normal cognition Gait exam (Neuro): Normal gait present Motor exam (neuro): 5/5 motor strength present throughout and no tremor noted Romberg Test: Negative Psych Appearance: grossly normal Mental Status: mental status grossly normal Speech and movement: Normal speech and movement present and Clear speech present Affect: normal affect Attitude: cooperative Thought process: Normal thought process present Thought content: Normal thought content present Insight: Good insight present (Psych) Judgement: Good judgement present (Psych) Office Procedures Therapeutic Injection Therapeutic Injection Details: Trigger point injection procedure: Laterally:Bilateral Indications: Chronic headaches, myofascial pain Following universal hygiene protocol, after explaining the risks and benefits as well as hazards of the procedure to the patient, consent was signed and placed in the chart. Time-out prior to starting the procedure was performed. The areas over the bilateral trapezius muscles were cleansed with alcohol. 1 Sites in each trapezius muscle injected with a 27 gauge 1.5 in needle with myofascial spasm. Patient tolerated the procedure well, localized bleeding was controlled. Patient monitored in the clinic for 15 minutes for complications. Patient was discharged home with instructions to apply ice to the back of their head as needed. [id number]-[id number] Point Injection 1 or 2 sites All charges added?: Procedure code (CPT) selection complete Office Meds bupivacaine (PF) 0.25 % (2.5 mg/mL) injection solution Performing Provider: Saima Blackwell CNP Performing Location: [facility] [place] [facility] Administered by: Saima Blackwell CNP on 05/05/25 09:22 Dose Route Admin Location Dispensed Lot Number Expiration Date [facility] [employer] 4 mL Infiltration 10 mL [id number] [employer] Total Dispensed Waste 10 mL 60 % Assessment & Plan Assessment & Plan (1) Trigger point of shoulder region: Code(s): M25.519 - Pain in unspecified shoulder Category: Medical (2) Chronic migraine without aura without status migrainosus, not intractable: Code(s): G43.709 - Chronic migraine without aura, not intractable, without status migrainosus Category: Medical (3) Muscle pain, myofascial: Code(s): M79.18 - Myalgia, other site Category: Medical (4) Migraine: Code(s): G43.909 - Migraine, unspecified, not intractable, without status migrainosus Category: Medical Plan Charity is a 54-year-old female patient who follows in the clinic for chronic migraine headaches. She has undergone several medication trials in the past including Botox therapy, amitriptyline, eletriptan, and Ubrelvy. She is currently taking amitriptyline 75 mg nightly and Emgality injections monthly. She does have significant trigger points on exam and did respond well to trigger point injections. Emgality has seemingly not been substantially helpful for her migraine prevention. She is looking to trial another alternative agent. We discussed options and she would like to move forward with a trial of Vyepti. She has a 1st infusion tomorrow. In the meantime, we should continue trigger point injections given that she has responded well to these. I will see her again in 1 month for repeat trigger point injections if needed. If she is feeling better after the Vyepti, we can start doing the trigger point injections only on an as-needed basis. -start a trial of Vyepti infusions every 3 months (1st infusion is scheduled for tomorrow) -return to the clinic in 1 month for possible repeat trigger point injections -can continue Ubrelvy as needed for acute migraine therapy (sample given in office today lot number [id number], expiration ) Orders: Orders AMB Trigger Point Injection Today G43.709 - Chronic migraine without aura, not intractable, without status migrainosus, M25.519 - Pain in unspecified shoulder, M79.18 - Myalgia, other site Coding Level of Care Code Est Pt Level 3 (21952) Diagnoses Trigger point of shoulder region M25.519 Chronic migraine without aura without status migrainosus, not intractable G43.709 Muscle pain, myofascial M79.18 Migraine G43.909 CPT Codes Therapeutic Injection - Ther Injection 1: [id number] Point Injection 1 or 2 sites ([id number])
== END 2025-05-05 09:43 | disposition home or self-care (01) ==
LOC: HO.HSM 08:51
PROVIDERS: PCP Family Medicine; Visit Provider Nurse Practitioner
DX: M25.511 Pain in right shoulder (principal); G43.709 Chronic migraine without aura, not intractable, without status migrainosus; M79.18 Myalgia, other site; G43.909 Migraine, unspecified, not intractable, without status migrainosus; M25.512 Pain in left shoulder
CPT/HCPCS: 20552; 99213

== ENCOUNTER → 2025-05-05 08:51 | Outpatient (BNVA) | payer MEDICARE, OTHER, SELFPAY | PROVIDERS: PCP Family Medicine; Visit Provider Nurse Practitioner | DX: G43.709 Chronic migraine without aura, not intractable, without status migrainosus (principal); M25.519 Pain in unspecified shoulder; M79.18 Myalgia, other site | CPT/HCPCS: 20552; 99212; J0665 ==